=== PATIENT | female | born 1960 | race Caucasian/White ===

== ENCOUNTER 2016-08-27 17:08 | Inpatient (IN) ==
[2016-08-27] MEDS ORDERED: VANCOMYCIN 1 GM/NS 1 GM/250 ML IVPB IV SCH (18:00)
[2016-08-27] MEDS ORDERED: NS 1,000 ML IV ONE (18:32)
[2016-08-27 19:17] LABS: MANUAL DIFF NEEDED? NO
[2016-08-27 19:23] LABS: BASO% 0.3 % (0.0-0.8); EOS# 0.09 X1000 (0.0-0.7); EOS% 0.8 % (0.0-10.0); HEMATOCRIT 32.1 % (37.0-47.0); HEMOGLOBIN 10.9 g/dL (12.0-16.0); IMM GRAN# 0.02 X1000 (0.0-0.04); IMM GRAN% 0.2 % (0.0-0.5); LYMPH# 2.54 X1000 (1.2-3.4); LYMPH% 22.4 % (20.5-51.1); MCH 29.1 PG (27-31); MCV 85.6 FL (81-99); MONO# 1.11 X1000 (0.11-0.59); MONO% 9.8 % (1.7-9.3); MPV 9.7 FL (7.4-10.4); NEUT% 66.5 % (42.2-75.2); PLT 349 X1000 (130-400); RBC 3.75 XMIL (4.2-5.4)
[2016-08-27 19:34] LABS: HEMOGLOBIN A1C 9.6 % (4.8-6.0)
[2016-08-27 19:38] LABS: INR 0.94; PROTIME 9.8 Seconds (9.2-11.7)
[2016-08-27 19:46] LABS: CALCIUM 9.2 mg/dL (8.8-10.2); POTASSIUM 4.2 mmol/L (3.5-5.1)
[2016-08-27] MEDS: NS 1,000 ML IV SCH ×2 (20:05→23:56)
[2016-08-27] MEDS: MERREM 1 GM in NS 50 ML IV SCH (20:05)
[2016-08-27] MEDS: SODIUM CHLORIDE 0.9% INJ SCH (20:06)
[2016-08-27] MEDS: PROTONIX IV SCH (20:06)
[2016-08-27] MEDS: TYLENOL PO PRN (20:06)
--- NOTE | 2016-08-27 20:12 | CONSULTATION ---
DATE OF CONSULTATION: 08/27/2016 CONSULTING PHYSICIAN: Quoc Bravo MD CONSULTING REASON: Diabetic management. HISTORY OF PRESENT ILLNESS: Ms. Foley is a 56-year-old female with a history of hypertension, diabetes mellitus, multiple complications from diabetes, including previous toe amputations, right eye blindness, and diabetic neuropathy, who was [facility] here [facility] with a diabetic ulcer of her right 2nd toe. The symptoms began yesterday. She had some right toe pain and then that progressed to right foot swelling, chills, subjective fever and nausea. She came today to [facility] and Dr. Bravo sent her here for definitive evaluation and IV antibiotics. She has no chest pain. No shortness of breath. She denies any abdominal pain today. There is no vomiting today. She denies any dysuria, but she does report right lower extremity pain and swelling. We are currently awaiting multiple labs and diagnostics Initial vital signs show that she has a temperature of 100.6 degrees with a pulse rate of 118, giving her the diagnosis of sepsis. Blood cultures and lactic acid have been ordered, and we are going to initiate IV fluids per basic sepsis protocol. PAST MEDICAL HISTORY: 1. Diabetes mellitus. 2. Diabetic neuropathy. 3. Right eye blindness. 4. Hypertension. 5. Hyperlipidemia. 6. History of Robertson palsy. 7. GERD. PAST SURGICAL HISTORY: Partial hysterectomy, eye surgery, and toe amputations on the right. SOCIAL HISTORY: The patient denies tobacco, alcohol or drug use. She is single and has no children. She lives with her sister. ALLERGIES: To albuterol, penicillin, and Compazine. HOME MEDICATIONS: Currently being compiled. REVIEW OF SYSTEMS: A 14-point review of systems was obtained and found to be negative with the exception of the HPI. PHYSICAL EXAMINATION: Vital Signs: Blood pressure is 178/58, heart rate 118, inspiratory rate 20, and O2 saturation 96% on room air. Temperature is 100.6 degrees. General: This is a morbidly obese female, lying in hospital bed, and in no acute distress. Neurologic: The patient is awake, alert, oriented. She follows commands without focal deficits. HEENT and Neck: Head is atraumatic and normocephalic. Her left pupil is equal, round, reactive to light. Pupil on the right is fixed secondary to blindness. There is no JVD. Chest: Clear to auscultation bilaterally. Cardiovascular: Regular rate and rhythm. S1 and S2 are noted. No murmurs, gallops, clicks, rubs. Gastrointestinal: Soft, nondistended, nontender. Bowel sounds are positive. Extremities: Right lower extremity, on the right 2nd toe is an ulceration that is on the tip of her toe with ecchymosis and limited breakdown. No eschar tissue is noted. There is some serosanguineous drainage on the dressing. Right lower extremity shows 1+ edema, and pulses are palpable bilaterally. Left lower extremity is without edema, clubbing or cyanosis. DIAGNOSTIC DATA: Currently pending. ASSESSMENT AND PLAN: 1. Sepsis: The patient meets criteria with fever and tachycardia and source of foot ulcer. Blood cultures have been ordered. We are going to order fluids, check a full sets of labs including lactic acid and monitor closely. 2. Diabetic foot ulcer: As above, we will obtain cultures and start broad- spectrum antibiotics. 3. Diabetes mellitus: Check a hemoglobin A1c. Add pattern sugars and sliding scale insulin. Add any home insulin she takes as well. 4. Hypertension: Chronic and stable, continue her home medications. We are going to make sure and check renal function as well as she is on lisinopril and hydrochlorothiazide. 5. Hyperlipidemia: Chronic and stable, continue her home medications and check a lipid panel in the morning. 6. Gastroesophageal reflux disease: Chronic and stable. We will make sure she is on a proton pump inhibitor. 7. Diabetic neuropathy: Chronic and stable, continue her home medications. 8. Deep vein thrombosis prophylaxis. We will add Lovenox pending her renal function. We would like to thank you for this consultation. We will continue to follow along with you. Dictated by TAYLOR Mendoza for Dc Ortez MD cc: TAYLOR Mendoza MD Robert C. Walker, MD [facility]USManjula
[2016-08-27] MEDS: HUMALOG SUBQ SCH (20:23)
[2016-08-27] MEDS ORDERED: PATIENT'S OWN MED BOTH EYES SCH (21:00)
[2016-08-27] MEDS ORDERED: INSULIN PEN NEEDLES ONE (21:25)
[2016-08-27] MEDS: LEVEMIR SUBQ SCH (21:33)
[2016-08-27] MEDS: PRED FORTE 1% OPH SUSPENSION BOTH EYES SCH (21:34)
[2016-08-27] MEDS: OCUFLOX 0.3% OPH SOLUTION BOTH EYES SCH (21:34)
[2016-08-27] MEDS: DESYREL PO SCH (21:35)
[2016-08-27] MEDS: ZANAFLEX PO SCH (21:35)
[2016-08-27] MEDS: PRAVACHOL PO SCH (21:35)
[2016-08-28] MEDS: NS 1,000 ML IV SCH (02:01)
[2016-08-28 02:40] LABS: URINE CULTURE NEEDED? NO; URINE MICRO REVIEW NEEDED? NO; URINE SOURCE CLEAN CATCH
[2016-08-28 02:41] LABS: BILIRUBIN URINE NEGATIVE (NEGATIVE); BLOOD URINE MODERATE (NEGATIVE); COLOR YELLOW; GLUCOSE URINE NEGATIVE (NEGATIVE); LEUKOCYTES URINE NEGATIVE (NEGATIVE); NITRITE URINE NEGATIVE (NEGATIVE); PROTEIN URINE 200 mg/dL (NEGATIVE); SP GRAVITY URINE 1.012; TURBIDITY URINE CLEAR (CLEAR); UROBILINOGEN URINE NORMAL (NORMAL)
[2016-08-28 02:43] LABS: UR EPITHELIAL CELLS <10 /HPF (<10); URINE BACTERIA NEGATIVE /HPF; URINE RBC 20-40 /HPF (<10); URINE WBC <10 /HPF (<10)
[2016-08-28] MEDS: MERREM 1 GM in NS 50 ML IV SCH ×3 (05:48→22:18)
[2016-08-28] MEDS: SYNTHROID PO SCH (06:44)
[2016-08-28] MEDS: HUMALOG SUBQ SCH ×4 (06:44→20:47)
[2016-08-28 06:45] LABS: HEMATOCRIT 32.6 % (37.0-47.0); HEMOGLOBIN 10.8 g/dL (12.0-16.0); MCH 28.8 PG (27-31); MCHC 33.1 g/dL (33-37); MCV 86.9 FL (81-99); MPV 9.7 FL (7.4-10.4); RBC 3.75 XMIL (4.2-5.4)
[2016-08-28] MEDS ORDERED: VANCOMYCIN IV PER PHARMACY MISC SCH (07:00)
[2016-08-28 07:11] LABS: AGAP 13; BUN 23 mg/dL (8-22); CHLORIDE 101 mmol/L (98-107); COSMO 276; HDL 32 mg/dL (45-65); LDL 54 mg/dL; POTASSIUM 3.6 mmol/L (3.5-5.1); SODIUM 136 mmol/L (136-145); TCO2 22 mmol/L (25-35); TRIGLYCERIDES 214 mg/dL (35-135); VLDL 43 mg/dL
[2016-08-28] MEDS: TYLENOL PO PRN ×3 (07:30→21:30)
[2016-08-28] MEDS ORDERED: VANCOMYCIN 1 GM/NS 1 GM/250 ML IVPB IV SCH (09:00)
[2016-08-28] MEDS ORDERED: HYDROCHLOROTHIAZIDE PO SCH ×2 (09:00)
[2016-08-28] MEDS ORDERED: PRINIVIL PO SCH (09:00)
[2016-08-28] MEDS: PRED FORTE 1% OPH SUSPENSION BOTH EYES SCH ×4 (09:49→20:49)
[2016-08-28] MEDS: CYMBALTA PO SCH ×2 (09:49→20:47)
[2016-08-28] MEDS: OCUFLOX 0.3% OPH SOLUTION BOTH EYES SCH ×4 (09:49→20:49)
[2016-08-28] MEDS: LYRICA PO SCH ×3 (10:32→16:25)
--- NOTE | 2016-08-28 11:01 | PROGRESS NOTE ---
DATE: 08/28/2016 SUBJECTIVE: The patient still has some pain in her toe. Subjective fevers overnight. OBJECTIVE: Vital signs: T-max 100.6, 98.5 this morning, pulse 86, blood pressure 151/64, oxygen saturation 97% on room air. General: She is alert. Skin: Warm and dry. Extremities: Toe on her right foot is still swollen and erythematous with some erythema extending to the distal foot but nothing up the leg. Some slight edema in the foot. It is otherwise warm, well perfused. LABS: I reviewed her labs. White count has normalized at 7, this morning, hematocrit is 32, creatinine is 1.3, it was 1.4 yesterday, glucose 96. ASSESSMENT AND PLAN: This is a 56-year-old diabetic female admitted with a diabetic infected toe. She is on antibiotics. This may be gradually improving. Her white count is down at least. She does have some chronic renal insufficiency and I have put in a consult for Pharmacy to help dose her vancomycin appropriately. Otherwise, will continue IV antibiotics and monitor her wound. No plans for surgery at this point. cc: MD Quoc Canales MD
[2016-08-28] MEDS: VANCOMYCIN 1,500 MG in NS 250 ML IV SCH (11:48)
[2016-08-28] MEDS: NON-FORMULARY BULK MED BOTH EYES SCH ×2 (11:48→20:52)
--- NOTE | 2016-08-28 11:59 | Diag Imaging Result Document ---
PROCEDURE NAME: CHEST-PORTABLE - 08/27/2016 PORTABLE CHEST X-RAY: COMPARISON: 11/01/2014. FINDINGS: Lung volumes are critically low with some basilar crowding. Otherwise, no focal infiltrates. Heart size is grossly normal. IMPRESSION: Critically low lung volumes but, otherwise, no acute disease.
--- NOTE | 2016-08-28 15:04 | Diag Imaging Result Document ---
PROCEDURE NAME: FOOT COMPLETE RIGHT - 08/28/2016 X-RAY RIGHT FOOT, 3 VIEWS: COMPARISON: 10/06/2015. FINDINGS: There has been interval amputation of the 2nd toe entirely. Stable transmetatarsal amputation of the 1st toe. There is severe pedal edema. Severe degenerative changes of the midtarsal joints and degenerative heel spurs. There is fracture of the head of the 3rd metatarsal. No bony erosions. IMPRESSION: Fracture of the head of the 3rd metatarsal. Other significant chronic changes as described above.
[2016-08-28 15:09] LABS: PROTEIN CREAT RATIO 3.4; UR CREAT RANDOM 23.5 mg/dL (11-20); UR PROT RANDOM 78.8 mg/dL
[2016-08-28] MEDS: PRAVACHOL PO SCH (20:45)
[2016-08-28] MEDS: PROTONIX IV SCH (20:46)
[2016-08-28] MEDS: SODIUM CHLORIDE 0.9% INJ SCH (20:46)
[2016-08-28] MEDS: DESYREL PO SCH (20:46)
[2016-08-28] MEDS: ZANAFLEX PO SCH (20:46)
[2016-08-28] MEDS: LEVEMIR SUBQ SCH (20:47)
[2016-08-29] MEDS: MERREM 1 GM in NS 50 ML IV SCH (06:06)
[2016-08-29] MEDS: SYNTHROID PO SCH ×2 (06:06→06:58)
[2016-08-29] MEDS: HUMALOG SUBQ SCH ×4 (06:06→21:19)
[2016-08-29] MEDS: TYLENOL PO PRN ×3 (06:51→21:10)
[2016-08-29 07:54] LABS: HEMATOCRIT 29.5 % (37.0-47.0); HEMOGLOBIN 9.7 g/dL (12.0-16.0); MCH 29.2 PG (27-31); MCHC 32.9 g/dL (33-37); MCV 88.9 FL (81-99); MPV 9.7 FL (7.4-10.4); RBC 3.32 XMIL (4.2-5.4)
[2016-08-29 08:25] LABS: CALCIUM 7.9 mg/dL (8.8-10.2); POTASSIUM 4.2 mmol/L (3.5-5.1)
[2016-08-29] MEDS: CYMBALTA PO SCH (09:29)
[2016-08-29] MEDS: NON-FORMULARY BULK MED BOTH EYES SCH ×2 (09:30→21:13)
[2016-08-29] MEDS: LYRICA PO SCH ×3 (09:30→21:10)
[2016-08-29] MEDS: OCUFLOX 0.3% OPH SOLUTION BOTH EYES SCH ×3 (09:30→21:12)
[2016-08-29] MEDS: PRED FORTE 1% OPH SUSPENSION BOTH EYES SCH ×3 (09:35→21:09)
[2016-08-29] MEDS: HUMULIN R SUBQ SCH ×3 (09:48→16:23)
--- NOTE | 2016-08-29 16:05 | PROGRESS NOTE ---
DATE: 08/29/2016 SUBJECTIVE: Doing okay. Some pain in her toe. OBJECTIVE: Vital signs: No fevers. No tachycardia. Blood pressure 173/78. Extremities: Right foot exam shows a swollen toe. Some erythema locally at the toe but not extending up the foot. Some slight edema. LABS: White count is down to 6, hematocrit 39. Wound culture is showing gram-positive cocci. Creatinine is 1.3. Glucoses are elevated in the 200 to 300s. X-ray of the foot shows a fracture of the distal metatarsal of the third metatarsal in the foot. ASSESSMENT AND PLAN: This is a 56-year-old lady with an infected diabetic toe and also metatarsal head fracture. The toe is stable on antibiotics, not worsening. Her white count has improved. No fevers. Will continue with antibiotics and local wound care. I have added Betadine paint. Regarding the metatarsal fracture, will keep her nonweightbearing on that foot for now but given the acute infection, will treat with antibiotics. It is likely she will progress to need an amputation at some point, but not indicated at this time. Will continue to follow along. cc: MD Quoc Canales MD
[2016-08-29] MEDS: NS 1,000 ML IV SCH (16:25)
--- NOTE | 2016-08-29 16:38 | PROGRESS NOTE ---
DATE: 08/29/2016 SUBJECTIVE: Today Ms. Foley refers to be doing fine. She did not really have any complaints. OBJECTIVE: Vital signs: Blood pressure is 173/78, pulse of 91, respirations 16, temperature is 98.7 degrees. General: Ms. Foley is a 56-year-old female. She is in bed. Did not seem to be in distress. HEENT: Mucosa is pink and moist. Anicteric. Acyanotic. Neck: Supple. Chest: Good air entry bilaterally. No crepitations. No rhonchi. Cardiovascular: Regular rate and rhythm. Abdomen: Distended but nontender. Bowel sounds are present. Extremities: The right big toe and second toe are amputated. The third toe continues to have some ulceration and purulent material to the distal par of it. The entire distal of the right foot is warm and tender. DOUBLE ENDING MACHINE OPERATOR: The patient is alert and oriented x4. Distal pulses are present. Patient is legally blind in the right eye due to dense pains cataract. Left eye has a history of retinal detachment and poor diabetic retinopathy. LABORATORY DATA: WBC 6.42, hemoglobin is 9.7, platelet count is 329,000. Chemistry is reviewed. Creatinine is 1.3 which is the same as yesterday. Glucose is 241. Microbiology: The wound culture from the foot is growing MRSA. An x-ray of the foot yesterday shows a fracture of the head of the 3rd metatarsal. They did not see any bony erosions. ASSESSMENT: 1. Sepsis on presentation due to a diabetic foot. 2. Right diabetic foot with suspicion of osteomyelitis to the right 3rd toe. X-ray is not remarkable except for distal fracture. We will do a bone scan to see if it will scrap picker any infection. 3. Diabetes mellitus with presenting A1c of 9.6. We are going to add 3 times regular insulin to the current regimen. 4. Hypertension, uncontrolled. We are going to add amlodipine for better blood pressure control. 5. Severe diabetic neuropathy. Patient continues on gabapentin. 6. Acute on chronic kidney disease. This is stable. 7. Folate deficiency. We will continue with folate supplements. 8. Hypothyroidism with inadequate supplementation. Synthroid has been increased to 50 mcg daily. GENERAL PLAN: We will continue titrating the insulin for better glucose control. We will continue with the current vancomycin since we know the wound is growing MRSA. We would discontinue the meropenem. We are pending the bone scan to give us some answers. I think eventually patient will probably lose her 3rd toes to bone infection. During the course of next week we will involve the ID specialist once we know the bone scan results. cc: MD Quoc Díaz MD
[2016-08-29] MEDS: DESYREL PO SCH (21:09)
[2016-08-29] MEDS: PROTONIX IV SCH (21:09)
[2016-08-29] MEDS: PRAVACHOL PO SCH (21:09)
[2016-08-29] MEDS: ZANAFLEX PO SCH (21:10)
[2016-08-29] MEDS: NORVASC PO SCH (21:11)
[2016-08-29] MEDS: LEVEMIR SUBQ SCH (21:11)
[2016-08-29] MEDS: VANCOMYCIN 1,500 MG in NS 250 ML IV SCH (22:51)
[2016-08-30] MEDS: TYLENOL PO PRN ×2 (06:41→16:47)
[2016-08-30] MEDS: SYNTHROID PO SCH (06:41)
[2016-08-30] MEDS: HUMALOG SUBQ SCH ×4 (06:42→21:37)
[2016-08-30] MEDS: HUMULIN 70/30 SUBQ SCH (06:44)
[2016-08-30 06:58] LABS: HEMATOCRIT 30.1 % (37.0-47.0); HEMOGLOBIN 9.8 g/dL (12.0-16.0); MCH 28.8 PG (27-31); MCHC 32.6 g/dL (33-37); MCV 88.5 FL (81-99); MPV 9.3 FL (7.4-10.4); RBC 3.4 XMIL (4.2-5.4)
[2016-08-30 07:21] LABS: CALCIUM 8.7 mg/dL (8.8-10.2); POTASSIUM 4.7 mmol/L (3.5-5.1)
[2016-08-30] MEDS ORDERED: HUMULIN 70/30 SUBQ SCH ×3 (09:00→21:00)
[2016-08-30] MEDS: PRED FORTE 1% OPH SUSPENSION BOTH EYES SCH ×5 (09:45→22:09)
[2016-08-30] MEDS: NS 1,000 ML IV SCH ×2 (09:45→11:53)
[2016-08-30] MEDS: OCUFLOX 0.3% OPH SOLUTION BOTH EYES SCH ×5 (09:46→22:09)
[2016-08-30] MEDS: HUMULIN R SUBQ SCH ×3 (09:50→16:58)
[2016-08-30] MEDS: NON-FORMULARY BULK MED BOTH EYES SCH ×2 (09:50→21:38)
[2016-08-30] MEDS: CYMBALTA PO SCH (09:50)
[2016-08-30] MEDS: LYRICA PO SCH ×4 (09:50→21:36)
[2016-08-30] MEDS: NORVASC PO SCH ×2 (09:50→21:36)
--- NOTE | 2016-08-30 12:20 | Diag Imaging Result Document ---
PROCEDURE NAME: 3 PHASE BONE SCAN - 08/30/2016 3-PHASE BONE SCAN: The patient was injected with 29.1 mCi of technetium-99m MDP and there is increased flow and blood pool activity to the distal right foot. There is increased static bone activity in what appears to be the distal interphalangeal joint region of the 3rd toe. Compared to the recent radiographs of 08/28/2016, there is apparent erosion of the head of the 3rd metatarsal. There may also be erosion of the distal portion of the middle phalanx which is only visible on the lateral view. These findings were not present on the previous study of 10/06/2015. IMPRESSION: Possibility of osteomyelitis in the metatarsal or phalanges of the 3rd toe is suggested.
--- NOTE | 2016-08-30 16:05 | PROGRESS NOTE ---
DATE: 08/30/2016 SUBJECTIVE: Today Ms. Foley referred to be doing fine. She denies any shortness of breath or any chest pain. OBJECTIVE: Vital signs: Blood pressure is 159/73, pulse is 94, respirations 16, temperature 98.0 degrees. General: Ms. Foley is a 56-year-old female. She was in bed. She did not seem to be in any distress. HEENT: Mucosa is pink and moist. Anicteric. Acyanotic. Neck: Supple. Chest: Good air entry bilaterally. No crepitations. No rhonchi. Cardiovascular: Regular rate and rhythm. Abdomen: Soft, distended, nontender. Bowel sounds are present. Extremities: About 2+ pedal edema. The right big toe and 2nd toe are surgically amputated. The 3rd toe continues to have some ulceration and purulent discharge from the distal part of it. The entire distal foot is still minimally swollen and red. INTEGRATION MANAGER: The patient is alert and oriented. She is legally blind in the right eye due to dense cataract. The left eye has a history of retinal detachment and poor diabetic retinopathy. Of note, the lower extremity also has sensation impairment in a glove stocking pattern. DIAGNOSTIC STUDIES: A bone scan which was done this morning shows that there is an increased static bone activity of what appears to be the distal interphalangeal joint of the 3rd toe. There is erosion of the head of the 3rd metatarsal and there is a possibility of osteomyelitis in the metatarsal or phalanges of the 3rd toe. ASSESSMENT: 1. Sepsis on presentation due to diabetic foot. The patient is now clinically stable. 2. Right diabetic foot with osteomyelitis to the right 3rd toe. Nuclear scan of the toe is consistent with osteomyelitis and I think she will need amputation of the toe and also I would recommend that we involve ID since the patient will probably be needing antibiotics for some time with follow up. 3. Diabetes mellitus with presenting A1c of 9.6. We went up on the patient's insulin requirement. Put her back on her 70/30 with adjusted doses. Will follow up on her glucose and make pertinent adjustments. 4. Hypertension is better controlled today since we added the amlodipine. 5. Severe diabetic neuropathy. Patient continues on gabapentin. 6. Acute on chronic kidney disease. Creatinine continues to be stable. 7. Folate deficiency. We will continue with the folate supplements. 8. Hypothyroidism with inadequate thyroid supplementation. We have gone up on the patient's Synthroid to 50 mcg daily. She will need to repeat the thyroid function test in about 2 weeks. 9. Diabetic retinopathy with legal blindness in the right eye, noted. PLAN: So in general, Ms. Foley is a patient actually of Dr. Bravo that we have been consulted on. The workup has shown that she has osteomyelitis of the 3rd digit of the toe and recommendation will be to amputate. The culture from the wound has shown MRSA, so she will need to be on vancomycin and I have discontinued the other antibiotics. I would recommend ID to see the patient as well, especially for long-term follow up. I will be waiting surgery for their further recommendations. In terms of the diabetes, we have made some changes to her insulin needs and will follow up with her glucose checks. cc: MD Quoc Díaz MD
[2016-08-30] MEDS: SODIUM CHLORIDE 0.9% INJ SCH (21:35)
[2016-08-30] MEDS: PROTONIX IV SCH (21:35)
[2016-08-30] MEDS: PRAVACHOL PO SCH (21:35)
[2016-08-30] MEDS: DESYREL PO SCH (21:36)
[2016-08-30] MEDS: ZANAFLEX PO SCH (21:36)
[2016-08-31] MEDS: SYNTHROID PO SCH (07:21)
[2016-08-31] MEDS: HUMALOG SUBQ SCH ×4 (07:21→21:41)
[2016-08-31] MEDS: HUMULIN 70/30 SUBQ SCH (07:22)
[2016-08-31] MEDS: HUMULIN R SUBQ SCH ×3 (08:13→16:41)
[2016-08-31] MEDS: CYMBALTA PO SCH ×3 (08:13→12:01)
[2016-08-31] MEDS: LYRICA PO SCH ×3 (08:14→21:42)
[2016-08-31] MEDS ORDERED: NAROPIN 0.5% ONE (08:45)
[2016-08-31] MEDS ORDERED: DIPRIVAN 1% ONE (09:45)
[2016-08-31] MEDS ORDERED: FENTANYL ONE (09:45)
[2016-08-31] MEDS ORDERED: LANTUS SUBQ SCH (10:15)
--- NOTE | 2016-08-31 10:17 | OPERATIVE NOTE ---
PROCEDURE DATE: 08/31/2016 PROCEDURE PERFORMED: Amputation, right 3rd toe. SURGEON: Quoc Bravo MD TUMBLE TAILSTOCK TURRET LATHE OPERATOR: Matias Marshall RN PREOPERATIVE DIAGNOSES: 1. Right 3rd toe diabetic toe infection. 2. Osteomyelitis. POSTOPERATIVE DIAGNOSES: 1. Right 3rd toe diabetic toe infection. 2. Osteomyelitis. DESCRIPTION OF PROCEDURE: Satisfactory digital block was achieved, and satisfactory monitoring anesthesia care was established. IV sedation was accomplished. The right foot was prepped and draped in a sterile fashion. We made an incision around the base of the 3rd toe, extending the incision anteriorly proximally. We carried our incision down to the metatarsophalangeal joint and amputated the toe through that joint. We then used a rongeur to take off the distal metatarsal down the viable metatarsal shaft. We removed the surrounding tendinous tissue. We achieved satisfactory hemostasis with electrocautery. We irrigated out the wound copiously. We placed 3-0 Polysorb in the subcutaneous tissue, and then closed the skin with 3-0 nylon simple stitches. Xeroform, sterile 4 x 4's, and a Kerlix were applied. She tolerated it well. She was sent to the recovery room in satisfactory condition. cc: Quoc Bravo MD
[2016-08-31] MEDS ORDERED: NORCO-7.5 PO PRN (10:30)
[2016-08-31] MEDS: VANCOMYCIN 1,500 MG in NS 250 ML IV SCH (11:58)
[2016-08-31] MEDS: NON-FORMULARY BULK MED BOTH EYES SCH ×2 (11:59→21:47)
[2016-08-31] MEDS: OCUFLOX 0.3% OPH SOLUTION BOTH EYES SCH ×4 (11:59→16:44)
[2016-08-31] MEDS: PRED FORTE 1% OPH SUSPENSION BOTH EYES SCH ×4 (11:59→21:42)
[2016-08-31] MEDS: NORVASC PO SCH ×2 (12:01→21:42)
[2016-08-31] MEDS ORDERED: INSULIN PEN NEEDLES ONE (12:07)
[2016-08-31] MEDS: TYLENOL PO PRN ×2 (12:17→21:47)
[2016-08-31] MEDS ORDERED: NS 250 ML ONE (13:03)
[2016-08-31] MEDS ORDERED: ZOFRAN ONE (13:03)
[2016-08-31] MEDS ORDERED: EXTENSION SET 32 IN 4522 ONE (13:03)
[2016-08-31] MEDS ORDERED: XYLOCAINE-MPF 2% ONE (13:03)
[2016-08-31] MEDS ORDERED: ANESTHESIA PB SET 88 IN 5742 ONE (13:03)
--- NOTE | 2016-08-31 13:41 | PROGRESS NOTE ---
DATE: 08/31/2016 SUBJECTIVE: The patient is feeling fine. She denies any complaint today. OBJECTIVE: Vital Signs: Temperature 98.2 degrees, heart rate 91, respiratory rate 16, blood pressure 166/78. O2 saturation 94% on room air. General: This is a 56-year-old, female lying in bed in no acute distress. HEENT: Head is normocephalic and atraumatic. Anicteric sclerae and pale conjunctivae. Mucous membranes moist. Neck supple. No JVD noted. No carotid bruits. No lymphadenopathy. No thyromegaly. Cardiovascular: S1, S2 heard. No murmurs, gallops, or rubs. Regular rate and rhythm. Respiratory: Clear bilaterally to auscultation. No work of breathing or using accessory muscles. Abdomen is soft, nontender to palpation. Bowel sounds present. No organomegaly. Extremities 2+ pitting edema in both lower extremities with the right big toe and 2nd toe surgically amputated. There is some ulceration on the right 3rd toe with purulent discharge. Neurologic: Patient alert and oriented x3. Legally blind in the right eye. Move 4 extremities. LABORATORY DATA: White cell count 7.21, hemoglobin 9.8, hematocrit 30.1, platelets 369,000. No BMP today. ASSESSMENT AND PLAN: 1. Right diabetic foot with osteomyelitis to the right 3rd toe. The patient is going to have surgery today. Patient on IV antibiotics. We are going to consult Dr. Quezada from Infectious Disease to see for how long this patient will need antibiotics and for future followup. 2. Diabetes mellitus, type 2, uncontrolled, definitely with hemoglobin A1c of 9.6. With this 3 times per day insulin is kind of difficult to control it, so we have decided to change basal insulin to Lantus 35 units subcutaneous daily, and we will continue checking glucometers every 4 hours before meals and also at bedtime. 3. Hypertension. Blood pressure is under control. We have added amlodipine to her current treatment, and she is doing fine. 4. Severe diabetic neuropathy. We will continue with gabapentin. 5. Enwmf-fd-pcxmtat kidney disease. Creatinine around baseline and also stable. 6. Folate deficiency. We will continue with Kaplan supplement. 7. Hypothyroidism. Patient is on Synthroid 50 mcg daily. We need to check a TSH in a couple of weeks. 8. Diabetic retinopathy with legal blindness in the right eye, aware. cc: MD Quoc Clark MD
[2016-08-31] MEDS: LANTUS SUBQ SCH (13:45)
[2016-08-31] MEDS: PROTONIX IV SCH (21:41)
[2016-08-31] MEDS: SODIUM CHLORIDE 0.9% INJ SCH (21:41)
[2016-08-31] MEDS: DESYREL PO SCH (21:42)
[2016-08-31] MEDS: ZANAFLEX PO SCH (21:42)
[2016-08-31] MEDS: PRAVACHOL PO SCH (21:42)
[2016-09-01] MEDS: SYNTHROID PO SCH (06:30)
[2016-09-01] MEDS: HUMALOG SUBQ SCH ×4 (06:31→21:18)
[2016-09-01] MEDS: OCUFLOX 0.3% OPH SOLUTION BOTH EYES SCH ×3 (06:35→13:49)
[2016-09-01 06:59] LABS: CALCIUM 8.4 mg/dL (8.8-10.2); POTASSIUM 4.8 mmol/L (3.5-5.1)
[2016-09-01] MEDS: HUMULIN R SUBQ SCH ×2 (07:29→13:48)
--- NOTE | 2016-09-01 09:29 | CONSULTATION ---
DATE OF CONSULTATION: 09/01/2016 CONCLUSION: The patient is status post amputation of the right 3rd toe including partial amputation of the metatarsal. Methicillin-resistant Staph aureus has been isolated from the patient's wound. RECOMMENDATIONS: It appears that all of the infected bone has been resected. The patient's creatinine is 1.2 with a GFR of 47. I think it would be reasonable to continue antibiotics but because of the slight increase in creatinine and decrease in GFR , I have discontinued vancomycin and started the patient on p.o. doxycycline. DISCUSSION: The patient was admitted to the hospital with osteomyelitis of the 3rd toe. Dr. Bravo has amputated that toe and part of the metatarsal. He amputated down to what appeared to be healthy, non-infected bone. LABORATORY STUDIES: Show a CBC with a white count of 7,210, hemoglobin 9.8, and platelet count 369,000. Patient's creatinine is 1.2. The GFR is 47. Culture from the toe grew methicillin- resistant Staph aureus. PAST MEDICAL HISTORY/REVIEW OF SYSTEMS: Eyes and ears: The patient has decreased vision. Hearing is good. Neck: No stiffness. Respiratory: No cough or shortness of breath. Cardiovascular: No chest pain or palpitations. GI: No nausea, vomiting, or diarrhea. : No dysuria or flank pain. Endocrine: The patient has diabetes but not thyroid disease. Neurologic: The patient has decreased sensation in her legs. She is not having seizures. Skin: No rashes. The remainder of the patient's review of systems was completed and was negative. ORNAMENT STITCHER HISTORY: She has never been . She has had a hysterectomy. PREVIOUS HOSPITALIZATIONS AND OPERATIONS: She has had a hysterectomy. Other than that, she cannot think of any other time that she was in the hospital or had surgery. MEDICAL DISEASES: Positive for diabetes mellitus and hypertension. INFECTIOUS DISEASE HISTORY: Positive for UTI. FAMILY HISTORY: Positive for cancer, diabetes mellitus, hypertension, myocardial infarction, and stroke. SOCIAL HISTORY: [place] She is single. She lives with her sister. She is disabled. She has no pets at home. ALLERGIES: The patient has allergies to ProAir, penicillin, and Compazine. The allergy to penicillin is described as hives. HOME MEDICATIONS: Include the following. Farxiga, tolterodine tartrate, Zanaflex, sucralfate, glyburide, Prozac, Pravachol, Lyrica, insulin, Remeron, trazodone, and insulin. PHYSICAL EXAMINATION: Vital Signs: Temperature is 97.9 degrees, pulse 83, respirations 21, blood pressure is 157/72. General: This is a somewhat ill-appearing, middle-aged female who is overweight but other than that she is in no acute distress. Head, eyes, ears , nose, and throat: She can hear my spoken words. She has a decrease in her vision. Neck: No stiffness. Lungs: Clear to auscultation. Cardiovascular: Heart rate is regular. Peripheral pulses are palpable. Abdomen: Soft and nontender. Extremities: The right foot had a dressing around it. The dressing is intact. Neurologic: Patient is awake. She can move her extremities. There is no tremor. She has diminished sensation in her legs. Integument: No rash noted. Thank you for the consult. cc: MD Quoc Artis MD MTDManjula
[2016-09-01] MEDS: LYRICA PO SCH ×4 (09:38→21:19)
[2016-09-01] MEDS: NORVASC PO SCH ×2 (09:38→21:20)
[2016-09-01] MEDS: PRED FORTE 1% OPH SUSPENSION BOTH EYES SCH ×4 (09:39→21:21)
[2016-09-01] MEDS: NON-FORMULARY BULK MED BOTH EYES SCH ×2 (09:39→21:20)
[2016-09-01] MEDS: CYMBALTA PO SCH (09:41)
[2016-09-01] MEDS: TYLENOL PO PRN (09:46)
[2016-09-01] MEDS: DOXYCYCLINE PO SCH ×2 (09:46→21:20)
[2016-09-01] MEDS: LANTUS SUBQ SCH (10:38)
[2016-09-01] MEDS ORDERED: LANTUS SUBQ ONE (10:51)
--- NOTE | 2016-09-01 16:09 | PROGRESS NOTE ---
DATE: 09/01/2016 SUBJECTIVE: Patient is feeling fine. Denies any complaint today. OBJECTIVE: Vital Signs: Temperature 98.1 degrees, heart rate 82, respiratory rate 18, blood pressure 155/68, O2 saturation 98% on room air. General: This is a 56-year-old female lying in bed, in no acute distress. HEENT: Head is normocephalic, atraumatic. Neck: Supple. No JVD noted. Cardiovascular: S1, S2 heard. No murmurs, gallops, or rubs. Regular rate and rhythm. Respiratory: Clear bilaterally to auscultation. No work of breathing or using accessory muscles. Abdomen: Soft, nontender to palpation. Bowel sounds present. No organomegaly. Extremities: 2+ pitting edema in both lower extremities with right foot covered by dressing. Neurological: Patient alert, oriented x3. Legally blind in the right eye. Moves 4 extremities. LABORATORY DATA: The BMP shows a creatinine 1.2 and glucose 268. ASSESSMENT AND PLAN: 1. Right diabetic foot ulcer with osteomyelitis to the right 3rd toe. That toe was surgically removed yesterday by Dr. Bravo. The patient was on vancomycin and we have consulted Dr. Quezada from Infectious Disease. So, he has decided to change the vancomycin to doxycycline 100 p.o. b.i.d. We will continue with same management. 2. Diabetes mellitus type 2. We have mentioned that the hemoglobin A1c is 9.6, so it is uncontrolled diabetes mellitus. While we were giving her 70/30 insulin we are still not able to control the diabetes, so we have switched her to Lantus 35 units subcutaneous daily. We are going to continue checking Accu-Cheks before meals and also at bedtime. 3. Hypertension. Blood pressure is under control. We will continue with the same management. 4. Severe diabetic neuropathy. We will continue with gabapentin. 5. Acute on chronic kidney disease. Creatinine around baseline. We will continue with the same management. 6. Folate deficiency. We will continue with Kaplan supplementation. 7. Hypothyroidism. Stable. We will continue with Synthroid 50 mcg p.o. daily. 8. Diabetic retinopathy with blindness in right eye. Aware. cc: MD Quoc Clark MD
[2016-09-01] MEDS: NS 1,000 ML IV SCH (16:11)
[2016-09-01] MEDS ORDERED: CYMBALTA PO SCH (21:00)
[2016-09-01] MEDS: DESYREL PO SCH (21:19)
[2016-09-01] MEDS: ZANAFLEX PO SCH (21:19)
[2016-09-01] MEDS: PROTONIX IV SCH (21:20)
[2016-09-01] MEDS: PRAVACHOL PO SCH (21:20)
[2016-09-01] MEDS: SODIUM CHLORIDE 0.9% INJ SCH (21:20)
[2016-09-02 05:55] VITALS: BP 152/69
[2016-09-02] MEDS: SYNTHROID PO SCH (06:11)
[2016-09-02] MEDS: HUMALOG SUBQ SCH ×2 (06:13→12:11)
[2016-09-02 06:46] LABS: MANUAL DIFF NEEDED? NO
[2016-09-02 06:57] LABS: BASO% 0.4 % (0.0-0.8); EOS# 0.09 X1000 (0.0-0.7); EOS% 1.6 % (0.0-10.0); HEMATOCRIT 34.6 % (37.0-47.0); HEMOGLOBIN 11.4 g/dL (12.0-16.0); IMM GRAN# 0.03 X1000 (0.0-0.04); IMM GRAN% 0.5 % (0.0-0.5); LYMPH# 1.55 X1000 (1.2-3.4); LYMPH% 27.6 % (20.5-51.1); MCH 28.8 PG (27-31); MCHC 32.9 g/dL (33-37); MCV 87.4 FL (81-99); MONO# 0.55 X1000 (0.11-0.59); MONO% 9.8 % (1.7-9.3); NEUT% 60.1 % (42.2-75.2); PLT 453 X1000 (130-400); RBC 3.96 XMIL (4.2-5.4)
[2016-09-02 07:14] LABS: POTASSIUM 4.8 mmol/L (3.5-5.1)
[2016-09-02] MEDS ORDERED: LANTUS SUBQ SCH (09:00)
[2016-09-02] MEDS: NS 1,000 ML IV SCH (09:57)
[2016-09-02] MEDS: PRED FORTE 1% OPH SUSPENSION BOTH EYES SCH ×2 (09:57→14:11)
[2016-09-02] MEDS: NORVASC PO SCH (09:58)
[2016-09-02] MEDS: LYRICA PO SCH (09:58)
[2016-09-02] MEDS: NON-FORMULARY BULK MED BOTH EYES SCH (09:59)
[2016-09-02] MEDS: DOXYCYCLINE PO SCH (09:59)
--- NOTE | 2016-09-02 13:50 | PROGRESS NOTE ---
DATE: 09/02/2016 SUBJECTIVE: Patient reports feeling fine. Denies any fever, chills, nausea, vomiting. OBJECTIVE: Vital Signs: Temperature 97.7 degrees, heart rate 70, respiratory rate 18, blood pressure 152/69, O2 saturation 97% on room air. General Examination: This is a 56-year-old, female lying in bed, in no acute distress. HEENT: Head is normocephalic, atraumatic. Anicteric sclerae and pale conjunctivae. Mucous membranes moist. Neck: Supple. No JVD noted. No carotid bruits. No lymphadenopathy. No thyromegaly. Cardiovascular: S1, S2 heard. No murmurs, gallops, or rubs. Regular rate and rhythm. Respiratory: Clear bilaterally to auscultation. No work of breathing or using accessory muscles. Abdomen: Soft, nontender to palpation. Bowel sounds present. No organomegaly. Extremity: 2+ pitting edema in both lower extremities with right foot covered by dressing. Neurological: Patient is alert and oriented x3. Able to move 4 extremities. Legally blind in the right eye. LABORATORY DATA: Reviewed. ASSESSMENT AND PLAN: 1. Right diabetic foot ulcer with osteomyelitis of the right 3rd toe as per Dr. Bravo. They have removed that toe yesterday. They are planning to discharge him today. He was on doxycycline 100 mg p.o. b.i.d. We will continue with the same management. 2. Diabetes mellitus type 2. We know that this diabetes is not well controlled. Hemoglobin A1c actually was 9.6. So we are going to continue with Lantus. In this case, and she will need 50 units daily. I think the glucose is still high because of this infection and because of the stress of the surgery so we are going to continue upon discharge that dose of medication and recommended a followup with primary care physician. 3. Hypertension. Blood pressure is under control. We will continue with the same management. 4. Severe diabetic neuropathy. We will continue with gabapentin. 5. Acute on chronic kidney disease. Creatinine is around baseline. We will continue with the same management. 6. Folate deficiency. We will continue with folate supplementation. 7. Hypothyroidism stable. 8. Diabetic retinopathy with blindness in the right eye. Aware. The patient is doing fine so, she is going to be discharged by her primary doctor Dr. Bravo. Thanks for allowing us to participate in the care of this patient. cc: MD Quoc Clark MD
--- NOTE | 2016-09-11 15:41 | HISTORY AND PHYSICAL ---
CHIEF COMPLAINT: Infected right 3rd toe. HISTORY: This is a 56-year-old, diabetic female followed in the wound clinic who presented with infection, erythema of her right 3rd toe. She had already lost her 1st and 2nd toes on that foot. She is admitted for IV antibiotics in anticipation of probable amputation. PAST HISTORY: Pertinent for insulin-dependent diabetes, it is poorly controlled. She also has hypercholesterolemia. MEDICATIONS: At home include Farxiga 10 mg daily, sucralfate 1 g q.i.d., Humulin 70/30 insulin 100 units daily, hydrochlorothiazide 12.5 daily, fluoxetine 40 mg daily, trazodone 100 mg at bedtime, pravastatin 40 mg daily. ALLERGIES: Penicillin, albuterol, and Compazine. SOCIAL HISTORY: She drinks 1 beer a month. She is a former smoker but now does not smoke cigarettes. FAMILY HISTORY: Pertinent for heart disease, hypercholesterolemia, and diabetes. REVIEW OF SYSTEMS: Pertinent for decreased visual acuity. PHYSICAL EXAMINATION: VITAL SIGNS: Afebrile. Heart rate was 118, respiratory rate 20, blood pressure 170/58. Her temperature was 100.6 degrees. LUNGS: Clear. HEART: Regular rate and rhythm. ABDOMEN: Soft. Femoral pulses are present. No pedal pulses are present. She has an absent 1st and 2nd toe on the right foot and erythematous, swollen, draining at the right 3rd toe. No lesions are noted on the left. ASSESSMENT: Diabetic foot infection with infected right 3rd toe. PLAN: Admission and IV antibiotics. cc: Quoc Bravo MD
--- NOTE | 2016-09-11 16:20 | DISCHARGE SUMMARY ---
ADMISSION DATE: 08/27/2016 DISCHARGE DATE: 09/02/2016 PRIMARY DISCHARGE DIAGNOSIS: Diabetic right third toe infection. PRIMARY PROCEDURE: Amputation of the right third toe. HISTORY: This is a 56-year-old with poorly controlled diabetes who presented to the [facility] with a wound infection involving the right third toe. X-rays suggested osteomyelitis. She was maintained on IV antibiotic over the weekend, but by the , it was felt she would be best served with an amputation. She underwent on the . She was maintained on antibiotics in her postoperative course until by the , she was significantly improved and it was felt she could be discharged home on doxycycline. She is to resume her usual medicines at home and take doxycycline 100 mg twice a day. She will return to the [facility]ound Center in followup. cc: Quoc Bravo MD
== END 2016-09-02 14:49 | disposition home or self-care (01) ==
LOC: DIRADM 17:08 → 4N 17:23 → 3N 08-29 16:12
PROVIDERS: ADMIT Surgery; ATTEND Surgery

== ENCOUNTER 2018-07-04 22:41 | Inpatient (IN) ==
[2018-07-04] MEDS ORDERED: HUMULIN R SUBQ ONE (23:19)
[2018-07-04 23:34] LABS: BASO# 0.04 X1000 (0.0-0.2); BASO% 0.4 % (0.0-0.8); EOS# 0.11 X1000 (0.0-0.7); EOS% 1.2 % (0.0-10.0); HEMATOCRIT 30.3 % (37.0-47.0); HEMOGLOBIN 10.2 g/dL (12.0-16.0); IMM GRAN# 0.04 X1000 (0.0-0.04); IMM GRAN% 0.4 % (0.0-0.5); LYMPH# 1.46 X1000 (1.2-3.4); LYMPH% 15.4 % (20.5-51.1); MCH 28.5 PG (27-31); MCHC 33.7 g/dL (33-37); MCV 84.6 FL (81-99); MONO# 0.77 X1000 (0.11-0.59); MONO% 8.1 % (1.7-9.3); MPV 9.8 FL (7.4-10.4); NEUT# 7.04 X1000 (1.4-6.5); NEUT% 74.5 % (42.2-75.2); PLT 411 X1000 (130-400); RBC 3.58 XMIL (4.2-5.4); RDW 13.2 % (11.5-14.5); WBC 9.46 X1000 (4.8-10.8)
[2018-07-05 00:15] LABS: AGAP 13; ALB/GLOB RATIO 1.1; ALBUMIN 3.7 g/dL (3.5-5.0); ALKALINE PHOSPHATASE 125 U/L (32-104); BUN 71 mg/dL (8-22); CALCIUM 8.3 mg/dL (8.8-10.2); CHLORIDE 88 mmol/L (98-107); COSMO 293; CREATININE 3.5 mg/dL (0.5-0.9); ESTIMATED GFR 14; GOT 45 U/L (10-30); GPT 21 U/L (10-36); SODIUM 123 mmol/L (136-145); TCO2 22 mmol/L (25-35); TOTAL BILIRUBIN < 0.15 mg/dL (0.20-1.00)
[2018-07-05 00:16] LABS: GLUCOSE 541 mg/dL (70-104)
--- NOTE | 2018-07-05 01:01 | PROVIDER DOCUMENTATION ---
This chart was entered by Shanelle Boyd Scribe, acting as scribe for Quoc Bowles MD. HPI-Musculoskeletal Pain/Inj - GENERAL Chief Complaint: Fall Stated Complaint: fall Time Seen by Provider: 07/04/18 22:48 Source: patient - HX OF PRESENT ILLNESS-MUSKULOSKELTAL Nature of Presenting Problem: 58 yof presents to ED c/o of fall because became unsteady. Pt states hasn't checked blood sugar in 3 dyas and it was over 500 upon arrival at ED. Pt has hx of DM, Diabetes Retinopathy, HTN, Dementia. Review of Systems - Adult - REVIEW OF SYSTEMS - ADULT Constitutional: reports: no symptoms reported Eyes: reports: no symptoms reported Ears, Nose, Mouth & Throat: reports: no symptoms reported Cardiovascular: reports: no symptoms reported Respiratory: reports: no symptoms reported Gastrointestinal: reports: no symptoms reported Genitourinary: reports: no symptoms reported Musculoskeletal: reports: see HPI, other (right leg/ankle pain) Integumentary: reports: no symptoms reported Neurological: reports: dizziness/vertigo Psychiatric: reports: no symptoms reported Endocrine: reports: no symptoms reported Hematologic/Lymphatic: reports: no symptoms reported Allergic/Immunologic: reports: no symptoms reported All Other Systems: Reviewed and Negative Past History - Adult - PAST MEDICAL HISTORY-ADULT Review of Records: reports: Old Records Reviewed, Nursing Assessment Review, Medications Reviewed Major Childhood Illnesses: reports: denies history Cardiovascular: reports: HTN, hyperlipidemia Respiratory: reports: cancer (pre-cancerous cells) Gastrointestinal: reports: GERD Obstetrical/Gynecological: reports: denies history Genitourinary: reports: denies history Musculoskeletal: reports: denies history Neurological: reports: denies history Psychiatric: reports: depression Endocrine/Immune: reports: Diabetes Other Conditions: reports: denies history - PRIOR SURGERIES/PROCEDURES Surgical/Procedure History: reports: other (not contributory) - PRIOR HOSPITALIZATIONS Prior Hospitalizations: reports: for other non-related - IMMUNIZATION STATUS Childhood Immunizations: See Nurse Assessment Flu Vaccine: See Nurse Assessment - FAMILY HISTORY Family History: other (not contributory) Physical Exam-Injury Related - Physical Exam-Injury Related Initial Vital Signs Reviewed: Yes General Appearance: appears well, alert, no apparent distress Eyes: other (prosthetic right eye) Head, Ears, Nose, Mouth & Throat: normocephalic/atraumatic, other (poor dental hygeine) Neck: non-tender, full range of motion, supple. negative: Brudzinski's sign, carotid bruit Respiratory: chest non-tender, lungs clear, normal breath sounds. negative: crackles, rales, rhonchi Cardiovascular: normal peripheral pulses, regular rate, rhythm. negative: bradycardia, tachycardia Lymphatic: no adenopathy. negative: axilla node tender Back Exam: normal inspection, no CVA tenderness, no vertebral tenderness Extremity: abnormal NV exam, deformity (right big toe amputation), swelling, tenderness, other (fracture of the right distal tibia/fibia). 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 II-XII nml as tested, no motor/sensory deficits Psych/Mental Status: normal mood/affect, normal thought content Progress - PLAN OF CARE/RESULTS Progress/Plan/Lab Results: Vital Signs - 8 hr 07/04/18 23:01 07/04/18 23:02 07/04/18 23:06 Temperature 99.2 F Pulse Rate 74 74 74 Respiratory Rate 20 22 18 Blood Pressure 142/65 142/65 O2 Sat by Pulse Oximetry 97 97 98 07/04/18 23:10 07/04/18 23:20 07/04/18 23:30 Temperature Pulse Rate 72 70 70 Respiratory Rate 18 19 17 Blood Pressure O2 Sat by Pulse Oximetry 97 96 97 07/04/18 23:40 07/04/18 23:50 07/05/18 00:00 Temperature Pulse Rate 74 70 70 Respiratory Rate 12 23 16 Blood Pressure O2 Sat by Pulse Oximetry 98 97 97 07/05/18 00:10 07/05/18 00:20 07/05/18 00:30 Temperature Pulse Rate 70 70 71 Respiratory Rate 15 16 17 Blood Pressure O2 Sat by Pulse Oximetry 99 97 98 07/05/18 00:38 07/05/18 00:40 Temperature Pulse Rate 71 72 Respiratory Rate 16 18 Blood Pressure 142/65 O2 Sat by Pulse Oximetry 97 99 Laboratory Results - last 24 hr 07/04/18 07/04/18 07/04/18 23:05 23:22 23:22 WBC 9.46 RBC 3.58 L Hgb 10.2 L Hct 30.3 L MCV 84.6 MCH 28.5 MCHC 33.7 RDW Std Deviation 13.2 Plt Count 411 H MPV 9.8 Immature Gran % (Auto) 0.4 Neut % (Auto) 74.5 Lymph % (Auto) 15.4 L [place] % (Auto) 8.1 Eos % (Auto) 1.2 Baso % (Auto) 0.4 Immature Gran # (Auto) 0.04 Neut # (Auto) 7.04 H Lymph # (Auto) 1.46 [place] # (Auto) 0.77 H Eos # (Auto) 0.11 Baso # (Auto) 0.04 Sodium 123 L Potassium 6.0 H* Chloride 88 L Carbon Dioxide 22 L Anion Gap 13 BUN 71 H Creatinine 3.5 H Estimated GFR/1.73 m2 14 BUN/Creatinine Ratio 20 Glucose 541 H* POC Glucose 500 H D Calculated Osmolality 293 Calcium 8.3 L Total Bilirubin < 0.15 L AST 45 H ALT 21 Alkaline Phosphatase 125 H Total Protein 7.0 Albumin 3.7 Globulin 3.3 Albumin/Globulin Ratio 1.1 Orders Category Date Time Status Nursing- Obtain EKG once Care 07/04/18 23:26 Active OCL Splint DIRECTED Care 07/04/18 23:51 Active ANKLE 2 VIEWS RIGHT [RAD] Stat Exams 07/04/18 22:49 Taken CHEST-PORTABLE [RAD] Stat Exams 07/05/18 00:51 Ordered CBC WITH ELECTRONIC DIFF [HEME] Stat Lab 07/04/18 23:22 Completed COMPREHENSIVE METABOLIC PANEL [CHEM] Stat Lab 07/04/18 23:22 Completed UA NIMS W/REFLEX CULT [URINALYSIS] Stat Lab 07/04/18 23:17 Uncollected 0.9% Sodium Chloride Inj [Ns] 1,000 ml Med 07/05/18 01:00 Ordered IV 250 mls/hr Insulin Human Regular [Humulin R] Med 07/04/18 23:19 Discontinued 10 unit SUBQ NOW ONE Result Diagrams: 07/04/18 23:22 07/04/18 23:22 - REASSESSMENT Reassessment #1 Time Reassessed: 00:57 Status: unchanged (patient has ankle fx and very poorly controlled diabetes. Bun/creat elevated, K 6.0) - EKG 1 Time of EKG reading by physician:: 23:40 EKG Read and Signed by:: Quoc Bowles EKG Interpretation (*Must complete 3 of following elements*): Abnormal Rate: 70 Rhythm: sinus [place]: left ST Wave: non-specific ST changes - XRAY 1 XRAY Study: Ankle (right and left malleolar fx withminmal dislocation) - CONSULTS/PCP/HOSPITALIST Notification #1 *Consult/PCP/Hospitalist*: Dr Coronel Time Discussed: 00:57 Consult Disposition: Admit Departure - Departure Date of Disposition Decision: 07/05/18 Time of Disposition Decision: 00:59 DIAGNOSIS: Diabetes mellitus with hyperosmolarity, Renal failure (ARF), acute on chronic Ankle fracture, bimalleolar, closed Qualifiers: Encounter type: initial encounter Laterality: right Qualified Code(s): S82.841A - Displaced bimalleolar fracture of right lower leg, initial encounter for closed fracture Disposition: ADMITTED INPATIENT 09 Certified Medical Emergency: Emergent Condition: Stable - Critical Care Note This patient required my direct & personal management of CC.: No Attestation - Physician/ RICKY Attestation Patient care was provided by Advanced Practice Provider:: No The physician spent face to face time with patient:: Yes Advanced Practice Provider documentation review:: Supervising physician onsite and consulted in the evaluation and care of this patient. The physician did have a face to face encounter with the patient. This chart was documented by the indicated scribe, (Shanelle Boyd Scribe) and accurately reflects the services I performed and decisions made by me, Quoc Bowles MD, as attested by the provider's signature.
[2018-07-05] MEDS ORDERED: KAYEXALATE PO ONE (01:10)
[2018-07-05] MEDS ORDERED: CALCIUM GLUCONATE 1 GM in NS 50 ML IV ONE (01:10)
[2018-07-05 01:16] LABS: URINE SOURCE CATH
[2018-07-05] MEDS: NS 1,000 ML IV SCH ×2 (01:20→06:00)
[2018-07-05 01:21] LABS: BILIRUBIN URINE NEGATIVE (NEGATIVE); BLOOD URINE SMALL (NEGATIVE); COLOR YELLOW; GLUCOSE URINE >1000 mg/dL (NEGATIVE); KETONE URINE NEGATIVE (NEGATIVE); LEUKOCYTES URINE NEGATIVE (NEGATIVE); NITRITE URINE NEGATIVE (NEGATIVE); PROTEIN URINE 200 mg/dL (NEGATIVE); SP GRAVITY URINE 1.002; TURBIDITY URINE HAZY (CLEAR); UR EPITHELIAL CELLS <10 /HPF (<10); URINE BACTERIA NEGATIVE /HPF; URINE RBC <10 /HPF (<10); URINE WBC <10 /HPF (<10); UROBILINOGEN URINE NORMAL (NORMAL)
[2018-07-05 01:59] LABS: HEMOGLOBIN A1C 10.1 % (4.8-6.0)
[2018-07-05 02:02] LABS: INR 0.84; PROTIME 12.2 Seconds (11.0-16.0); PTT 30.9 Seconds (22.3-41.8)
[2018-07-05 02:10] LABS: MAGNESIUM 2.7 mg/dL (1.5-2.7)
[2018-07-05 02:23] LABS: CK INDEX 2.9 (0.0-2.5); CK-MB 5.33 ng/mL (0.0-5.0)
[2018-07-05] MEDS ORDERED: TYLENOL PO PRN (05:26)
[2018-07-05] MEDS ORDERED: NORCO-7.5 PO PRN (05:27)
[2018-07-05] MEDS: HUMULIN R SUBQ SCH ×3 (06:05→23:56)
[2018-07-05] MEDS ORDERED: NS 1,000 ML IV SCH (06:45)
[2018-07-05] MEDS ORDERED: HUMULIN R SUBQ SCH (07:00)
--- NOTE | 2018-07-05 07:06 | Diag Imaging Result Doc PS360 ---
EXAM: FOOT COMPLETE RIGHT 07/05/2018 HISTORY: Right foot wound, Hx of right foot osteomyelitis TECHNIQUE: Right foot three views COMMENT: There is a fracture of the distal fibula and the medial malleolus with dislocation of the ankle mortise on the medial side of the talar dome. Some bony detail is obscured by overlying splint. There is fine tarsus spurring of the calcaneus. There has been previous amputation of the distal half of the first metatarsal and of the second and third toes at the metatarsophalangeal joints. The appearance of the forefoot has not changed significantly since 04/27/2018. The fracture dislocation of the ankle was present on 07/04/2018 however the degree of dislocation is worse. IMPRESSION: Fracture and dislocation of the ankle. Electronically signed by Kevin Waldron 07/05/2018 7:03 AM
--- NOTE | 2018-07-05 07:08 | Diag Imaging Result Doc PS360 ---
EXAM: CHEST-PORTABLE 07/05/2018 HISTORY: diabetes, ankle fx, pre o TECHNIQUE: AP portable at 0114 COMMENT: The inspiration is suboptimal. There is some platelike opacity in the lingula suggesting atelectasis. This was not present on 04/27/2018. IMPRESSION: Lingular atelectasis. Poor inspiration. Electronically signed by Kevin Waldron 07/05/2018 7:06 AM
[2018-07-05 07:33] LABS: BASO# 0.02 X1000 (0.0-0.2); BASO% 0.2 % (0.0-0.8); EOS% 1.1 % (0.0-10.0); HEMATOCRIT 29.9 % (37.0-47.0); IMM GRAN# 0.03 X1000 (0.0-0.04); IMM GRAN% 0.3 % (0.0-0.5); LYMPH# 1.32 X1000 (1.2-3.4); LYMPH% 14.2 % (20.5-51.1); MCH 28.7 PG (27-31); MCHC 33.4 g/dL (33-37); MCV 85.9 FL (81-99); MONO# 1.03 X1000 (0.11-0.59); MONO% 11.1 % (1.7-9.3); MPV 9.6 FL (7.4-10.4); NEUT# 6.82 X1000 (1.4-6.5); NEUT% 73.1 % (42.2-75.2); PLT 380 X1000 (130-400); RBC 3.48 XMIL (4.2-5.4); RDW 13.2 % (11.5-14.5); WBC 9.32 X1000 (4.8-10.8)
[2018-07-05 07:38] LABS: ALBUMIN 3.5 g/dL (3.5-5.0); CALCIUM 8.9 mg/dL (8.8-10.2); CREATININE 3.3 mg/dL (0.5-0.9); PHOSPHORUS 5.5 mg/dL (2.7-4.5); POTASSIUM 4.6 mmol/L (3.5-5.1)
--- NOTE | 2018-07-05 07:44 | Diag Imaging Result Doc PS360 ---
ANKLE 2 VIEWS RIGHT - 07/04/2018 INDICATION: fracture TECHNIQUE: COMPARISON: 04/27/2018 FINDINGS: There is displaced fracture of the lateral and medial malleolus. There is moderate widening of the ankle mortise. There is subluxation of the talus laterally by about one third. IMPRESSION: Displaced bimalleolar ankle fracture. Electronically signed by Stephen Delgado 07/05/2018 7:42 AM
--- NOTE | 2018-07-05 07:58 | EKG Report ---
Test Performed on : 07/05/2018 07:48:30 AM Test Reason : Hyperkalemia,Elevated CK Blood Pressure : / mmHG Vent. Rate : 089 BPM Atrial Rate : 089 BPM P-R Int : 164 ms QRS Dur : 098 ms QT Int : 388 ms P-R-T Axes : 058 -10 041 degrees QTc Int : 472 ms Normal sinus rhythm. Normal ECG When compared with ECG of 04-JUL-2018 23:40, (Unconfirmed) No significant change was found Confirmed by Tano PONCE, Esa Pratt ([id number]) on 07/06/2018 7:09:10 AM
[2018-07-05 08:13] LABS: CK-MB 6.25 ng/mL (0.0-5.0)
--- NOTE | 2018-07-05 08:31 | HISTORY AND PHYSICAL ---
PRIMARY CARE PROVIDER: [*]in [place]. COAT EXAMINER: Dr. Eben Pena. CHIEF COMPLAINT: Fall from a standing position with right ankle pain. HISTORY OF PRESENT ILLNESS: Miss Foley is a 58-year-old female with a past medical history most notable for diabetes mellitus, diabetic neuropathy, retinopathy and nephropathy, chronic kidney disease. She was also recently admitted to our facility in April of 2018 for MRSA sepsis because of a right diabetic foot abscess. She also did have a right-sided foot abscess, cellulitis and osteomyelitis. She did receive an 8-week treatment course of daptomycin and has just recently finished this. Patient states that for quite a while now that she has been having twitching and shaking in her bilateral upper and lower extremities when she goes to ambulate. She states tonight that she had gotten up and was trying to reach up in a cabinet to get something and was having her reported twitching and shaking and did feel her knees buckle and give way under her. She also reports that she has had some increased weakness as well. She states that she does have dizziness but states this occurs when she goes from a sitting to a standing position and begins to walk. The patient states that she did fall. She reports that she did hit her head though denied any loss of consciousness. She is alert and oriented to person, place, time and situation. She is answers questions and following commands appropriately. There was no obvious trauma noted to her head or face. Though the patient did complain of right ankle pain and she did have swelling noted to this extremity according to ER notes upon arrival. Patient denied any headache, dizziness or near syncope at the time of her fall. She denies any chest pain, shortness of breath or cough. She denies any abdominal pain, nausea, vomiting or diarrhea. Patient states that she had a bowel movement [id number]. She did report that she occasionally has problems with constipation. She denies any hematochezia or melena. She denies any dysuria or urinary frequency. Patient did report that she has some decreased sensation in her bilateral lower extremities secondary to her neuropathy. She denies any increased swelling. The patient did have multiple sores noted on her left lower extremity of various stages of healing. There were some scabs noted to these as well. When the patient was questioned about this, she states that she does get nervous and has anxiety at times and does pick at her leg. She also does have a right foot plantar diabetic foot wound. She says this is the most recent one they have been treating and was almost closed up, though she reported that it had been recently draining. At this time, it does appear from what the patient describes that it has increased in size to approximately the size of a quarter. Patient denies any body fever, body aches or chills. She also denies any recent changes to her medications or any new medications. Upon evaluation in the ER, the patient was noted to have a bimalleolar fracture that have some slight dislocation noted. An OCL splint was placed in the ER. Though they did draw some labs which did reveal the patient does have an acute kidney injury with creatinine of 3.5, BUN 71 and GFR of 14. The patient does have chronic kidney disease, though it does appear that her baseline creatinine most recently has been 1.9 to 2.2. She did have hyperkalemia with a potassium of 6. She also has uncontrolled diabetes mellitus. Her glucose was 541 upon arrival. Hemoglobin was 10.1. She also has elevated CKs of 181, CK index of 2.9, and CK MB of 5.33. Though her troponin was negative. At this time, the patient will be admitted for further treatment and evaluation of her right ankle fracture, right diabetic foot wound, acute kidney injury and hyperkalemia. REVIEW OF SYSTEMS: A 14 point review of systems was conducted with the patient and all were negative except for the pertinent positives mention above in HPI. PAST MEDICAL HISTORY: 1. Diabetes mellitus type 2. 2. Diabetic neuropathy. 3. Diabetic retinopathy. 4. Diabetic nephropathy. 5. 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 6. Hypertension. 7. Hyperlipidemia. 8. History of Robertson's Palsy. 9. GERD. 10.History of benign bladder tumor. 11.Thyroid disease. 12.Anxiety. 13.Anemia of chronic inflammation. 14.Recent admission and treatment for MRSA and sepsis because of a right diabetic foot abscess, cellulitis and osteomyelitis. PAST SURGICAL HISTORY: 1. Removal of a benign bladder tumor. 2. Partial hysterectomy. 3. Right eye surgery. 4. Amputation of the first three toes secondary to diabetic foot wound and osteomyelitis. SOCIAL HISTORY: The patient is a former smoker. She did smoke intermittently for approximately 7 years and quit in her 20s. She has no known alcohol or illicit drug use. She is single. She has no children. She does live with her sister here in [place]. FAMILY HISTORY: Positive for her father having history of diabetes mellitus, though she does not know any of his other past medical history. Her mother had a history of diabetes mellitus, hypertension and heart disease. ALLERGIES: Penicillin, albuterol and Compazine. HOME MEDICATIONS: 1. Lipitor 40 mg p.o. daily. 2. Doxepin 10 mg p.o. at bedtime. 3. Cymbalta 90 mg p.o. daily. 4. Ferrous sulfate 325 mg p.o. b.i.d. 5. Folic acid 0.4 mg p.o. daily. 6. Gabapentin 300 mg p.o. b.i.d. 7. Humulin 70/30 60 units subcutaneous q a.m. 8. Humulin 70/30 20 units subcutaneous q p.m. 9. Labetalol 200 mg p.o. b.i.d. 10.Zantac 150 mg p.o. b.i.d. 11.Zanaflex 4 mg p.o. q.8 hours. 12.Oleptro extended release 100 mg p.o. at bedtime. DIAGNOSTIC STUDIES: White blood cell count 9460, hemoglobin 10.2, hematocrit 30.3, platelet count 411,000. PT 12.2, INR 0.84. Sodium 123, potassium 6, chloride 88, serum bicarb 22, BUN 71, creatinine 3.5, GFR 14, glucose 541. Hemoglobin A1c is 10.1. Calcium 8.3. Magnesium 2.7. Liver function tests are within normal limits except for AST, and alkaline phosphatase is slightly elevated. CK 181, CK index 2.9, CK MB 5.33. Troponin less than 0.01. Urinalysis was obtained and did show positive for protein, glucose and blood; though was negative for nitrites, leukocytes, white blood cells and bacteria. Serum acetone level was negative. IMAGIN. Chest x-ray showed lingular atelectasis and poor inspiration. This is per Radiology. 2. Ankle x-ray did show a bimalleolar ankle fracture with some dislocation as well. We are awaiting official radiologist's read. 3. We are awaiting a right foot x-ray as well. 4. EKG showed normal sinus rhythm at a rate of 70 with a QTc of 470. The patient's EKG did show some slight T waves as well. PHYSICAL EXAMINATION: VITAL SIGNS: Temperature 99.2 degrees Fahrenheit, heart rate 75, respirations 16, blood pressure 146/64. Oxygen saturation is 96% on room air. GENERAL: Miss Foley is a pleasant 58-year-old, female. She was resting on the ER stretcher. She was in no acute distress. She was awake, alert and oriented and able to answers questions appropriately. HEENT: Head is atraumatic, normocephalic. The pupil in the left eye is 3 mm, it is equal and round and reactive. The patient does have an artificial eye noted to the right. Oral mucosa is slightly dry. Oropharynx is clear. NECK: Supple. Trachea is midline. CARDIOVASCULAR: Normal S1, S2. No murmur, rub or gallop appreciated. Regular rate and rhythm. PULMONARY: The patient has symmetrical chest expansion bilaterally. Lungs are clear to auscultation in bilateral full chin. ABDOMEN: Soft, nontender. Does not appear to be distended, though the patient does have protuberant abdomen noted. Bowel sounds are present in all four quadrants were normoactive. EXTREMITIES: No cyanosis, clubbing or edema noted. The patient does have an OCL splint noted to her right lower extremity due to her ankle fracture. The patient does have some decreased sensation in bilateral lower extremities secondary to neuropathy, though she did have good capillary refill which is less than 3 distally to her OCL splint. All other extremities were within normal limits. Two-plus pulses in bilateral radial pulses as well as her left pedal pulse. INTEGUMENTARY: The patient's skin is pink, warm and dry. The patient does have multiple sores noted to her left lower extremity of various stages of healing. Some did have scabbing noted. The patient states that these occur due to her being nervous and anxious and picking at her leg. She also does have a quarter-size diabetic foot wound noted to the plantar surface of her right foot. This did have some purulent drainage noted. NEUROLOGIC: The patient is alert and oriented to person, place, time and situation. The patient does have some decreased sensation due to diabetic neuropathy, though admits there are no other focal neurological deficits noted. She does have some generalized weakness. The patient did have some slight asterixis upon examination of her bilateral hands. ASSESSMENT AND PLAN: 1. Right bimalleolar fracture and dislocation of the ankle. An OCL splint was placed by the ER physician in the ER. We have placed a consult with Dr. Evangelist Garcia with Orthopedic Surgery and we will let him evaluate the patient. We will await his evaluation and further recommendations for management. 2. Fall from a standing position. The patient states that she did not trip and fall. She felt as though her knees buckled which caused her to fall. The patient has been reporting some generalized weakness as well. She does take several medications that could effect this. She has also reported that she has been having twitching and shaking motions in her bilateral upper and lower extremities with ambulation. Secondary to this as well as her acute kidney injury, we will hold many of her medications and have reduced the doses of others. We will continue to follow this closely and see if her symptoms improve. 3. Acute on chronic kidney disease. The patient's baseline creatinine does appear to be 1.8-2.1, though at this time her creatinine is 3.5. She has a GFR of 14. This may be secondary to some volume depletion. The patient also did have hyperkalemia as well as with potassium of 6. This was treated with 10 units of insulin IV as well as calcium gluconate 1 gm, and we did give her 15 grams of Kayexalate. We will recheck renal profile later on this morning. The patient's EKG did have some slight peaked T waves but other than this there did not appear to be any other acute abnormalities. It was normal sinus rhythm with a rate of 70 with a QTc of 470. We will implement some IV fluid hydration. We will avoid nephrotoxic medications and renally dose medications as necessary. As previously mentioned, we have held or adjusted the doses of many of her medicines given this. We will continue to follow closely. 4. Uncontrolled diabetes mellitus. Patient's hemoglobin A1c was 10.1. We have placed her on sliding-scale Regular insulin per protocol. We will continue to follow her response to this and adjust if necessary. 5. Hypertension. We will continue her labetalol. 6. Deep venous thrombosis prophylaxis. At this time, she will be provided with SCD to the left lower extremity only given her fracture of her right ankle. We will hold anticoagulants at this time until she is evaluated by Orthopedic Surgery. 7. Right plantar diabetic foot wound. The patient does have a recent history of having MRSA sepsis because of a right diabetic foot abscess, cellulitis and osteomyelitis. She did just finish an 8-week treatment course of daptomycin. We have obtained a wound culture. We have ordered blood culture to be obtained. The patient does not have any leukocytosis noted at this time. She has not been reporting any fever, body aches or chills. She has been followed by Dr. Quezada for this. We have placed a consult with him and we will await his evaluation and further recommendations for management. We will continue to follow closely and await culture results. We have ordered also a right foot x-ray. The patient has been placed in [facility] with telemetry given her acute kidney injury with hyperkalemia. If this does improve, she may be able to be triaged down to the surgical floor. Vital signs q.4 hours. Strict intake and output. Finger-stick blood sugars a.c. and at bedtime. We will repeat an EKG in the morning as well as a CBC, renal profile, and a series of cardiac enzymes. Further orders and recommendations pending hospital course, diagnostic studies and physician evaluation. Dictated by TAYLOR Brown for Yuri Coronel MD cc: MD Eben Sorensen MD Richard S. Sharp, MD
[2018-07-05] MEDS: ZANTAC PO SCH (09:26)
[2018-07-05] MEDS: TRANDATE PO SCH ×2 (09:26→23:57)
--- NOTE | 2018-07-05 09:27 | EKG Report ---
Test Performed on : 07/04/2018 11:40:01 PM Test Reason : ED. NO EKG ORDER FOR MUSE Blood Pressure : / mmHG Vent. Rate : 070 BPM Atrial Rate : 070 BPM P-R Int : 140 ms QRS Dur : 088 ms QT Int : 436 ms P-R-T Axes : 045 -26 032 degrees QTc Int : 470 ms Normal sinus rhythm. Inferior infarct (cited on or before 12-AUG-2014) Possible Anterior infarct , age undetermined Abnormal ECG When compared with ECG of 12-AUG-2014 13:34, Borderline criteria for Anterior infarct are now present Unconfirmed Result
--- NOTE | 2018-07-05 10:39 | Diag Imaging Result Doc PS360 ---
EXAM: ANKLE COMPLETE RIGHT 07/05/2018 HISTORY: ankle dislocation TECHNIQUE: Right ankle three views COMMENT: There is still dislocation of the ankle mortise with the plafond lying almost totally medial of the talar dome. The distal tibia is also slightly displaced anteriorly with respect to the talus. IMPRESSION: Persistent dislocation. Electronically signed by Kevin Waldron 07/05/2018 10:37 AM
--- NOTE | 2018-07-05 11:47 | INFECTIOUS DISEASE PROGRESS NO ---
DATE: 07/05/2018 PRESENT ILLNESS: Ms. Foley has previously been treated by us for a methicillin-resistant Staphylococcus aureus cellulitis to her right foot with osteomyelitis as well as an associated bacteremia. She completed her treatment one week ago and comes in this time due to a fall at home with a right ankle dislocation. The patient also has an oral candidiasis which she has not been treating as ordered. MEDICATIONS: She has been receiving doxycycline 100 mg by mouth daily as a low- dose prophylaxis due to the presence of metal in her left arm. She was also ordered nystatin swish and swallow at home which she said she did not take regularly. PHYSICAL EXAMINATION: Vital Signs: Temperature is 99.3, pulse rate 88, respiratory rate 16, blood pressure 134/59, O2 saturation is 99% on room air. General: This is a chronically ill- appearing, middle-aged female. She is lying in the bed, currently in mild distress due to pain to her right lower extremity. HEENT: Atraumatic, normocephalic. Oral mucous membranes are pink and dry. She does have a white coating on her tongue. There is also a glass eye on the right. Conjunctivae are pink. Neck: Supple. Trachea is midline. Cardiovascular: Heart rate and rhythm are regular. Normal sinus rhythm on the monitor. Respiratory: Lung sounds are clear to auscultation bilaterally. Diminished in the bases. Abdomen: Soft, obese, and nontender. Bowel sounds are active. Extremities: There is an Tom wrap splint in place to her right lower extremity. Toes are visible and there are old amputations noted as well as the same wound which has a nickel-sized wound with a small amount of yellow drainage, but no erythema or edema. Neurologic: She is awake, alert, and oriented. Able to move her extremities in the bed but the right lower extremity has a lot of pain. No tremors noted. LABORATORY AND X-RAY: Today, her white count is 9.32, hemoglobin 10, platelet count 380,000. Creatinine is 3.3. GFR is 14. Creatine kinase is 305. Hepatic enzymes from yesterday showed a total bilirubin of less than 0.15, AST 45, ALT 21, and alkaline phosphatase 125. Blood cultures and a right foot culture are pending. Foot x-ray shows fracture and dislocation of the ankle. The chest x-ray showed some lingular atelectasis and poor inspiration. ASSESSMENT AND PLAN: Ms. Foley has just finished treatment for methicillin -resistant Staphylococcus aureus osteomyelitis and right foot cellulitis with an associated bacteremia, and is now admitted with a dislocated right ankle. She is NPO for the possibility of ankle reduction once the patient is seen by ortho. The open area to her foot has been cultured. At this point, there does not seem to be any infection to the right foot. Her white count is normal, but she does have a low-grade temperature. We will follow culture results, and start her back on her daily, low-dose prevention using doxycycline 100 mg by mouth daily. She does have an oral candidiasis, so I have ordered Mycelex Troches to be provided 5 times a day. These plans have been discussed with and recommended by Dr. Quezada. COMORBIDITIES: For Ms. Foley include diabetes mellitus with diabetic retinopathy, nephropathy, and neuropathy, gastroesophageal reflux disease, anemia of chronic disease, and acute kidney injury on chronic kidney disease. Dictated by TAYLOR Santiago for Taj Quezada MD This chart was documented by, TAYLOR Santiago and accurately reflects the services performed, treatment plan and medical decisions as attested by the providers signature Taj Quezada MD. cc: Taj Quezada MD [facility]
[2018-07-05] MEDS: DOXYCYCLINE PO SCH (13:20)
[2018-07-05] MEDS: MYCELEX TROCHE PO SCH ×2 (13:20→23:56)
--- NOTE | 2018-07-05 13:53 | Diag Imaging Result Doc PS360 ---
ANKLE COMPLETE RIGHT - 07/05/2018 1:29 PM INDICATION: post reduction films TECHNIQUE: Three views COMPARISON: 10:21 AM FINDINGS: There is persistent dislocation at the tibiotalar joint, with the talus posteriorly. IMPRESSION: Persistent dislocation of the tibiotalar joint. Electronically signed by Stephen Delgado 07/05/2018 1:50 PM
[2018-07-05] MEDS: NORCO-5 PO PRN (14:19)
--- NOTE | 2018-07-05 15:26 | CONSULTATION ---
DATE OF CONSULTATION: 07/05/2018 REASON FOR CONSULTATION: Right ankle pain after a fall. HISTORY OF PRESENT ILLNESS: Ms. Foley is a 58-year-old female with a past medical history of diabetes mellitus type 2, peripheral neuropathy, retinopathy, chronic kidney disease, plantar wound right foot, with recent MRSA and sepsis. That was in April 2018. She was diagnosed with osteomyelitis of the foot at that point. She had a great toe amputation. She has been on 8 weeks of IV daptomycin. She just finished that and is now on oral antibiotics. Apparently, sometime during the day yesterday she reached up to the cabinet and got a little shaky. Her leg gave way and she fell to the ground. Apparently, she did hit her head, but denies any dizziness, lightheadedness or loss of consciousness. She is appropriate. I do not see any trauma anywhere other than the ankle. When she came to the [facility] Emergency Room she was found to have a bimalleolar ankle fracture that was dislocated. They placed an OCL splint in the ER. Orthopedics has been consulted for management of the right ankle fracture. REVIEW OF SYSTEMS: A 10-point review of system was conducted and negative except for what was mentioned above in the HPI. PAST MEDICAL HISTORY: 1. Diabetes mellitus type 2. 2. Peripheral neuropathy. 3. Retinopathy. 4. Right eye blindness. 5. Primary essential hypertension. 6. Hyperlipidemia. 7. Osteomyelitis of the right foot. 8. Recent MRSA. 9. Gastroesophageal reflux disease. 10. Anxiety. PAST SURGICAL HISTORY: Amputation of the 1st, 2nd and 3rd toes related to diabetic foot wound, osteomyelitis. SOCIAL HISTORY: The patient is a former smoker. She denies alcohol or illicit drug use. She lives with her sister in [place]. FAMILY HISTORY: Noncontributory. ALLERGIES: Penicillin, albuterol and Compazine. HOME MEDICATIONS: 1. Lipitor 40 mg p.o. daily. 2. Doxepin 10 mg p.o. at bedtime. 3. Cymbalta 90 mg p.o. daily. 4. Ferrous sulfate 325 mg p.o. b.i.d. 5. Folic acid 0.4 mg p.o. daily. 6. Gabapentin 300 mg p.o. b.i.d. 7. Humulin 70/30 10 units subcutaneously q.a.m. 8. Humulin 70/30 20 units subcutaneously q.a.m. 9. Labetalol 200 mg p.o. b.i.d. 10. Zantac 150 mg p.o. b.i.d. 11. Zanaflex 4 mg p.o. q.8 hours. IMAGING: A right ankle film reviewed by Dr. Izaguirre does show a bimalleolar ankle fracture with lateral dislocation. PHYSICAL EXAMINATION: Vital Signs: Pulse 92, respirations 19, blood pressure 134/59. She is 96% on 2 L nasal cannula. Neurologic: She is alert and oriented x 3. No focal deficits. HEENT: Head is atraumatic, normocephalic. Pupils are equal, round, reactive to light. Cardiovascular: Regular rate and rhythm. Pulmonary: Breathing is even, unlabored. Abdomen: Appears nondistended. Extremities: She does have scattered wounds to the bilateral lower extremities. There is no erythema or drainage. She does have a plantar wound on the right foot. There is no erythema or drainage coming from that. She has also developed some skin breakdown on the medial side where that medial malleolus has been tenting against the skin. There is no surrounding erythema there. She does have greatly reduced sensation to the entire foot. ASSESSMENT AND PLAN: Right bimalleolar ankle fracture with dislocation. PLAN: I did try to reduce the ankle earlier today. The patient tolerated it well. I did feel like we got a good reduction. However, after placing the splint and repeating postreduction x- rays, the ankle has dislocated again. It is dislocated both laterally and posteriorly. We do feel that it would be best with this ankle being so unstable to get it fixed today. She has been n.p.o. She is not on any blood thinners. For her best chance of healing this and preventing any further wound breakdown, I do feel that it would be best to do an ORIF of the ankle and get it in a better position. I did talk to Infectious Disease who has been following her because of the osteomyelitis and right plantar wound. The Infectious Disease nurse practitioner did feel that would be okay to go and proceed with surgical fixation. They plan on her being on oral antibiotics long-term. We will go ahead and obtain consents and get her ready for surgery. Dictated by TAYLOR Christina for Quoc Izaguirre MD cc: TAYLOR Christina MD [facility]
[2018-07-05 15:37] LABS: CK INDEX 1.2 (0.0-2.5); CK-MB 4.92 ng/mL (0.0-5.0)
[2018-07-05] MEDS ORDERED: DIPRIVAN 1% ONE (16:46)
[2018-07-05] MEDS ORDERED: XYLOCAINE-MPF 2% ONE (16:47)
[2018-07-05] MEDS ORDERED: KEFZOL 2 GM/D5W 2 GM/50 ML IVPB ONE (17:17)
[2018-07-05] MEDS ORDERED: MARCAINE 0.5% PF ONE (17:35)
[2018-07-05] MEDS ORDERED: DILAUDID ONE (18:34)
[2018-07-05] MEDS ORDERED: OFIRMEV 1000 MG/ISOTONIC SOLN 1,000 MG/100 ML BOTTLE ONE (18:34)
[2018-07-05] MEDS ORDERED: ZOFRAN ONE (18:38)
[2018-07-05] MEDS ORDERED: HUMULIN R SUBQ ONE (19:45)
[2018-07-05] MEDS ORDERED: MORPHINE IV PRN (19:46)
[2018-07-05] MEDS ORDERED: HALDOL IV PRN (19:46)
[2018-07-05] MEDS ORDERED: OXY IR PO PRN (19:46)
[2018-07-05] MEDS ORDERED: ZOFRAN IV PRN (19:46)
[2018-07-05] MEDS ORDERED: NARCAN ONE (20:25)
[2018-07-05] MEDS: COLACE PO SCH (23:57)
--- NOTE | 2018-07-06 01:22 | OPERATIVE NOTE ---
PROCEDURE DATE: 07/05/2018 PREOPERATIVE DIAGNOSIS: Right displaced bimalleolar ankle fracture dislocation. POSTOPERATIVE DIAGNOSIS: Right displaced bimalleolar ankle fracture dislocation. PROCEDURE: Open reduction internal fixation right bimalleolar ankle fracture dislocation. SURGEON: Quoc Izaguirre MD. AUTOCLAVE OPERATOR: Иван Muñoz RN. ANESTHESIA: General. IV FLUIDS: Was from 400 mL lactated Ringer's. ESTIMATED BLOOD LOSS: 30 mL. TOURNIQUET TIME: Was 55 minutes at 300 mmHg. COMPLICATIONS: None. INDICATION: The patient is a pleasant 58-year-old female with multiple medical problems, including diabetes with previous toe amputations. She has had a chronic plantar wound on the distal forefoot. She is status post fall last evening sustaining a right ankle fracture dislocation. The patient underwent provisional reduction and recommendation then to proceed with open reduction, internal fixation was offered. Risks and benefits of surgery were explained, including the risks of anesthesia, , bleeding, infection, failure to relieve pain, postoperative stiffness, nerve injury, blood clots, and other imponderables. Given the patient's history with chronic osteo in her foot, she is certainly at increased risk for an open infection in lower leg. The patient and family were instructed about her increased risk. Given the patient's findings, recommendation to proceed with open reduction, internal fixation was offered. Risks and benefits of surgery were explained, including the risks of anesthesia, , bleeding, infection, failure to relieve pain, postoperative stiffness, nerve injury, blood clots, and other imponderables. All questions answered. The patient and family wished to proceed with surgery. DETAILS OF OPERATION: The patient taken to the operating room, placed supine on the operating table. Once adequate anesthesia was obtained, patient's right lower extremity was prepped and draped in sterile fashion. Esmarch was used to exsanguinate the right lower extremity. The tourniquet was inflated to 350 mmHg. The chronic plantar ulceration was isolated with an OpSite prior to Esmarch elevation of tourniquet. A lateral incision was made along the distal fibula. The incision was carried down through subcutaneous tissue. The elevation was then performed both proximally and distally at the fracture site. It was debrided. Provisional reduction was then obtained. A 7-hole, 1/3 tubular plate was then placed. It was first secured with a locking screw distally. A bicortical screw was then placed proximally, however, had very poor quality bone and inadequate purchase, therefore, superior to this locking screws were placed. Appeared to have good fixation. The bicortical screw was exchanged for a locking screw. A subsequent locking screw was placed distal to the fracture site as well. A total of 4 locking screws on proximal fracture site, and 2 locking screws on distal fracture site. Appeared to have good positioning. Attention turned to the medial malleolus. An anteromedial incision was made. The incision was carried through subcutaneous tissue. The fracture site was then identified. Patient did have elevation of the periosteum and a portion of the bone was displaced medially. The fracture site was copiously irrigated and debrided. Provisional reduction was then obtained. Two parallel K-wires were placed. They were exchanged for malleolar screws. After this was performed, the large periosteal flap posteromedially was reapproximated with an injection periosteum. After this had been performed, final C-arm visualization revealed good alignment of the fracture both AP, lateral, and oblique projections. There was no evidence of syndesmotic instability. Wounds were copiously irrigated. Vicryl 2-0 was then placed and used subcutaneous medially, followed by skin thom. Patient had very poor quality tissue laterally and was unable to perform a subcu suture and proceed with skin thom. Marcaine 0.25% without epinephrine was injected locally both medial and laterally. A Betadine-soaked Adaptic followed by 4x4s, Webril, and a posterior splint with a stirrup was applied to the right lower extremity. Patient tolerated the procedure well. There were no complications. Transferred to recovery room in stable condition. cc: Quoc Izaguirre MD
[2018-07-06] MEDS ORDERED: KEFZOL 2 GM/D5W 2 GM/50 ML IVPB IV SCH (02:00)
[2018-07-06] MEDS: TYLENOL PO SCH ×3 (03:12→17:33)
[2018-07-06] MEDS: HUMULIN R SUBQ SCH ×2 (06:35→07:30)
[2018-07-06] MEDS: XARELTO PO SCH (06:36)
--- NOTE | 2018-07-06 06:38 | PROGRESS NOTE ---
DATE: 07/06/2018 SUBJECTIVE: The patient is a pleasant 58-year-old female, who is one day status post ORIF for right ankle fracture-dislocation. She is currently resting comfortably. PHYSICAL EXAMINATION: Splint is intact. LABS: Pending. IMPRESSION: Postoperative day #1 status post ORIF right bimalleolar ankle fracture dislocation. PLAN: At this point, we will maintain the patient on nonweightbearing right lower extremity. Rotary Cutter Operator will be consulted to assist with discharge planning. cc: Quoc Izaguirre MD
[2018-07-06 06:44] LABS: HEMATOCRIT 27.9 % (37.0-47.0); HEMOGLOBIN 8.8 g/dL (12.0-16.0)
[2018-07-06 07:25] LABS: CALCIUM 8.3 mg/dL (8.8-10.2); CREATININE 3.1 mg/dL (0.5-0.9); POTASSIUM 5.4 mmol/L (3.5-5.1)
[2018-07-06] MEDS: MYCELEX TROCHE PO SCH ×5 (07:29→22:40)
[2018-07-06] MEDS: NS 1,000 ML IV SCH ×3 (09:13→22:46)
[2018-07-06] MEDS: PERIDEX MT SCH ×2 (09:13→22:44)
[2018-07-06] MEDS: DOXYCYCLINE PO SCH (09:14)
[2018-07-06] MEDS: TRANDATE PO SCH ×2 (09:14→22:39)
[2018-07-06] MEDS: FERROUS SULFATE PO SCH ×2 (09:14→22:42)
[2018-07-06] MEDS: ZANTAC PO SCH (09:14)
[2018-07-06] MEDS ORDERED: MAXIPIME 2 GM in NS 100 ML IV SCH (09:15)
[2018-07-06] MEDS ORDERED: MAXIPIME IV SCH (09:20)
[2018-07-06] MEDS ORDERED: NS IV SCH (09:20)
[2018-07-06] MEDS ORDERED: KAYEXALATE PO ONE (10:46)
[2018-07-06] MEDS: MAXIPIME 1 GM in NS 50 ML IV SCH ×2 (11:02→17:32)
[2018-07-06] MEDS: FOLIC ACID PO SCH (11:05)
--- NOTE | 2018-07-06 11:37 | INFECTIOUS DISEASE PROGRESS NO ---
DATE: 07/06/2018 PRESENT ILLNESS: The patient is status post open reduction and internal fixation of a right bimalleolar ankle fracture dislocation. The culture from the patient's right foot is growing gram- negative rods, and on Gram stain gram-positive cocci were seen. I called the microbiology laboratory today and they re-looked at the Gram stain slides, and the animal technician , Ms. rAgueta, says that she does not see any gram-positive cocci. 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 The patient also has oral candidiasis. MEDICATIONS: The patient is receiving Ancef as per protocol for surgery. Currently, the patient is on cefazolin. The patient also is taking mycelex troches. PHYSICAL EXAMINATION: Vital Signs: Temperature is 99.8 degrees, pulse 94, respirations 16, blood pressure 149/65. General: This is a lethargic middle-aged female. She is in no acute distress. Head/eyes/ears/nose/throat: She has white patches on her tongue. There is no drainage from the nose or ears. She can hear my spoken words. She can see near objects. Neck: No stiffness. Lungs: Clear to auscultation. Cardiovascular: Heart rate is regular. Abdomen : Soft and nontender. Neurologic: The patient is lethargic. There is no tremor. LABORATORY AND X-RAY: As mentioned above, the patient's culture from surgery is growing gram- negative rods. On Gram stain, gram-positive cocci were seen, but when I asked the animal technician today, Ms Argueta, to re-look at that slide, she said she does not see any gram- positive cocci. The patient's hemoglobin and hematocrit are 8.8 and 27.9 respectively, creatinine is 3.1, the patient's GFR is 16. ASSESSMENT AND PLAN: Patient is status post surgery on her ankle. The gram- negative rods are growing from the patient's foot. I read Dr. Izaguirre's operative report, and it does not sound like there was any infection in the operative area yesterday. For now, I am going to switch the patient from Ancef to cefepime in order to provide coverage for the gram- negative rods isolated from the patient's foot. The patient also will finish the postoperative antibiotic treatment with cefepime. The patient is taking mycelex troches for his oral candidiasis. COMORBIDITIES: The patient's comorbidities include diabetes mellitus, gastroesophageal reflux disease, anemia of chronic disease, and acute kidney injury superimposed on chronic kidney disease. cc: Taj Quezada MD MTDD
[2018-07-06] MEDS: HUMULIN 70/30 SUBQ SCH ×2 (11:50→23:05)
[2018-07-06] MEDS: HUMALOG SUBQ SCH ×3 (11:51→23:04)
--- NOTE | 2018-07-06 15:07 | PROGRESS NOTE ---
DATE: 07/06/2018 SUBJECTIVE: The patient reports feeling fine. The pain in the right ankle is definitely under control. OBJECTIVE: Vital Signs: Temperature 99.8 degrees, heart rate 94, respiratory rate 16, blood pressure 149/65, O2 saturation 99% 2 L nasal cannula. General Examination: This is a chronically ill-appearing 58-year-old female, lying in bed, in no acute distress. HEENT: Head is normocephalic, atraumatic. Neck: No JVD noted. No carotid bruits. No lymphadenopathy. No thyromegaly. Cardiovascular: S1, S2 heard. No murmurs, gallops, or rubs. Regular rate and rhythm. Respiratory: Clear bilaterally to auscultation. No work of breathing or using accessory muscles. Abdomen: Soft, nontender to palpation. Bowel sounds present. No organomegaly. Extremities: No clubbing, cyanosis, or edema. Right ankle covered by dressing, dry and clean. Neurological: Patient alert and oriented x3. Moves 4 extremities. LABORATORY DATA: Hemoglobin 8.8, hematocrit 27.9. ASSESSMENT AND PLAN: 1. Right bimalleolar fracture status post open reduction, internal fixation performed by Dr. Izaguirre. The patient reports feeling fine. Pain is under control. We will continue following recommendations from Orthopedics. At this point, patient is not weightbearing from that extremity. 2. Acute on chronic kidney disease. Creatinine is around his baseline. We will continue to monitor. 3. Hyperkalemia. we will provide 1 dose of Kayexalate today, and we will check BMP tomorrow. 4. Uncontrolled diabetes mellitus, type 2. We will restart home doses of insulin 70/30 and sliding scale insulin as well. 5. Hypertension. Labetalol has been continued. 6. Deep vein thrombosis prophylaxis. The patient is on Xarelto 10 mg p.o. daily. 7. Right plantar diabetic foot wound. The patient has been evaluated by ID, and they said at this point, she does not need to get any medication except doxycycline that she was getting for prevention of secondary infection. cc: Aldo Raymond MD
[2018-07-06] MEDS: COLACE PO SCH (22:39)
[2018-07-07] MEDS: MAXIPIME 1 GM in NS 50 ML IV SCH (02:59)
[2018-07-07] MEDS: TYLENOL PO SCH ×3 (02:59→18:41)
[2018-07-07] MEDS: HUMALOG SUBQ SCH ×4 (06:13→21:32)
[2018-07-07 06:32] LABS: BASO# 0.02 X1000 (0.0-0.2); BASO% 0.2 % (0.0-0.8); EOS# 0.06 X1000 (0.0-0.7); EOS% 0.7 % (0.0-10.0); HEMOGLOBIN 8.2 g/dL (12.0-16.0); IMM GRAN# 0.02 X1000 (0.0-0.04); IMM GRAN% 0.2 % (0.0-0.5); LYMPH# 1.38 X1000 (1.2-3.4); LYMPH% 15.5 % (20.5-51.1); MCH 27.9 PG (27-31); MCHC 31.5 g/dL (33-37); MCV 88.4 FL (81-99); MONO# 1.14 X1000 (0.11-0.59); MONO% 12.8 % (1.7-9.3); MPV 9.2 FL (7.4-10.4); NEUT# 6.26 X1000 (1.4-6.5); NEUT% 70.6 % (42.2-75.2); PLT 347 X1000 (130-400); RBC 2.94 XMIL (4.2-5.4); RDW 13.2 % (11.5-14.5); WBC 8.88 X1000 (4.8-10.8)
[2018-07-07 06:53] LABS: CALCIUM 8.6 mg/dL (8.8-10.2); CREATININE 2.5 mg/dL (0.5-0.9); POTASSIUM 4.4 mmol/L (3.5-5.1)
[2018-07-07] MEDS: CYMBALTA PO SCH (08:01)
[2018-07-07] MEDS: LIPITOR PO SCH (08:01)
[2018-07-07] MEDS: MYCELEX TROCHE PO SCH ×5 (08:01→21:31)
[2018-07-07] MEDS: FERROUS SULFATE PO SCH ×3 (08:01→21:32)
[2018-07-07] MEDS: ZANTAC PO SCH (08:01)
[2018-07-07] MEDS: PERIDEX MT SCH ×2 (08:02→21:32)
[2018-07-07] MEDS: DOXYCYCLINE PO SCH (08:02)
[2018-07-07] MEDS: FOLIC ACID PO SCH (08:02)
[2018-07-07] MEDS: TRANDATE PO SCH ×2 (08:02→21:31)
[2018-07-07] MEDS: HUMULIN 70/30 SUBQ SCH ×2 (08:03→21:33)
[2018-07-07] MEDS: XARELTO PO SCH (08:05)
[2018-07-07] MEDS ORDERED: LEVAQUIN PO SCH (09:15)
--- NOTE | 2018-07-07 10:25 | INFECTIOUS DISEASE PROGRESS NO ---
DATE: 07/07/2018 PRESENT ILLNESS: Ms. 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 At this point, her foot is growing a Klebsiella pneumoniae. She has most recently had a right ankle fracture with open reduction, internal fixation by Dr. Izaguirre. There is also an oral candidiasis. MEDICATIONS: She was started on cefepime for gram-negative coverage. We will change this today. She is taking doxycycline 100 mg p.o. daily as a prophylactic dose for her previous MRSA bacteremia. She has also been on Mycelex rakan for her oral candidiasis. PHYSICAL EXAMINATION: Vital Signs: Temperature is 98.9 degrees, pulse rate 92 , respiratory rate 18, blood pressure 156/55, O2 saturation 98% on room air. General: This is a chronically ill- appearing, middle-aged female. She is lying in bed, currently in no acute distress. HEENT: Atraumatic, normocephalic. Oral mucous membranes are pink and moist with some white patches noted to the tongue. Conjunctivae are pale. 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 Neck: Supple. Trachea is midline. Cardiovascular: Heart rate and rhythm are regular. Normal sinus rhythm on the monitor. Respiratory: Lung sounds are clear to auscultation, diminished in the bases. Abdomen: Soft, obese, and nontender. Bowel sounds are active. Extremities: There is an Tom wrap splint in place to her right lower extremity, which is clean, dry, and intact. Neurologic: She is mildly lethargic, but arousable and appropriate. Able to move all extremities in the bed with help of a trapeze bar. LABORATORY AND X-RAY: Today her white count is 8.88, hemoglobin 8.2, platelet count 347,000. Creatinine is 2.5, GFR is 20. Her right foot has grown a Klebsiella pneumoniae. Blood cultures have shown no growth for 48 hours. No imaging reports today. ASSESSMENT AND PLAN: Ms. Foley had an open reduction and internal fixation of her right ankle. The wound to her foot has grown a Klebsiella pneumoniae. This is the previous wound that she had with her osteomyelitis. We will discontinue Cefepime, and start her on Levaquin 250 mg by mouth daily due to acute kidney injury on chronic kidney disease. We will also continue her doxycycline for prophylaxis once daily due to the previous MRSA bacteremia with metal in her left forearm. We will also continue the Mycelex Troches for her oral candidiasis which is improving slightly. These plans have been discussed with and recommended by Dr. Quezada. COMORBIDITIES: Diabetes mellitus, gastroesophageal reflux disease, anemia of chronic disease, acute kidney injury on chronic kidney disease. Dictated by TAYLOR Santiago for Taj Quezada MD This chart was documented by, TAYLOR Santiago and accurately reflects the services performed, treatment plan and medical decisions as attested by the providers signature Taj Quezada MD. cc: Taj Quezada MD [facility]PITALManjula
[2018-07-07] MEDS: NS 1,000 ML IV SCH (11:32)
--- NOTE | 2018-07-07 14:05 | PROGRESS NOTE ---
DATE: 07/07/2018 SUBJECTIVE: The patient reports feeling fine. Pain in the right ankle is definitely under control. Denies any fever, denies any chills. OBJECTIVE: Vital Signs: Temperature 99.3 degrees, heart rate 94, respiratory rate 20, blood pressure 173/54, and O2 saturation 96% on room air. General: On examination, this is a chronically ill-appearing 58-year-old female lying in bed, in no acute distress. HEENT: Head is normocephalic, atraumatic. Mucous membranes dry. Neck: Supple. No JVD noted. No carotid bruits. No lymphadenopathy. No thyromegaly. Cardiovascular: S1 and S2 heard. No murmurs, gallops, or rubs. Regular rate and rhythm. Respiratory: Clear bilaterally to auscultation. No work of breathing, no using accessory muscles. Abdomen: Soft, nontender to palpation. Bowel sounds present. No organomegaly. Extremities: No clubbing, cyanosis, or edema. Right ankle covered by dressing, dry and clean. Neurological: Patient alert and oriented x3. Moves 4 extremities. LABORATORY DATA: White cell count 8.98, hemoglobin 8.2, hematocrit 26, platelets 347,000. BMP shows creatinine 2.5. ASSESSMENT AND PLAN: 1. Right bimalleolar fracture, status post open reduction internal fixation. That surgery was performed by Dr. Izaguirre whose help is appreciated. At this point, the patient is not weightbearing from that extremity. We will follow recommendations from him. Physical therapy is also working with this patient. 2. Acute on chronic kidney disease. Creatinine today is home 2.5, which is much better in comparing with 3.1 yesterday. We will continue to monitor basic metabolic panel daily. 3. Hyperkalemia, resolved. 4. Uncontrolled diabetes mellitus type 2. We will continue with insulin 70/30 and sliding scale insulin Humalog as well. 5. Hypertension. The patient is having some readings with blood pressure in the 160s and 170s. Antihypertensive medication, she is receiving labetalol twice daily 200 mg. I think at this point I will start amlodipine and see how this patient does. 6. Deep vein thrombosis prophylaxis. Patient is on Xarelto. 7. Right plantar diabetic foot wound. The patient has been evaluated by Infectious Disease, and they are continuing doxycycline, and they have added Levaquin 250 mg p.o. daily. 8. Disposition. We will monitor this patient over the weekend. We have talked with the patient about going to rehab. She agreed with the plan. We have consulted the child protective services social worker. Hopefully, next Tuesday, if okay with Orthopedics, we will be sending her to rehab facility. cc: Aldo Raymond MD
--- NOTE | 2018-07-07 14:59 | PROGRESS NOTE ---
DATE: 07/07/2018 SUBJECTIVE: The patient is a pleasant 58-year-old female who is 2 days status post ORIF of right bimalleolar ankle fracture dislocation. She is currently resting comfortably. OBJECTIVE: On physical exam, splint is intact. LABORATORY DATA: Hemoglobin and hematocrit are 8.2 and 26.0. IMPRESSION: Postoperative day #2 status post open reduction and internal fixation of right bimalleolar ankle fracture dislocation. PLAN: At this point, the patient be maintained nonweightbearing to the right lower extremity. She is stable from an orthopedic standpoint. I will have the patient follow up in the office in 2 weeks for staple removal. cc: Quoc Izaguirre MD
[2018-07-07] MEDS: COLACE PO SCH (21:31)
[2018-07-07] MEDS: NORVASC PO SCH (21:31)
[2018-07-08] MEDS: ZOFRAN IV PRN (01:44)
[2018-07-08] MEDS: TYLENOL PO SCH ×4 (01:44→18:24)
[2018-07-08] MEDS: XARELTO PO SCH (05:33)
[2018-07-08] MEDS: HUMALOG SUBQ SCH ×3 (06:14→17:05)
[2018-07-08 07:23] LABS: BASO# 0.03 X1000 (0.0-0.2); BASO% 0.4 % (0.0-0.8); EOS# 0.05 X1000 (0.0-0.7); EOS% 0.6 % (0.0-10.0); HEMOGLOBIN 8.6 g/dL (12.0-16.0); LYMPH# 1.05 X1000 (1.2-3.4); LYMPH% 12.6 % (20.5-51.1); MCH 28.1 PG (27-31); MCHC 31.9 g/dL (33-37); MCV 88.2 FL (81-99); MONO# 0.78 X1000 (0.11-0.59); MONO% 9.4 % (1.7-9.3); MPV 9.6 FL (7.4-10.4); NEUT# 6.41 X1000 (1.4-6.5); PLT 386 X1000 (130-400); RBC 3.06 XMIL (4.2-5.4); RDW 13.3 % (11.5-14.5); WBC 8.32 X1000 (4.8-10.8)
[2018-07-08 07:35] LABS: CALCIUM 8.7 mg/dL (8.8-10.2); CREATININE 1.9 mg/dL (0.5-0.9); POTASSIUM 4.1 mmol/L (3.5-5.1)
[2018-07-08] MEDS ORDERED: INSULIN PEN NEEDLES ONE (07:57)
[2018-07-08] MEDS: NS 1,000 ML IV SCH ×2 (09:11→09:16)
[2018-07-08] MEDS: CYMBALTA PO SCH (09:12)
[2018-07-08] MEDS: FOLIC ACID PO SCH (09:12)
[2018-07-08] MEDS: PERIDEX MT SCH ×2 (09:12→20:47)
[2018-07-08] MEDS: FERROUS SULFATE PO SCH ×2 (09:13→20:47)
[2018-07-08] MEDS: DOXYCYCLINE PO SCH (09:13)
[2018-07-08] MEDS: MYCELEX TROCHE PO SCH ×5 (09:13→20:47)
[2018-07-08] MEDS: TRANDATE PO SCH ×2 (09:14→20:46)
[2018-07-08] MEDS: ZANTAC PO SCH (09:14)
[2018-07-08] MEDS: NORVASC PO SCH ×2 (09:14→20:47)
[2018-07-08] MEDS: LIPITOR PO SCH (09:14)
[2018-07-08] MEDS: HUMULIN 70/30 SUBQ SCH ×2 (09:15→20:47)
[2018-07-08] MEDS: LEVAQUIN PO SCH (09:17)
--- NOTE | 2018-07-08 14:54 | PROGRESS NOTE ---
DATE: 07/08/2018 SUBJECTIVE: The patient reports feeling fine. Pain in the right ankle is under control. Denies any other complaints. OBJECTIVE: Vital Signs: Temperature 98.3, heart rate 80, respiratory rate 20, blood pressure 146/795, O2 saturation 100% on room air. Genera Examination: This is a chronically ill appearing, 58-year-old female, lying in bed in no acute distress. HEENT: Head is normocephalic, atraumatic. Neck: Supple. No JVD noted. No carotid bruits. No lymphadenopathy. No thyromegaly. Cardiovascular exam: S1, S2 heard. No murmurs, gallops, or rubs. Regular rate and rhythm. Respiratory exam: Clear bilaterally to auscultation. No work of breathing or using accessory muscles. Abdomen: Soft, nontender to palpation. Bowel sounds present. No organomegaly. Extremities: No clubbing, cyanosis, or edema. Peripheral pulses present in both legs. Right ankle covered by dressing, dry and clean. Neurological exam: Patient alert and oriented x3. Moves 4 extremities. LABORATORY DATA: White cell count 8.32, hemoglobin 8.6, hematocrit 27.0, platelets 386. BMP remarkable for creatinine 1.9, BUN 35, glucose 142. ASSESSMENT AND PLAN: 1. Right bimalleolar fracture status post open reduction and internal fixation. Orthopedics, Dr. Izaguirre with more help appreciated. From his standpoint, the patient is not weightbearing from that extremity, and she can be discharged from an orthopedic standpoint. Appreciated the help. 2. Acute on chronic kidney disease stage III. Creatinine continues to improve; yesterday was 2.5, today is 1.9. We will continue to monitor basic metabolic panel daily. 3. Uncontrolled diabetes mellitus type 2. After we have restarted insulin 70/30 on her and sliding scale insulin with Humalog, she is feeling much better. We will continue with the same management. 4. Hypertension. Blood pressure goes up and down between 140s and 170s. I think at this point we will continue with amlodipine, albuterol and think we will add hydralazine to his current treatment. In this case, it is going to be 25 mg oral every 8 hours. 5. Deep vein thrombosis prophylaxis. Patient on Xarelto. 6. Right plantar diabetic foot wound. At this point, Infectious Disease who has been following this patient decided to continue with doxycycline and add Levaquin 250 mg oral daily. We will continue following recommendations from them. cc: Aldo Raymond MD
[2018-07-08] MEDS: COLACE PO SCH (20:46)
[2018-07-08] MEDS: NORCO-5 PO PRN (20:47)
[2018-07-08] MEDS: APRESOLINE PO SCH (22:30)
[2018-07-09] MEDS: HUMALOG SUBQ SCH ×5 (00:59→22:26)
[2018-07-09] MEDS: TYLENOL PO SCH ×3 (02:33→18:48)
[2018-07-09] MEDS: NORCO-5 PO PRN ×2 (02:44→20:40)
[2018-07-09] MEDS: XARELTO PO SCH (05:44)
[2018-07-09] MEDS: APRESOLINE PO SCH ×3 (05:44→20:47)
[2018-07-09 06:51] LABS: BASO# 0.02 X1000 (0.0-0.2); BASO% 0.2 % (0.0-0.8); EOS# 0.11 X1000 (0.0-0.7); EOS% 1.1 % (0.0-10.0); HEMATOCRIT 26.9 % (37.0-47.0); HEMOGLOBIN 8.5 g/dL (12.0-16.0); IMM GRAN# 0.02 X1000 (0.0-0.04); IMM GRAN% 0.2 % (0.0-0.5); LYMPH# 1.67 X1000 (1.2-3.4); LYMPH% 17.1 % (20.5-51.1); MCH 27.7 PG (27-31); MCHC 31.6 g/dL (33-37); MCV 87.6 FL (81-99); MONO# 0.97 X1000 (0.11-0.59); MONO% 9.9 % (1.7-9.3); NEUT# 6.96 X1000 (1.4-6.5); NEUT% 71.5 % (42.2-75.2); PLT 461 X1000 (130-400); RBC 3.07 XMIL (4.2-5.4); RDW 13.1 % (11.5-14.5); WBC 9.75 X1000 (4.8-10.8)
[2018-07-09 07:12] LABS: CALCIUM 8.9 mg/dL (8.8-10.2); CREATININE 2.1 mg/dL (0.5-0.9); POTASSIUM 4.1 mmol/L (3.5-5.1)
[2018-07-09] MEDS: FOLIC ACID PO SCH (09:33)
[2018-07-09] MEDS: DOXYCYCLINE PO SCH (09:33)
[2018-07-09] MEDS: NORVASC PO SCH ×2 (09:33→20:42)
[2018-07-09] MEDS: MYCELEX TROCHE PO SCH ×5 (09:33→20:43)
[2018-07-09] MEDS: ZANTAC PO SCH (09:33)
[2018-07-09] MEDS: LIPITOR PO SCH (09:33)
[2018-07-09] MEDS: LEVAQUIN PO SCH (09:34)
[2018-07-09] MEDS: HUMULIN 70/30 SUBQ SCH ×3 (09:34→22:26)
[2018-07-09] MEDS: TRANDATE PO SCH ×2 (09:34→20:42)
[2018-07-09] MEDS: FERROUS SULFATE PO SCH ×2 (12:30→20:43)
[2018-07-09] MEDS: PERIDEX MT SCH ×2 (12:30→20:42)
--- NOTE | 2018-07-09 12:36 | PROGRESS NOTE ---
DATE: 07/09/2018 SUBJECTIVE: The patient reports feeling fine. Pain in the right ankle is under control. OBJECTIVE: Vital Signs: Temperature 98.3 degrees, heart rate 101, respiratory rate 20, blood pressure 152/80, O2 saturation 94% on room air. General Examination: This is a 58-year-old female lying in bed, in no acute distress. HEENT: Head is normocephalic, atraumatic. Neck: No JVD noted. No carotid bruit. Cardiovascular: S1, S2 heard. No murmurs, gallops, or rubs. Regular rate and rhythm. Respiratory: Clear bilaterally to auscultation. No work of breathing or using accessory muscles. Abdomen: Soft. Nontender to palpation. Bowel sounds present. No organomegaly. Extremities: No clubbing, cyanosis, or edema. Peripheral pulses present in both legs. Right ankle covered by dressing, dry and clean. Neurological: Patient alert and oriented x3. Moves 4 extremities. LABORATORY DATA: White cell count 9.75, hemoglobin 8.5, hematocrit 26.9, platelets 461,000 with creatinine 2.1, sodium 133. ASSESSMENT/PLAN: 1. Right bimalleolar fracture, status post open reduction and internal fixation. Dr. Izaguirre from Orthopedics is following this patient. They have cleared this patient and she needs to be seen in the office in 2 weeks from the time of discharge. 2. Acute on chronic kidney disease stage 2. Creatinine is 2.1, which is basically the same in comparing with yesterday. We will continue to monitor creatinine daily. 3. Uncontrolled diabetes mellitus type 2. Patient is on home medications, plus sliding scale insulin, and I think blood sugars are under control. 4. Hypertension. Blood pressure has been really up and down in the range of 180s, 170s and minimal of 150s. I think besides labetalol and amlodipine, I will decrease the dose of hydralazine to 50 mg q.8 hours instead of 25 and we will go from there. 5. Deep vein thrombosis prophylaxis. Patient is on Xarelto. 6. Right plantar diabetic foot wound. The patient is on doxycycline and Levaquin as per Infectious Disease, Dr. Quezada. We will continue following recommendations from him. DISPOSITION: I think at this point, patient is agreeable to go to rehab. We have consulted the social media project manager. We will start looking for beds tomorrow and will go from there. cc: Aldo Raymond MD
--- NOTE | 2018-07-09 14:06 | Diag Imaging Result Doc PS360 ---
EXAM: CHEST-PORTABLE - 07/09/2018 HISTORY: sob TECHNIQUE: Portable chest COMPARISON: 07/05/2018 FINDINGS: Inspiration is deeper compared to prior. There is generalized mild prominence of interstitial markings. There is a questionable small nodular opacity at the right upper lobe. There is no dense consolidation, substantial pleural effusion, or pneumothorax identified. Heart size appears borderline enlarged. IMPRESSION: Borderline cardiomegaly. Mild prominence of interstitial markings. Possible small nodular density at right upper lobe. Electronically signed by Kaushik Briones 07/09/2018 2:03 PM
[2018-07-09] MEDS: NS 1,000 ML IV SCH ×2 (18:43→20:43)
[2018-07-09] MEDS: CYMBALTA PO SCH (18:43)
[2018-07-09] MEDS: COLACE PO SCH (20:42)
[2018-07-09] MEDS: MILK OF MAGNESIA PO PRN (20:47)
[2018-07-10] MEDS: NORCO-5 PO PRN (01:55)
[2018-07-10] MEDS: TYLENOL PO SCH ×4 (03:00→18:33)
[2018-07-10] MEDS: XARELTO PO SCH (05:03)
[2018-07-10] MEDS: APRESOLINE PO SCH ×3 (05:03→22:32)
[2018-07-10] MEDS: MILK OF MAGNESIA PO PRN (05:33)
[2018-07-10] MEDS: HUMALOG SUBQ SCH ×4 (06:20→22:35)
[2018-07-10 07:37] LABS: BASO# 0.02 X1000 (0.0-0.2); BASO% 0.2 % (0.0-0.8); EOS# 0.07 X1000 (0.0-0.7); EOS% 0.8 % (0.0-10.0); HEMATOCRIT 23.7 % (37.0-47.0); HEMOGLOBIN 7.5 g/dL (12.0-16.0); IMM GRAN# 0.03 X1000 (0.0-0.04); IMM GRAN% 0.3 % (0.0-0.5); LYMPH# 1.48 X1000 (1.2-3.4); LYMPH% 16.8 % (20.5-51.1); MCH 27.8 PG (27-31); MCHC 31.6 g/dL (33-37); MCV 87.8 FL (81-99); MONO# 1.03 X1000 (0.11-0.59); MONO% 11.7 % (1.7-9.3); MPV 9.2 FL (7.4-10.4); NEUT# 6.16 X1000 (1.4-6.5); NEUT% 70.2 % (42.2-75.2); PLT 494 X1000 (130-400); RDW 12.9 % (11.5-14.5); WBC 8.79 X1000 (4.8-10.8)
[2018-07-10 07:45] LABS: CREATININE 2.3 mg/dL (0.5-0.9); POTASSIUM 3.9 mmol/L (3.5-5.1)
[2018-07-10] MEDS: FERROUS SULFATE PO SCH ×2 (08:40→22:32)
[2018-07-10] MEDS: NS 1,000 ML IV SCH (08:40)
[2018-07-10] MEDS: LEVAQUIN PO SCH (08:40)
[2018-07-10] MEDS: DOXYCYCLINE PO SCH (08:40)
[2018-07-10] MEDS: CYMBALTA PO SCH (08:40)
[2018-07-10] MEDS: ZANTAC PO SCH (08:40)
[2018-07-10] MEDS: PERIDEX MT SCH ×2 (08:40→22:32)
[2018-07-10] MEDS: HUMULIN 70/30 SUBQ SCH (08:41)
[2018-07-10] MEDS: LIPITOR PO SCH (08:41)
[2018-07-10] MEDS: FOLIC ACID PO SCH (08:41)
[2018-07-10] MEDS: TRANDATE PO SCH ×2 (08:41→22:32)
[2018-07-10] MEDS: NORVASC PO SCH ×2 (08:41→22:32)
[2018-07-10] MEDS: MYCELEX TROCHE PO SCH ×5 (08:42→22:32)
--- NOTE | 2018-07-10 10:49 | INFECTIOUS DISEASE PROGRESS NO ---
DATE: 07/10/2018 PRESENT ILLNESS: The patient is receiving Levaquin for a Klebsiella infection of her right foot. The patient recently had surgery on her right ankle. Before that, the patient had a methicillin- resistant Staph aureus osteomyelitis of the right foot with an associated bacteremia. The patient also has oral candidiasis. 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 The patient also is receiving Levaquin for the Klebsiella infection of the foot. PHYSICAL EXAMINATION: Vital Signs: Temperature is 99.3 degrees, pulse 96, respirations 20, blood pressure 171/67. General: The patient looks chronically ill. She is a middle-aged female. She is sitting up in a chair. Head, eyes, ears, nose, throat: She can hear my spoken words and see near objects. She does not have any white patches on her tongue. Neck: No meningismus. Lungs: Clear to auscultation. Cardiovascular: Heart rate is regular. Abdomen: Soft and nontender. Extremities: Patient has a large dressing and splint around the right foot, ankle, and lower part of the leg. Neurologic: Patient is awake. She can move her extremities. There is no tremor. LAB AND X-RAY: Today the patient's CBC shows a white count of 8,790, hemoglobin 7.5, and platelet count 494,000. Creatinine is 2.3. GFR is 22. Chest x-ray shows cardiomegaly and generalized interstitial markings and possible right upper lobe nodule. ASSESSMENT AND PLAN: The patient now is receiving active treatment for the Klebsiella infection of the foot. I plan to continue the Levaquin. Also the doxycycline is being given for prophylaxis of the prior methicillin-resistant Staph aureus infection of the foot with an associated bacteremia. Finally, I plan to continue also the patient's Mycelex troches for her oral candidiasis. COMORBIDITIES: Diabetes mellitus, gastroesophageal reflux disease, anemia of chronic disease, acute kidney injury superimposed on chronic kidney disease. cc: Taj Quezada MD
--- NOTE | 2018-07-10 12:12 | PROGRESS NOTE ---
DATE: 07/10/2018 SUBJECTIVE: The patient reports feeling fine. She reported yesterday feeling mildly short of breath, but now she is feeling okay, and pain in the right ankle is under control. OBJECTIVE: Vital Signs: Temperature 99.3 degrees, heart rate 93, respiratory rate 20, blood pressure 171/67, O2 saturation 97% on room air. General Examination: This is a 58-year-old female, lying in bed, in no acute distress. HEENT: Head is normocephalic, atraumatic. Neck: No JVD noted. No carotid bruits. No lymphadenopathy. No thyromegaly. Cardiovascular: S1, S2 heard. No murmurs, gallops, or rubs. Regular rate and rhythm. Respiratory: Clear bilaterally to auscultation. No work of breathing or using accessory muscles. Abdomen: Soft, nontender to palpation. Bowel sounds present. No organomegaly. Extremities: No clubbing, cyanosis, or edema. Peripheral pulses present in both legs. Neurological: The patient is alert and oriented x3. Moves 4 extremities. Skin: Right ankle covered by dressing, dry and clean. LABORATORY DATA: White cell count is 8.79, hemoglobin 7.5, hematocrit 23.7, platelets 494,000. Sodium 131, creatinine 2.3. ASSESSMENT AND PLAN: 1. Right bimalleolar fracture status post open reduction and internal fixation. Dr. Izaguirre from Orthopedics is following this patient, and actually, he has cleared this patient. He needs to be seen by him in a couple weeks in the office. 2. Acute on chronic kidney disease stage 2. Creatinine is 2.1, is basically at her baseline. We will continue to monitor. 3. Uncontrolled diabetes mellitus, type 2. We will continue with sliding scale insulin and Accu- Chek before meals and also at bedtime. 4. Hypertension. Patient's blood pressure continues to be high. We have added hydralazine 50 mg 1 tablet p.o. 3 times per day. Actually, she is already on amlodipine 5 mg p.o. b.i.d. and also labetalol 200 mg p.o. twice daily. I think at this point we may need to watch her 1 more day, and if the patient's blood pressure continues to get higher, then we will readjust the doses of medications. 5. Possible small pulmonary nodule in the right upper lobe. The patient was complaining of mild shortness of breath. I examined this patient yesterday, but I did not hear anything abnormal so we decided to do an x-ray with the results as above. At this time, I am planning to do next a CT scan of the chest to rule out any malignant pulmonary nodule, and we will go from there. 6. Right plantar diabetic foot wound. Wound culture returned positive for Klebsiella. The patient is on doxycycline and Levaquin as per Infectious Disease. Dr. Quezada will follow recommendations. DISPOSITION: At this point, patient is medically ready to go to rehabilitation facility. We are going to wait for results of the CT of the chest to see that everything is okay. We will continue to monitor this patient. cc: Aldo Raymond MD
--- NOTE | 2018-07-10 12:30 | Diag Imaging Result Doc PS360 ---
CT THORAX W/O CONTRAST - 07/10/2018 INDICATION: lung nodule COMPARISON: Chest x-ray 07/09/2018 FINDINGS: There is cardiomegaly. There is a trace pericardial effusion. There is a small right and trace left pleural effusion. There is some interstitial pulmonary edema with groundglass interstitial opacity and thickened intralobular pulmonary septae. There is a benign granuloma in the right upper lobe which was visible on the portable chest x-ray. In addition, in the right lower lobe there is a nodular infiltrate that should be followed up. This is probably infectious or edema. There is a tiny left benign adrenal adenoma stable from 12/20/2013. Mild degenerative changes of the spine. No acute bony lesions. IMPRESSION: 1. Small right upper lobe benign granuloma. Irregular nodular infiltrate in the right lower lobe that should be followed up. 2. Cardiomegaly, pulmonary edema, small pleural effusions. This exam was performed using automated exposure control, adjustment of mA or kV according to patient size, and/or use of iterative reconstruction technique Electronically signed by Stephen Delgado 07/10/2018 12:28 PM
[2018-07-10] MEDS: COLACE PO SCH (22:31)
[2018-07-10] MEDS: ZOFRAN IV PRN (22:41)
[2018-07-11] MEDS: TYLENOL PO SCH ×3 (03:14→19:49)
[2018-07-11] MEDS: XARELTO PO SCH (05:15)
[2018-07-11] MEDS: APRESOLINE PO SCH ×3 (05:15→21:44)
[2018-07-11] MEDS: HUMALOG SUBQ SCH ×4 (06:25→21:46)
[2018-07-11 07:26] LABS: HEMOGLOBIN 7.6 g/dL (12.0-16.0); RBC 2.76 XMIL (4.2-5.4); WBC 9.41 X1000 (4.8-10.8)
[2018-07-11 07:27] LABS: BASO# 0.02 X1000 (0.0-0.2); BASO% 0.2 % (0.0-0.8); EOS# 0.03 X1000 (0.0-0.7); EOS% 0.3 % (0.0-10.0); IMM GRAN# 0.02 X1000 (0.0-0.04); IMM GRAN% 0.2 % (0.0-0.5); LYMPH# 1.33 X1000 (1.2-3.4); LYMPH% 14.1 % (20.5-51.1); MCH 27.5 PG (27-31); MCHC 31.7 g/dL (33-37); MONO# 1.12 X1000 (0.11-0.59); MONO% 11.9 % (1.7-9.3); MPV 8.9 FL (7.4-10.4); NEUT# 6.89 X1000 (1.4-6.5); NEUT% 73.3 % (42.2-75.2); PLT 503 X1000 (130-400)
[2018-07-11 07:35] LABS: CALCIUM 9.1 mg/dL (8.8-10.2); CREATININE 2.2 mg/dL (0.5-0.9); POTASSIUM 4.4 mmol/L (3.5-5.1)
[2018-07-11] MEDS: HUMULIN 70/30 SUBQ SCH ×2 (09:46→21:44)
[2018-07-11] MEDS: PERIDEX MT SCH ×2 (09:48→21:44)
[2018-07-11] MEDS: FERROUS SULFATE PO SCH ×2 (09:48→21:44)
[2018-07-11] MEDS: MYCELEX TROCHE PO SCH ×5 (09:49→21:44)
[2018-07-11] MEDS: TRANDATE PO SCH ×2 (09:49→21:44)
[2018-07-11] MEDS: LIPITOR PO SCH (09:49)
[2018-07-11] MEDS: ZANTAC PO SCH ×2 (09:50→23:25)
[2018-07-11] MEDS: NORVASC PO SCH ×2 (09:50→21:44)
[2018-07-11] MEDS: DOXYCYCLINE PO SCH (09:50)
[2018-07-11] MEDS: FOLIC ACID PO SCH (09:50)
[2018-07-11] MEDS: LEVAQUIN PO SCH (09:50)
[2018-07-11] MEDS: CYMBALTA PO SCH ×2 (09:52→19:49)
--- NOTE | 2018-07-11 10:12 | PROGRESS NOTE ---
DATE: 07/11/2018 SUBJECTIVE: The patient is resting comfortably in bed. No acute events noted overnight. She has no complaints at this time. OBJECTIVE: Vital Signs: Temperature 98.6 degrees, blood pressure 176/68, heart rate 88, respirations 18, O2 saturation 96% on room air. Urine output 2.4 L. General: This is a chronically ill-appearing, elderly female, lying in bed in no acute distress. Heart: S1, S2 normal. Regular rate and rhythm. Lungs: Clear to auscultation bilaterally. No wheezing. No rales. No rhonchi. Abdomen: Positive bowel sounds. Soft, nontender, nondistended. Extremities: The right foot is wrapped in a clean dry dressing. Neurologic: The patient is alert and oriented x4. No focal neurologic deficits noted. LABS: White blood cell count 9.4, hemoglobin 7.6, hematocrit 24, platelets 503. Sodium 127, potassium 4.4, chloride 94, CO2 19, BUN 43, creatinine 2.2, glucose 190. ASSESSMENT AND PLAN: 1. Right foot infection secondary to Klebsiella. Continue with antibiotic therapy as directed by Dr. Quezada. 2. 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 Continue on doxycycline. 3. Right lower lobe nodular infiltrate. We will consult with the chemical blender for further recommendations. 4. Pulmonary edema, stable. The patient is not requiring supplemental oxygen at this time. 5. Chronic kidney disease stage IV. Stable. 6. Hyponatremia. The patient was on normal saline. We will discontinue this and monitor the sodium level closely. 7. Diabetes mellitus type 2. Continue Humulin 70/30 plus sliding scale insulin. 8. Status post open reduction internal fixation of right bimalleolar ankle fracture dislocation. Management as per the orthopedic surgeon. The patient will be going to rehabilitation once medically stable. 9. Anemia. We will check iron studies. 10. Uncontrolled hypertension. Will adjust the patient's antihypertensive regimen. 11. Deep vein thrombosis prophylaxis. The patient is on Xarelto. cc: Maegan Veliz MD [facility]
[2018-07-11] MEDS: COLACE PO SCH ×2 (13:02→21:44)
[2018-07-11] MEDS ORDERED: ZOSYN 2.25 GM in NS 50 ML IV SCH (14:45)
--- NOTE | 2018-07-11 15:25 | INFECTIOUS DISEASE PROGRESS NO ---
DATE: 07/11/2018 PRESENT ILLNESS: Ms. Foley has a Klebsiella infection to her right foot and is status post ORIF of a fractured right ankle on this admission. She has a history of recent treatment for osteomyelitis of the right foot with an associated methicillin-resistant Staph aureus bacteremia. There is also an oral candidiasis. Yesterday she had a CT of the chest which showed a right lower lobe nodular infiltrate that could be infectious. MEDICATIONS: She has been receiving Levaquin 250 mg by mouth daily as a renally modified dose and doxycycline 100 mg p.o. daily. She is also receiving Mycelex troches 5 times a day. PHYSICAL EXAMINATION: Vital Signs: Temperature is 98.3 degrees, pulse rate 73 , respiratory rate 18, blood pressure 143/64, O2 saturation 100% on room air. General: This is a chronically ill- appearing, middle-aged female. She is sitting up in a chair currently, in no acute distress. HEENT: Atraumatic, normocephalic. Oral mucous membranes are pink and moist. The white coating on her tongue is almost gone. 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 Conjunctivae are pale. Neck: Supple. Trachea is midline. Respiratory: Lung sounds are clear in the upper lobes. Diminished in the bases. Cardiovascular: Heart rate and rhythm are regular. Normal sinus rhythm on the monitor. Abdomen: Soft, obese, and nontender. Bowel sounds are active. Extremities: There is an Tom wrap splint in place to her right lower extremity. Neurologic: She is awake, alert, and oriented, and able to move around with assistance to prevent weightbearing to the right lower extremity. LABORATORY AND X-RAY: Today her white count is 9.41, hemoglobin 7.6, platelet count 503,000. Creatinine is 2.2. GFR 23. CT of her chest done yesterday shows a small right upper lobe benign granuloma and irregular nodular infiltrate in the right lower lobe that should be followed up. ASSESSMENT AND PLAN: Ms. Foley is being treated for a Klebsiella foot infection and for prophylaxis of previous methicillin-resistant Staphylococcus aureus infection of the right foot with an associated bacteremia. At this point, we will discontinue her Levaquin and doxycycline because there is suspected pneumonia as seen on the CT. We will go ahead and start ceftaroline 400 mg IV twice a day as a renally modified dose. I have talked to her about why she had shortness of breath yesterday and she thinks it is because she gets what she says "strangled on her food all the time." This happened yesterday with a frequent cough and there is a possible aspiration pneumonia. We will also for now continue her Mycelex troches for the oral candidiasis which is improving. These plans have been discussed with and recommended by Dr. Quezada. COMORBIDITIES: Include diabetes mellitus, anemia of chronic disease, gastroesophageal reflux disease, and acute injury on chronic kidney disease. ADDENDUM: Discussed with Dr. Reid. Will treat the klebsiella infection for 6 weeks because it is near the heel infection. Eventually will restart doxycycline and Levaquin after ceftaroline is stopped. Dictated by TAYLOR Santiago for Taj Quezada MD This chart was documented by, TAYLOR Santiago and accurately reflects the services performed, treatment plan and medical decisions as attested by the providers signature Taj Quezada MD. cc: MD ALLAN Artis
[2018-07-11] MEDS: TEFLARO 400 MG in NS 250 ML IV SCH (16:21)
[2018-07-11] MEDS ORDERED: INSULIN PEN NEEDLES ONE (16:34)
[2018-07-11] MEDS: NORCO-5 PO PRN (21:49)
[2018-07-12] MEDS: TYLENOL PO SCH ×2 (02:46→09:16)
[2018-07-12] MEDS: TEFLARO 400 MG in NS 250 ML IV SCH ×3 (02:47→16:46)
--- NOTE | 2018-07-12 03:34 | CONSULTATION ---
DATE OF CONSULTATION: 07/11/2018 REQUESTING PROVIDER: Maegan Veliz MD REASON FOR CONSULTATION: Lung nodule. HISTORY OF PRESENT ILLNESS: This is a 58-year-old female with a medical history of diabetes mellitus type 2, hypertension, hyperlipidemia, gastroesophageal reflux disease, chronic kidney disease, anemia, chronic pain, prior Robertson's palsy, major depression, and anxiety. She has been admitted to the medical floor since 07/05/2018 with a right bimalleolar ankle fracture with dislocation. Chest CT without contrast on 07/10/2018 revealed an irregular nodule infiltrate in the right lower lobe. We are consulted for further evaluation and management of this nodule. The patient currently has no respiratory complaint. She has no cough, wheezing, shortness of breath, intentional weight change, chest pain, or palpitation. She has a very light remote smoking history, but quit at her 20s. She does have a secondhand smoking exposure as her elder sister who she lives with is an active smoker. This sister is not at the bedside. She reports she has a significant family history of lung cancer. She has no history of asbestos or TB exposure. PAST MEDICAL HISTORY: 1. Diabetes mellitus type 2, insulin dependent, uncontrolled, complicated with diabetic neuropathy, retinopathy, and nephropathy. 2. Hypertension. 3. Hyperlipidemia. 4. Gastroesophageal reflux disease. 5. Chronic kidney disease, stage 4. 6. Anemia of chronic disease. 7. Chronic pain. 8. Prior Robertson's palsy. 9. Major depression and anxiety. PAST SURGICAL HISTORY: 1. Removal of a benign bladder tumor. 2. Partial hysterectomy. 3. An artificial eye placement in right eye. 4. Amputation of the first 3 toes secondary to diabetic foot wound and osteomyelitis. 5. Incision, drainage, and debridement of right diabetic foot infection on 05/01. 6. ORIF for right displaced bimalleolar ankle fracture with dislocation on 07/05. SOCIAL HISTORY: The patient lives with one of her elder sisters who smokes daily. The patient herself has a very light remote smoking history and quit in her 20s. She has no history of alcohol or illicit drug use. FAMILY HISTORY: Significant for lung cancer and diabetes. ALLERGIES: Penicillins, albuterol, prochlorperazine. PHYSICAL EXAMINATION: Vital Signs: Temperature 98.6, blood pressure 176/68, pulse 88, respiratory rate 18, oxygen saturation 96% on room air. General: Chronically ill-appearing obese, lying in bed comfortably, with no acute distress noted. One of patient' s elder sisters is at the bedside. HEENT: Atraumatic. Trachea midline. Mucosa pink and slightly dry. Right eye artificial. Respiratory: Lung expansion equal bilaterally. Diminished breathing sounds bibasilarly. Otherwise, clear to auscultation. Cardiovascular: Regular rate and rhythm without murmur. Gastrointestinal: Bowel sounds normoactive in all 4 quadrants. Soft , nontender, obese. Extremities: Right lower extremity scar with an Tom wrapped splint. Left lower extremity has no pedal edema. Neurologic: Alert and oriented x3. Speech fluent. Follow commands. IMAGING DATA: CT thorax without contrast on 07/10/2018 revealed small right upper lobe benign granuloma, irregular nodular infiltrate in the right lower lobe that should be followed up, cardiomegaly, pulmonary edema, and small pleural effusions. LABORATORY DATA: White blood cell 9.41, hemoglobin 7.6, hematocrit 24.0, platelets 503,000. Sodium 127, potassium 4.4, chloride 94, carbon dioxide 19, BUN 43, creatinine 2.2, and glucose 190. ASSESSMENT: This is a 58-year-old female with a medical history of uncontrolled insulin- dependent diabetes mellitus, hypertension, hyperlipidemia, gastroesophageal reflux disease, stage 4 chronic kidney disease, anemia of chronic disease, chronic pain, prior Robertson's palsy, major depression and anxiety. She has been admitted to the medical floor since 2018 with a right bimalleolar ankle fracture with distal location. Chest CT without contrast on 07/10/2018 revealed an irregular nodule infiltrate in the right lower lobe. The patient is 58 years old. She has a very light remote smoking history and ongoing secondhand smoking exposure. She has a significant family history of lung cancer. PLAN: The patient needs outpatient PET scan. This nodule is likely an infection, and she is on antibiotics, but to be cautious, she needs a PET scan and follow-up imaging. Dr. Quezada discussed our plans with the patient and Dr. Veliz. Thank you for the courtesy of this consult. Dictated by TAYLOR Husain for Peter Quezada MD cc: TYALOR Husain MD [facility]
[2018-07-12] MEDS: XARELTO PO SCH ×2 (04:22→05:04)
[2018-07-12] MEDS: APRESOLINE PO SCH ×3 (04:22→22:37)
[2018-07-12] MEDS: HUMALOG SUBQ SCH ×4 (06:38→22:39)
[2018-07-12 06:42] LABS: BASO# 0.01 X1000 (0.0-0.2); BASO% 0.1 % (0.0-0.8); EOS# 0.04 X1000 (0.0-0.7); EOS% 0.4 % (0.0-10.0); HEMATOCRIT 23.2 % (37.0-47.0); HEMOGLOBIN 7.4 g/dL (12.0-16.0); IMM GRAN# 0.02 X1000 (0.0-0.04); IMM GRAN% 0.2 % (0.0-0.5); LYMPH# 1.09 X1000 (1.2-3.4); LYMPH% 11.4 % (20.5-51.1); MCH 27.5 PG (27-31); MCHC 31.9 g/dL (33-37); MCV 86.2 FL (81-99); MONO# 0.87 X1000 (0.11-0.59); MONO% 9.1 % (1.7-9.3); MPV 8.9 FL (7.4-10.4); NEUT# 7.49 X1000 (1.4-6.5); NEUT% 78.8 % (42.2-75.2); PLT 551 X1000 (130-400); RBC 2.69 XMIL (4.2-5.4); RDW 13.1 % (11.5-14.5); RETIC% 2.42 % (0.8-2.1); RETIC-HE 30.9 PG (28.2-36.6); WBC 9.52 X1000 (4.8-10.8)
[2018-07-12 07:00] LABS: CALCIUM 8.7 mg/dL (8.8-10.2); CREATININE 2.2 mg/dL (0.5-0.9); POTASSIUM 4.7 mmol/L (3.5-5.1)
[2018-07-12 07:15] LABS: FERRITIN 337 ng/mL (13-150)
[2018-07-12 07:27] LABS: IRON SATURATION 13 %; TIBC 215 ug/dL; TOTAL IRON 29 ug/dL (49-151); UNBOUND IRON 186 ug/dL (112-346)
[2018-07-12] MEDS ORDERED: SAMSCA PO ONE ×2 (08:00→16:30)
[2018-07-12] MEDS: ZANTAC PO SCH (09:16)
[2018-07-12] MEDS: FERROUS SULFATE PO SCH ×2 (09:16→22:37)
[2018-07-12] MEDS: TRANDATE PO SCH ×2 (09:16→22:37)
[2018-07-12] MEDS: HUMULIN 70/30 SUBQ SCH ×2 (09:16→22:38)
[2018-07-12] MEDS: NORVASC PO SCH ×2 (09:16→22:37)
[2018-07-12] MEDS: COLACE PO SCH ×2 (09:16→22:38)
[2018-07-12] MEDS: LIPITOR PO SCH (09:16)
[2018-07-12] MEDS: FOLIC ACID PO SCH (09:16)
[2018-07-12] MEDS: PERIDEX MT SCH (09:17)
[2018-07-12] MEDS: MYCELEX TROCHE PO SCH ×4 (09:17→22:37)
[2018-07-12] MEDS: LACTULOSE PO SCH (09:17)
[2018-07-12] MEDS: CYMBALTA PO SCH ×2 (09:20→22:38)
--- NOTE | 2018-07-12 10:50 | Diag Imaging Result Doc PS360 ---
EXAM: FLAT/UPRIGHT ABD/1 VIEW CHEST - 07/12/2018 HISTORY: constipation/pneumonia TECHNIQUE: Supine and upright abdomen and one view chest COMPARISON: 07/09/2018 portable chest FINDINGS: There is a moderate amount retained fecal debris in colon suggesting constipation. The bowel gas pattern otherwise appears nonspecific and nonobstructive. There is some small bowel gas visible but there is no substantial gaseous small bowel distention identified. There is no free air identified. Upright chest shows stable borderline cardiomegaly. There is mild interstitial marking prominence similar to prior. There is no dense consolidation, substantial pleural effusion, or pneumothorax identified. IMPRESSION: Evidence of constipation. Nonspecific bowel gas pattern otherwise. Stable borderline cardiomegaly and mild interstitial marking prominence. Electronically signed by Kaushik Briones 07/12/2018 10:48 AM
--- NOTE | 2018-07-12 15:22 | INFECTIOUS DISEASE PROGRESS NO ---
DATE: 07/12/2018 PRESENT ILLNESS: The patient had a methicillin-resistant Staph aureus bacteremia which originated from osteomyelitis of the right foot. She had removal of all the hardware of the foot. The patient also has a Klebsiella infection of the distal part of the right foot. In addition to those 2 things, the patient on CT scan had a right lower lobe infiltrate that could be due to pneumonia. The patient also has oral candidiasis. MEDICATIONS: The patient currently now is on ceftaroline, the dose of which is modified because of the patient's renal insufficiency, and she is also on Mycelex troches for oral candidiasis. PHYSICAL EXAMINATION: Vital Signs: Temperature is 99.4 degrees, pulse 73, respirations 16, blood pressure 122/53. General: This is an ill-appearing middle-aged female. She is in no acute distress. Head/eyes/ears/nose/throat: She can hear my spoken words and see near objects. She does not have any white patches on her tongue. Neck: No meningismus. Lungs : Clear to auscultation. Cardiovascular: Heart rate is regular. Abdomen: Soft and nontender. Extremities: There is a large splint with an Tom wrap around it for her right lower extremity. The dressing is intact. Neurologic: The patient is alert. She can move her extremities. There is no tremor. LAB AND X-RAY: X-ray of the abdomen showed findings consistent with constipation. The patient's CBC shows a white count of 9520, hemoglobin 7.4, and platelet count 551,000. Creatinine is 2.2. GFR is 23. Culture from the distal part of the right foot grew Klebsiella. ASSESSMENT AND PLAN: The patient is being treated for a Klebsiella foot infection and prophylaxis for previous methicillin-resistant Staph aureus infection of the right foot with an associated bacteremia. Also, the patient has suspected possible pneumonia on CT scan. For now, the patient will stay on ceftaroline 400 mg intravenous every 12 hours. Hopefully in a day or so, the patient can be transferred back to her oral regimen of antibiotics consisting of Levaquin for the patient's distal foot infection and doxycycline prophylaxis for the methicillin- resistant Staph aureus infection of the ankle. The patient also will be treated for oral candidiasis with Mycelex. COMORBIDITIES: Comorbidities include diabetes mellitus, anemia of chronic disease, gastroesophageal reflux disease, acute and chronic kidney illness. cc: Taj Quezada MD [facility]
[2018-07-12] MEDS ORDERED: FLEET MINERAL OIL ENEMA PR ONE (16:22)
[2018-07-12] MEDS ORDERED: NS 1,000 ML IV SCH (16:30)
--- NOTE | 2018-07-12 18:19 | PROGRESS NOTE ---
DATE: 07/12/2018 SUBJECTIVE: The patient is sitting up at the edge of the bed. She has no complaints. She does state that she has not had a bowel movement since admission. OBJECTIVE: Vital Signs: Temperature 98.3, blood pressure 145/69, heart rate 79 , respirations 14. O2 sats 96% on room air. General: This is a morbidly obese female sitting at the edge of the bed in no acute distress. Heart: S1, S2. Normal. Lungs: Equal air entry bilaterally. No crackles. No rales. Abdomen: Positive bowel sounds. Soft, obese, nontender, nondistended. Extremities: No edema, no cyanosis. The right leg is wrapped in a clean dry dressing. Neurologic: The patient is alert and oriented x 4. No focal neurologic deficits noted. LABS: White blood cell count 9.5, hemoglobin 7.4, hematocrit 23, platelets 551, 000. Sodium 124, potassium 4.7, chloride 91, CO2 18, BUN 49, creatinine 2.2, glucose 310. Chest x-ray shows cardiomegaly. Abdominal x-ray shows constipation. ASSESSMENT AND PLAN: 1. Right foot infection secondary to Klebsiella. Continue with antibiotic therapy as directed by Dr. Quezada. 2. Osteomyelitis of the right foot status post hardware removal. Continue on the current antibiotic regimen. 3. Right lower lobe infiltrate. The patient is on antibiotic therapy. The patient will also follow up for repeat CT as outpatient with . 4. Chronic kidney disease stage 4. Stable. 5. Hyponatremia. Will give the patient a dose of Samsca. 6. Diabetes mellitus type 2. Continue on Humulin 70/30. 7. Iron deficiency anemia. We will start the patient on iron supplementation. The patient will need to follow up with Dr. Mendoza upon discharge from the hospital. 8. Hypertension. Continue on the current antihypertensive regimen. 9. Status post ORIF of a right bimalleolar ankle fracture. Management as per the orthopedic surgeon. The patient will be going to rehab once approved by her insurance. 10. DVT prophylaxis. Continue on Xarelto. 11. Disposition. The patient will be discharged to inpatient rehab once medically stable. cc: MD ALLAN Bianchi
[2018-07-12] MEDS: NORCO-5 PO PRN (22:39)
[2018-07-12] MEDS ORDERED: TYLENOL PO ONE (22:46)
[2018-07-13] MEDS: LACTULOSE PO SCH ×2 (02:00→09:01)
[2018-07-13] MEDS: DULCOLAX PR SCH (02:00)
[2018-07-13] MEDS: PERIDEX MT SCH ×3 (02:01→22:27)
[2018-07-13] MEDS: TEFLARO 400 MG in NS 250 ML IV SCH ×2 (04:04→17:08)
[2018-07-13] MEDS: APRESOLINE PO SCH ×3 (04:04→22:27)
[2018-07-13] MEDS: XARELTO PO SCH ×2 (04:04→06:15)
[2018-07-13] MEDS: HUMALOG SUBQ SCH ×4 (06:16→22:28)
[2018-07-13 07:30] LABS: BASO# 0.02 X1000 (0.0-0.2); BASO% 0.2 % (0.0-0.8); EOS# 0.07 X1000 (0.0-0.7); EOS% 0.7 % (0.0-10.0); HEMATOCRIT 23.8 % (37.0-47.0); HEMOGLOBIN 7.6 g/dL (12.0-16.0); IMM GRAN# 0.02 X1000 (0.0-0.04); IMM GRAN% 0.2 % (0.0-0.5); LYMPH# 1.03 X1000 (1.2-3.4); LYMPH% 10.8 % (20.5-51.1); MCH 27.5 PG (27-31); MCHC 31.9 g/dL (33-37); MCV 86.2 FL (81-99); MONO# 0.84 X1000 (0.11-0.59); MONO% 8.8 % (1.7-9.3); MPV 8.8 FL (7.4-10.4); NEUT# 7.55 X1000 (1.4-6.5); NEUT% 79.3 % (42.2-75.2); PLT 622 X1000 (130-400); RBC 2.76 XMIL (4.2-5.4); RDW 13.4 % (11.5-14.5); WBC 9.53 X1000 (4.8-10.8)
[2018-07-13 07:50] LABS: CALCIUM 9.5 mg/dL (8.8-10.2); CREATININE 2.7 mg/dL (0.5-0.9); POTASSIUM 4.8 mmol/L (3.5-5.1)
[2018-07-13] MEDS: HUMULIN 70/30 SUBQ SCH ×2 (09:00→22:29)
[2018-07-13] MEDS: COLACE PO SCH ×2 (09:01→22:27)
[2018-07-13] MEDS: FOLIC ACID PO SCH (09:01)
[2018-07-13] MEDS: MYCELEX TROCHE PO SCH ×5 (09:01→22:27)
[2018-07-13] MEDS: TRANDATE PO SCH ×2 (09:01→22:27)
[2018-07-13] MEDS: FERROUS SULFATE PO SCH ×2 (09:01→22:27)
[2018-07-13] MEDS: NORVASC PO SCH (09:01)
[2018-07-13] MEDS: ZANTAC PO SCH (09:01)
[2018-07-13] MEDS: LIPITOR PO SCH (09:01)
--- NOTE | 2018-07-13 13:33 | PROGRESS NOTE ---
DATE: 07/13/2018 SUBJECTIVE: The patient is resting comfortably in bed. She states that she had a bowel movement last night after receiving an enema. OBJECTIVE: Vital Signs: Temperature 98 degrees, blood pressure 136/64, heart rate 76, respirations 16, O2 saturation 97% on room air. General: This is an overweight female, sitting in bed, in no acute distress. Heart: S1, S2 normal. Regular rate and rhythm. Lungs: Equal air entry bilaterally. No crackles. No rales. Abdomen: Positive bowel sounds. Soft, nontender, nondistended. Extremities: No edema. No cyanosis. Neurologic: The patient is alert and oriented x4. LABORATORY DATA: White blood cell count 9.5, hemoglobin 7.6, hematocrit 23, platelets 622,000. Sodium 131, potassium 4.8, chloride 99, CO2 21, BUN 58, creatinine 2.7, glucose 245, cortisol 23. ASSESSMENT AND PLAN: 1. Right foot infection secondary to Klebsiella. Continue with antibiotic therapy. 2. Right lower lobe infiltrate/nodule. Continue with antibiotic therapy. The patient will follow up for a CT of the thorax as an outpatient. 3. Acute kidney injury on chronic kidney disease. The patient's BUN and creatinine are a little higher today. We will consult Nephrology. Urine studies are pending. 4. Constipation. Improved. Continue with scheduled laxative therapy. 5. Hyponatremia. Improved. Continue to monitor for improvement. 6. Iron deficiency anemia. We will check stool for occult blood. Continue on iron supplementation. 7. Status post open reduction and internal fixation of the right bimalleolar ankle fracture. Continue with the current management as per the orthopedic surgeon. The patient will be going to inpatient rehab. 8. Deep vein thrombosis prophylaxis. Continue on Xarelto. 9. Disposition. The patient will be discharged to inpatient rehab once her insurance approves the transfer. cc: Maegan Veliz MD [facility]
[2018-07-13 13:59] LABS: URINE SOURCE CATH
[2018-07-13 14:05] LABS: BILIRUBIN URINE NEGATIVE (NEGATIVE); BLOOD URINE TRACE (NEGATIVE); COLOR YELLOW; GLUCOSE URINE 500 mg/dL (NEGATIVE); KETONE URINE NEGATIVE (NEGATIVE); LEUKOCYTES URINE NEGATIVE (NEGATIVE); NITRITE URINE NEGATIVE (NEGATIVE); PROTEIN URINE 300 mg/dL (NEGATIVE); SP GRAVITY URINE 1.001; TURBIDITY URINE HAZY (CLEAR); UR EPITHELIAL CELLS >10 /HPF (<10); URINE BACTERIA NEGATIVE /HPF; URINE WBC <10 /HPF (<10); UROBILINOGEN URINE NORMAL (NORMAL)
[2018-07-13 14:54] LABS: UR CREAT RANDOM 29.6 mg/dL (11-20)
[2018-07-13] MEDS ORDERED: INSULIN PEN NEEDLES ONE (15:20)
--- NOTE | 2018-07-13 17:42 | INFECTIOUS DISEASE PROGRESS NO ---
DATE: 07/13/2018 PRESENT ILLNESS: Ms. Foley is status post open reduction, internal fixation of her right ankle on this admission, after a recent injury. She has recently completed treatment for methicillin-resistant Staph aureus bacteremia which originated from the osteomyelitis of her distal right foot. That area is currently growing a Klebsiella infection. Additionally, there is a right lower lobe infiltrate that could be pneumonia, and oral candidiasis. MEDICATIONS: Today is day 2 of ceftaroline 400 mg IV every 12 hours as a renally modified dose, and day 8 of Mycelex troches 5 times a day. PHYSICAL EXAMINATION: Vital Signs: Temperature is 98, pulse rate 76, respiratory rate 16, blood pressure 136/64, O2 sats 97% on room air. General: This is a chronically ill- appearing, middle- aged female. She is lying in bed, currently in no acute distress. HEENT: Atraumatic, normocephalic. Oral mucous membranes are pink and moist. She does have some white patches to her tongue which are improving somewhat. Conjunctivae are pale. Neck: Supple. Trachea midline. Abdomen: Soft, obese and nontender. Cardiovascular: Heart rate and rhythm are regular. Normal sinus rhythm on the monitor. Radial pulses are palpable bilaterally. Respiratory: Lung sounds are clear to auscultation in the upper lobes and diminished in the bases. Extremities: There is an Tom wrap splint in place to her right lower extremity, which is dry and intact. Neurologic: She is awake, alert, oriented, and able to move around with assistance and non- weight bearing. LABORATORY AND X-RAY: Today her white count is 9.53, hemoglobin 7.6, platelet count 622,000. Creatinine 2.7. GFR 18. Today urinalysis showed no bacteria and less than 10 WBCs. The right foot culture has grown a Klebsiella pneumoniae. Blood cultures have been negative since admission. No imaging reports today. ASSESSMENT AND PLAN: Ms. Foley is being treated for a right foot infection that has grown a Klebsiella, as well as a possible pneumonia as seen on CT scan. She also has an oral candidiasis. At this time, we will continue the ceftaroline and Mycelex troches as ordered. We are awaiting the possibility of transfer to a rehab facility. At this point, there is a chest x-ray ordered for tomorrow morning to re-evaluate her possible pneumonia. These plans have been discussed with and recommended by Dr. Quezada. COMORBIDITIES: For Ms. Foley include diabetes mellitus, anemia of chronic disease, gastroesophageal reflux disease and acute on chronic kidney disease. Dictated by TAYLOR Santiago for Taj Quezada MD This chart was documented by, TAYLOR Santiago and accurately reflects the services performed, treatment plan and medical decisions as attested by the providers signature Taj Quezada MD. cc: Taj Quezada MD [facility]
--- NOTE | 2018-07-13 18:13 | NEPHROLOGY CONSULTATION ---
DATE: 07/13/2018 REASON FOR ADMISSION: Recent fall with pain to right ankle. REASON FOR CONSULT: Acute kidney injury on CKD stage 3B. PHYSICIAN REQUESTING CONSULT: Maegan Veliz MD. HISTORY OF PRESENT ILLNESS: Ms. Foley is a 58-year-old, white female, who had been seen by our practice in the past and was recently referred back to our office in April 2018. At that time, her creatinine was 2.64 with an estimated GFR of 20%. The patient has known diabetes mellitus type 2 with diabetic neuropathy, nephropathy and retinopathy. The patient was recently hospitalized and seen in the hospital in 2017 for MRSA sepsis with a right diabetic foot abscess. She was subsequently sent home on daptomycin on an 8 week treatment, and felt like this had improved. She had been following up with Dr. Taj Quezada during this period of time. She then presented to the hospital again on the with complaints of difficulty standing and recent fall, pain to her left ankle. Unable to ambulate. She states that she had gotten dizzy going from a sitting to a standing position and had fallen. She states that she had not hit her head during that period of time, or lost consciousness. The patient has had during her hospital stay a workup per Dr. Bravo with surgery debridement. Her wound was found to have Klebsiella in it. She has been followed by Dr. Taj Quezada. She is currently on Teflaro. She remains on isolation secondary to history of MRSA in the past. She denies chest pain. No increased work of breathing. No recent nausea, vomiting or diarrhea. She does not complain of any recent cough or exposure to anyone that has been ill. History of constipation. She denies any hematochezia, hemoptysis or melena. No hematuria. Decreased sensation to bilateral lower extremities. In the emergency room, it was found that her GFR was 14% with a creatinine of 3.5. This had improved during her hospitalization with antibiotics and IV fluids. In the last several days, it is noted that her creatinine has trended back up. Today's labs indicate a creatinine of 2.7 with a BUN of 58. The patient has not had any urine output documented for the last 3 days, though she states that she is urinating in the bedside commode. PAST MEDICAL HISTORY: Chronic kidney disease stage 3B. Last creatinine in our office of 2.64. 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 States that cleared with antibiotics, GERD, history of benign bladder tumor, thyroid disease, anxiety, anemia of chronic disease, history of MRSA to right ankle wound. Sepsis, right diabetic foot abscess, now cellulitis and osteomyelitis to her left ankle. PAST SURGICAL HISTORY: Removal of benign bladder tumor, partial hysterectomy, right eye surgery, amputation of first 3 toes secondary to diabetic foot wound on the left. Recent debridement to her left foot, now in an Tom wrap. SOCIAL HISTORY: Former smoker. Patient has lived alone, recently moved in with her sister. No children. Family who are attentive to her care. History of smoking former. No illicit drug use or alcohol use. FAMILY HISTORY: Father has a history of diabetes. Mother had a history of diabetes, hypertension and heart disease. CURRENT ALLERGIES: Listed as penicillin, albuterol, and Compazine. HOME MEDICATIONS: Have been reconciled with Lipitor, doxepin, Cymbalta, ferrous sulfate, folic acid, gabapentin, Humulin 70/30, labetalol, Zantac, Zanaflex, Oleptro. REVIEW OF SYSTEMS: Times 10 with pertinent positives listed above in the HPI. VITAL SIGNS: Her temperature 98.1, blood pressure 147/68, heart rate 88, respirations 18. She is on room air. Last recorded saturation is 99%. She has documented 1225 in per IV fluid. She has not had any urine output documented in the last 72 hours though she states that she is voiding. She does state that she had a BM yesterday. LABS: The patient's most recent labs: Sodium of 131, potassium 4.8, chloride 99, CO2 of 21, BUN 58, creatinine 2.7, glucose 245. She has an anion gap of 11. Her calcium is 9.5. White count 9.53, hemoglobin 7.6, hematocrit 23.8 with a platelet count of 622. Urine electrolytes have been completed indicating a FENa score of 1.49%. Urinalysis this a.m. shows hazy color, positive for proteinuria, glucose, hematuria, negative for urine eosinophils, negative for leukocytes. PHYSICAL EXAMINATION: General: This is a 58-year-old, white female, resting quietly in bed. She appears chronically ill, no acute distress. Skin: Warm and dry. HEENT: Normocephalic, atraumatic. Conjunctiva is pale pink. She has a false eye to the right. Her pupil to the left is reactive. Neck: Supple. Trachea midline. No JVD. Cardiovascular: Regular rate and rhythm. No murmur or gallop appreciated in the upright position. Lungs: Clear to auscultation anteriorly. Equal excursion on room air. Abdomen: Large, round, soft, nontender. Positive bowel sounds. Genitourinary: Not inspected. Patient has been voiding. Extremities: Have no edema to the right. Her left remains in an Tom wrap. No edema above the knee. Neurological: She is alert and oriented x3. ASSESSMENT AND PLAN: 1. Acute kidney injury on chronic kidney disease stage 3B. Patient is currently receiving IV fluids. She has renal dosed antibiotics. Urine electrolytes indicate that she is possibly maybe/slightly volume depleted versus intrarenal, secondary to infected foot. We will continue to observe her electrolytes. We will request that they keep a strict intake and output. Monitor on a daily basis. 2. Electrolytes and acid-base balance. These are acceptable. 3. Anemia. This is low, but stable. No indications for transfusion. 4. Diabetic nonhealing wound ulcer to the left foot, currently followed by Dr. Taj Quezada and Dr. Izaguirre. I would like to thank you for allowing us to follow with this patient. Dictated by TAYLOR Muñiz for Eben Pena MD cc: TAYLOR Muñiz MD
[2018-07-13] MEDS: NORCO-5 PO PRN (22:27)
[2018-07-13] MEDS: TYLENOL PO PRN (22:27)
[2018-07-14] MEDS: LACTULOSE PO SCH ×2 (04:07→08:31)
[2018-07-14] MEDS: DULCOLAX PR SCH (04:07)
[2018-07-14] MEDS: TEFLARO 400 MG in NS 250 ML IV SCH (04:12)
[2018-07-14] MEDS: APRESOLINE PO SCH (05:24)
[2018-07-14] MEDS: TYLENOL PO PRN (05:24)
[2018-07-14] MEDS: XARELTO PO SCH (05:24)
[2018-07-14 06:45] LABS: HEMATOCRIT 22.9 % (37.0-47.0); HEMOGLOBIN 7.3 g/dL (12.0-16.0); MCH 28.1 PG (27-31); MCHC 31.9 g/dL (33-37); MCV 88.1 FL (81-99); MPV 8.6 FL (7.4-10.4); RBC 2.6 XMIL (4.2-5.4); RDW 13.6 % (11.5-14.5); WBC 9.44 X1000 (4.8-10.8)
[2018-07-14] MEDS: HUMALOG SUBQ SCH ×2 (06:48→11:04)
[2018-07-14 07:03] LABS: CALCIUM 8.7 mg/dL (8.8-10.2); CREATININE 2.5 mg/dL (0.5-0.9); POTASSIUM 4.8 mmol/L (3.5-5.1)
--- NOTE | 2018-07-14 07:21 | Diag Imaging Result Doc PS360 ---
EXAM: CHEST-1 VIEW 07/14/2018 HISTORY: SOB TECHNIQUE: AP portable at 0618 COMMENT: There is worsened pulmonary edema compared to 07/12/2018. IMPRESSION: Worsening pulmonary edema. Electronically signed by Kevin Waldron 07/14/2018 7:18 AM
[2018-07-14] MEDS: NORVASC PO SCH ×2 (08:31→12:05)
[2018-07-14] MEDS: TRANDATE PO SCH (08:31)
[2018-07-14] MEDS: MYCELEX TROCHE PO SCH ×2 (08:31→11:04)
[2018-07-14] MEDS: LIPITOR PO SCH (08:31)
[2018-07-14] MEDS: PERIDEX MT SCH (08:31)
[2018-07-14] MEDS: FOLIC ACID PO SCH (08:31)
[2018-07-14] MEDS: ZANTAC PO SCH (08:31)
[2018-07-14] MEDS: HUMULIN 70/30 SUBQ SCH (08:32)
[2018-07-14] MEDS: FERROUS SULFATE PO SCH (08:32)
[2018-07-14] MEDS: COLACE PO SCH (08:32)
[2018-07-14] MEDS ORDERED: LEVAQUIN PO SCH (10:00)
[2018-07-14] MEDS ORDERED: NS 500 ML ONE (10:21)
[2018-07-14 11:33] VITALS: BP 128/53
[2018-07-14] MEDS ORDERED: LASIX IV SCH (12:00)
--- NOTE | 2018-07-14 12:16 | DISCHARGE SUMMARY ---
ADMISSION DATE: 07/05/2018 DISCHARGE DATE: FINAL DISCHARGE DIAGNOSES: 1. Right foot infection secondary to Klebsiella. 2. Right lower lobe nodule versus infiltrate. 3. Acute kidney injury on chronic kidney disease. 4. Status post open reduction and internal fixation of a right bimalleolar ankle fracture. 5. Hyponatremia. 6. Constipation. 7. Obesity. 8. Poorly controlled insulin-dependent diabetes mellitus. 9. Pulmonary edema. 10. History of methicillin-resistant Staphylococcus aureus osteomyelitis of the right foot. CONSULTATIONS REQUESTED DURING THIS HOSPITAL STAY: 1. Orthopedic consultation with Dr. Izaguirre. 2. Infectious Disease consultation with Dr. Quezada. 3. Nephrology consultation with Dr. Pena. IMAGIN. Two-view x-ray of the right ankle revealed a displaced bimalleolar ankle fracture. 2. Portable chest x-ray performed on 07/05/2018 revealed lingular atelectasis. 3. CT of the chest performed on 07/10/2018 revealed a small right upper lobe granuloma. Irregular nodular infiltrate in the right lower lobe. Cardiomegaly with pulmonary edema. PROCEDURES: Open reduction, internal fixation of a right bimalleolar ankle fracture dislocation performed on 07/05/2018. HOSPITAL COURSE: Ms. Foley is a 58-year-old female with a history of multiple medical problems including chronic kidney disease, poorly-controlled diabetes mellitus, obesity, iron deficiency anemia, and reflux who presented to the ER after suffering a fall. The patient noticed immediate pain in her right ankle and was brought to the ER. In the ER, an x-ray of the ankle was performed which revealed a displaced bimalleolar ankle fracture. The patient was then admitted to the hospitalist service. The patient was taken to the OR on 07/05/2018 and underwent open reduction and internal fixation of the ankle fracture. Following the surgery, the patient was noted to have some drainage from the wound. This fluid was cultured and Infectious Disease was consulted. Ultimately, the fluid grew out Klebsiella pneumoniae. The patient's antibiotics were adjusted according to these culture results. Over the course of the hospitalization, the patient was noted to have acute kidney injury on chronic kidney disease so Nephrology was consulted. The patient's renal function slowly improved over the course of the hospitalization. The patient's blood sugars were noted to be quite high, so adjustments were made to the patient's insulin regimen. The patient has a diagnosis of iron deficiency anemia so her iron supplementation was continued during the hospitalization. Her hemoglobin and hematocrit did drift downward and so the patient received 1 unit of packed red blood cells and was advised to continue her iron supplementation. Stool for occult blood was also tested, which came back negative. The patient's ankle infection improved with IV antibiotic therapy and so the patient was transitioned to Levaquin by Dr. Quezada for another 2 weeks. It was recommended by the orthopedic surgeon that the patient be sent to inpatient rehabilitation. The patient will be discharged to [facility] for further strengthening. DISCHARGE MEDICATIONS: 1. Norvasc 5 mg oral twice a day. 2. Colace 100 mg p.o. twice a day. 3. Apresoline 50 mg p.o. every 8 hours. 4. Icar C 1 tablet oral twice a day. 5. Lactulose 30 mL oral twice a day. 6. Xarelto 10 mg p.o. daily x21 days. 7. Levaquin 250 mg p.o. daily x2 weeks. 8. [place] 5/325 one tablet oral every 6 hours p.r.n. for pain. 9. Cymbalta 90 mg p.o. daily. 10. Doxepin 10 mg p.o. at bedtime. 11. Lipitor 40 mg p.o. daily. 12. Folic acid 0.4 mg p.o. daily. 13. Labetalol 200 mg p.o. twice a day. 14. Ranitidine 150 mg p.o. twice a day. 15. Gabapentin 300 mg p.o. twice a day. 16. Humulin 70/30, 60 units subcutaneous every morning. 17. Humulin 70/30, 20 units subcutaneous every evening. DISCHARGE DIET: 1800 ADA diet, low-sodium diet. ACTIVITY: As tolerated. FOLLOW UP INSTRUCTIONS: 1. The patient will need to follow up with Dr. Izaguirre in 10 to 14 days. 2. The patient will need to follow up with Dr. Quezada in 3 weeks. cc: Maegan Veliz MD
--- NOTE | 2018-07-14 12:22 | INFECTIOUS DISEASE PROGRESS NO ---
DATE: 07/14/2018 PRESENT ILLNESS: The patient has been treated in the past for methicillin-resistant Staph aureus osteomyelitis of the right foot. During this admission, Klebsiella was isolated from the distal part of the foot, but not where the surgery took place. The patient also had been initially thought to have pneumonia but now it looks, based on the chest x-ray, that it is all pulmonary edema and not pneumonia, and finally the patient did have oral candidiasis but that has cleared up with the administration of Mycelex troches. MEDICATIONS: This patient currently is on ceftaroline, this is day 3 of treatment with it. PHYSICAL EXAMINATION: Vital Signs: Temperature is 98.1 degrees, pulse 83, respirations 18, blood pressure is 155/66. General: This is a chronically ill-appearing middle-aged female, she is in no acute distress. Head, eyes, ears, nose, and throat: She can hear my spoken words and see near objects. She does not have any white patches on her tongue. Neck: No meningismus. Lungs: Clear to auscultation. Cardiovascular: Heart rate is regular. Abdomen: Soft and nontender. Extremities: The patient has the right foot in a splint with a large dressing around it. The dressing is intact. Neurologic: Patient is alert. She can move her extremities. There is no tremor. LAB AND X-RAY: Chest x-ray shows pulmonary edema. The CBC for today shows a white count of 9440, hemoglobin 7.3, and platelet count 612,000. Creatinine is 2.5. GFR is 20. ASSESSMENT AND PLAN: Patient has had surgery on her foot with removal of the metal. The previous infection with methicillin-resistant Staph aureus has cleared. There is Klebsiella infection of the distal foot which I plan to treat with Levaquin for 2 more weeks and discontinue ceftaroline. The patient's pneumonia actually appears to be pulmonary edema rather than pneumonia, and the patient's oral candidiasis has cleared with Mycelex troches. I am going to be writing note for the Levaquin to be given in a dose of 250 mg daily for 2 weeks. The dose has been modified because of the patient's end-stage renal disease. The patient will have a followup with Dr. Reid. I am able to see the patient on a p.r.n. basis. COMORBIDITIES: Include diabetes mellitus, gastroesophageal reflux disease, end-stage renal disease, and anemia of chronic disease. cc: Taj Quezada MD
--- NOTE | 2018-07-14 13:36 | NEPHROLOGY PROGRESS NOTE ---
DATE: 07/14/2018 SUBJECTIVE: She is awaiting rehab placement. No new complaints. No shortness of breath, nausea, vomiting, etc. OBJECTIVE: Vital Signs: Blood pressure 110/48, heart rate 71, respiration 18, afebrile. General: No acute distress. Skin: Warm and dry. Neck: Neck veins are not distended. Heart: Regular. No gallops. Lungs: Equal. No crackles or wheezes. Abdomen: Soft, nontender. Bowel sounds present. Extremities: No edema, clubbing or cyanosis. IMPRESSION: Chronic kidney disease. Baseline creatinine is approximately 2. Labs are improving progressively over time. From my perspective, okay for her to be discharged and follow up with us in the office. cc: Eben Pena MD
== END 2018-07-14 15:47 | DRG 492 ==
LOC: ED 22:41 → EDIPHOLD 07-05 05:23 → SUATTDRO 07-05 05:23 → 4N 07-05 11:06
PROVIDERS: ATTEND Internal Medicine
CPT/HCPCS: 36430; 51702; 71010; 71045; 71250; 73600; 73610; 73630; 74022; 76000; 80048; 80053; 80069; 81001; 82009; 82272; 82533; 82550; 82553; 82570; 82607; 82728; 82746; 82948; 83036; 83540; 83550; 83735; 83935; 84156; 84295; 84300; 84443; 84484; 85014; 85018; 85025; 85027; 85045; 85610; 85730; 86850; 86900; 86901; 86920; 87040; 87070; 87077; 87186; 87205; 93005; 93010; 94760; 94761; 94762; 94799; 96361; 96374; 97110; 97116; 97162; 97530; 99285; A9270; C1713; J0131; J0610; J0690; J0692; J0712; J1170; J1815; J2310; J2405; J7030; J7040; J7050; P9016; S0020; XXXXX

== ENCOUNTER 2018-07-26 20:04 | Inpatient (IN) ==
[2018-07-26 21:15] LABS: BASO# 0.01 X1000 (0.0-0.2); BASO% 0.1 % (0.0-0.8); EOS# 0.01 X1000 (0.0-0.7); EOS% 0.1 % (0.0-10.0); HEMATOCRIT 25.4 % (37.0-47.0); HEMOGLOBIN 8.3 g/dL (12.0-16.0); IMM GRAN# 0.03 X1000 (0.0-0.04); IMM GRAN% 0.4 % (0.0-0.5); LYMPH# 0.71 X1000 (1.2-3.4); LYMPH% 9.8 % (20.5-51.1); MCHC 32.7 g/dL (33-37); MCV 82.7 FL (81-99); MONO# 0.61 X1000 (0.11-0.59); MONO% 8.4 % (1.7-9.3); MPV 9.1 FL (7.4-10.4); NEUT# 5.86 X1000 (1.4-6.5); NEUT% 81.2 % (42.2-75.2); PLT 455 X1000 (130-400); RBC 3.07 XMIL (4.2-5.4); RDW 13.5 % (11.5-14.5); WBC 7.23 X1000 (4.8-10.8)
--- NOTE | 2018-07-26 21:20 | Diag Imaging Result Doc PS360 ---
EXAM: CHEST-1 VIEW HISTORY: dyspnea TECHNIQUE: Chest single view COMPARISON: 07/14/2018 FINDINGS: Poor inspiratory effort. Heart is mildly prominent. There is pulmonary edema. This is less pronounced than on the prior study. No pleural effusions identified. IMPRESSION: Mild improvement in the pulmonary edema. Electronically signed by Kana Sanchez 07/26/2018 9:18 PM
[2018-07-26 21:51] LABS: CALCIUM 8.3 mg/dL (8.8-10.2); CREATININE 2.5 mg/dL (0.5-0.9); POTASSIUM 4.6 mmol/L (3.5-5.1)
[2018-07-26] MEDS ORDERED: NS 500 ML IV ONE (22:21)
[2018-07-26] MEDS ORDERED: LASIX IV ONE ×2 (22:21→22:51)
[2018-07-26] MEDS ORDERED: TYLENOL PO ONE (22:32)
[2018-07-26] MEDS ORDERED: NORCO-10 PO ONE (22:34)
--- NOTE | 2018-07-26 23:28 | PROVIDER DOCUMENTATION ---
This chart was entered by Katelynn Mensah Scribe, acting as scribe for Katie Wallace MD. HPI-General Adult - General Chief Complaint: Abnormal Lab[s] Stated Complaint: abd labs Time Seen by Provider: 07/26/18 20:29 Source: patient Allergies/Adverse Reactions: Patient Allergies Allergy/AdvReac Type Severity Reaction Status Date / Time albuterol sulfate * Allergy Intermediate RASH ON Verified 07/26/18 20:25 [From ProAir HFA] CHEST Penicillins Allergy Intermediate HIVES Verified 07/26/18 20:25 prochlorperazine edisylate * Allergy Intermediate HIVES Verified 07/26/18 20:25 [From Compazine] prochlorperazine maleate * Allergy Intermediate HIVES Verified 07/26/18 20:25 [From Compazine] Home Medications: Home Medication List Medication Instructions Recorded Confirmed Last Taken Type ATORVAstatin [Lipitor] 40 mg PO DAILY 02/24/18 07/05/18 07/04/18 History Doxepin [Sinequan] 10 mg PO HS 02/24/18 07/26/18 07/25/18 21:00 History Duloxetine [Cymbalta] 90 mg PO DAILY 02/24/18 07/26/18 07/26/18 09:00 History Folic Acid 0.4 mg PO DAILY #30 tab 02/26/18 07/26/18 07/26/18 Rx Gabapentin 300 mg PO BID #0 02/26/18 07/26/18 07/26/18 Rx Labetalol [Trandate] 200 mg PO BID #60 tab 02/26/18 07/26/18 07/26/18 09:00 Rx Ranitidine [Zantac] 150 mg PO BID tablet 02/26/18 07/26/18 07/26/18 Rx Insulin Humulin 70/30 [Humulin 20 unit SUBQ QPM 05/08/18 07/26/18 07/25/18 21: 00 History 70/30] Insulin Humulin 70/30 [Humulin 60 unit SUBQ QAM 05/08/18 07/26/18 07/26/18 08: 00 History 70/30] Amlodipine [Norvasc] 5 mg PO BID tablet 07/14/18 07/26/18 07/26/18 09:00 Rx Docusate Sodium [Colace] 100 mg PO BID capsule 07/14/18 07/26/18 07/26/18 09: 00 Rx Hydralazine [Apresoline] 50 mg PO Q8H tablet 07/14/18 07/26/18 07/26/18 14:00 Rx Hydrocodone/APAP 5 mg/325 mg 1 each PO Q6H PRN PRN tablet 07/14/18 07/26/1811/08 04:00 Rx [Webster-5] Iron Carbonyl/Ascorbic Acid 1 each PO BID #60 tablet 07/14/18 07/26/18 07/26/18 09:00 Rx [Icar-C] Lactulose 30 ml PO BID udc 07/14/18 07/26/18 07/26/18 10:00 Rx Levofloxacin [Levaquin] 250 mg PO DAILY #14 tablet 07/14/18 07/26/18 07/26/18 Rx Rivaroxaban [Xarelto] 10 mg PO DAILY@0600 #21 tablet 07/14/18 07/26/18 07/26/18 Rx Fluticasone 50 Mcg Nasal Scheller 1 inh ZANE QAM 07/26/18 07/26/18 07/26/18 09:00 History [Flonase] Insulin Lispro [Humalog] 1 unit SQ DIRECTED 07/26/18 07/26/18 07/26/18 History Ondansetron HCl 1 tab PO DAILY 07/26/18 07/26/18 07/26/18 14:20 History Pseudoephedrine HCl [Sudafed] 2 tab PO DAILY 07/26/18 07/26/18 07/26/18 History Sodium Chloride [Saline Nasal 1 spr ZANE QHS 07/26/18 07/26/18 07/25/18 History Scheller] - History of Present Illness -Gen Adult Nature of Presenting Problems: Pt is 58/F presenting to ED from [facility] she is here because she has had some abnormal labs. Pro BNP or 203, elevated glucose level and elevated renal levels. Pt sts that she has not been feeling to well and that she has had a headache and been SOB for 1 week. No cough no chest pain, no nausea or vomiting. no fever. Not worst headache of life Location of Pain/Injury: reports: head (headache) Pain Radiation: reports: no radiation Quality of Pain: reports: aching Severity: reports: mild Onset/Duration: reports: just prior to arrival Timing: reports: still present Context/Activities at Onset: reports: none Modifying Factors: improves with: nothing Associated Symptoms: reports: headaches, shortness of breath. denies: fever/ chills, vomiting Similar Symptoms Previously?: No Recently seen or treated by another doctor?: No Review of Systems - Adult - REVIEW OF SYSTEMS - ADULT Constitutional: reports: no symptoms reported. denies: chills, fever Eyes: reports: no symptoms reported Ears, Nose, Mouth & Throat: reports: no symptoms reported. denies: ear pain, sinus problem, nose pain, throat pain Cardiovascular: reports: no symptoms reported. denies: chest pain Respiratory: reports: shortness of breath. denies: cough, wheezing Gastrointestinal: reports: no symptoms reported. denies: abdominal pain, diarrhea, nausea, vomiting Genitourinary: reports: no symptoms reported Musculoskeletal: reports: no symptoms reported Integumentary: reports: no symptoms reported Neurological: reports: headache/migraines. denies: dizziness/vertigo Psychiatric: reports: no symptoms reported Endocrine: reports: no symptoms reported Hematologic/Lymphatic: reports: no symptoms reported Allergic/Immunologic: reports: no symptoms reported All Other Systems: Reviewed and Negative Past History - Adult - PAST MEDICAL HISTORY-ADULT Review of Records: reports: Old Records Reviewed, Nursing Assessment Review, Medications Reviewed, Social history reviewed & non-contributory. Major Childhood Illnesses: reports: denies history Cardiovascular: reports: HTN, hyperlipidemia Respiratory: reports: cancer (pre-cancerous cells) Gastrointestinal: reports: GERD Obstetrical/Gynecological: reports: denies history Genitourinary: reports: denies history Musculoskeletal: reports: denies history Neurological: reports: denies history Psychiatric: reports: anxiety, depression Endocrine/Immune: reports: Diabetes Other Conditions: reports: denies history - PRIOR SURGERIES/PROCEDURES Surgical/Procedure History: reports: other (not contributory) - PRIOR HOSPITALIZATIONS Prior Hospitalizations: reports: for other non-related - IMMUNIZATION STATUS Childhood Immunizations: See Nurse Assessment Flu Vaccine: See Nurse Assessment - FAMILY HISTORY Family History: other (not contributory) - SOCIAL HISTORY Smoking: quit greater than 1 year Substance Use: none/never Alcohol Use Frequency: never Living Situation: family Physical Exam-General - PHYSICAL EXAM-ADULT Initial Vital Signs Reviewed: Yes - CONSTITUTIONAL General Appearance: appears well, alert, no apparent distress - EYES Eyes: PERRL/EOMI, pink conjunctivae - HEAD, EARS, NOSE, MOUTH & THROAT HENMT: normocephalic/atraumatic, moist mucous membranes, normal ENT inspection, TMs normal, pharynx normal - NECK Neck: non-tender, full range of motion, supple, normal inspection - RESPIRATORY Respiratory: lungs clear - CARDIOVASCULAR Cardiovascular: regular rate, rhythm - GASTROINTESTINAL (ABDOMEN) Abdominal Exam: normal bowel sounds - LYMPHATIC Lymphatic: no adenopathy - MUSCULOSKELETAL Back Exam: normal inspection Extremity: normal range of motion, non-tender, normal gait, normal inspection - SKIN Integumentary: normal color, warm/dry - NEUROLOGIC Neurologic: grossly normal, no motor/sensory deficits - PSYCHIATRIC Psych/Mental Status: normal mood/affect, normal thought content, normal thought process, oriented x 3 Progress - PLAN OF CARE/RESULTS Progress/Plan/Lab Results: Vital Signs - 8 hr 07/26/18 20:19 Temperature 97.8 F Pulse Rate 80 Respiratory Rate 19 Blood Pressure 157/75 O2 Sat by Pulse Oximetry 96 Orders Category Date Time Status IV Insertion ORDERED Care 07/26/18 20:32 Active CHEST-1 VIEW [RAD] Stat Exams 07/26/18 20:32 Ordered BASIC METABOLIC PANEL [CHEM] Stat Lab 07/26/18 20:32 Uncollected CBC WITH DIFF [HEME] Stat Lab 07/26/18 20:32 Uncollected INFLUENZA SCREEN A/B Stat Lab 07/26/18 20:32 Uncollected PRO B-NATRIURETIC PEPTIDE Stat Lab 07/26/18 20:32 Uncollected TROPONIN T Stat Lab 07/26/18 20:32 Uncollected Result Diagrams: 07/26/18 20:37 07/26/18 20:37 - REASSESSMENT Reassessment #1 Status: improving (feeling well, marked hyponatremia with some pulmonary edema. Treated with ns and lasix and will admit. Will admit for further evaluation and treatment. Discussed case with Dr. Howe, Hospitalist, who will see and admit pt.) - XRAY 1 XRAY: Bilateral XRAY Study: Chest Impression: Abnormal ( FINDINGS: Poor inspiratory effort. Heart is mildly prominent. There is pulmonary edema. This is less pronounced than on the prior study. No pleural effusions identified. IMPRESSION: Mild improvement in the pulmonary edema. Electronically signed by Kana Sanchez 07/26/2018 9:18 PM 07/26/181) - CONSULTS/PCP/HOSPITALIST Notification #1 *Consult/PCP/Hospitalist*: [place] Time Discussed: 22:28 Reason/Comments: Juan M agrees to admit pt Consult Disposition: Admit Departure - Departure Date of Disposition Decision: 07/26/18 Time of Disposition Decision: 23:27 DIAGNOSIS: Hyponatremia CHF exacerbation Qualifiers: Heart failure type: unspecified Qualified Code(s): I50.9 - Heart failure, unspecified Disposition: ADMITTED INPATIENT 09 Certified Medical Emergency: Emergent Condition: Good Referrals and Follow-Ups: Art Cueto MD [Primary Care Provider] - - Critical Care Note This patient required my direct & personal management of CC.: No Attestation - Physician/ RICKY Attestation Patient care was provided by Advanced Practice Provider:: No The physician spent face to face time with patient:: Yes Advanced Practice Provider documentation review:: Supervising physician onsite and consulted in the evaluation and care of this patient. The physician did have a face to face encounter with the patient. This chart was documented by the indicated scribe, (Katelynn Mensah, Scribe) and accurately reflects the services I performed and decisions made by me, Katie Wallace MD, as attested by the provider's signature.
[2018-07-26] MEDS ORDERED: TYLENOL PO PRN (23:29)
[2018-07-26] MEDS ORDERED: ZOFRAN IV PRN (23:29)
[2018-07-27] MEDS ORDERED: LASIX IV SCH (02:14)
[2018-07-27] MEDS ORDERED: BASAGLAR SUBQ ONE (02:14)
[2018-07-27 02:23] LABS: RETIC% 2.73 % (0.8-2.1); RETIC-HE 30.2 PG (28.2-36.6)
[2018-07-27] MEDS: APRESOLINE PO SCH ×3 (02:31→17:44)
[2018-07-27] MEDS ORDERED: TYLENOL PO PRN (02:45)
[2018-07-27] MEDS ORDERED: TYLENOL ONE (02:57)
[2018-07-27] MEDS: ATROVENT NEB INH SCH ×4 (03:10→22:55)
--- NOTE | 2018-07-27 05:43 | HISTORY AND PHYSICAL ---
PCP: Art Cueto M.D., in [place], [place] HISTORY OF PRESENT ILLNESS: Ms. Diana Foley is a 58-year-old woman with a past medical history of type 2 diabetes, diabetic neuropathy, retinopathy, nephropathy, chronic kidney disease, hypertension and osteomyelitis currently undergoing chronic antibiotic treatment. She was brought in today from a facility with complaints of feeling short of breath for the last 1 week without any cough or chest pain. She said over the last couple of days she has had orthopnea and PND. She also admits to having some slight leg swelling in her left leg. She denies any GI or complaints. REVIEW OF SYSTEMS: Negative for any fever or chills. She has chronic right lower extremity pain which has been worrying her since she 3 weeks ago sustained a fracture to her right ankle. No polyuria or polydipsia. No focal neurological complaints. No headache or visual complaints. ALLERGY: To penicillins, Compazine, albuterol. HOME MEDICATION LIST: Atorvastatin 40 mg daily, doxepin 10 mg at bedtime, Cymbalta 90 mg daily, Flonase 1 puff daily, Humulin 70/30 20 units in the evening and 6 units in the a.m., Humalog sliding scale, Zofran 4 mg daily, Sudafed 60 mg daily, Norvasc 5 mg b.i.d., Colace 100 mg b.i.d., folic acid 1 tablet daily, gabapentin 200 mg b.i.d., hydralazine 50 mg q.8, hydrocodone 1 q.6, Icar-C 1 b.i.d., labetalol 20 mg daily, lactulose 30 mg b.i.d., levofloxacin 250 mg daily, Zantac 150 mg b.i.d., Xarelto 10 mg daily. 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 PAST MEDICAL HISTORY: See above. Right eye blindness, history of Robertson's palsy, thyroid disease, anemia of chronic inflammation, recent history for MRSA and sepsis of the right foot. FAMILY HISTORY: Notable for diabetes and heart disease in first-degree relatives. SOCIAL HISTORY: Does not smoke, drink or use illicit drugs. Currently in a halfway facility. LAB WORK: White count 7000, hemoglobin 8, hematocrit 24, platelets 445,000, 81% neutrophils. Sodium is 116, down from a sodium of 126. BUN is 60, creatinine 2.5, bicarbonate 14, glucose 263. Troponin is negative. ProBNP 3000, up from 2000. Flu screen was negative. Chest film: Mild improvement in pulmonary edema. EKG at this point in time is yet to be done. PHYSICAL EXAMINATION: VITAL SIGNS: Blood pressure 157/75, heart rate 80, respirations 19, temperature 97.8, 96% on 2 L. GENERAL: She is an obese, middle-aged woman who is in mild respiratory distress. She is A and O x3 with normal mood and affect. HEENT: Head is normocephalic, atraumatic. Eyes: Left pupil is reactive to light. Right pupil is an artificial eye. She is mildly pale. ENT and oropharynx exams show significant oropharyngeal crowding, cannot see the posterior pharyngeal wall. No central cyanosis. . NECK: Short and thick with positive hepatojugular reflux. No JVD or thyromegaly. CHEST: Bibasilar crepitations are heard. CARDIOVASCULAR: First and second heart sounds heard and a third gallop heard. No murmurs or rubs. Rhythm is regular. ABDOMEN: Protuberant, soft with right upper quadrant tenderness with no peritoneal signs. Bowel sounds are hypoactive. RECTAL: Exam deferred at this time. EXTREMITIES: There is a cast on the right leg extending to the distal 2/3 of her right foot which shows a chronic healing ulcer on the plantar surface where the stump of her amputated hallux was. The distal part shows a high degree of xerosis. On the left foot there is 2+ pitting edema with xerosis of the plantar and dorsal surfaces of the left foot. Pulses distally in the left foot are diminished and in the upper extremities too. No clubbing or peripheral cyanosis. NEUROLOGICAL: No gross focal deficits. SKIN: See above, grossly unremarkable. MUSCULAR: Grossly normal. ASSESSMENT: 1. Congestive heart failure, probable diastolic heart failure. 2. Hypertensive heart disease and kidney disease. 3. Acute on chronic kidney failure. 4. Type 2 diabetes, uncontrolled with nephropathy and neuropathy. 5. Hypernatremia, probably hypovolemic, hypertonic hypernatremia secondary to congestive heart failure and cannot rule out the effects of NSSI drug like Cymbalta. 6. Anemia of chronic inflammation. PLAN: Patient will be admitted for aggressive diuresis with close monitoring of electrolytes, especially sodium to avoid over-correction. Will also monitor renal function. Will consult Cardiology and Nephrology to see the patient. Echocardiogram has been ordered. Serial cardiac enzymes will also be ordered. My only concern is that this patient may end up having a cardiorenal syndrome in which case close monitoring of her indices will need to be followed. Patient's blood sugars will be managed using sliding scale and Lantus. Continue with Levaquin for management of chronic osteomyelitis. Blood pressure medications, preferably non-nephrotoxic medications will be advised. However, this will depend on the patient's ejection fraction. Workup for hypernatremia will including TSH, urine osmolality and uric acid to assess the patient's water status intravascularly. DVT prophylaxis will be achieved by using Xarelto which was the patient's home medication at discharge. Nebulized treatments using ipratropium and/or Xopenex will be recommended. Anemia workup has been ordered and needs to be followed. If the patient does have evidence of iron deficiency, would prefer IV Venofer as this patient may have poor absorption of iron. cc: MD Art Villatoro M.D. MD Eben Bruce MD
[2018-07-27] MEDS ORDERED: XARELTO PO SCH (06:00)
[2018-07-27] MEDS: HUMALOG SUBQ SCH ×4 (06:25→21:03)
[2018-07-27 06:28] LABS: BASO# 0.02 X1000 (0.0-0.2); BASO% 0.3 % (0.0-0.8); EOS% 1.3 % (0.0-10.0); HEMATOCRIT 24.5 % (37.0-47.0); HEMOGLOBIN 7.9 g/dL (12.0-16.0); IMM GRAN# 0.02 X1000 (0.0-0.04); IMM GRAN% 0.3 % (0.0-0.5); LYMPH# 1.18 X1000 (1.2-3.4); LYMPH% 14.9 % (20.5-51.1); MCH 26.8 PG (27-31); MCHC 32.2 g/dL (33-37); MCV 83.1 FL (81-99); MONO# 1.36 X1000 (0.11-0.59); MONO% 17.1 % (1.7-9.3); MPV 8.7 FL (7.4-10.4); NEUT# 5.26 X1000 (1.4-6.5); NEUT% 66.1 % (42.2-75.2); PLT 455 X1000 (130-400); RBC 2.95 XMIL (4.2-5.4); RDW 13.8 % (11.5-14.5); WBC 7.94 X1000 (4.8-10.8)
[2018-07-27] MEDS: LASIX IV SCH ×2 (06:33→13:44)
[2018-07-27 06:38] LABS: HEMOGLOBIN A1C 8.7 % (4.8-6.0)
[2018-07-27 07:12] LABS: CALCIUM 7.4 mg/dL (8.8-10.2); CREATININE 2.3 mg/dL (0.5-0.9); POTASSIUM 4.2 mmol/L (3.5-5.1)
[2018-07-27 07:55] LABS: ALLEN TEST YES; BE -7.8 mmoll (-3.0-3.0); BLOOD TYPE ARTERIAL; HCO3-(ACT) 18.9 mmoll (20.0-26.0); METHB 0.1 % (0.0-1.5); O2(CT) 11.6 mL/dL (15.0-23.0); O2HB 96.8 % (95.0-99.0); PCO2(98.6) 34 mmHg (35-45); PO2(98.6) 87 mmHg (60-100); SAMPLE BLOOD; THB 8.4 g/dL (11.5-17.4); pH(98.6) 7.32 (7.35-7.45)
[2018-07-27 07:58] LABS: MODALITY CANNULA
[2018-07-27 07:59] LABS: URINE SOURCE CLEAN CATCH
[2018-07-27 08:01] LABS: BILIRUBIN URINE NEGATIVE (NEGATIVE); BLOOD URINE TRACE (NEGATIVE); COLOR STRAW; GLUCOSE URINE NEGATIVE (NEGATIVE); KETONE URINE NEGATIVE (NEGATIVE); LEUKOCYTES URINE NEGATIVE (NEGATIVE); NITRITE URINE NEGATIVE (NEGATIVE); PROTEIN URINE 100 mg/dL (NEGATIVE); TURBIDITY URINE HAZY (CLEAR); UROBILINOGEN URINE NORMAL (NORMAL)
[2018-07-27 08:04] LABS: UR EPITHELIAL CELLS <10 /HPF (<10); URINE BACTERIA NEGATIVE /HPF; URINE RBC <10 /HPF (<10); URINE WBC <10 /HPF (<10)
--- NOTE | 2018-07-27 08:06 | Diag Imaging Result Doc PS360 ---
EXAM: CHEST-PORTABLE HISTORY: sob TECHNIQUE: Portable chest single view COMPARISON: 07/26/2018 FINDINGS: Poor inspiratory effort. Pulmonary edema remains although it is slightly less pronounced area no pleural effusions identified. There are infiltrates in the left lung base. IMPRESSION: Mild interval improvement. Electronically signed by Kana Sanchez 07/27/2018 8:04 AM
[2018-07-27 08:17] LABS: URINE CASTS GRANULAR PRESENT; URINE YEAST NONE SEEN
[2018-07-27 08:18] LABS: URINE CRYSTALS NONE SEEN; URINE SMALL ROUND CELLS NONE SEEN
[2018-07-27] MEDS ORDERED: NARCAN IV ONE (08:20)
[2018-07-27] MEDS ORDERED: NARCAN ONE (08:33)
[2018-07-27] MEDS: BASAGLAR SUBQ SCH (08:59)
[2018-07-27] MEDS ORDERED: NEURONTIN PO SCH (09:00)
[2018-07-27] MEDS: COLACE PO SCH ×3 (09:26→21:02)
[2018-07-27] MEDS: FOLIC ACID PO SCH (09:26)
[2018-07-27] MEDS: LACTULOSE PO SCH ×3 (09:27→21:02)
[2018-07-27] MEDS: FLONASE NAS SCH (09:27)
[2018-07-27] MEDS: TRANDATE PO SCH ×3 (09:28→21:02)
[2018-07-27] MEDS: LEVAQUIN PO SCH (09:28)
[2018-07-27] MEDS: NORVASC PO SCH ×3 (09:28→21:02)
[2018-07-27] MEDS: ZANTAC PO SCH ×3 (09:28→21:03)
[2018-07-27 10:11] LABS: CALCIUM 7.7 mg/dL (8.8-10.2); CREATININE 2.4 mg/dL (0.5-0.9); POTASSIUM 4.1 mmol/L (3.5-5.1)
--- NOTE | 2018-07-27 11:25 | Diag Imaging Result Doc PS360 ---
EXAM: CT HEAD W/O CONTRAST HISTORY: ENCEPHALOPATHY TECHNIQUE: CT head without contrast COMPARISON: 02/23/2018 FINDINGS: No parenchymal hemorrhage. No epidural or subdural hematoma. No subarachnoid hemorrhage. No mass identified on this noncontrasted exam. No hydrocephalus. No sinus opacification. False right eye. IMPRESSION: No hemorrhage. Negative brain CT without contrast. This exam was performed using automated exposure control, adjustment of mA or kV according to patient size, and/or use of iterative reconstruction technique. Electronically signed by Kana Sanchez 07/27/2018 11:22 AM
--- NOTE | 2018-07-27 13:28 | CONSULTATION ---
DATE OF CONSULTATION: 07/27/2018 HISTORY: Ms. Foley is 58 years old, and she presented overnight with chief complaint of shortness of breath. There has been reported to be some altered mental status. Ms. Foley told me that she has been aware that it has been difficult for her to think clearly in recent days. She cannot be more precise. There have not been periods of altered awareness, unconsciousness, or collapse. She has not had devyn seizure. She has not had much headache. She reports no history of stroke. There is a reported history of Robertson's palsy in the remote past. She had her right eye replaced with prosthesis a few years ago. She has long- standing diabetes mellitus with complications including retinopathy, nephropathy, and neuropathy. There is hypertension. She has osteomyelitis currently treated with antibiotics. Lab work this admission showed sodium 120, BUN in the 60s. She has been afebrile. Systolic blood pressures have ranged 110s to 160s. Noncontrast CT of the head was unremarkable. The home medication list as recorded includes 21 items on my count. [employer] active drugs include hydrocodone, doxepin, gabapentin, duloxetine, and pseudoephedrine. We do not have urine drug screen this admission. PHYSICAL EXAMINATION: On exam now, Ms. Foley is awake, alert, and attentive. She appears ill, but answers questions appropriately. Speech is not dysarthric. Language function is intact. Recent and remote memory are good. She was able to discuss recent news with some accurate details. She did not know the day of the week, but knew the month, year and location. Head and neck are unremarkable. Left eye shows full visual chin on confrontational finger counting. She has good left extraocular movement. Facial motility is good bilaterally now. Forehead wrinkling is equal on the left and right. Tongue is midline. Shoulder shrug is equal. Strength is normal in the arms. She did well on [id number] testing bilaterally. She reports good sensation over the hands. She has good power distally in the left leg. Right lower leg is casted, and I did not test power there. Proprioception is poor at the left great toe MTP joint. She has stocking pattern of sensory loss. Left ankle reflex is absent. I did not test her gait. IMPRESSION: Recent reported altered mental state. At this point, I do not have any significant neurologic findings. She may have had a transient encephalopathy associated with metabolic derangements, particularly hyponatremia. There could be toxic effect with her several [employer] active medications on board. She told me she supervises her medicines herself. I do not see evidence of recent neurologic event. I do not have any specific suggestion for management from a neurologic standpoint. If she has fluctuating level of consciousness or altered awareness, we might consider EEG. If she has focal neurologic problems, we might consider brain MRI. Thanks for asking Neurology to see Ms. Foley. cc: MD ALLAN Mccann III
[2018-07-27 14:53] LABS: CALCIUM 7.5 mg/dL (8.8-10.2); CREATININE 2.3 mg/dL (0.5-0.9); POTASSIUM 4.1 mmol/L (3.5-5.1)
[2018-07-27 15:41] LABS: UR AMPHETAMINES QUAL NONE DETECTED (NONE DETECT); UR BARBITUATES QUAL NONE DETECTED (NONE DETECT); UR BENZODIAZEPIN QUAL NONE DETECTED (NONE DETECT); UR CANNABINOIDS QUAL NONE DETECTED (NONE DETECT); UR COCAINE QUAL NONE DETECTED (NONE DETECT); UR METHADONE QUAL NONE DETECTED (NONE DETECT); UR OPIATES QUAL NONE DETECTED (NONE DETECT); UR OXYCODONE QUAL NONE DETECTED (NONE DETECT); UR PCP QUAL NONE DETECTED (NONE DETECT)
--- NOTE | 2018-07-27 15:43 | EKG Report ---
Test Performed on : 07/27/2018 3:37:44 PM Test Reason : dyspnea Blood Pressure : / mmHG Vent. Rate : 084 BPM Atrial Rate : 084 BPM P-R Int : 174 ms QRS Dur : 102 ms QT Int : 376 ms P-R-T Axes : 054 001 033 degrees QTc Int : 444 ms Normal sinus rhythm. Normal ECG When compared with ECG of 05-JUL-2018 07:48, No significant change was found Unconfirmed Result
--- NOTE | 2018-07-27 15:45 | PROGRESS NOTE ---
DATE: 07/27/2018 SUBJECTIVE: The patient is lethargic and will barely wake up. However, her vitals are stable. OBJECTIVE: Vital Signs: Temperature 97.8, blood pressure 154/70, heart rate 81, respirations 14. O2 sats 100% on 3 L nasal cannula. Urine output 2.7 L. General: This is a morbidly obese female lying in bed in no acute distress. HEENT: Head normocephalic, atraumatic. Heart: S1, S2 normal. Regular rate and rhythm. Lungs: Equal air entry bilaterally. No wheezing. No rales. Abdomen: Positive bowel sounds. Soft, obese, nontender, nondistended. Extremities: 2+ edema. Neurologic: The patient is lethargic. LABS: White blood cell count 7.9, hemoglobin 7.9, hematocrit 24, platelets 455,000. Sodium 125, potassium 4.1, chloride 92, CO2 18, BUN 63, creatinine 2.3, glucose 123, calcium 7.5. Head CT shows no acute pathology. Chest x-ray shows pulmonary edema. ASSESSMENT AND PLAN: 1. Volume overload with pulmonary edema. Continue with diuretic therapy. An echocardiogram is currently pending. 2. Hyponatremia. Slowly improving. Nephrology is following. 3. Chronic kidney disease stage 4. Stable. We will continue to monitor the patient's urine output closely and avoid nephrotoxic agents. Nephrology is following. 4. Morbid obesity. Aware. 5. Recent open reduction and internal fixation of a right bimalleolar ankle fracture. Stable. 6. Anemia. We will monitor the hemoglobin and hematocrit closely. 7. Metabolic acidosis. Slightly improved. Will continue to monitor for improvement. 8. Diabetes mellitus type 2. We will start the patient on sliding scale insulin. We will hold off on the long-acting insulin since the patient is n.p.o. 9. Encephalopathy. The etiology is unknown. The head CT was unremarkable. 10. GI prophylaxis. Will start the patient on Protonix. 11. DVT prophylaxis. Will start the patient on Lovenox. cc: Maegan Veliz MD MTDD
--- NOTE | 2018-07-27 19:10 | NEPHROLOGY CONSULTATION ---
DATE: 07/27/2018 REASON FOR ADMISSION: Altered mental status and complaints of increased work of breathing. DATE OF CONSULT: 07/27/2018. REASON FOR CONSULT: Hyponatremia with CKD stage IIIB. CONSULTING PHYSICIAN: Dr. Maegan Veliz. TIME SEEN: 714. HISTORY OF PRESENT ILLNESS: Ms. Foley is a 58-year-old white female who we have seen in the past in our office for chronic kidney disease stage IIIB. Her baseline creatinine is noted at 2.6 to 3 in the last 6 to 9 months. The patient was last seen in our office in April, had missed an appointment in June secondary to her hospitalization with another appointment in our office next week. She was brought to [facility] with complaints of feeling short of breath x 1 week without cough or chest pain, slight altered mental status, increased lower extremity swelling. She was found to have a sodium level on admission of 116. She was started on normal saline. Her Cymbalta was held. This was repeated at 6 a.m. It was up to 120 when patient was seen with further labs ordered approximately every 4 to 6 hours. Upon evaluation, the patient's is at her bedside. She is currently denying any chest pain or increased work of breathing. She is very lethargic. She does drift off back to sleep during her interview. She has denied any nausea, vomiting or any diarrhea. She is currently taking gabapentin 300 mg b.i.d. She is on Cymbalta. Her creatinine remains at her historical baseline of 2.3. BUN is just slightly elevated at 63. She denies any hematochezia, hemoptysis or melena. No recent nausea, vomiting, diarrhea. She denies chest pain at this time. No increased lower extremity swelling. PAST MEDICAL HISTORY: Positive for chronic kidney disease stage IIIB with a baseline creatinine of 2.6 to 3. Last creatinine in our office was 2.64. She has diabetes mellitus type 2, this is associated with diabetic neuropathy, retinopathy and nephropathy. 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 Hypertension, hyperlipidemia, she has GERD, benign bladder tumor, thyroid disease, anxiety, anemia of chronic disease, history of MRSA to her right ankle wound. She has sepsis to a right diabetic foot. She is currently receiving Levaquin per Dr. Quezada for chronic osteomyelitis. PAST SURGICAL HISTORY: Removal of benign bladder tumor, partial hysterectomy, right eye surgery, amputation of first 3 toe secondary to diabetic foot wound on the left, recent debridement to her left foot, now continues on oral antibiotics for her osteomyelitis. SOCIAL HISTORY: She is a former smoker. She lives with her sister. No children. Family is attentive to her care. No illicit drug use or alcohol use. Former smoker, as mentioned. FAMILY HISTORY: Father had history of diabetes. Mother had history of diabetes, hypertension and heart disease. CURRENT ALLERGIES: Listed as penicillin, albuterol and Compazine. HOME MEDICATIONS: She is on Cymbalta, Lipitor, folic acid, Trandate, Zantac, gabapentin, Humulin 70/30 a.m. and p.m., Norvasc Colace, Apresoline, Icar C, lactulose, Xarelto, Levaquin, hydrocodone, lispro, Zofran, sodium chloride nasal spray, Flonase and Sudafed. REVIEW OF SYSTEMS: Review of systems x 10, best is attempted per patient as she drifts off during her review of systems with pertinent positives listed above in the HPI. VITAL SIGNS: Temperature is 98.1 when seen this a.m., blood pressure 112/43, heart rate 89, respirations 16. She is 3.5 L. Last recorded saturation 98%. She has had 0 recorded in; she has had 2300 out. LABORATORY DATA: Sodium 120, potassium 4.2, chloride 90, CO2 16, BUN 63, creatinine 2.3. Her glucose is 131. Her anion gap is 14, calcium 7.4. White count 7.94, hemoglobin 7.9, hematocrit 24.5, with a platelet count of 455,000. TSH is 6.64. PHYSICAL EXAMINATION: General: This is a 58-year-old white female resting quietly in bed. She is lethargic, in no acute distress. Skin: Warm and dry. She appears chronically ill. HEENT: Normocephalic, atraumatic. Conjunctiva is pale. Her left pupil is reactive to light, false eye to the right. Neck: Supple. Trachea midline. No evidence of JVD. Cardiovascular: She is regular rate and rhythm. No appreciable murmur or gallop. Lungs: Clear to auscultation anteriorly. Equal excursion on O2. Abdomen: Large, round, soft, nontender. Positive bowel sounds. Genitourinary: Not inspected. Patient has adequate urine out documented. Extremities: Edema on the right, 2+; one on the left is 1+. She remains on Levaquin renally. Neurologic: As mentioned above, lethargic. Adequate historian to current, but not to most recent events. ASSESSMENT AND PLAN: 1. Chronic kidney disease stage IIIB. Patient remains at historical baseline. Creatinine is at 2.3. She has adequate urine out. We will continue to monitor and observe labs. 2. Electrolytes. Patient has hyponatremia. She came in with a sodium of 116. Her Cymbalta has been held. She has been given normal saline. Her sodium is up to 120. We will check it again at noon and possibly again every 4 hours until this evening, with labs in the morning. 3. Acidosis. This remains acceptable. 4. Anemia. This is low, but stable. 5. Hypothyroidism. Patient's TSH is 6.64. We will defer to the primary care team. 6. Recent open reduction and internal fixation of a right bimalleolar ankle fracture. This is stable. Remains on antibiotics. I would like to thank you for allowing us to follow with this patient. Dictated by TAYLOR Muñiz for Eben Pena MD Face to face encounter, data reviewed, discussed with Cheryl Spear on 07/27/18. I agree with the above assessment and plan of care. cc: TAYLOR Muñiz MD [facility]
--- NOTE | 2018-07-27 19:20 | CARDIOLOGY CONSULTATION ---
DATE: 07/27/2018 CONSULTATION REQUESTED BY: Hospitalist Service. REASON FOR CONSULTATION: Possible heart failure, patient with mental status changes. HISTORY: Mrs. Foley comes in from the [facility] where she has been staying after her recent discharge from this hospital on July 14. The patient apparently reported increasing dyspnea for a few days, orthopnea and then lethargy and confusion. Upon arrival to the hospital here, they checked electrolytes, and her sodium was 116 mEq/L with a BUN of 60 and creatinine 2.5. They have given her IV fluids. Her proBNP was slightly elevated at 3089. The chest x-ray done in the ER at 8:30 p.m. showed improvement in pulmonary edema when compared to the one from July 14. Subsequent x-ray done today shows mild interval improvement. A CT of the head shows no hemorrhage, no lesions. The patient at this time is just lethargic. She is not having any pain anywhere. Sister is sitting next to her. PAST HISTORY: Positive for diabetes mellitus type 2, diabetic neuropathy, osteomyelitis with MRSA, chronic kidney disease, hypertension, hypothyroidism. SURGICAL HISTORY: She had bladder surgery, hysterectomy, right eye surgery, amputation of toes. SOCIAL HISTORY: She lives with her sister. Currently she is staying at a custodial because of need for wound care. Not a smoker or a drinker. She has no children, never been . FAMILY HISTORY: Noncontributory. ALLERGIES: Per chart indicate that she is allergic to albuterol, penicillin, Compazine. HOME MEDICATIONS: At the time of admission included amlodipine 5 twice a day, Lipitor 40 daily, doxepin 10 mg at bedtime, Cymbalta 90 mg daily, gabapentin 300 twice a day, hydralazine 50 every 8 hours, hydrocodone APAP every 6 hours, insulin 70/30, 20 units in the evening and 60 units in the morning, insulin lispro as directed, labetalol 200 twice a day, lactulose 30 mg twice a day, Levaquin 250 daily, pseudoephedrine 2 tablets daily, ranitidine 150 twice a day, Xarelto 10 mg daily, sodium chloride. REVIEW OF SYSTEMS: Really difficult to obtain because she is lethargic; however, she is significantly limited to perform physical activity because of the active wound condition that she has in the right foot. She is at the custodial where they are doing some rehab for her. PHYSICAL EXAMINATION: Vital signs: Blood pressure 154/70, pulse 81, temperature 97.8 degrees, respirations 18. General: She is lethargic and slow to answer. HEENT: Unremarkable. Chest: Diminished breath sounds bilaterally. No rales. Heart: Sounds are regular in rhythm. I do not hear a gallop or murmur. Abdomen: Obese, nontender. Extremities: Showed good pulses in the left foot. Right foot is covered with a dressing. Neurological: Sluggish. She moves 4 extremities. She has no focal deficit. LABORATORY DATA: Hemoglobin is 7.9, hematocrit 24.5, white cell count 7940, sodium 125, potassium 4.1, BUN 63, creatinine 2.3. Troponins have been checked, and all of them negative. Of note, her 12 lead electrocardiogram is normal. Echocardiogram was done this morning. I looked at it, and the preliminary impression is that her heart function is normal. IMPRESSION: 1. Patient with lethargy, hyponatremia, renal dysfunction acute on chronic. 2. Hypertension. 3. Diabetes mellitus type 2. 4. Question of pulmonary congestion, fluid overload. 5. History of methicillin-resistant Staphylococcus aureus infection of right foot. 6. Dyspnea is probably secondary to fluid overload from many factors; however, heart disease does not seem to be one of them. RECOMMENDATIONS: At this point in time, I would suggest to continue treatment as you are doing and to let the jewel stripper handle the management of hypertension and the management of kidney dysfunction and fluid overload. Cardiac-fraga I have nothing else to recommend. We are signing off and call us if there is any specific cardiac issue that arises. cc: Bernard Wheeler MD [facility]
[2018-07-27] MEDS: AYR NASAL SPRAY NAS SCH ×2 (19:35→21:02)
[2018-07-27] MEDS: SINEQUAN PO SCH ×2 (19:35→21:02)
[2018-07-27] MEDS: TYLENOL PO PRN (19:35)
[2018-07-27 20:05] LABS: CALCIUM 7.7 mg/dL (8.8-10.2); CREATININE 2.3 mg/dL (0.5-0.9); POTASSIUM 3.7 mmol/L (3.5-5.1)
[2018-07-28] MEDS: APRESOLINE PO SCH ×3 (03:14→17:32)
[2018-07-28] MEDS: ATROVENT NEB INH SCH ×4 (03:45→21:53)
[2018-07-28 05:26] LABS: HEMATOCRIT 24.3 % (37.0-47.0); HEMOGLOBIN 7.9 g/dL (12.0-16.0); MCH 27.6 PG (27-31); MCHC 32.5 g/dL (33-37); MPV 8.1 FL (7.4-10.4); RBC 2.86 XMIL (4.2-5.4); WBC 5.95 X1000 (4.8-10.8)
[2018-07-28 05:50] LABS: ALBUMIN 3.1 g/dL (3.5-5.0); CALCIUM 8.4 mg/dL (8.8-10.2); CREATININE 2.1 mg/dL (0.5-0.9); POTASSIUM 3.7 mmol/L (3.5-5.1)
[2018-07-28] MEDS ORDERED: BLISTEX MEDICATED BERRY LIP BALM TOP PRN (05:50)
[2018-07-28] MEDS: HUMALOG SUBQ SCH ×4 (06:20→20:41)
[2018-07-28] MEDS ORDERED: LASIX IV SCH (07:00)
--- NOTE | 2018-07-28 08:12 | ECHO REPORT ---
ORDER DATE: 07/26/2018 SUMMARY: 1. Technically difficult study due to limited acoustic window quality. Intravenous echo contrast agent utilized to enhance endocardial definition. 2. Aortic valve is without evidence of structural abnormality. Peak gradient across aortic valve is 12 mmHg. Mild mitral annular calcification is demonstrated. There is trace mitral regurgitation. Tricuspid valve is without evidence of structural abnormality while pulmonic valves all demonstrated. There is mild tricuspid regurgitation. Estimated systolic PA pressure by Doppler is 30 to 35 mmHg. Aortic root is normal in size. 3. Normal left ventricular chamber size with mild concentric left hypertrophy is suggested. Estimated left ejection fraction appears to be at least 55%. No regional wall motion is evident. Left atrium is borderline enlarged. Right atrium, right ventricle are normal in size. 4. No pericardial effusion. 5. Appearance of inferior cava suggests normal central venous pressure. cc: MD Andry Bruce MD
[2018-07-28] MEDS: FOLIC ACID PO SCH (08:19)
[2018-07-28] MEDS: TRANDATE PO SCH ×2 (08:19→20:26)
[2018-07-28] MEDS: BASAGLAR SUBQ SCH (08:19)
[2018-07-28] MEDS: LACTULOSE PO SCH ×2 (08:19→20:25)
[2018-07-28] MEDS: FLONASE NAS SCH (08:20)
[2018-07-28] MEDS: ZANTAC PO SCH ×2 (08:20→20:26)
[2018-07-28] MEDS: COLACE PO SCH ×2 (08:20→20:25)
[2018-07-28] MEDS: NORVASC PO SCH ×2 (08:20→20:26)
[2018-07-28] MEDS: LEVAQUIN PO SCH (08:20)
--- NOTE | 2018-07-28 08:52 | Diag Imaging Result Doc PS360 ---
EXAM: CHEST-2 VIEWS HISTORY: chf TECHNIQUE: Chest two views COMPARISON: 07/27/2018 FINDINGS: Poor inspiratory effort. There are small pleural effusions. The heart is borderline mildly prominent. Pulmonary edema is less pronounced. No consolidation. IMPRESSION: Mild interval improvement. Electronically signed by Kana Sanchez 07/28/2018 8:49 AM
[2018-07-28] MEDS ORDERED: LOVENOX SUBQ SCH (09:00)
--- NOTE | 2018-07-28 10:17 | PROGRESS NOTE ---
DATE: 07/28/2018 Ms. Foley is awake, alert, attentive and appropriate now. She had very appropriate conversation with me this morning. Speech is not dysarthric. Language function is intact on usual bedside testing. Remote memory is good. She is completely oriented to all parameters, and answered all of these questions briskly and with confidence. Family at the bedside reports she seems completely back to baseline mentally. I do not have anything to add from Neurology standpoint. I will sign off, and be glad to see Ms. Foley again if needed. Thanks for asking us to see her. cc: Alona Woods III, MD MTDD
[2018-07-28] MEDS: SSD CREAM TOP SCH (14:06)
--- NOTE | 2018-07-28 15:04 | NEPHROLOGY PROGRESS NOTE ---
DATE: 07/28/2018 TIME SEEN: 0740 hours. SUBJECTIVE: Ms. Foley is sitting up in bed. She is talking with her friend at her bedside. She is in no acute distress. She denies any chest pain or increased work of breathing. OBJECTIVE: Her most recent vital signs: Temperature is 98 degrees, blood pressure 138/62, heart rate 76, respirations 16. She is on 2 L nasal cannula. Last recorded saturation 100%. She has had zero on board. She has had 6775 out to Kaplan catheter. LABORATORY DATA: Sodium 134, potassium 3.7, chloride 99, CO2 20. BUN 62, creatinine 2.1, glucose 143. Her anion gap is 15, calcium 8.4, phosphorus 6, albumin 3.1. White count 5.95, hemoglobin 7.9, hematocrit 24.3, with a platelet count of 414. PHYSICAL EXAMINATION: General: This is a 58-year-old white female. She is currently resting quietly today. She is in no acute distress. Skin: Warm and dry. HEENT: Normocephalic, atraumatic. Conjunctiva is pale. She has CATHY. Mucous membranes are dry. Neck: Supple. Trachea midline. She has no evidence of JVD. Cardiovascular: She is regular rate and rhythm. No appreciable murmur or gallop. Lungs: Clear to auscultation anteriorly, equal excursion on O2. Abdomen: Soft, round, large, nontender. Positive bowel sounds. Genitourinary: Not inspected. She has adequate urine out that has been documented. Extremities: Has 1+ lower extremity edema, right greater than left. Neurological: She is alert and oriented to person, to place. She is forgetful to most recent events, but can remember a week ago. ASSESSMENT AND PLAN: 1. Chronic kidney disease stage IIIB/stage IV. The patient remains at her historical baseline with a creatinine of 2.1. She has adequate urine output. No indications for intervention. 2. Electrolytes. Patient's hyponatremia has corrected nicely in the last 48 hours. Sodium is at 134. She remains on Lasix 40 mg every 12 hours. We will change this to 40 mg daily. We will start her on clear liquids, and we will restrict her free water at 1.5 liters at this time. 3. Acid-base balance. This is acceptable. 4. Anemia. This is low, but stable. 5. Recent reduction and internal fixation of her right ankle fracture. She remains on renal- dosed antibiotics. This is followed by the primary care. Plan: Patients sodium has returned to baseline. Remains off cymbalta. Now on fluid restriction with single dose lasix. We will sign off at this time and remain available if needed. I would like to thank you for allowing us to follow with this patient. Dictated by TAYLOR Muñiz for Eben Pena MD cc: TAYLOR Muñiz MD [facility]
[2018-07-28] MEDS: VENOFER 200 MG in NS 150 ML IV SCH (17:32)
--- NOTE | 2018-07-28 18:09 | PROGRESS NOTE ---
DATE: 07/28/2018 SUBJECTIVE: The patient is awake and alert today. She is sitting up eating. She states that she feels a lot better today. Her sister is present at the bedside. No acute events noted overnight. OBJECTIVE: Vital signs: Temperature 98.7 degrees, blood pressure 135/57, heart rate 83, respirations 16, O2 saturation 99% on 2 L nasal cannula. Intake 1.4 L, output 3 L. General: This is an overweight female lying in bed in no acute distress. Head normocephalic, atraumatic. Heart: S1, S2 normal. Regular rate and rhythm. Lungs: Equal air entry bilaterally. No wheezing, no rales, no rhonchi. Abdomen: Positive bowel sounds. Soft, nontender, nondistended. Extremities: Trace pedal edema. No cyanosis. No calf tenderness. Neurologic: The patient is alert and oriented x4. LABORATORY DATA: White blood cell count 5.9, hemoglobin 7.9, hematocrit 24, platelets 414,000. Sodium 134, potassium 3.7, chloride 99, CO2 is 20, BUN 62, creatinine 2.1, glucose 143, phosphorus 6, calcium 8.4, albumin 3.1. DIAGNOSTIC DATA: Chest x-ray shows improvement in the pulmonary edema. ASSESSMENT AND PLAN: 1. Volume overload with pulmonary edema. Improved. We will continue with diuretic therapy. 2. Hyponatremia. This is likely secondary to the patient's usage of Cymbalta. This medication has been discontinued. The patient's sodium is almost normal male. 3. Chronic kidney disease stage 4. Stable. 4. Morbid obesity. Aware. 5. Recent open reduction and internal fixation of a right bimalleolar ankle fracture. Stable. The extremity is in a cast. 6. Diabetes mellitus type 2. Continue with sliding scale insulin. 7. Encephalopathy. Resolved. 8. Iron-deficiency anemia. We will start the patient on intravenous iron. 9. Constipation. We will start the patient on scheduled laxative therapy. 10. Deep vein thrombosis prophylaxis. Continue on Lovenox. 11. Disposition. The patient is stable for transfer to the medical floor. We will also consult Physical Therapy. cc: Maegan Veliz MD
[2018-07-28] MEDS: AYR NASAL SPRAY NAS SCH (20:24)
[2018-07-28] MEDS: DULCOLAX PR SCH (20:25)
[2018-07-28] MEDS: MIRALAX PO SCH (20:26)
[2018-07-29] MEDS: APRESOLINE PO SCH ×3 (01:59→17:52)
[2018-07-29] MEDS: ATROVENT NEB INH SCH ×4 (03:05→21:10)
[2018-07-29] MEDS: HUMALOG SUBQ SCH ×4 (06:04→21:48)
[2018-07-29 06:48] LABS: BASO# 0.01 X1000 (0.0-0.2); BASO% 0.2 % (0.0-0.8); EOS# 0.03 X1000 (0.0-0.7); EOS% 0.5 % (0.0-10.0); HEMATOCRIT 27.8 % (37.0-47.0); HEMOGLOBIN 8.8 g/dL (12.0-16.0); LYMPH# 0.57 X1000 (1.2-3.4); LYMPH% 10.3 % (20.5-51.1); MCHC 31.7 g/dL (33-37); MCV 85.3 FL (81-99); MONO# 0.83 X1000 (0.11-0.59); MPV 8.8 FL (7.4-10.4); PLT 397 X1000 (130-400); RBC 3.26 XMIL (4.2-5.4); RDW 14.6 % (11.5-14.5); WBC 5.54 X1000 (4.8-10.8)
[2018-07-29 07:08] LABS: ALBUMIN 3.2 g/dL (3.5-5.0); CALCIUM 8.7 mg/dL (8.8-10.2); CREATININE 2.2 mg/dL (0.5-0.9); PHOSPHORUS 4.5 mg/dL (2.7-4.5); POTASSIUM 3.7 mmol/L (3.5-5.1)
[2018-07-29] MEDS: MIRALAX PO SCH ×2 (09:24→21:43)
[2018-07-29] MEDS: NORVASC PO SCH ×2 (09:29→21:44)
[2018-07-29] MEDS: FOLIC ACID PO SCH (09:29)
[2018-07-29] MEDS: COLACE PO SCH ×2 (09:29→21:44)
[2018-07-29] MEDS: LOVENOX SUBQ SCH (09:29)
[2018-07-29] MEDS: TRANDATE PO SCH ×2 (09:29→21:44)
[2018-07-29] MEDS: BASAGLAR SUBQ SCH (09:30)
[2018-07-29] MEDS: LASIX IV SCH (09:30)
[2018-07-29] MEDS: LACTULOSE PO SCH ×2 (09:30→21:43)
[2018-07-29] MEDS: FLONASE NAS SCH (09:30)
[2018-07-29] MEDS: SSD CREAM TOP SCH (09:31)
[2018-07-29] MEDS: ZANTAC PO SCH ×2 (09:32→21:44)
[2018-07-29] MEDS: VENOFER 200 MG in NS 150 ML IV SCH (09:42)
--- NOTE | 2018-07-29 09:59 | Diag Imaging Result Doc PS360 ---
EXAM: CHEST-PORTABLE 07/29/2018 HISTORY: pulmonary edema TECHNIQUE: AP portable upright at 0905 COMMENT: There is atelectatic appearing opacity in the mid left lung field which was also present on 07/28/2018. There is somewhat worsened opacity in the retrocardiac area. The right lung is essentially clear and stable. IMPRESSION: Atelectasis versus pneumonia on the left. Electronically signed by Kevin Waldron 07/29/2018 9:57 AM
--- NOTE | 2018-07-29 17:59 | Diag Imaging Result Doc PS360 ---
EXAM: CT THORAX W/O CONTRAST 07/29/2018 HISTORY: right lower lobe nodular infiltrate TECHNIQUE: This exam was performed using automated exposure control, adjustment of mA or kV according to patient size, and/or use of iterative reconstruction technique. COMMENT: There are bilateral pleural effusions. These were present at the time the previous study but are slightly larger. There has been no appreciable change in the nodule in the right lower lobe demonstrated on the previous study of 07/10/2018 there is some additional alveolar opacification and atelectasis in the medial costophrenic sulcus of the right lower lobe which partially obscures it. There is platelike atelectasis in the left lower lobe and lingula as well as the middle lobe. There is denser consolidation posteriorly in the left upper lobe which was not present at the time the previous examination. There is groundglass opacity in both lower lobes which may be indicative of pulmonary edema. There is less prominence of the interstitial markings however in both lung bases compared to the previous examination. The appearance of the mediastinum has not changed significantly. The appearance of the adrenal glands has not changed significantly. The regional skeleton is stable in appearance. There is a faintly visible lucent lesion in the posterior right hepatic lobe seen best on image 88 which measures up to 2 cm in diameter. This is not clearly visible on the previous examination. Neither study was performed with contrast. IMPRESSION: Worsened pleural effusions. Worsened pulmonary opacities most likely representing pneumonia plus minus pulmonary edema and atelectasis. Low-density lesion in the posterior right hepatic lobe of uncertain significance. Electronically signed by Kevin Waldron 07/29/2018 5:56 PM
--- NOTE | 2018-07-29 20:03 | PROGRESS NOTE ---
DATE: 07/29/2018 SUBJECTIVE: The patient is sitting up resting. She has no complaints at this time. No acute events noted overnight. OBJECTIVE: Vital Signs: Temperature 98.6, blood pressure 180/63, heart rate 90, respirations 18, O2 saturation 98% on 3 L nasal cannula. General: This is an overweight female sitting in bed in no acute distress. Heart: S1, S2 normal. Regular rate and rhythm. Lungs: Clear to auscultation bilaterally. No wheezing. No rales. No rhonchi. Abdomen: Positive bowel sounds. Soft, nontender, nondistended. Extremities: No edema, no cyanosis, no calf tenderness. Neurologic: The patient is alert and oriented x3. LABS: White blood cell count 5.5, hemoglobin 8.8, hematocrit 27, platelets 397. Sodium 141, potassium 3.7, chloride 105. CO2 is 24, BUN 48, creatinine 2.2, glucose 170. Chest x-ray shows atelectasis versus pneumonia on the left. ASSESSMENT AND PLAN: 1. Volume overload. Resolved. 2. Possible pneumonia. Will check a procalcitonin level. We will also check blood cultures. Will start the patient on empiric antibiotic therapy in the meantime. 3. Chronic kidney disease stage 4. Stable. 4. Hyponatremia. Resolved. 5. Morbid obesity. Aware. 6. Right lower lobe nodular infiltrates. Will order a CT to further assess this. 7. Bilateral pleural effusions. Aware. The patient is on diuretic therapy. 8. Diabetes mellitus type 2. Continue with sliding scale insulin. 9. Recent open reduction and internal fixation of a right bimalleolar ankle fracture. Stable. 10. Constipation. Continue with laxative therapy. 11. Iron deficiency anemia. The patient is receiving IV iron infusions. 12. Deep vein thrombosis prophylaxis. Continue on Lovenox. 13. Disposition. Will consult Supplier Engineer for inpatient rehab placement. Continue with physical therapy. cc: Maegan Veliz MD MTDD
[2018-07-29] MEDS: DULCOLAX PR SCH (21:43)
[2018-07-29] MEDS: TYLENOL PO PRN (21:44)
[2018-07-29] MEDS: AYR NASAL SPRAY NAS SCH (21:46)
[2018-07-29] MEDS ORDERED: MAXIPIME 1 GM in NS 50 ML IV SCH (23:30)
[2018-07-30] MEDS: AZACTAM 0.5 GM in NS 50 ML IV SCH ×3 (00:22→16:55)
[2018-07-30] MEDS: ZYVOX 600 MG/D5W 600 MG/300 ML IVPB IV SCH ×2 (00:29→13:31)
[2018-07-30] MEDS: APRESOLINE PO SCH ×3 (04:11→17:58)
[2018-07-30] MEDS: ATROVENT NEB INH SCH ×4 (05:44→21:20)
[2018-07-30] MEDS: HUMALOG SUBQ SCH ×4 (06:09→22:00)
[2018-07-30 07:58] LABS: BASO# 0.01 X1000 (0.0-0.2); BASO% 0.1 % (0.0-0.8); EOS# 0.02 X1000 (0.0-0.7); EOS% 0.3 % (0.0-10.0); HEMATOCRIT 31.2 % (37.0-47.0); HEMOGLOBIN 9.8 g/dL (12.0-16.0); LYMPH# 0.44 X1000 (1.2-3.4); LYMPH% 6.3 % (20.5-51.1); MCH 26.9 PG (27-31); MCHC 31.4 g/dL (33-37); MCV 85.7 FL (81-99); MONO# 0.97 X1000 (0.11-0.59); MONO% 13.8 % (1.7-9.3); MPV 8.8 FL (7.4-10.4); NEUT% 79.5 % (42.2-75.2); PLT 401 X1000 (130-400); RBC 3.64 XMIL (4.2-5.4); RDW 14.9 % (11.5-14.5); WBC 7.04 X1000 (4.8-10.8)
[2018-07-30 08:25] LABS: ALBUMIN 3.5 g/dL (3.5-5.0); CALCIUM 8.6 mg/dL (8.8-10.2); CREATININE 2.2 mg/dL (0.5-0.9); PHOSPHORUS 3.7 mg/dL (2.7-4.5); POTASSIUM 3.3 mmol/L (3.5-5.1)
[2018-07-30] MEDS: BASAGLAR SUBQ SCH (08:50)
[2018-07-30] MEDS: COLACE PO SCH ×2 (08:51→21:43)
[2018-07-30] MEDS: LASIX IV SCH (08:51)
[2018-07-30] MEDS: NORVASC PO SCH ×2 (08:51→21:43)
[2018-07-30] MEDS: TYLENOL PO PRN ×2 (08:51→21:48)
[2018-07-30] MEDS: ZANTAC PO SCH ×2 (08:51→21:43)
[2018-07-30] MEDS: LACTULOSE PO SCH ×2 (08:52→21:43)
[2018-07-30] MEDS: LOVENOX SUBQ SCH (08:52)
[2018-07-30] MEDS: FOLIC ACID PO SCH (08:52)
[2018-07-30] MEDS: MIRALAX PO SCH ×2 (08:52→21:44)
[2018-07-30] MEDS: FLONASE NAS SCH (08:52)
[2018-07-30] MEDS: TRANDATE PO SCH ×2 (08:56→21:43)
[2018-07-30] MEDS: VENOFER 200 MG in NS 150 ML IV SCH (09:02)
[2018-07-30] MEDS: OFIRMEV 1000 MG/ISOTONIC SOLN 1,000 MG/100 ML BOTTLE IV PRN (10:39)
[2018-07-30] MEDS: SSD CREAM TOP SCH (10:43)
--- NOTE | 2018-07-30 14:19 | INFECTIOUS DISEASE PROGRESS NO ---
DATE: 07/30/2018 PRESENT ILLNESS: The patient was readmitted to the hospital because of dyspnea. On CT scan of the thorax there are worsening pulmonary opacities which could be due to pneumonia and/or pulmonary edema. I think the patient could have an immunoglobulin deficiency in view of her history of recurrent infections. MEDICATIONS: The patient currently is on a combination of aztreonam and Zyvox with which I agree. PHYSICAL EXAMINATION: Vital Signs: Temperature is 101.5 degrees, pulse 88, respirations 20, blood pressure 153/56. General: This is an ill-appearing, middle-aged female. She is lethargic today. Head, Eyes, Ears, Nose, and Throat: She can hear my spoken words. I did not formally test her vision. The patient does not have any white patches on her tongue. Neck: No meningismus. Lungs: Clear to auscultation. Cardiovascular: Regular heart rate. Abdomen: Soft and nontender. Extremities: Patient has a cast on the right foot and ankle extending up to below the knee. Neurologic: As mentioned above, patient is lethargic. She can move her extremities. There is no tremor. LAB AND X-RAY: CBC today shows a white count of 7,400, hemoglobin is 9.8, and platelet count is 401,000. Procalcitonin from 2 days ago is 0.23 which translates in to be unlikely for pneumonia. Creatinine is 2.2. GFR is 23. Urinalysis is negative for bacteria and white cells. Drug screen is negative. Swab for influenza is negative. CT scan of the thorax shows worsening pulmonary opacities which could be due to pneumonia and/or pulmonary edema. ASSESSMENT AND PLAN: I think it is possible the patient could have pneumonia as well as pulmonary edema. Because of her drug allergy, I agree with using Aztreonam and also combining that with Zyvox. Another procalcitonin is pending. I have ordered immunoglobulin levels to see if the patient has an immunoglobulin deficiency which could explain that she is getting recurrent infections. I hope that the patient's right foot is no longer infected. She has received a long course of antibiotics for a foot infection. COMORBIDITIES: The patient is a diabetic. She has gastroesophageal reflux disease, end-stage renal disease, and chronic anemia. cc: Taj Quezada MD
[2018-07-30] MEDS: ULTRAM PO PRN ×2 (15:25→21:48)
[2018-07-30] MEDS ORDERED: KLOR-CON PO ONE (17:22)
[2018-07-30] MEDS: AYR NASAL SPRAY NAS SCH (21:43)
[2018-07-30] MEDS: DULCOLAX PR SCH (21:44)
[2018-07-31] MEDS: ZYVOX 600 MG/D5W 600 MG/300 ML IVPB IV SCH ×2 (01:13→14:14)
[2018-07-31] MEDS: AZACTAM 0.5 GM in NS 50 ML IV SCH ×3 (01:13→19:00)
[2018-07-31] MEDS: APRESOLINE PO SCH ×3 (02:42→19:07)
[2018-07-31] MEDS: ATROVENT NEB INH SCH (03:05)
--- NOTE | 2018-07-31 04:56 | PROGRESS NOTE ---
DATE: 07/30/2018 SUBJECTIVE: The patient is resting comfortably in bed. She just finished working with Physical Therapy. She has no complaints. OBJECTIVE: Vital Signs: Temperature 98.3 degrees, blood pressure 157/53, heart rate 89, respirations 20, O2 saturation 99% on 2 L nasal cannula. Intake and output: Intake 2.9 L. Output 4.6 L. General: This is a chronically ill-appearing elderly female, lying in bed, in no acute distress. Heart: S1, S2 normal. Regular rate and rhythm. Lungs: Diminished breath sounds at the bases. Coarse breath sounds bilaterally. Abdomen: Positive bowel sounds. Soft, nontender, nondistended. Extremities: The right leg is in a cast. No edema noted in the left leg. Neurologic: The patient is alert and oriented x3. LABORATORY DATA: White blood cell count 7, hemoglobin 9.8, hematocrit 31, platelets 401,000. Sodium 136, potassium 3.3, chloride 96, CO2 of 26, BUN 39, creatinine 2.2, glucose 220. ASSESSMENT AND PLAN: 1. Pneumonia. Continue with IV antibiotic therapy. Dr. Quezada is following. 2. Pulmonary edema. Continue with diuretic therapy. 3. Chronic kidney disease, stage 4. Stable. 4. Bilateral pleural effusions. Aware. The patient is on diuretic therapy. 5. Uncontrolled insulin-dependent diabetes mellitus. We will increase the glargine to 35 units every morning. 6. Recent open reduction, internal fixation of right bimalleolar ankle fracture. Stable. 7. Iron deficiency anemia. Improved. The patient is receiving iron infusions. 8. Deep vein thrombosis (DVT) prophylaxis. Continue on Lovenox. 9. Continue with physical therapy. cc: Maegan Veliz MD [facility]
[2018-07-31] MEDS: TYLENOL PO PRN ×2 (05:53→12:05)
[2018-07-31] MEDS: HUMALOG SUBQ SCH ×4 (06:19→21:30)
[2018-07-31] MEDS: XOPENEX NEB INH SCH ×5 (07:52→22:30)
[2018-07-31 08:13] LABS: ALLEN TEST YES; BE 3.3 mmoll (-3.0-3.0); BLOOD TYPE ARTERIAL; HCO3-(ACT) 27.5 mmoll (20.0-26.0); METHB 0.9 % (0.0-1.5); O2(CT) 12.5 mL/dL (15.0-23.0); O2HB 96.4 % (95.0-99.0); PCO2(98.6) 32 mmHg (35-45); PO2(98.6) 87 mmHg (60-100); SAMPLE BLOOD; SAO2 98.8 % (95.0-100.0); THB 9.1 g/dL (11.5-17.4); pH(98.6) 7.52 (7.35-7.45)
[2018-07-31 08:14] LABS: MODALITY CANNULA
[2018-07-31 08:17] LABS: HEMATOCRIT 27.3 % (37.0-47.0); HEMOGLOBIN 8.5 g/dL (12.0-16.0); MCH 26.8 PG (27-31); MCHC 31.1 g/dL (33-37); MCV 86.1 FL (81-99); MPV 8.7 FL (7.4-10.4); RBC 3.17 XMIL (4.2-5.4); RDW 14.8 % (11.5-14.5); WBC 5.3 X1000 (4.8-10.8)
[2018-07-31 08:22] LABS: ALBUMIN 2.9 g/dL (3.5-5.0); CREATININE 2.4 mg/dL (0.5-0.9); PHOSPHORUS 3.4 mg/dL (2.7-4.5); POTASSIUM 3.4 mmol/L (3.5-5.1)
[2018-07-31] MEDS: LASIX IV SCH (08:50)
[2018-07-31] MEDS: ZANTAC PO SCH ×2 (08:53→21:26)
[2018-07-31] MEDS: LACTULOSE PO SCH ×2 (08:53→21:26)
[2018-07-31] MEDS: LOVENOX SUBQ SCH (08:53)
[2018-07-31] MEDS: TRANDATE PO SCH ×2 (08:54→21:31)
[2018-07-31] MEDS: FOLIC ACID PO SCH (08:54)
[2018-07-31] MEDS: NORVASC PO SCH ×2 (08:54→21:26)
[2018-07-31] MEDS: COLACE PO SCH ×2 (08:54→21:26)
[2018-07-31] MEDS: FLONASE NAS SCH (08:55)
--- NOTE | 2018-07-31 09:03 | Diag Imaging Result Doc PS360 ---
EXAM: CHEST-PORTABLE - 07/31/2018 HISTORY: pneumonia TECHNIQUE: Portable chest COMPARISON: 07/29/2018 FINDINGS: There has been some increase in infiltrate on the left, most conspicuously at the midline, compared to prior. The right lung appears stable in mostly clear. There is a possible small left pleural effusion. There is no pneumothorax identified. Heart size is stable. IMPRESSION: Some increase in infiltrate on the left compared to prior. Pneumonia cannot be excluded. Electronically signed by Kaushik Briones 07/31/2018 9:00 AM
[2018-07-31] MEDS: BASAGLAR SUBQ SCH (09:07)
[2018-07-31] MEDS: MIRALAX PO SCH ×2 (09:11→21:23)
[2018-07-31] MEDS: VENOFER 200 MG in NS 150 ML IV SCH (09:58)
[2018-07-31] MEDS ORDERED: KLOR-CON PO ONE (11:16)
[2018-07-31] MEDS: SSD CREAM TOP SCH (11:50)
[2018-07-31] MEDS ORDERED: INSULIN PEN NEEDLES ONE (12:02)
--- NOTE | 2018-07-31 17:18 | PROGRESS NOTE ---
DATE: 07/31/2018 SUBJECTIVE: The patient is resting comfortably. She had about 4 cups of water sitting on her bedside table. She has been febrile overnight. OBJECTIVE: Vital signs: T-max 101 degrees, blood pressure 138/58, heart rate 85, respirations 20, O2 saturation is 97% on 3 L nasal cannula. Intake 2.1 L. Output 3 L. General: This is a chronically ill-appearing, elderly female lying in bed, in no acute distress. Heart: S1, S2 normal. Regular rate and rhythm. Lungs: Equal air entry bilaterally. No crackles. No rales. Abdomen: Positive bowel sounds. Soft, nontender, nondistended. Extremities: No edema. No cyanosis. The right foot is enclosed in a cast. Neurologic: The patient is alert and oriented x4. LABS: White blood cell count 5.3, hemoglobin 8.5, hematocrit 27, platelets 296,000. ABG, pH of 7.5, pCO2 32, PO2 87, bicarb 27. Sodium 130, potassium 3.4, chloride 92, CO2 24, BUN 37, creatinine 2.4, glucose 259, albumin 2.9. ASSESSMENT AND PLAN: 1. Recurrent fever. Will order blood cultures x2. The patient is already on antibiotic therapy. 2. Pneumonia. Continue with IV antibiotic therapy as directed by Dr. Quezada. 3. Pulmonary edema. Continue with diuretic therapy. 4. Insulin-dependent diabetes mellitus. Continue on glargine. 5. Bilateral pleural effusions. Stable. The patient is currently on diuretic therapy. 6. Chronic kidney disease stage 4. Stable. 7. Recent open reduction and internal fixation of a right bimalleolar ankle fracture. Stable. 8. Iron deficiency anemia. The patient received iron infusions. Hemoglobin and hematocrit are stable. 9. Deep vein thrombosis prophylaxis. Continue on Lovenox. 10. Disposition. Once the patient is medically stable she will be discharged to an inpatient rehabilitation center. Healthcare Prof is working on placement. cc: Maegan Veliz MD
[2018-07-31] MEDS ORDERED: NS 1,000 ML ONE (19:25)
--- NOTE | 2018-07-31 21:03 | INFECTIOUS DISEASE PROGRESS NO ---
DATE: 07/31/2018 PRESENT ILLNESS: The patient has bilateral pulmonary infiltrates. I think it could be due to pneumonia and/or pulmonary venous congestion. The patient may have an immunoglobulin deficiency in view of her history of recurrent infections. MEDICATIONS: The patient continues on aztreonam and Zyvox. PHYSICAL EXAMINATION: Vital Signs: Temperature earlier was 101, now it is 99.5, pulse 101, respirations 20, blood pressure 167/58. General: This is an ill appearing middle-aged female. She is lethargic. Head/eyes/ears/nose/throat: She can hear my spoken words and see near objects. She does not have any white coating on her tongue. Neck: No stiffness. Lungs: Clear to auscultation. Cardiovascular: Heart rate is regular. Abdomen: Soft and nontender. Extremities: Patient has a cast on her right leg. Neurologic: The patient is alert. She can move her extremities. There is no tremor. LAB AND X-RAY: Chest x-ray shows increase in the left-sided infiltrate. Procalcitonin is 0.23, which means that it is unlikely the patient has pneumonia. CBC shows a white count of 5300, hemoglobin 8.5, and platelet count 296,000. Arterial blood gases show a pH of 7.52, a PO2 of 87, pCO2 of 32. Creatinine is 2.4. GFR is 21. ASSESSMENT AND PLAN: The patient may have pneumonia and/or pulmonary venous congestion. For now, I am going to continue with the patient's antibiotics. Also, I am waiting for the result of the immunoglobulin levels to see if the patient has an immunoglobulin deficiency. The patient's right foot she has had extensive treatment with antibiotics and surgery and I doubt that the patient's foot is infected. COMORBIDITIES: The patient is a diabetic. She has gastroesophageal reflux disease, end-stage renal disease and chronic anemia. cc: Taj Quezada MD
[2018-07-31] MEDS: DULCOLAX PR SCH (21:27)
[2018-07-31] MEDS: ULTRAM PO PRN (21:36)
[2018-08-01] MEDS: TYLENOL PO PRN ×2 (00:02→15:25)
[2018-08-01] MEDS: AYR NASAL SPRAY NAS SCH ×2 (00:03→20:13)
[2018-08-01] MEDS: XOPENEX NEB INH SCH ×6 (02:54→22:30)
[2018-08-01] MEDS: AZACTAM 0.5 GM in NS 50 ML IV SCH ×2 (05:25→15:25)
[2018-08-01] MEDS: APRESOLINE PO SCH ×3 (05:25→18:39)
[2018-08-01 07:28] LABS: HEMATOCRIT 27.5 % (37.0-47.0); HEMOGLOBIN 8.6 g/dL (12.0-16.0); MCH 27.4 PG (27-31); MCHC 31.3 g/dL (33-37); MCV 87.6 FL (81-99); MPV 8.4 FL (7.4-10.4); RBC 3.14 XMIL (4.2-5.4); RDW 14.7 % (11.5-14.5); WBC 5.04 X1000 (4.8-10.8)
[2018-08-01] MEDS: ZYVOX 600 MG/D5W 600 MG/300 ML IVPB IV SCH ×2 (07:29→18:41)
[2018-08-01] MEDS: HUMALOG SUBQ SCH ×4 (07:30→20:13)
[2018-08-01] MEDS: NS NEB INH SCH ×3 (07:40→15:34)
[2018-08-01 07:52] LABS: ALBUMIN 2.9 g/dL (3.5-5.0); CREATININE 2.2 mg/dL (0.5-0.9); PHOSPHORUS 4.1 mg/dL (2.7-4.5); POTASSIUM 3.5 mmol/L (3.5-5.1)
[2018-08-01] MEDS: NORVASC PO SCH ×2 (10:29→20:13)
[2018-08-01] MEDS: COLACE PO SCH ×2 (10:29→20:13)
[2018-08-01] MEDS: FOLIC ACID PO SCH (10:29)
[2018-08-01] MEDS: ZANTAC PO SCH ×2 (10:30→20:13)
[2018-08-01] MEDS: LACTULOSE PO SCH ×2 (10:30→20:12)
[2018-08-01] MEDS: TRANDATE PO SCH (10:30)
[2018-08-01] MEDS: LASIX IV SCH (10:30)
[2018-08-01] MEDS: LOVENOX SUBQ SCH (10:30)
[2018-08-01] MEDS: BASAGLAR SUBQ SCH (10:33)
[2018-08-01] MEDS: FLONASE NAS SCH (10:34)
[2018-08-01] MEDS: MIRALAX PO SCH (10:34)
[2018-08-01] MEDS: SSD CREAM TOP SCH (10:39)
[2018-08-01] MEDS: OFIRMEV 1000 MG/ISOTONIC SOLN 1,000 MG/100 ML BOTTLE IV PRN (15:25)
--- NOTE | 2018-08-01 17:26 | PROGRESS NOTE ---
DATE: 08/01/2018 SUBJECTIVE: She is awake. OBJECTIVE: Vital Signs: As follows: pulse 67, respirations 19, blood pressure is 138/55, oxygen is 97%. HEENT: Head is atraumatic, normocephalic. Cardiovascular: S1, S2. Respiratory: Has evidence of good air entry bilaterally. Abdomen: Soft, nontender. No masses felt. Extremities: Has a cast in the right lower extremity. LAB DATA: WBC is 5.05, hematocrit is 27.5, with a platelet count of 242,000. Sodium is 132 potassium 3.5, chloride is 93, bicarb 24, BUN is 26, creatinine 2.2. ASSESSMENT AND PLAN: 1. Probable sepsis likely due to pneumonia. Continue antibiotics as recommended by ID. 2. Pulmonary edema. Continue on diuretic treatment. 3. Diabetes mellitus. Continue blood sugar monitoring as well as sliding scale insulin. 4. Chronic kidney disease. Stable. 5. Recent open reduction with internal fixation of right bimalleolar fracture. Orthopedic team following. 6. Iron deficiency anemia. Follow up on hemoglobin, hematocrit. Maintain patient on iron supplementation. 7. DVT prophylaxis. Lovenox. 8. Disposition. The patient can be discharged to rehab facility once a bed is available. cc: Gilberto Haskins MD [facility]
[2018-08-01] MEDS: ULTRAM PO PRN (22:18)
[2018-08-02] MEDS: MIRALAX PO SCH ×3 (01:53→21:33)
[2018-08-02] MEDS: DULCOLAX PR SCH ×2 (01:54→21:33)
[2018-08-02] MEDS: TRANDATE PO SCH ×3 (02:27→21:34)
[2018-08-02] MEDS: AZACTAM 0.5 GM in NS 50 ML IV SCH ×3 (02:29→21:32)
[2018-08-02] MEDS: XOPENEX NEB INH SCH ×3 (02:50→23:41)
[2018-08-02] MEDS ORDERED: LASIX IV ONE ×2 (04:35→11:01)
[2018-08-02] MEDS: APRESOLINE PO SCH ×3 (04:55→21:33)
[2018-08-02 05:53] LABS: URINE SOURCE CATH
[2018-08-02 05:56] LABS: BILIRUBIN URINE NEGATIVE (NEGATIVE); BLOOD URINE LARGE (NEGATIVE); COLOR STRAW; GLUCOSE URINE TRACE mg/dL (NEGATIVE); KETONE URINE NEGATIVE (NEGATIVE); LEUKOCYTES URINE NEGATIVE (NEGATIVE); NITRITE URINE NEGATIVE (NEGATIVE); PH URINE 6.5; PROTEIN URINE 300 mg/dL (NEGATIVE); SP GRAVITY URINE < 1.001; TURBIDITY URINE CLEAR (CLEAR); UROBILINOGEN URINE NORMAL (NORMAL)
[2018-08-02 05:58] LABS: UR EPITHELIAL CELLS <10 /HPF (<10); URINE BACTERIA NEGATIVE /HPF; URINE RBC TNTC /HPF (<10); URINE WBC <10 /HPF (<10)
[2018-08-02] MEDS: HUMALOG SUBQ SCH ×4 (06:52→22:25)
--- NOTE | 2018-08-02 07:23 | Diag Imaging Result Doc PS360 ---
EXAM: CHEST-PORTABLE INDICATION: dyspnea,crackles TECHNIQUE: One view COMPARISON: 07/31/2018 FINDINGS: Infiltrate on the left is approximately stable given differences in inspiration. There is increase in central vasculature and interstitial markings in the right perihilar region and right lung base suggesting pulmonary venous congestion and mild edema. Cardiac silhouette is stable. IMPRESSION: Increase in interstitial markings and perihilar vasculature on the right. Stable left infiltrate. Electronically signed by Edmond Barrera 08/02/2018 7:21 AM
[2018-08-02] MEDS: ZYVOX 600 MG/D5W 600 MG/300 ML IVPB IV SCH ×2 (08:54→21:34)
[2018-08-02] MEDS: LASIX IV SCH (08:55)
[2018-08-02] MEDS: OFIRMEV 1000 MG/ISOTONIC SOLN 1,000 MG/100 ML BOTTLE IV PRN (08:55)
[2018-08-02] MEDS: BASAGLAR SUBQ SCH (09:04)
[2018-08-02] MEDS: LACTULOSE PO SCH ×2 (09:05→21:32)
[2018-08-02] MEDS: FOLIC ACID PO SCH (09:05)
[2018-08-02] MEDS: NORVASC PO SCH ×2 (09:05→21:33)
[2018-08-02] MEDS: ICAR-C PO SCH (09:05)
[2018-08-02] MEDS: FLONASE NAS SCH (09:05)
[2018-08-02] MEDS: COLACE PO SCH ×2 (09:05→21:34)
[2018-08-02] MEDS: ZANTAC PO SCH ×2 (09:06→21:34)
[2018-08-02] MEDS ORDERED: LABETALOL IV PRN (09:18)
[2018-08-02 10:08] LABS: BASO# 0.01 X1000 (0.0-0.2); BASO% 0.2 % (0.0-0.8); HEMATOCRIT 27.2 % (37.0-47.0); HEMOGLOBIN 8.5 g/dL (12.0-16.0); LYMPH# 0.36 X1000 (1.2-3.4); LYMPH% 6.3 % (20.5-51.1); MCH 26.7 PG (27-31); MCHC 31.3 g/dL (33-37); MCV 85.5 FL (81-99); MONO# 0.56 X1000 (0.11-0.59); MONO% 9.7 % (1.7-9.3); NEUT# 4.82 X1000 (1.4-6.5); NEUT% 83.8 % (42.2-75.2); PLT 269 X1000 (130-400); RBC 3.18 XMIL (4.2-5.4); RDW 14.3 % (11.5-14.5); WBC 5.75 X1000 (4.8-10.8)
[2018-08-02 10:14] LABS: INR 0.98; PROTIME 13.8 Seconds (11.0-16.0)
[2018-08-02 10:15] LABS: PTT 40.9 Seconds (22.3-41.8)
[2018-08-02] MEDS ORDERED: SOLU-MEDROL IV SCH (10:45)
[2018-08-02] MEDS ORDERED: DUONEB (A & A) INH PRN (10:46)
[2018-08-02 10:57] LABS: ALB/GLOB RATIO 0.9; ALBUMIN 2.9 g/dL (3.5-5.0); CALCIUM 8.1 mg/dL (8.8-10.2); CREATININE 2.3 mg/dL (0.5-0.9); POTASSIUM 3.7 mmol/L (3.5-5.1); TOTAL BILIRUBIN 0.27 mg/dL (0.20-1.00); TOTAL PROTEIN 6.1 g/dL (6.3-8.3)
[2018-08-02 11:12] LABS: CK INDEX 1.1 (0.0-2.5); CK-MB 3.68 ng/mL (0.0-5.0)
--- NOTE | 2018-08-02 11:24 | EKG Report ---
Test Performed on : 08/02/2018 11:03:31 AM Test Reason : shortness of breath Blood Pressure : / mmHG Vent. Rate : 083 BPM Atrial Rate : 083 BPM P-R Int : 140 ms QRS Dur : 086 ms QT Int : 388 ms P-R-T Axes : 039 -05 025 degrees QTc Int : 455 ms Normal sinus rhythm. Normal ECG When compared with ECG of 27-JUL-2018 15:37, No significant change was found Unconfirmed Result
[2018-08-02 11:27] LABS: ALLEN TEST NO; BE 3.1 mmoll (-3.0-3.0); BLOOD TYPE ARTERIAL; HCO3-(ACT) 27.3 mmoll (20.0-26.0); METHB 0.4 % (0.0-1.5); O2(CT) 10.1 mL/dL (15.0-23.0); PCO2(98.6) 37 mmHg (35-45); PO2(98.6) 50 mmHg (60-100); SAMPLE BLOOD; SAO2 91.9 % (95.0-100.0); pH(98.6) 7.47 (7.35-7.45)
[2018-08-02] MEDS ORDERED: DUONEB (A & A) INH SCH (11:30)
--- NOTE | 2018-08-02 11:31 | PROGRESS NOTE ---
DATE: 08/02/2018 SUBJECTIVE: The patient complains of being short of breath. OBJECTIVE: Vital Signs: Temperature 102.4 degrees, pulse 113, respiratory 30, blood pressure 189/64, and oxygen saturation is 93%. She is on Ventimask. HEENT: She is atraumatic, normocephalic. Cardiovascular: S1, S2. Respiratory: She does have occasional rhonchi noted in the lung chin. Abdomen: Full. Nontender. No masses felt. Extremities: She does have a cast on her right lower extremity. Central nervous system: The patient is awake and alert with no focal deficits noted. LABORATORY DATA: WBC is 5.75, hematocrit 27.2 with a platelet count of 269,000. BMP, chest x- ray, ABG, EKG, cardiac enzymes, and D-dimer levels are all pending. ASSESSMENT AND PLAN: 1. Acute dyspnea. Differential diagnosis includes obstructive airway disease, pulmonary edema, and worsening pneumonia. We also requested serial troponin's to rule out any acute cardiac event, and also a D-dimer level to rule out any evidence of possible thrombotic pathology. In the meanwhile, the patient will be transferred to the intensive care unit. We will place on nebulized bronchodilators in light of rhonchi noted on physical exam. We will await chest x- ray as well as ABG findings. Place on oxygen supplementation. 2. Hypertension. Optimize blood pressure control. Blood pressure markedly elevated. We will use parenteral as well as oral agents. 3. Probable sepsis. Obtain blood cultures. Antibiotic management by Infectious Disease. With regards to intravenous fluids, we will need to be cautious in light of history of pulmonary edema. 4. Chronic kidney disease. Follow up on renal function. Avoid nephrotoxic agents. Consult with Nephrology who is actually on board at this time. 5. Recent open reduction with internal fixation on the right bimalleolar fracture. Orthopedic team following. 6. Iron deficiency anemia. Continue iron supplementation. Follow up on hemoglobin and hematocrit. Transfuse PRBC's as needed. 7. Deep vein thrombosis prophylaxis. SCD's. 8. Gastrointestinal prophylaxis. The patient is on ranitidine. 9. Hematuria. Lovenox has been discontinued. Repeat UA. cc: Gilberto Haskins MD
[2018-08-02 11:32] LABS: MODALITY VENTIMASK
[2018-08-02 11:34] LABS: O2HB 89.6 % (95.0-99.0)
--- NOTE | 2018-08-02 11:45 | Diag Imaging Result Doc PS360 ---
EXAM: CHEST-1 VIEW 08/02/2018 HISTORY: shortness of breath TECHNIQUE: AP portable at 1055 COMMENT: There is alveolar opacity bilaterally particularly in the lingula and left lower lobe. This is worse than on the previous study of 08/02/2018. IMPRESSION: Worsened pulmonary edema and/or pneumonia. Electronically signed by Kevin Waldron 08/02/2018 11:43 AM
[2018-08-02] MEDS: SSD CREAM TOP SCH (14:05)
--- NOTE | 2018-08-02 19:27 | INFECTIOUS DISEASE PROGRESS NO ---
DATE: 08/02/2018 PRESENT ILLNESS: The patient has pneumonia and/or pulmonary venous congestion. The patient's immunoglobulin levels are back. The patient only has a minor decrease in the IgG of 666. I do not think this is clinically significant, and it does not require that the patient receive IVIG. MEDICATIONS: The patient is on her 4th day of treatment with Zyvox and aztreonam. PHYSICAL EXAMINATION: Vital Signs: Temperature is 99 degrees, pulse 83, respirations 15, blood pressure 138/54. General: This is an ill-appearing, middle-aged female. She is very lethargic. Head/eyes/ears/nose/throat: No drainage is noted from the nose or the ears. I could not look into her mouth. Neck: No stiffness. Lungs: There were bibasilar rales. Cardiovascular: Heart rate is regular. Abdomen: Soft and nontender. Extremities: The patient has a cast on her right leg. Neurologic: Today, the patient is lethargic. She did not move her extremities to request. She did not have a tremor. LABORATORY AND X-RAY: Chest x-ray shows worsening pulmonary edema and/or pneumonia. A procalcitonin level is 0.2. The IgG level is 666. The CBC shows a white count of 5750, hemoglobin 8.5, and platelet count 269,000. CK is 345. Blood gases show a pH of 7.47, a PO2 of 50, and a pCO2 of 37. Creatinine is 2.3. GFR is 22. ASSESSMENT AND PLAN: The patient has, I think, predominantly pulmonary venous congestion. There may be an element of pneumonia. For now, I am going to continue the patient's antibiotics. As regarding the patient's immunoglobulin level, as mentioned above I do not think it is low enough that it deserves IVIG infusions. COMORBIDITIES: The patient is a diabetic. She has gastroesophageal reflux disease, end-stage renal disease, and chronic anemia. cc: Taj Quezada MD
[2018-08-02] MEDS: AYR NASAL SPRAY NAS SCH (22:48)
[2018-08-02] MEDS ORDERED: NS NEB INH SCH (23:00)
[2018-08-02] MEDS: ATROVENT NEB INH SCH (23:41)
[2018-08-03] MEDS: SOLU-MEDROL IV SCH ×3 (03:19→18:44)
[2018-08-03] MEDS: ATROVENT NEB INH SCH ×6 (03:34→23:20)
[2018-08-03] MEDS: XOPENEX NEB INH SCH ×6 (03:34→23:20)
[2018-08-03] MEDS: TYLENOL PO PRN ×2 (03:54→09:47)
[2018-08-03 04:42] LABS: ALLEN TEST YES; BE 2.3 mmoll (-3.0-3.0); BLOOD TYPE ARTERIAL; HCO3-(ACT) 26.7 mmoll (20.0-26.0); METHB 0.9 % (0.0-1.5); O2(CT) 13.6 mL/dL (15.0-23.0); O2HB 97.4 % (95.0-99.0); PCO2(98.6) 38 mmHg (35-45); PO2(98.6) 158 mmHg (60-100); SAMPLE BLOOD; THB 9.7 g/dL (11.5-17.4); pH(98.6) 7.45 (7.35-7.45)
[2018-08-03 05:22] LABS: MODALITY NRB
[2018-08-03 05:41] LABS: BASO# 0.01 X1000 (0.0-0.2); BASO% 0.3 % (0.0-0.8); HEMATOCRIT 26.9 % (37.0-47.0); HEMOGLOBIN 8.5 g/dL (12.0-16.0); LYMPH# 0.49 X1000 (1.2-3.4); LYMPH% 12.8 % (20.5-51.1); MCH 26.8 PG (27-31); MCHC 31.6 g/dL (33-37); MCV 84.9 FL (81-99); MONO# 0.56 X1000 (0.11-0.59); MONO% 14.6 % (1.7-9.3); MPV 9.2 FL (7.4-10.4); NEUT# 2.78 X1000 (1.4-6.5); NEUT% 72.3 % (42.2-75.2); PLT 254 X1000 (130-400); RBC 3.17 XMIL (4.2-5.4); RDW 13.9 % (11.5-14.5); WBC 3.84 X1000 (4.8-10.8)
[2018-08-03 06:14] LABS: CALCIUM 8.2 mg/dL (8.8-10.2); CREATININE 2.4 mg/dL (0.5-0.9); MAGNESIUM 1.9 mg/dL (1.5-2.7); POTASSIUM 3.8 mmol/L (3.5-5.1)
[2018-08-03] MEDS: AZACTAM 0.5 GM in NS 50 ML IV SCH ×3 (06:21→20:18)
[2018-08-03] MEDS: APRESOLINE PO SCH ×3 (06:21→20:18)
[2018-08-03] MEDS: HUMALOG SUBQ SCH ×5 (06:42→20:19)
--- NOTE | 2018-08-03 06:48 | INFECTIOUS DISEASE PROGRESS NO ---
DATE: 08/03/2018 PRESENT ILLNESS: The patient has pneumonia and/or pulmonary venous congestion. MEDICATION: This is the 5th day of treatment with a combination of Zyvox and aztreonam. PHYSICAL EXAMINATION: Vital Signs: Temperature is 98.3 degrees, pulse 71, respirations 22, blood pressure 142/61. General: This is an ill-appearing, middle-aged female. She is very lethargic. Head/eyes/ears/nose/throat: No drainage noted from the nose or ears. I did not see any white patches on her tongue. Neck: No stiffness. Lungs: The patient has bibasilar rales. Cardiovascular: Heart rate is regular. Abdomen: Soft and nontender. Extremities: The patient has a cast on her right leg. The left leg is edematous but not erythematous. Neurologic: Patient is lethargic. LAB AND X-RAY: There is no new radiographic study. CBC shows a white count of 3840, hemoglobin 8.5, and platelet count 254,000. Blood gases show a pH of 7.45, a pO2 of 158, and a pCO2 of 38. The creatinine is 2.4. GFR is 21. Blood cultures are pending. Serum IgG is 666. I think this is only marginally low and is not clinically significant. ASSESSMENT AND PLAN: I think the family profoundly has pulmonary venous congestion, although she could have pneumonia also. I am going to continue antibiotics, and I have also ordered a procalcitonin level which might be able to show if the patient does have a pneumonia or not. As mentioned earlier the patient's immunoglobulin level is only minimally decreased and does not deserve to have IVIG given. COMORBIDITIES: Diabetes mellitus, gastroesophageal reflux disease, end-stage renal disease, and chronic anemia. cc: Taj Quezada MD
[2018-08-03] MEDS ORDERED: LASIX IV ONE (09:12)
[2018-08-03] MEDS: LACTULOSE PO SCH ×2 (09:29→20:17)
[2018-08-03] MEDS: NORVASC PO SCH ×2 (09:30→20:18)
[2018-08-03] MEDS: LASIX IV SCH (09:30)
[2018-08-03] MEDS: ZANTAC PO SCH ×2 (09:30→20:18)
[2018-08-03] MEDS: ZYVOX 600 MG/D5W 600 MG/300 ML IVPB IV SCH ×2 (09:30→22:01)
[2018-08-03] MEDS: FOLIC ACID PO SCH (09:30)
[2018-08-03] MEDS: TRANDATE PO SCH ×2 (09:30→20:20)
[2018-08-03] MEDS: ICAR-C PO SCH (09:30)
[2018-08-03] MEDS: MIRALAX PO SCH ×2 (09:30→20:19)
[2018-08-03] MEDS: COLACE PO SCH ×2 (09:30→20:18)
[2018-08-03] MEDS: BASAGLAR SUBQ SCH (09:31)
[2018-08-03] MEDS: SSD CREAM TOP SCH (09:32)
[2018-08-03] MEDS: FLONASE NAS SCH (09:33)
--- NOTE | 2018-08-03 13:32 | Diag Imaging Result Doc PS360 ---
EXAM: CHEST-1 VIEW INDICATION: pulmonary edema TECHNIQUE: One view COMPARISON: 08/02/2018 FINDINGS: The bilateral consolidations have improved slightly during the interval indicating improving pulmonary edema +/- pneumonia. The central vasculature also appears to be slightly less prominent. No new consolidation is identified. Cardiac silhouette is stable. IMPRESSION: Interval modest improvement. Electronically signed by Edmond Barrera 08/03/2018 1:30 PM
[2018-08-03 14:51] LABS: CREATININE 2.5 mg/dL (0.5-0.9); POTASSIUM 4.1 mmol/L (3.5-5.1)
--- NOTE | 2018-08-03 16:37 | PROGRESS NOTE ---
DATE: 08/03/2018 SUBJECTIVE: The patient is resting in bed. She seem more comfortable today. OBJECTIVE: Vital Signs: Vital signs are as follows: Temperature 97.4 degrees, pulse 73, respirations 12, blood pressure 136/56, oxygen saturation is 98%. HEENT: Atraumatic, normocephalic. Cardiovascular system: S1, S2. Respiratory system: Good air entry bilaterally. Abdomen: Soft, nontender. No masses felt. Extremities: Has a cast in the right lower extremity and 1+ edema in the left lower extremity. Central nervous system: The patient is awake, alert, well oriented. No obvious focal deficits noted. LABS: WBC is 3.84 hematocrit is 26.9 with a platelet count of 254. ABG 7.45/88/158/9%. Sodium is 124, potassium is 4.1, chloride is 85, bicarbonate is 23. BUN is 53, creatinine 2.5. X-RAYS: X-ray of the chest shows interval modest improvement. ASSESSMENT AND PLAN: 1. Acute respiratory failure secondary to pulmonary edema/pneumonia. Continue oxygen supplementation. 2. Pneumonia. Continue antibiotics as recommended by Infectious Disease. 3. Acute pulmonary edema. Maintain patient on diuretics. Will need to be cautious as the patient's renal function is likely to worsen while on diuretics. We are going to monitor patient's intake and output, as well as daily weights. 4. Hypertension. Optimize blood pressure control. 5. Sepsis. Follow up on blood cultures. Antibiotics per recommendation of Infectious Disease. Judicious use of intravenous fluids in light of worsening renal function. 6. Acute kidney injury superimposed on chronic kidney disease. Nephrology following. 7. Recent open reduction with internal fixation of the bimalleolar fracture. Orthopedics following. 8. Iron deficiency anemia. Follow up on hemoglobin, hematocrit. Transfuse packed red blood cells as needed. 9. Hematuria. Lovenox discontinued. We will continue to follow up on repeat urinalysis. 10. Deep vein thrombosis prophylaxis. Sequential compression devices. 11. Gastrointestinal prophylaxis. Patient is on ranitidine. cc: Gilberto Haskins MD
[2018-08-03 18:55] LABS: URINE SOURCE CATH
[2018-08-03 18:57] LABS: BILIRUBIN URINE NEGATIVE (NEGATIVE); BLOOD URINE MODERATE (NEGATIVE); COLOR YELLOW; GLUCOSE URINE 200 mg/dL (NEGATIVE); KETONE URINE NEGATIVE (NEGATIVE); LEUKOCYTES URINE MODERATE (NEGATIVE); NITRITE URINE NEGATIVE (NEGATIVE); PROTEIN URINE 200 mg/dL (NEGATIVE); SP GRAVITY URINE < 1.001; TURBIDITY URINE HAZY (CLEAR); UROBILINOGEN URINE NORMAL (NORMAL)
[2018-08-03 18:58] LABS: UR EPITHELIAL CELLS <10 /HPF (<10); URINE BACTERIA NEGATIVE /HPF; URINE RBC 20-40 /HPF (<10); URINE WBC 20-40 /HPF (<10)
[2018-08-03 19:02] LABS: URINE YEAST PRESENT
--- NOTE | 2018-08-03 19:36 | CONSULTATION ---
DATE OF CONSULTATION: 08/03/2018 REQUESTING PROVIDER: Dr. Gilberto Haskins. REASON FOR CONSULTATION: Acute respiratory failure. HISTORY OF PRESENT ILLNESS: This is a 58-year-old female with medical history of diabetes mellitus type 2, osteomyelitis, chronic kidney disease, hypertension, hyperlipidemia, hypothyroidism, Robertson palsy, gastroesophageal reflux disease, benign bladder tumor, anxiety, right eye blindness, and anemia of chronic inflammation. She presented to the ER from [facility] on 07/26/2018 with abnormal labs, including elevated proBNP, glucose, and renal labs. Initial workup in the ER revealed possible diastolic heart failure, acute on chronic kidney disease, uncontrolled type 2 diabetes, hyponatremia, and iron deficiency anemia. She has been admitted to the [facility] for further evaluation and management. 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 Her oxygen requirement increased from nasal cannula at 3 L to Ventimask with FiO2 50%, and eventually non-rebreather with FiO2 100%. Chest x-ray yesterday late morning revealed worsening pulmonary edema minus or plus pneumonia. She is going to be transferred to the ICU. At the time of my examination, patient is lethargic. She did open her eyes upon verbal stimuli, but she is not answering questions. The patient's sister is at the bedside, but she does not know much about patient's situation. Nurse on the shift reports she had a panic attack last night. All other information is obtained from the [facility]. PAST MEDICAL AND SURGICAL HISTORY: 1. Diabetes mellitus type 2 with diabetic neuropathy, retinopathy, and nephropathy. 2. Osteomyelitis with Methicillin resistant Staphylococcus aureus. 3. Chronic kidney disease. 4. Hypertension. 5. Hyperlipidemia. 6. Hypothyroidism. 7. History of Robertson palsy. 8. Gastroesophageal reflux disease. 9. History of benign bladder tumor, status post tumor removal. 10. Anxiety. 11. Right eye blindness, status post placement of an artificial eye. 12. Anemia of chronic inflammation. 13. Partial hysterectomy. 14. 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 SOCIAL HISTORY: The patient has no history of alcohol, tobacco, or illicit drug use. She is currently in a [facility] facility. FAMILY HISTORY: Positive for diabetes and heart disease. ALLERGIES: Albuterol, penicillin, Compazine. REVIEW OF SYSTEMS: Unable to be obtained. PHYSICAL EXAMINATION: Vital Signs: Temperature 97.4 degrees, blood pressure 136/56, pulse 73, respiratory rate 12, oxygen saturation 98% on a Ventimask with FiO2 40%. General: Morbidly obese. No acute respiratory distress noted. Is lethargic. He is not answering questions. HEENT: Atraumatic. Trachea midline. Mucosa pink and slightly dry. Respiratory: Lung expansion equal bilaterally. Auscultation revealed diminished breathing sounds bilaterally, otherwise clear. Cardiovascular: Regular rate and rhythm. Gastrointestinal: Normoactive bowel sounds in all 4 quadrants. Soft, nontender, distended, obese. Extremities: Pedal edema 1+ bilaterally. No clubbing, no cyanosis. Dorsalis pedis pulse 1+ bilaterally. Neurologic: Lethargic. Responsive to verbal stimuli. IMAGING DATA: Chest x-ray reveals interval modest improvement. LAB DATA: White blood cells 7.84, hemoglobin 8.5, hematocrit 26.9, platelets 254,000. Sodium 124, potassium 4.1, chloride 85, carbon dioxide 23, BUN 53, creatinine 2.5, and glucose 463. ProBNP 1487. ABG: PH 7.45, pCO2 38, pO2 158, HC03 26.7, base excess 2.3, and oxyhemoglobin 97.4 on nonrebreather with FiO2 100%. ASSESSMENT: This is a 58-year-old female with medical history of diabetes mellitus type 2, osteomyelitis, chronic kidney disease, hypertension, hyperlipidemia, hypothyroidism, Robertson palsy, gastroesophageal reflux disease, benign bladder tumor, anxiety, right eye blindness, and anemia. She has been admitted since 07/26/2018 with possible diastolic heart failure, acute on chronic kidney disease, uncontrolled type 2 diabetes, hyponatremia, iron deficiency anemia. 1. Acute respiratory failure secondary to pulmonary edema and pneumonia. 2. Pneumonia. 3. Acute pulmonary edema. 4. Questionable Sepsis. 5. Acute kidney injury on chronic kidney disease. PLAN: 1. Continue supplemental oxygen. 2. Start BiPAP at bedtime and as needed. 3. Continue antibiotics per Dr. Quezada and continue diuretic therapy. 4. Follow up with chest x-ray, ABGs, CBC and BMP; follow up with blood culture. 5. Patient is transferring to ICU for closer monitoring. 6. Continue gastrointestinal and deep venous thrombosis prophylaxis. 7. Further recommendation pending hospital course. Thank you for the courtesy of this consult. Dictated by TAYLOR Husain for Peter Quezada MD cc: TAYLOR Husain MD [facility]
[2018-08-03] MEDS: DULCOLAX PR SCH (20:19)
[2018-08-03] MEDS: AYR NASAL SPRAY NAS SCH (20:19)
[2018-08-04] MEDS: TYLENOL PO PRN ×3 (00:36→21:43)
[2018-08-04] MEDS: XOPENEX NEB INH SCH ×6 (02:57→23:05)
[2018-08-04] MEDS: ATROVENT NEB INH SCH ×6 (02:57→23:04)
[2018-08-04] MEDS: APRESOLINE PO SCH ×3 (04:15→21:43)
[2018-08-04] MEDS: AZACTAM 0.5 GM in NS 50 ML IV SCH ×3 (04:15→19:41)
[2018-08-04] MEDS: SOLU-MEDROL IV SCH ×3 (04:15→18:24)
[2018-08-04 04:30] LABS: ALLEN TEST YES; BLOOD TYPE ARTERIAL; HCO3-(ACT) 25.7 mmoll (20.0-26.0); METHB 0.7 % (0.0-1.5); O2(CT) 12.9 mL/dL (15.0-23.0); O2HB 97.2 % (95.0-99.0); PCO2(98.6) 37 mmHg (35-45); PO2(98.6) 144 mmHg (60-100); SAMPLE BLOOD; SAO2 98.8 % (95.0-100.0); THB 9.2 g/dL (11.5-17.4); pH(98.6) 7.44 (7.35-7.45)
[2018-08-04 04:31] LABS: MODALITY BI PAP
[2018-08-04] MEDS: HUMALOG SUBQ SCH ×4 (06:22→21:23)
[2018-08-04] MEDS: FLONASE NAS SCH (08:57)
[2018-08-04] MEDS: LACTULOSE PO SCH ×2 (08:57→21:23)
[2018-08-04] MEDS: ZANTAC PO SCH ×2 (08:57→21:21)
[2018-08-04] MEDS: FOLIC ACID PO SCH (08:57)
[2018-08-04] MEDS: ZYVOX 600 MG/D5W 600 MG/300 ML IVPB IV SCH ×2 (08:57→21:20)
[2018-08-04] MEDS: ICAR-C PO SCH (08:58)
[2018-08-04] MEDS: COLACE PO SCH ×2 (08:58→21:20)
[2018-08-04] MEDS: LASIX IV SCH (08:58)
[2018-08-04] MEDS: NORVASC PO SCH ×2 (08:58→21:21)
[2018-08-04] MEDS: BASAGLAR SUBQ SCH ×2 (09:02→21:22)
[2018-08-04] MEDS: MIRALAX PO SCH ×2 (09:03→21:20)
[2018-08-04] MEDS: TRANDATE PO SCH ×2 (09:09→21:21)
--- NOTE | 2018-08-04 09:22 | NEPHROLOGY PROGRESS NOTE ---
DATE: 08/04/2018 SUBJECTIVE: The patient is sitting up in bed. She has been able to eat breakfast without difficulty. OBJECTIVE: Vital Signs: Temperature 98 degrees, pulse 78, respiratory rate 18, blood pressure 130/67. Intake 1.3 L, output 1.2 L. PHYSICAL EXAMINATION: General: This is a middle-aged female, sitting up in bed. Awake and alert. No acute distress. HEENT: Normocephalic, atraumatic. Her left eye is reactive. Right eye does not move nor react. Oral mucosa dry. Neck: Supple. No JVD. Cardiovascular: Regular rate and rhythm. Pulmonary: She has some decreased breath sounds but no rhonchi. She has occasional wheeze. Abdomen: Soft, positive bowel sounds. : Not inspected. Extremities: Trace to 1+ edema. Integumentary: Skin is warm and dry. LAB DATA: Her last labs were drawn on the 08/03/2018. WBC of 3.8, hemoglobin 8.5. Sodium 124 potassium 4.1, CO2 23, BUN 53, creatinine 2.5. Her BUN has ranged from 37 to 47 over the last previous 4 days. Her creatinine has ranged from 2.1 to 2.5 throughout the entire hospitalization. Sodium is 124. She had some issue early on with hyponatremia down to 116. She got as high as 141. She has trended down slowly and at 124 currently. ASSESSMENT AND PLAN: 1. Acute on chronic kidney disease. Renal functions appear fairly stable. I do not have labs this morning to verify if she had a major change. 2. Hyponatremia. She is still on Lasix 40 mg daily. It is noted she remains on steroids. She remains on a 1.2 L fluid restriction. Again, we will check labs this morning before making any medical changes. Otherwise once the patient is cleared for discharge, she will need to follow with us in the office in 2 weeks. We will continue to follow along while she is in the hospital. Dictated by TAYLOR Harris for Eben Pena MD cc: Eben Pena MD [facility]
[2018-08-04 10:07] LABS: HEMATOCRIT 27.6 % (37.0-47.0); HEMOGLOBIN 8.8 g/dL (12.0-16.0); MCH 27.1 PG (27-31); MCHC 31.9 g/dL (33-37); MCV 84.9 FL (81-99); RBC 3.25 XMIL (4.2-5.4); RDW 13.7 % (11.5-14.5); WBC 7.72 X1000 (4.8-10.8)
[2018-08-04 10:36] LABS: ALBUMIN 2.8 g/dL (3.5-5.0); CALCIUM 7.3 mg/dL (8.8-10.2); CREATININE 2.8 mg/dL (0.5-0.9); PHOSPHORUS 5.3 mg/dL (2.7-4.5); POTASSIUM 4.1 mmol/L (3.5-5.1)
[2018-08-04] MEDS: SSD CREAM TOP SCH (11:12)
[2018-08-04] MEDS ORDERED: HUMALOG SUBQ ONE (12:46)
--- NOTE | 2018-08-04 13:00 | PROGRESS NOTE ---
DATE: 08/04/2018 SUBJECTIVE: The patient is resting comfortably in bed. She seems to be doing better today. OBJECTIVE: Vital signs: Temperature 98, pulse 80, respirations 20, blood pressure 152/73, and oxygen saturation is 100%. HEENT: She is atraumatic, normocephalic. Cardiovascular: S1, S2. Respiratory: Occasional rhonchi noted in the lung chin. Abdomen: Soft, nontender. No masses felt. Extremities: She has a cast on the right lower extremity, and also on the left lower extremity she has about 1 to 2+ edema. Central nervous system: No obvious focal deficit noted. LABORATORY: WBCs 7.72, hematocrit 27.6 with a platelet count of 307,000. ABG 7.44/37/144/98.8. Sodium is 124, potassium 4.1, chloride is 86, bicarb 25, BUN 6, and creatinine 2.8. ASSESSMENT AND PLAN: 1. Acute respiratory failure secondary to pulmonary edema as well as pneumonia. Continue oxygen supplementation. 2. Pneumonia. Continue antibiotics as recommended by Infectious Disease team. 3. Acute pulmonary edema. Maintain patient on diuretics. Monitor intakes and outputs, as well as daily weights. 4. Hypertension. Optimize blood pressure control. 5. Sepsis. Follow up on blood cultures. Continue antibiotics as recommended by Infectious Disease. 6. Acute kidney injury superimposed on chronic kidney disease. Nephrology following. 7. Hyponatremia. Suspect related to volume overload. Hence, hypoosmolar hyponatremia. We will check urine electrolytes. Defer management to the Nephrology team. 8. Recent open reduction with internal fixation of bimalleolar fracture. Orthopedics following. 9. Iron deficiency anemia. Follow up on hemoglobin and hematocrit. Transfuse PRBC's as needed. 10. Hematuria. Repeat UA. She has persistent hematuria though improved, and there is also evidence of white cells in the urine. We will obtain urine culture. 11. Deep vein thrombosis prophylaxis. Sequential compression devices. 12. Gastrointestinal prophylaxis. Patient is on ranitidine. cc: Gilberto Haskins MD
--- NOTE | 2018-08-04 13:44 | INFECTIOUS DISEASE PROGRESS NO ---
DATE: 08/04/2018 PRESENT ILLNESS: The patient has pneumonia and/or pulmonary venous congestion. MEDICATIONS: The patient has been receiving Zyvox and aztreonam now for 6 days. PHYSICAL EXAMINATION: Vital Signs: Temperature is 98.6 degrees, pulse 77, respirations 14, blood pressure 120/55. General: This is an ill-appearing, middle-aged female. Today, she seems to be breathing much easier than she did yesterday, and she is more awake. Head/eyes/ears/nose/throat: She can hear my spoken words and see near objects. She does not have any white patches on her tongue. Neck: No stiffness. Lungs: Bilateral expiratory wheezes. Cardiovascular: Heart rate is regular. Abdomen: Soft and nontender. Extremities: The patient has a cast on the right leg. Neurologic: The patient is awake today. She is talking. LABS AND X-RAY: Chest x-ray shows improvement in the patient's infiltrates. CBC shows a white blood cell count of 7720, hemoglobin 8.8, and platelet count 287,000. Blood gases show a pH of 7.44, pO2 of 144, and a pCO2 of 37. Creatinine is 2.8. GFR is 17. The patient also is receiving steroids intravenously. ASSESSMENT AND PLAN: The patient has pneumonia and/or pulmonary venous congestion. I am going to continue the antibiotics. A procalcitonin level is pending. COMORBIDITIES: 1. Diabetes mellitus. 2. Gastroesophageal reflux disease. 3. End-stage renal disease. 4. Chronic anemia. cc: Taj Quezada MD
--- NOTE | 2018-08-04 14:17 | Diag Imaging Result Doc PS360 ---
EXAM: CHEST-1 VIEW 08/04/2018 HISTORY: pneumonia and pulmonary edema TECHNIQUE: AP portable upright at 1356 COMMENT: The opacities in the left lower lobe and lingula which were present on 08/03/2018 have improved. IMPRESSION: Improved bronchopneumonia. Electronically signed by Kevin Waldron 08/04/2018 2:15 PM
[2018-08-04] MEDS: DULCOLAX PR SCH (21:30)
[2018-08-04] MEDS: AYR NASAL SPRAY NAS SCH ×2 (21:44→22:12)
[2018-08-05 01:09] LABS: UR CREAT RANDOM 33.4 mg/dL (11-20)
[2018-08-05] MEDS: ATROVENT NEB INH SCH ×6 (02:55→23:18)
[2018-08-05] MEDS: XOPENEX NEB INH SCH ×5 (02:55→19:14)
[2018-08-05] MEDS: SOLU-MEDROL IV SCH ×2 (04:20→16:52)
[2018-08-05] MEDS: AZACTAM 0.5 GM in NS 50 ML IV SCH ×3 (04:20→21:09)
[2018-08-05 05:07] LABS: ALLEN TEST YES; BLOOD TYPE ARTERIAL; HCO3-(ACT) 26.5 mmoll (20.0-26.0); METHB 0.7 % (0.0-1.5); O2(CT) 11.4 mL/dL (15.0-23.0); PCO2(98.6) 40 mmHg (35-45); PO2(98.6) 113 mmHg (60-100); SAMPLE BLOOD; SAO2 99.3 % (95.0-100.0); THB 8.2 g/dL (11.5-17.4); pH(98.6) 7.43 (7.35-7.45)
[2018-08-05 05:08] LABS: MODALITY CANNULA
[2018-08-05] MEDS ORDERED: DUONEB (A & A) INH PRN (05:33)
[2018-08-05] MEDS: HUMALOG SUBQ SCH ×4 (06:01→21:27)
[2018-08-05 06:21] LABS: HEMATOCRIT 27.2 % (37.0-47.0); HEMOGLOBIN 8.7 g/dL (12.0-16.0); MCH 27.3 PG (27-31); MCV 85.3 FL (81-99); MPV 9.5 FL (7.4-10.4); RBC 3.19 XMIL (4.2-5.4); RDW 13.8 % (11.5-14.5); WBC 8.85 X1000 (4.8-10.8)
[2018-08-05 07:07] LABS: ALBUMIN 2.8 g/dL (3.5-5.0); CALCIUM 8.3 mg/dL (8.8-10.2); CREATININE 2.7 mg/dL (0.5-0.9); PHOSPHORUS 4.9 mg/dL (2.7-4.5)
[2018-08-05] MEDS: APRESOLINE PO SCH ×4 (07:16→21:13)
[2018-08-05] MEDS: LACTULOSE PO SCH ×2 (09:24→21:13)
[2018-08-05] MEDS: ZANTAC PO SCH ×2 (09:24→21:11)
[2018-08-05] MEDS: TRANDATE PO SCH ×2 (09:24→21:11)
[2018-08-05] MEDS: LASIX IV SCH (09:24)
[2018-08-05] MEDS: FOLIC ACID PO SCH (09:24)
[2018-08-05] MEDS: NORVASC PO SCH ×2 (09:25→21:13)
[2018-08-05] MEDS: COLACE PO SCH ×2 (09:25→21:12)
[2018-08-05] MEDS: ICAR-C PO SCH (09:25)
[2018-08-05] MEDS: ZYVOX 600 MG/D5W 600 MG/300 ML IVPB IV SCH ×2 (09:25→21:12)
[2018-08-05] MEDS: BASAGLAR SUBQ SCH ×2 (09:26→21:10)
[2018-08-05] MEDS: MIRALAX PO SCH ×2 (09:26→21:10)
[2018-08-05] MEDS: SSD CREAM TOP SCH (09:26)
[2018-08-05] MEDS: FLONASE NAS SCH (09:27)
[2018-08-05] MEDS ORDERED: INSULIN PEN NEEDLES ONE (09:35)
--- NOTE | 2018-08-05 12:53 | NEPHROLOGY PROGRESS NOTE ---
DATE: 08/05/2018 SUBJECTIVE: Patient is sitting up in bed. She has been able to eat breakfast. She states that she thinks she is breathing better. OBJECTIVE: Vital Signs: Temperature 97.1 degrees, pulse 85, respiratory rate 21, blood pressure 156/65. Intake 2.3 L; output 2.6 L. General: Middle-aged female resting in bed. No acute distress. HEENT: Normocephalic, atraumatic. Oral mucosa moist. Neck: Supple without JVD. Cardiovascular: Regular rate and rhythm. Pulmonary: She has got rhonchi and occasional wheeze bilaterally. No increased work of breathing; is on O2 supplementation via nasal cannula. Abdomen: Soft, with positive bowel sounds. : Not inspected. Extremities: 1+ to 2+ edema. Integumentary: Skin is warm and dry otherwise. LAB DATA: WBC of 8.8, hemoglobin 8.7. Sodium 129 (124), potassium 4.0, CO2 25, creatinine 2.7 (2.8). ASSESSMENT AND PLAN: 1. Acute on chronic kidney disease. Her creatinine has ranged from 2.1 up to 2.5 for the most part during the hospitalization. She bumped up to 2.8 yesterday, but is coming back down today. Make no changes to her current regimen. 2. Hyponatremia is improving. She has had some hyponatremia throughout the entire duration of her hospital stay. She needs to remain on free water restriction. Her Lasix has been decreased. Dictated by TAYLOR Harris for Eben Pena MD cc: Eben Pena MD
--- NOTE | 2018-08-05 13:30 | PULMONOLOGY PROGRESS NOTE ---
DATE: 08/05/2018 SUBJECTIVE: The patient is awake and alert. She is without specific complaints. She is having periodic coughing without sputum production. OBJECTIVE: Vital Signs: The patient has been afebrile for the last 24 hours. Blood pressure 139/55, heart rate 86, respiratory rate 22, oxygen saturation 98% on 3 L per nasal cannula. Intake 2330, output 2600 HEENT: Pupils are equal and reactive. Oropharynx appears clear. Neck: Supple Chest: Reveals diffuse bilateral wheezing without increased accessory muscle use. Cardiac: Exam S1-S2. Abdomen: Soft and obese. Extremities: Reveal a cast on the right foot. LABORATORIES: No chest x-ray today. White blood count 8.85, hemoglobin 8.7, platelet count 317,000 arterial blood gas pH 7.43, pCO2 of 40, PO2 of 113 on nasal cannula. Sodium 129, potassium 4.0, chloride 89, bicarbonate 25, BUN 17, creatinine 2.7. Immunoglobulin levels are slightly reduced at 666 mg/dL. IMPRESSION: A 58-year-old with: 1. Pneumonia. 2. Pulmonary edema. 3. Acute on chronic kidney disease. 4. Acute hypoxemic respiratory failure. 5. Active wheezing on exam. 6. Diabetes mellitus with poor glycemic control. RECOMMENDATIONS: 1. We will initiate long-acting beta-agonist and an inhaled corticosteroid for active wheezing. We will attempt to avoid IV steroids given poorly controlled sugars. 2. Discontinue daily arterial blood gases. Patient is now on nasal cannula with no evidence of increased work of breathing. 3. Continue antibiotics per Infectious Disease. 4. Continue fluid management per the Nephrology Service. 5. Continue BiPAP at bedtime and p.r.n. 6. Continue physical therapy. cc: Homer Gonzalez MD
[2018-08-05] MEDS: SYMBICORT 160/4.5 MICROGM INHALER INH SCH ×2 (15:43→19:14)
[2018-08-05] MEDS ORDERED: FLEET ENEMA PR PRN (20:37)
[2018-08-05] MEDS: DULCOLAX PR SCH (21:11)
[2018-08-05] MEDS: AYR NASAL SPRAY NAS SCH (21:15)
--- NOTE | 2018-08-05 22:04 | PROGRESS NOTE ---
DATE: 08/05/2018 SUBJECTIVE: The patient notes overall her breathing is better. She states she is feeling a lot better, but she is still having some constipation issues. She has been taking MiraLAX and lactulose, but has only had very small bowel movements. OBJECTIVE: She is afebrile. Vital signs reviewed and stable. She is awake, alert. She is pleasant to talk with. She appears in no respiratory distress currently. HEENT: Normocephalic. Neck supple. Cardiovascular: Regular rate. Chest clear. Abdomen soft. Extremities: Moves all extremities. Neurologic: No focal changes. ASSESSMENT: 1. Constipation. We will add a Fleet enema to see if this will help, with her current regimen. 2. Pneumonia. 3. Acute pulmonary edema. 4. Acute kidney injury. 5. Hyponatremia. PLAN: We will continue antibiotics per ID. Pulmonology has adjusted medications. We will add a Fleet enema for constipation and follow. cc: Seamus Almaraz MD
[2018-08-06] MEDS: ATROVENT NEB INH SCH ×6 (03:18→23:40)
[2018-08-06] MEDS: XOPENEX NEB INH SCH ×7 (03:18→23:40)
[2018-08-06] MEDS: SOLU-MEDROL IV SCH ×2 (04:00→16:37)
[2018-08-06] MEDS: AZACTAM 0.5 GM in NS 50 ML IV SCH ×3 (04:00→20:46)
[2018-08-06 05:27] LABS: BLOOD TYPE ARTERIAL; SAMPLE BLOOD
[2018-08-06 05:28] LABS: HCO3-(ACT) 29.8 mmoll (20.0-26.0); MODALITY CANNULA; PCO2(98.6) 35 mmHg (35-45); PO2(98.6) 115 mmHg (60-100); pH(98.6) 7.54 (7.35-7.45)
[2018-08-06 05:29] LABS: ALLEN TEST YES
[2018-08-06] MEDS: APRESOLINE PO SCH ×3 (05:52→20:59)
[2018-08-06] MEDS: HUMALOG SUBQ SCH ×4 (06:18→20:54)
[2018-08-06 06:32] LABS: HEMATOCRIT 28.2 % (37.0-47.0); MCH 27.4 PG (27-31); MCHC 31.9 g/dL (33-37); MPV 10.1 FL (7.4-10.4); RBC 3.28 XMIL (4.2-5.4); RDW 14.1 % (11.5-14.5); WBC 10.92 X1000 (4.8-10.8)
[2018-08-06 06:54] LABS: ALBUMIN 3.2 g/dL (3.5-5.0); CALCIUM 8.6 mg/dL (8.8-10.2); CREATININE 2.2 mg/dL (0.5-0.9); PHOSPHORUS 4.4 mg/dL (2.7-4.5); POTASSIUM 4.3 mmol/L (3.5-5.1)
--- NOTE | 2018-08-06 07:34 | Diag Imaging Result Doc PS360 ---
CHEST-PORTABLE - 08/06/2018 INDICATION: abnormal exam COMPARISON: 08/04/2018 FINDINGS: Stable cardiomegaly. There is worsening ill-defined interstitial infiltrate diffusely and bilaterally. No pneumothorax or large pleural effusion. IMPRESSION: Bilateral interstitial infiltrates compatible with pulmonary edema. Cardiomegaly. Electronically signed by Stephen Delgado 08/06/2018 7:31 AM
[2018-08-06] MEDS: ZYVOX 600 MG/D5W 600 MG/300 ML IVPB IV SCH ×2 (08:16→20:55)
[2018-08-06] MEDS: NORVASC PO SCH ×2 (08:17→20:45)
[2018-08-06] MEDS: ZANTAC PO SCH ×2 (08:17→20:45)
[2018-08-06] MEDS: FOLIC ACID PO SCH (08:17)
[2018-08-06] MEDS: ICAR-C PO SCH (08:17)
[2018-08-06] MEDS: TRANDATE PO SCH ×2 (08:17→20:47)
[2018-08-06] MEDS: LASIX IV SCH (08:17)
[2018-08-06] MEDS: FLONASE NAS SCH (08:17)
[2018-08-06] MEDS: BASAGLAR SUBQ SCH ×2 (08:18→20:45)
[2018-08-06] MEDS: COLACE PO SCH ×2 (08:18→20:45)
[2018-08-06] MEDS: MIRALAX PO SCH ×2 (08:19→20:44)
[2018-08-06] MEDS: LACTULOSE PO SCH ×2 (08:19→20:46)
[2018-08-06] MEDS: SSD CREAM TOP SCH (08:20)
[2018-08-06] MEDS: SYMBICORT 160/4.5 MICROGM INHALER INH SCH ×2 (11:58→20:00)
--- NOTE | 2018-08-06 14:55 | PROGRESS NOTE ---
DATE: 08/06/2018 SUBJECTIVE: The patient is resting comfortably in bed. She is doing much better today. OBJECTIVE: Vital signs: Temperature is 98 degrees, pulse 78, respirations 20, blood pressure 142/67, oxygen saturation is 99%. HEENT: Atraumatic, normocephalic. Cardiovascular: S1, S2. Respiratory: Has evidence of good air entry bilaterally. Abdomen: Soft, nontender. No masses felt. Extremities: The patient does have a cast today on the right lower extremity. Central nervous system: No obvious focal deficits noted. LABS: WBC 10.92, hematocrit is 28.2, with a platelet count of 438,000. ABG 7.54/35/115/99%. , potassium 4.3, chloride is 93, bicarb is 26, BUN is 67, creatinine is 2.2. X- ray of the chest shows bilateral interstitial infiltrates compatible with pulmonary edema as well as cardiomegaly. ASSESSMENT AND PLAN: 1. Acute respiratory failure secondary to pulmonary edema as well as pneumonia. Improving. Continue oxygen supplementation. 2. Pneumonia. Continue antibiotics as recommended by ID. 3. Acute pulmonary edema. Maintain patient on diuretics. Monitor I's and O's, as well as daily weights. 4. Hypertension. Continue current antihypertensive regimen. 5. Acute kidney injury superimposed on chronic kidney disease. Nephrology following. 6. Hyponatremia. Sodium level improving. 7. Recent open reduction with internal fixation of bimalleolar fracture. Orthopedics following. 8. Iron deficiency anemia. Follow up on hemoglobin, hematocrit. Transfuse PRBCs as needed. 9. Hematuria. Repeat UA. 10. Deep vein thrombosis prophylaxis. SCDs. 11. Gastrointestinal prophylaxis. Ranitidine. cc: Gilberto Haskins MD [facility]
[2018-08-06 16:33] LABS: URINE SOURCE CATH
[2018-08-06 16:42] LABS: BILIRUBIN URINE NEGATIVE (NEGATIVE); BLOOD URINE LARGE (NEGATIVE); COLOR ORANGE; GLUCOSE URINE 300 mg/dL (NEGATIVE); KETONE URINE NEGATIVE (NEGATIVE); LEUKOCYTES URINE MODERATE (NEGATIVE); NITRITE URINE NEGATIVE (NEGATIVE); PH URINE 6.5; PROTEIN URINE 300 mg/dL (NEGATIVE); SP GRAVITY URINE 1.003; TURBIDITY URINE HAZY (CLEAR); UROBILINOGEN URINE NORMAL (NORMAL)
[2018-08-06 16:45] LABS: UR EPITHELIAL CELLS >10 /HPF (<10); URINE BACTERIA NEGATIVE /HPF; URINE RBC TNTC /HPF (<10); URINE WBC TNTC /HPF (<10)
[2018-08-06 16:59] LABS: URINE CASTS GRANULAR PRESENT; URINE CRYSTALS NONE SEEN; URINE SMALL ROUND CELLS NONE SEEN; URINE YEAST PRESENT
--- NOTE | 2018-08-06 20:20 | PULMONOLOGY PROGRESS NOTE ---
DATE: 08/06/2018 SUBJECTIVE: The patient is awake, alert and conversant. She reports her dyspnea has diminished. OBJECTIVE: Vital Signs: The patient has been afebrile for the last 24 hours. Blood pressure 138/48, heart rate 83, respiratory rate 20, oxygen saturation 98%. HEENT: Pupils are equal and reactive. Oropharynx appears clear. Neck: Supple. Chest: Reveals prolonged expiratory phase. Wheezing is less prominent today. Cardiac: S1, S2. Abdomen: Soft and without hepatosplenomegaly. Extremities: Extremities reveal a cast on the right foot. LABORATORIES: No new microbiology data. White blood count 10.92, hemoglobin 9.0, platelet count 438,000. Arterial blood gas on nasal cannula: pH 7.54, pCO2 of 35, PO2 of 115. Sodium 133, potassium 4.3, chloride 93, bicarbonate 26, BUN 67, creatinine 2.2. Chest x-ray reveals slight increase of interstitial infiltrates. IMPRESSION: 1. A 58-year-old with pneumonia. 2. Pulmonary edema. 3. Acute on chronic kidney disease. 4. Acute hypoxemic respiratory failure. 5. Wheezing. 6. Diabetes mellitus with elevated blood sugars. DISCUSSION: Clinically patient appears to be improving. She does have some radiographic worsening, but her exam has improved and her dyspnea has diminished. She might benefit from a small Lasix trial today. RECOMMENDATIONS: 1. Continue Symbicort. 2. Discontinue blood gases unless she has evidence of clinical decline. 3. Continue current antibiotic regimen. 4. Continue diuresis as tolerated. cc: Homer Gonzalez MD
[2018-08-06] MEDS: DULCOLAX PR SCH (20:45)
[2018-08-06] MEDS: AYR NASAL SPRAY NAS SCH (21:20)
[2018-08-07] MEDS: XOPENEX NEB INH SCH ×5 (03:35→20:20)
[2018-08-07] MEDS: ATROVENT NEB INH SCH ×5 (03:35→20:20)
[2018-08-07] MEDS: AZACTAM 0.5 GM in NS 50 ML IV SCH ×3 (04:20→22:48)
[2018-08-07] MEDS: SOLU-MEDROL IV SCH ×2 (04:20→17:05)
[2018-08-07] MEDS: APRESOLINE PO SCH ×3 (06:05→22:47)
[2018-08-07] MEDS: HUMALOG SUBQ SCH ×4 (06:19→22:53)
[2018-08-07 06:56] LABS: HEMOGLOBIN 9.3 g/dL (12.0-16.0); MCH 27.5 PG (27-31); MCHC 32.1 g/dL (33-37); MCV 85.8 FL (81-99); MPV 8.9 FL (7.4-10.4); RBC 3.38 XMIL (4.2-5.4); RDW 13.9 % (11.5-14.5); WBC 6.98 X1000 (4.8-10.8)
[2018-08-07 07:17] LABS: ALBUMIN 3.2 g/dL (3.5-5.0); CALCIUM 8.6 mg/dL (8.8-10.2); PHOSPHORUS 3.7 mg/dL (2.7-4.5)
[2018-08-07] MEDS: ZANTAC PO SCH ×2 (08:02→22:48)
[2018-08-07] MEDS: TRANDATE PO SCH ×2 (08:02→22:47)
[2018-08-07] MEDS: LASIX IV SCH (08:02)
[2018-08-07] MEDS: LACTULOSE PO SCH ×2 (08:02→22:47)
[2018-08-07] MEDS: FOLIC ACID PO SCH (08:02)
[2018-08-07] MEDS: ICAR-C PO SCH (08:02)
[2018-08-07] MEDS: NORVASC PO SCH ×2 (08:02→22:48)
[2018-08-07] MEDS: BASAGLAR SUBQ SCH ×2 (08:03→22:49)
[2018-08-07] MEDS: COLACE PO SCH ×2 (08:03→22:47)
[2018-08-07] MEDS: MIRALAX PO SCH ×2 (08:04→22:48)
[2018-08-07] MEDS: FLONASE NAS SCH ×2 (08:04→08:10)
[2018-08-07] MEDS: SSD CREAM TOP SCH (08:05)
[2018-08-07] MEDS: ZYVOX 600 MG/D5W 600 MG/300 ML IVPB IV SCH (08:09)
--- NOTE | 2018-08-07 11:43 | NEPHROLOGY PROGRESS NOTE ---
DATE: 08/07/2018 SUBJECTIVE: Ms. Foley is resting quietly in bed. She has no complaints. VITAL SIGNS: Her most recent vital signs were last temperature 98.5 degrees, blood pressure 156/66, heart rate 88, respirations are 20. She remains on 3 L nasal cannula. Last recorded saturation is 100%. She has 750 mL in, 3400 out per Kaplan catheter. LABORATORY DATA: Her sodium is 136, potassium 4, chloride 95, CO2 27, BUN 64, creatinine 2, glucose 95. Her anion gap is 14, calcium is 8.6, phosphorus 3.7, albumin is 3.2. White count 6.98, hemoglobin 9.3, hematocrit 29, platelet count 467,000. PHYSICAL EXAMINATION: General: This is a 58-year-old white female resting quietly in bed. She appears chronically ill in no acute distress. Skin: Warm and dry. HEENT: Normocephalic, atraumatic. Conjunctiva is pink. She has CATHY. Mucous membranes are moist. Neck: Supple. Trachea midline. She is without JVD. Cardiovascular: Regular rate and rhythm. S4 is present with a soft systolic murmur. Lungs: Clear to auscultation bilaterally. Equal excursion on room air. Abdomen: Soft, nontender. Positive bowel sounds. Genitourinary: Not inspected. The patient has Kaplan catheter with adequate urine out. Extremities: Have no edema. No clubbing or cyanosis. Neurological: She is alert to person and to place. ASSESSMENT AND PLAN: 1. Acute on chronic kidney disease. Her baseline creatinine is 1.5 to 1.9. She is close to her creatinine of 2.2. BUN has been slowly improving. Adequate urine out. We will continue to monitor. 2. Hyponatremia. This is improving. Her sodium is at 133. The patient remains on free water restriction. Her Lasix has been decreased yesterday. I would to thank you for allowing us to follow with this patient. Dictated by TAYLOR Muñiz for Eben Pena MD Face to face encounter, data reviewed, discussed with Cheryl Spear on 08/07/18. I agree with the above assessment and plan of care. cc: TAYLOR Muñiz MD [facility]
--- NOTE | 2018-08-07 12:47 | PROGRESS NOTE ---
DATE: 08/07/2018 SUBJECTIVE: The patient is awake and seated on the chair. Feeling much better this morning. No new complaints. OBJECTIVE: Vital signs: Temperature 98.7 degrees, pulse 72, respiratory 16, blood pressure 147/59, oxygen saturation is 100%. HEENT: Atraumatic, normocephalic. Cardiovascular: S1, S2. Respiratory system: Has evidence of good air entry bilaterally. Abdomen: Soft, nontender. No masses felt. Extremities: Has a cast on the right lower extremity. Central nervous system: No obvious focal deficit noted. LABORATORY DATA: WBC is 6.98, hematocrit is 29.0 with a platelet count of 497,000. Sodium is 136, potassium 4.0, chloride is 95, bicarb 27, BUN is 64, creatinine is 2.0. UA shows large amount of blood with numerous moderate amount of leukocytes and numerous WBCs. ASSESSMENT AND PLAN: 1. Acute respiratory failure secondary to pulmonary edema as well as pneumonia. Continue to treat primary lung conditions and also maintain the patient on oxygen supplementation. 2. Pneumonia. Continue antibiotics as recommended by Infectious Disease. 3. Pulmonary edema. Continue diuretics. Monitor intakes and outputs, as well as daily weights. 4. Hypertension. Continue current antihypertensive regimen. 5. Acute kidney injury superimposed on chronic kidney disease. Nephrology following. 6. Hypernatremia, that has already resolved. 7. Recent open reduction with internal fixation of bimalleolar fracture. Orthopedics following. 8. Iron deficiency anemia. Follow up on hemoglobin, hematocrit. Transfuse packed red blood cells as needed. 9. Hematuria/pyuria. Urine culture requested. 10. Deep vein thrombosis prophylaxis. Sequential compression devices. 11. Gastrointestinal prophylaxis, ranitidine. cc: Gilberto Haskins MD
[2018-08-07] MEDS: SYMBICORT 160/4.5 MICROGM INHALER INH SCH ×2 (15:13→20:20)
--- NOTE | 2018-08-07 17:51 | INFECTIOUS DISEASE PROGRESS NO ---
DATE: 08/07/2018 PRESENT ILLNESS: Ms. Foley is being treated for pneumonia. Her procalcitonin level is 0.56, making it very likely that there is a respiratory tract infection. MEDICATIONS: She is on day 8 of aztreonam 500 mg IV every 8 hours as a renally modified dose, and day 9 of Zyvox 600 mg IV every 12 hours. PHYSICAL EXAMINATION: Vital Signs: Temperature is 98.7 degrees, pulse rate 83, respiratory rate 18, blood pressure 147/59. O2 saturation 100% on 2 L nasal cannula. General: This is a chronically ill-appearing middle-aged female. She is lying in bed, currently in no acute distress. HEENT: She has a right eye prosthesis. Conjunctiva are pale. Oral mucous membranes are pink and moist. Respiratory: Lung sounds are clear in the upper lobes, diminished in the bases. Cardiovascular: Heart rate and rhythm are regular. Normal sinus rhythm on the monitor. Extremities: There is a cast in place to her right lower extremity with a dressing over top of the end of her distal foot. Abdomen: Soft, obese, and mildly tender on palpation. Bowel sounds are active. Neurologic: She is awake, alert, and oriented, but somewhat forgetful. Able to move all extremities in the bed with some weakness noted. LABORATORY AND X-RAY: Today, her white count is 6.98, hemoglobin 9.3, platelet count 467,000. Creatinine is 2, GFR 26. There is a urine culture which is pending. No imaging reports today. However, yesterday her chest x-ray showed bilateral interstitial infiltrates compatible with pulmonary edema. ASSESSMENT AND PLAN: Ms. Foley is being treated for bilateral pneumonia and has an elevated procalcitonin of 0.56, which makes it very likely that pneumonia is present. On chest x-ray, it shows pulmonary edema. She is receiving aztreonam and Zyvox, which we will continue at this time. These plans have been discussed with and recommended by Dr. Quezada. COMORBIDITIES: For Ms. Foley include that she has diabetes mellitus, gastroesophageal reflux disease, chronic kidney disease, and anemia of chronic disease. Dictated by TAYLOR Santiago for Taj Quezada MD This chart was documented by, TAYLOR Santiago and accurately reflects the services performed, treatment plan and medical decisions as attested by the providers signature Taj Quezada MD. cc: Taj Quezada MD [facility]
[2018-08-07] MEDS: DULCOLAX PR SCH (22:47)
[2018-08-07] MEDS: AYR NASAL SPRAY NAS SCH (22:50)
[2018-08-08] MEDS: ATROVENT NEB INH SCH ×6 (00:05→20:06)
[2018-08-08] MEDS: XOPENEX NEB INH SCH ×6 (00:06→20:06)
--- NOTE | 2018-08-08 00:58 | PULMONOLOGY PROGRESS NOTE ---
DATE: 08/07/2018 SUBJECTIVE: The patient is awake, alert, and conversant. She is currently sitting in the bedside chair. She reports her dyspnea has diminished. OBJECTIVE: Vital Signs: The patient has been afebrile for the last 24 hours. BP 145/59, heart rate 82, respiratory rate 17, oxygen saturation 98% on 2 L per nasal cannula, which is down from 3 L per nasal cannula yesterday. HEENT: Pupils are equal and reactive. Oropharynx is clear. Neck: Is supple. Chest: Reveals good air entry bilaterally with bilateral crackles. Cardiac exam: S1, S2. Abdomen: Obese and soft. Extremities: Reveal a cast on the right foot. LABORATORIES: White blood count 6.98, hemoglobin 9.3, platelet count 467,000. Sodium 136, potassium 4.2, chloride 95, bicarbonate 27, BUN 64, creatinine 2.0. IMPRESSION: Full 58-year-old with 1. Pneumonia. 2. Pulmonary edema. 3. Acute on chronic kidney disease. 4. Acute hypoxemic respiratory failure. 5. Wheezing which has improved with bronchodilators. 6. Diabetes mellitus. DISCUSSION: The patient continues to improve clinically. Will follow up chest x-ray tomorrow morning. RECOMMENDATIONS: 1. Continue gentle diuresis as tolerated. 2. Continue current antibiotic regimen. 3. Followup chest x-ray tomorrow morning. 4. Continue Symbicort. cc: Homer Gonzalez MD
[2018-08-08] MEDS: ZYVOX 600 MG/D5W 600 MG/300 ML IVPB IV SCH ×3 (03:00→16:41)
[2018-08-08] MEDS: AZACTAM 0.5 GM in NS 50 ML IV SCH ×3 (05:02→21:29)
[2018-08-08] MEDS: SOLU-MEDROL IV SCH ×2 (05:02→16:49)
[2018-08-08 06:45] LABS: HEMATOCRIT 27.8 % (37.0-47.0); HEMOGLOBIN 8.9 g/dL (12.0-16.0); MCH 27.6 PG (27-31); MCV 86.3 FL (81-99); MPV 8.6 FL (7.4-10.4); RBC 3.22 XMIL (4.2-5.4); RDW 13.9 % (11.5-14.5); WBC 7.95 X1000 (4.8-10.8)
[2018-08-08] MEDS: APRESOLINE PO SCH ×3 (06:51→21:30)
[2018-08-08] MEDS: HUMALOG SUBQ SCH ×4 (06:53→21:32)
[2018-08-08 06:59] LABS: CALCIUM 8.2 mg/dL (8.8-10.2)
[2018-08-08 07:46] LABS: ALBUMIN 3.1 g/dL (3.5-5.0); CREATININE 2.2 mg/dL (0.5-0.9); POTASSIUM 4.3 mmol/L (3.5-5.1)
--- NOTE | 2018-08-08 07:47 | Diag Imaging Result Doc PS360 ---
EXAM: CHEST-2 VIEWS INDICATION: abnormal exam TECHNIQUE: 3 views COMPARISON: 08/06/2018 FINDINGS: There has been interval significant improvement of pulmonary venous congestion and interstitial edema to near resolution. There is no discrete pleural fluid collection or pneumothorax. The cardiomediastinal silhouette and central vasculature are grossly unremarkable. IMPRESSION: Interval improvement as described. Electronically signed by Edmond Barrera 08/08/2018 7:45 AM
[2018-08-08] MEDS: ICAR-C PO SCH (08:41)
[2018-08-08] MEDS: COLACE PO SCH ×2 (08:41→21:30)
[2018-08-08] MEDS: ZANTAC PO SCH ×2 (08:42→21:30)
[2018-08-08] MEDS: LACTULOSE PO SCH ×2 (08:42→21:29)
[2018-08-08] MEDS: NORVASC PO SCH ×2 (08:42→21:30)
[2018-08-08] MEDS: MIRALAX PO SCH ×2 (08:42→21:30)
[2018-08-08] MEDS: FOLIC ACID PO SCH (08:42)
[2018-08-08] MEDS: TRANDATE PO SCH ×2 (08:42→21:30)
[2018-08-08] MEDS: LASIX IV SCH (08:42)
[2018-08-08] MEDS: FLONASE NAS SCH (08:52)
--- NOTE | 2018-08-08 09:10 | NEPHROLOGY PROGRESS NOTE ---
DATE: 08/08/2018 TIME SEEN: 0630. SUBJECTIVE: Ms. Foley is lying in bed. Her friend is at the bedside. She has no complaints today except she is just fatigued. OBJECTIVE: Vital Signs: Temperature 98 degrees, blood pressure 142/52, heart rate 83, respirations 18. She is on 2 L nasal cannula. Last recorded saturation 100%. She has had 1050 in. She has had 2300 out to Kaplan catheter. Laboratory Data: Sodium is 135, potassium 4.3, chloride is 95, CO2 27, BUN 60, creatinine 2.2, glucose 177, her anion gap is 13. Her phosphorus is 4. Her albumin is 3.1. Her calcium is 8.2. Previous hemoglobin of 8.9 with a hematocrit of 27.8, white count 7.95, with a platelet count of 504,000. Physical Examination: General: This is a 58-year-old, white female resting quietly in bed. She appears chronically ill. No acute distress. Skin is warm and dry. HEENT: Normocephalic, atraumatic. Conjunctivae are pale. She has CATHY. Mucous membranes are dry. Neck: Supple. Trachea midline. No JVD. Cardiovascular: She is regular rate and rhythm. She has a systolic murmur and an S4. Lungs: Clear to auscultation anteriorly. Equal excursion, on room air at this time. Abdomen: Large, round, soft, nontender. Positive bowel sounds. Genitourinary: Not inspected. Adequate urine out to Kaplan catheter. Extremities: She has a cast on her right. She has no edema on the left. She does have different stages of ecchymoses and healing to her upper and lower extremities. Neurological: She is alert and oriented x3. ASSESSMENT AND PLAN: 1. Acute kidney injury on chronic kidney disease. Patient's baseline creatinine is 1.5 to 1.9. It appears that she has possibly reset her baseline at 2.1. The patient has been very stable over the last several days. 2. Electrolytes. The patient's sodium has corrected. It is now 135, remaining on 1 L fluid restriction. 3. Acid-base balance and anemia. These are all acceptable. PLAN: From our perspective, the patient's creatinine has resettled at a new baseline of approximately 2 to 2.2. She is making an adequate amount of urine. She is doing well with a 1 L fluid restriction on her sodium which has improved to 135. At this time, we will sign off and remain available if indicated during her remaining stay. I would like to thank you for allowing us to follow with this patient. Dictated by TAYLOR Muñiz for Ebne Pena MD Face to face encounter, data reviewed, discussed with Cheryl Spear on 08/08/18. I agree with the above assessment and plan of care. cc: TAYLOR Muñiz MD [facility]
[2018-08-08] MEDS: BASAGLAR SUBQ SCH ×2 (09:58→21:30)
[2018-08-08] MEDS: SYMBICORT 160/4.5 MICROGM INHALER INH SCH ×2 (11:27→20:07)
--- NOTE | 2018-08-08 13:27 | PROGRESS NOTE ---
DATE: 08/08/2018 SUBJECTIVE: The patient resting in bed. She is feeling much better today. She is asking to be discharged. She understands that she would be going to a detention facility. OBJECTIVE: Vital signs: Vital signs are as follows: Temperature 97.7 degrees, pulse of 89, respiratory rate 20, blood pressure is 116/70, oxygen saturation is 100%. HEENT: Atraumatic, normocephalic. Cardiovascular system: S1, S2. Respiratory system: Has evidence of good air entry bilaterally. Abdomen: Soft, nontender. No masses felt. Extremities: Has a cast present in the right lower extremity. No significant edema in the left lower extremity. Central nervous system: No obvious focal deficits noted. LABORATORY DATA: WBC 7 7.95, hematocrit is 37.8 with a platelet count of 504. Sodium is 135 potassium 4.3, chloride is 95, bicarbonate is 27. BUN is 60, creatinine 2.2. Urine culture positive for yeast. ASSESSMENT AND PLAN: 1. Acute respiratory failure secondary to pulmonary edema, as well as pneumonia. Today's chest x- ray shows interval significant improvement in pulmonary vascular congestion, as well as in edema somewhat to near resolution. Continue current treatment and Pulmonary team is following. 2. Pneumonia. Continue antibiotics as recommended by ID 3. Acute pulmonary edema. Continue diuretics. Monitor intakes and outputs, as well as daily weights. 4. Hypertension. Continue current antihypertensive regimen. 5. Acute kidney injury superimposed on chronic kidney disease. Nephrology following. 6. Hyponatremia. Improved. 7. Recent open reduction with internal fixation of bimalleolar fracture. Orthopedics following. 8. Iron deficiency anemia. Follow up on hemoglobin, hematocrit. Transfuse packed red blood cells as needed. 9. Funguria. Defer antifungals and treatment to Infectious Disease team. 10. Deep vein thrombosis prophylaxis. Sequential compression devices. 11. Gastrointestinal prophylaxis. Ranitidine. DISPOSITION: The patient is going to detention facility when bed is available. cc: Gilberto Haskins MD MTDD
[2018-08-08] MEDS ORDERED: INSULIN PEN NEEDLES ONE (13:45)
[2018-08-08] MEDS: SSD CREAM TOP SCH (16:41)
[2018-08-08] MEDS: DULCOLAX PR SCH (21:30)
[2018-08-08] MEDS: AYR NASAL SPRAY NAS SCH (21:31)
--- NOTE | 2018-08-08 21:48 | PULMONOLOGY PROGRESS NOTE ---
DATE: 08/08/2018 SUBJECTIVE: The patient reports she feels better. She denies shortness of breath. She denies cough or sputum production. OBJECTIVE: Vital Signs: The patient has been afebrile for the last 24 hours. Oxygen saturation 100% on 2 L by nasal cannula. HEENT: Pupils are equal and reactive. Oropharynx is clear. Neck: Supple. Chest: Reveals good air entry bilaterally without wheezing or rhonchi. Cardiac exam: S1, S2. Abdomen: Soft. Extremities: Reveal trace edema. She continues to have a cast on the right foot. LABORATORIES: Sodium 135, potassium 4.3, chloride 95, bicarbonate 27, BUN 60, creatinine 2.2, glucose 177. White blood count 7.95, hemoglobin 8.9, platelet count 504,000. IMAGING: Chest x-ray reveals marked improvement with near complete clearing of infiltrates and edema. IMPRESSION: A 58-year-old with: 1. Pneumonia. 2. Pulmonary edema. 3. Acute hypoxemic respiratory failure. 4. Acute on chronic kidney failure. 5. Wheezing, which has resolved. 6. Diabetes mellitus. RECOMMENDATIONS: 1. Wean and discontinue oxygen as tolerated. 2. The patient has completed 10 days of antibiotics. I believe antibiotics can be discontinued given clearing of x-ray. 3. Continue Symbicort at discharge. 4. The patient can be discharged from a pulmonary standpoint. cc: Homer Gonzalez MD
[2018-08-09] MEDS: XOPENEX NEB INH SCH ×7 (00:16→23:31)
[2018-08-09] MEDS: ATROVENT NEB INH SCH ×7 (00:16→23:30)
[2018-08-09] MEDS: ZYVOX 600 MG/D5W 600 MG/300 ML IVPB IV SCH ×2 (02:01→16:51)
[2018-08-09] MEDS: SOLU-MEDROL IV SCH (03:51)
[2018-08-09] MEDS: AZACTAM 0.5 GM in NS 50 ML IV SCH ×3 (03:51→20:26)
[2018-08-09] MEDS: APRESOLINE PO SCH ×3 (06:08→21:17)
[2018-08-09] MEDS: HUMALOG SUBQ SCH ×4 (06:09→20:27)
[2018-08-09 07:38] LABS: HEMATOCRIT 29.8 % (37.0-47.0); HEMOGLOBIN 9.5 g/dL (12.0-16.0); MCH 27.4 PG (27-31); MCHC 31.9 g/dL (33-37); MCV 85.9 FL (81-99); MPV 8.6 FL (7.4-10.4); RBC 3.47 XMIL (4.2-5.4); RDW 13.6 % (11.5-14.5); WBC 9.01 X1000 (4.8-10.8)
[2018-08-09] MEDS: SYMBICORT 160/4.5 MICROGM INHALER INH SCH ×2 (07:39→19:14)
[2018-08-09 08:04] LABS: CALCIUM 8.5 mg/dL (8.8-10.2); CREATININE 2.1 mg/dL (0.5-0.9); PHOSPHORUS 4.2 mg/dL (2.7-4.5)
[2018-08-09] MEDS: MIRALAX PO SCH ×2 (09:58→20:24)
[2018-08-09] MEDS: ZANTAC PO SCH ×2 (09:58→20:26)
[2018-08-09] MEDS: TRANDATE PO SCH ×2 (09:58→20:27)
[2018-08-09] MEDS: ICAR-C PO SCH (09:58)
[2018-08-09] MEDS: LASIX IV SCH (09:58)
[2018-08-09] MEDS: COLACE PO SCH ×2 (09:58→20:26)
[2018-08-09] MEDS: NORVASC PO SCH ×2 (09:58→20:26)
[2018-08-09] MEDS: FOLIC ACID PO SCH (09:58)
[2018-08-09] MEDS: BASAGLAR SUBQ SCH ×2 (09:59→20:26)
[2018-08-09] MEDS: FLONASE NAS SCH (09:59)
[2018-08-09] MEDS: LACTULOSE PO SCH ×2 (10:05→20:24)
--- NOTE | 2018-08-09 15:35 | PROGRESS NOTE ---
DATE: 08/09/2018 INTERVAL HISTORY: No acute events. Her vitals were unremarkable. SUBJECTIVE: The patient's sister is at bedside. The patient wants to be discharge from this hospital. I discussed about waiting for [facility] evaluation. Currently, the patient denies chest pain, shortness of breath, nausea, vomiting, abdominal pain. VITAL SIGNS: Temperature 98.5 degrees, pulse 92, blood pressure 157/63, saturating 98% on room air. PHYSICAL EXAMINATION: General: Does not appear in any acute distress. Appears morbidly obese. She does have blindness. Left pupil is reacting to light. Oral cavity is moist. Lungs: Air entry bilaterally equal. No wheeze, rhonchi, crackles. Cardiovascular: S1, S2 normal. No murmur, rub, or gallop. Abdomen: Obese, distended with gas, soft, nontender. No significant edema of bilateral lower extremities. The right lower extremity has a cast. Input and output suggest she is -1.3 L today. LABS: Suggestive of normocytic anemia, thrombocytosis, hyponatremia, hypochloremia, elevated BUN and creatinine when she is in chronic kidney disease stage 4 range, hyperglycemia with blood sugars in the 140 to 250 range. Phosphorus has been 4.2. MICROBIOLOGY: No data. ASSESSMENT AND PLAN: 1. Acute hypoxic respiratory failure in the setting of bilateral pulmonary edema and bilateral pneumonia, healthcare-associated. Continue intravenous Zyvox and intravenous aztreonam as per infectious disease. I would appreciate recommendation about changing it to oral. Change Lasix from intravenous to by mouth. Continue oxygenation to maintain saturation more than 94%. 2. Essential hypertension, currently in acceptable range. Continue patient on hydralazine, amlodipine, labetalol, and adjust dose according to her response. 3. History of insulin-dependent diabetes mellitus with poor control. Continue current dose of glargine and sliding scale insulin. I will increase the dose today as she has been hyperglycemic. 4. Acute kidney injury on chronic kidney disease stage 4. Currently appears to be at her baseline of chronic kidney disease stage 4. Change intravenous Lasix to oral. 5. Recent history of a bimalleolar fracture with open reduction and internal fixation of right lower tibia-fibula, currently stable. She was on Xarelto. Appears to be for deep venous thrombosis prophylaxis which I would resume as appropriate. 6. History of iron deficiency anemia, currently stable. Continue iron ascorbic acid. 7. Constipation, now resolved. Continue patient on bisacodyl suppository, docusate sodium, lactulose, Fleet enema, with MiraLAX. 8. Disposition. [facility] is evaluating the patient. She would eventually need to go to rehab. Plan is discussed with the patient and her sister at bedside. All of their questions have been answered. cc: Ferny Desouza MD MTDD
[2018-08-09] MEDS: SSD CREAM TOP SCH (17:37)
--- NOTE | 2018-08-09 19:03 | Diag Imaging Result Doc PS360 ---
CT THORAX W/O CONTRAST - 08/09/2018 INDICATION: pneumonia COMPARISON: 07/29/2018 FINDINGS: There is a stable irregular spiculated mass in the posterior right lower lobe. This measures about 2.4 cm. There is hazy interstitial groundglass opacity bilaterally compatible with pulmonary edema. There are trace bilateral pleural effusions. There is a small pericardial effusion. There is mild cardiomegaly. There is a granuloma in the right upper lobe. Since the prior exam, the pleural effusions are smaller. IMPRESSION: Small pleural effusions. Stable pulmonary edema. Stable suspicious mass in the right lower lobe. This exam was performed using automated exposure control, adjustment of mA or kV according to patient size, and/or use of iterative reconstruction technique Electronically signed by Stephen Delgado 08/09/2018 7:01 PM
--- NOTE | 2018-08-09 19:27 | INFECTIOUS DISEASE PROGRESS NO ---
DATE: 08/09/2018 PRESENT ILLNESS: The patient appears to have a pneumonia and also pulmonary venous congestion. Her last x-ray showed almost complete clearing of the chest. The patient does have yeast in her urine. I think this is asymptomatic and does not require treatment. MEDICATIONS: This is the 10th day of treatment with aztreonam and the 11th day of treatment with Zyvox. OBJECTIVE: Vital signs: Temperature is 98.6 degrees, pulse 80, respirations 22, blood pressure 158/64. Generally, this is a somewhat ill-appearing middle-aged female. She is lying in bed. She actually looks better today, more alert and in no acute distress. Head, eyes, ears, nose and throat: She can hear my spoken words and see near objects. 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 Lungs are clear to auscultation. Cardiovascular: Heart rate is regular. Abdomen is soft and nontender. Neurologic: The patient is awake. She can move her extremities. There is no tremor. DIAGNOSTIC DATA: Chest x-ray shows marked improvement in the pulmonary venous congestion. LABORATORY DATA: Her urine is growing yeast. Creatinine is 2.1. GFR is 24. CBC shows a white count of 9010, hemoglobin 9.5 and platelet count 536,000. The patient's urine grew yeast, but as mentioned above I think this is asymptomatic and does not require treatment. ASSESSMENT AND PLAN: 1. I am going to continue her antibiotics overnight, and I have ordered a noncontrast CT scan of the thorax. If the lungs look clear of pneumonia, then I am going to stop the antibiotics and the patient hopefully tomorrow will be going to a rehab facility. 2. As mentioned above, there is yeast in the urine but this is asymptomatic and does not require treatment. 3. Comorbidities in Ms. Foley include diabetes mellitus, gastroesophageal reflux disease, chronic kidney disease, and anemia of chronic disease. cc: Taj Quezada MD
[2018-08-09] MEDS: AYR NASAL SPRAY NAS SCH (20:25)
[2018-08-09] MEDS: DULCOLAX PR SCH (20:27)
--- NOTE | 2018-08-09 22:09 | PULMONOLOGY PROGRESS NOTE ---
DATE: 08/09/2018 SUBJECTIVE: The patient is awake, alert and conversant. She denies shortness of breath. She denies sputum production. OBJECTIVE: The patient has been afebrile for the last 24 hours. Blood pressure 154/64, heart rate 88, respiratory rate 20, oxygen saturation 95% on room air. HEENT: Pupils are equal and reactive. Oropharynx is clear. Neck is supple. Chest reveals good air entry bilaterally with faint crackles in the bases. Cardiac exam: S1, S2. Abdomen is soft and without hepatosplenomegaly. Extremities reveal trace edema. DIAGNOSTIC DATA: Mild ground-glass changes remain in pulmonary parenchyma. Previous areas of consolidation have essentially resolved. The patient has small bilateral effusions. These have also decreased when compared to 07/29/2018. The patient does have a well-defined 2.4 cm spiculated mass in the right lower lobe which is easily seen, with resolution of pneumonia. Her previous CT scan on a prior admission dated 07/10/2018 also revealed this irregular infiltrate. On further review, she had a 1 cm nodule in this area on a CT scan of the abdomen and pelvis on 12/20/2017. IMPRESSION: 1. A 58-year-old with treatment for pneumonia. I believe her pneumonia has resolved. 2. Mild residual pulmonary edema. 3. Pleural effusions which have decreased and are now minimal. 4. Resolution of hypoxemic respiratory failure. 5. Solitary pulmonary nodule, which has increased from 1 cm in 11/2013 to 2.4 cm on current scan. A slightly more than doubling over almost 5 years does not suggest malignant growth, but does represent a change. A low-grade malignancy could not be ruled out at this juncture. RECOMMENDATIONS: 1. Agree with discontinuation of antibiotics if approved by Dr. Taj Quezada. 2. Continue to balance intake and output. 3. Continue Symbicort at discharge. 4. Recommend CT-guided biopsy of this increasing solitary pulmonary nodule prior to discharge, so that she does not get lost to followup, given the worrisome nature for malignancy. cc: Homer Gonzalez MD
[2018-08-10] MEDS: ZYVOX 600 MG/D5W 600 MG/300 ML IVPB IV SCH ×2 (03:28→15:37)
[2018-08-10] MEDS: AZACTAM 0.5 GM in NS 50 ML IV SCH ×3 (03:30→20:57)
[2018-08-10] MEDS: ATROVENT NEB INH SCH ×5 (03:41→19:22)
[2018-08-10] MEDS: XOPENEX NEB INH SCH ×5 (03:41→19:22)
[2018-08-10] MEDS ORDERED: INSULIN PEN NEEDLES ONE (05:51)
[2018-08-10] MEDS: HUMALOG SUBQ SCH ×4 (06:08→20:59)
[2018-08-10] MEDS: APRESOLINE PO SCH ×3 (06:08→21:01)
[2018-08-10] MEDS: SYMBICORT 160/4.5 MICROGM INHALER INH SCH (07:53)
--- NOTE | 2018-08-10 10:59 | Diag Imaging Result Doc PS360 ---
EXAM: CHEST-2 VIEWS 08/10/2018 HISTORY: POST LUNG BIOPSY INS/EXP TECHNIQUE: Inspiratory expiratory chest COMMENT: There is no evidence of pneumothorax or pleural fluid collection. Otherwise, the appearance the chest has not changed appreciably since the previous study of 08/08/2018. IMPRESSION: No evidence of pneumothorax. The patient is to have a follow-up series at 1400. Electronically signed by Kevin Waldron 08/10/2018 10:57 AM
[2018-08-10] MEDS: BASAGLAR SUBQ SCH ×2 (11:14→21:01)
[2018-08-10] MEDS: FOLIC ACID PO SCH (11:16)
[2018-08-10] MEDS: LASIX PO SCH (11:16)
[2018-08-10] MEDS: TRANDATE PO SCH ×2 (11:16→20:57)
[2018-08-10] MEDS: COLACE PO SCH ×2 (11:16→20:57)
[2018-08-10] MEDS: MIRALAX PO SCH ×2 (11:16→21:02)
[2018-08-10] MEDS: ZANTAC PO SCH ×2 (11:16→20:56)
[2018-08-10] MEDS: ICAR-C PO SCH (11:16)
--- NOTE | 2018-08-10 11:16 | Diag Imaging Result Doc PS360 ---
EXAM: CT GUIDED BIOPSY LUNG 08/10/2018 HISTORY: Doubling of nodule size since 12/20/2013 TECHNIQUE: Percutaneous CT-guided biopsy of the right lower lobe. COMMENT: The risks and benefits of the procedure including the possibility of bleeding, infection, reaction to lidocaine, and pneumothorax was discussed with the patient and she agreed to the procedure. Following sterile preparation of the skin posteriorly and administration of 1% lidocaine to the skin and deeper soft tissues, a 20-gauge coaxial Temno core biopsy needle was employed to obtain one core of the lesion. Subsequently the patient experienced some hemoptysis and was unable to remain motionless due to coughing and the procedure was terminated. No evidence of postprocedural pneumothorax is present. IMPRESSION: Successful (if with limited biopsy material) CT-guided biopsy of right lower lobe nodule. Electronically signed by Kevin Waldron 08/10/2018 11:14 AM
[2018-08-10] MEDS: NORVASC PO SCH ×2 (11:17→20:57)
[2018-08-10] MEDS: LACTULOSE PO SCH ×2 (11:17→20:58)
[2018-08-10] MEDS: SSD CREAM TOP SCH (12:35)
[2018-08-10] MEDS: FLONASE NAS SCH (12:35)
--- NOTE | 2018-08-10 17:16 | Diag Imaging Result Doc PS360 ---
EXAM: CHEST-2 VIEWS 08/10/2018 HISTORY: post-op film TECHNIQUE: Inspiratory expiratory chest COMMENT: There is no evidence of pneumothorax or pleural fluid collection. There has been no significant change in the appearance the chest compared to the original post procedural series at 1050. IMPRESSION: No evidence of pneumothorax. Electronically signed by Kevin Waldron 08/10/2018 5:14 PM
--- NOTE | 2018-08-10 17:42 | PROGRESS NOTE ---
DATE: 08/10/2018 OVERNIGHT EVENTS: CAT scan of the chest had detected resolution of pneumonia with residual pulmonary edema, but there was a lung nodule which was detectable. She had a lung nodule in 2013, which was 1 cm in size. It had increased to 0.4 cm and she underwent CT-guided biopsy, which she tolerated well. SUBJECTIVE: Patient is feeling fine. Denies any chest pain, shortness of breath. She does have some soreness at the site of biopsy. She is eating her meal. Not in any acute distress. OBJECTIVE: Vital signs: Temperature of 98.5 degrees, pulse 87, respiratory rate 15, blood pressure 118/47, saturating 97% on room air. General: Does not appear in any acute distress. She does have legal blindness. HEENT: Left pupil is reacting to light. Oral cavity is moist. Lungs: Air entry bilaterally equal. No wheeze, rhonchi. She does have mild bilateral basilar crackles. Cardiovascular: S1, S2 normal. No murmur, rub, or gallop. Abdomen: Obese, nontender. Extremities: No significant edema of bilateral lower extremities. Right lower extremity has a cast. Input and output yesterday, over last 24 hours suggests -1.3 L. LABS: No CBC or BMP today. She does have chronic kidney disease stage 4. ASSESSMENT AND PLAN: 1. Acute hypoxic respiratory failure in the setting of bilateral pulmonary edema and bilateral pneumonia acquired through healthcare institutions. Continue Zyvox and intravenous aztreonam. I will appreciate ID recommendation about stopping the antibiotics today. Continue p.o. Lasix. She is not requiring any oxygen anymore. 2. Essential hypertension. Continue the patient's hydralazine, amlodipine, labetalol, and adjusted dose according to her response. 3. History of insulin-dependent diabetes mellitus with hyperglycemia and uncontrolled diabetes. Continue current dose of glargine and sliding scale. Her blood sugars are in slightly high range and I will adjust the dose today. 4. Recent history of bimalleolar fracture with open reduction internal fixation of right lower tibia and fibula. Currently stable. The patient is ambulatory. According to previous discharge summary dictated on July 14, 2018, she was only supposed to be taking Xarelto for 21 days and it looks like she has completed her course, so she may not need it anymore. 5. History of iron deficiency anemia. Continue iron, ascorbic acid. Continue bisacodyl suppository, docusate, lactulose, Fleet enema, and MiraLAX for constipation. 6. Disposition. The patient remains inside the hospital. I will give her lidocaine patch for the pain at the biopsy site. The patient has been accepted at [facility] in [place] and plan is to discharge her to rehab tomorrow. Plan of care was discussed with the patient and her sister at bedside. All of their questions have been answered. cc: Ferny Desouza MD
[2018-08-10] MEDS: TYLENOL PO PRN (19:50)
--- NOTE | 2018-08-10 20:03 | PULMONOLOGY PROGRESS NOTE ---
DATE: 08/10/2018 SUBJECTIVE: The patient is awake and alert. She is without shortness of breath. She underwent a CT-guided biopsy earlier today. There was 1 core lesion obtained and patient developed some hemoptysis and then was unable to remain still for additional biopsies. Postprocedure chest x- rays revealed no pneumothoraces. OBJECTIVE: Vital Signs: Blood pressure 118/47, heart rate 87, respiratory rate 17, oxygen saturation 95% on room air. HEENT: Pupils are equal and reactive. Oropharynx is clear. Neck: Supple. Chest: Chest reveals good air entry bilaterally without wheezing or rhonchi. Cardiac: S1, S2. Abdomen: Abdomen is soft. Extremities: Without edema. LABORATORIES: Chest x-ray reveals no active infiltrates. IMPRESSION: A 58-year-old with: 1. Solitary pulmonary nodule. 2. Small effusions with minimal edema. 3. Status post treatment for pneumonia. 4. Hypoxemic respiratory failure, which has resolved. RECOMMENDATIONS: 1. Agree with plans to discontinue antibiotics as outlined by Dr. Quezada. 2. Continue Symbicort at discharge. 3. Await CT-guided biopsy report. cc: Homer Gonzalez MD
[2018-08-10] MEDS: DULCOLAX PR SCH (20:57)
[2018-08-10] MEDS: AYR NASAL SPRAY NAS SCH (20:58)
[2018-08-10] MEDS: LIDODERM TOP SCH (21:02)
[2018-08-11] MEDS: ATROVENT NEB INH SCH ×4 (00:05→11:28)
[2018-08-11] MEDS: XOPENEX NEB INH SCH ×4 (00:05→11:28)
[2018-08-11] MEDS: ZYVOX 600 MG/D5W 600 MG/300 ML IVPB IV SCH (03:46)
[2018-08-11] MEDS: APRESOLINE PO SCH (05:28)
[2018-08-11] MEDS: AZACTAM 0.5 GM in NS 50 ML IV SCH (05:28)
[2018-08-11] MEDS: HUMALOG SUBQ SCH ×2 (06:07→10:47)
[2018-08-11] MEDS: TYLENOL PO PRN (06:42)
[2018-08-11] MEDS: SYMBICORT 160/4.5 MICROGM INHALER INH SCH (07:48)
[2018-08-11] MEDS: COLACE PO SCH (10:45)
[2018-08-11] MEDS: LASIX PO SCH (10:45)
[2018-08-11] MEDS: ICAR-C PO SCH (10:45)
[2018-08-11] MEDS: ZANTAC PO SCH (10:45)
[2018-08-11] MEDS: FOLIC ACID PO SCH (10:45)
[2018-08-11] MEDS: BASAGLAR SUBQ SCH (10:46)
[2018-08-11] MEDS: NORVASC PO SCH (10:46)
[2018-08-11] MEDS: FLONASE NAS SCH (10:46)
[2018-08-11] MEDS: TRANDATE PO SCH (10:46)
[2018-08-11] MEDS: LACTULOSE PO SCH (10:47)
[2018-08-11] MEDS: LIDODERM TOP SCH (10:47)
[2018-08-11] MEDS: SSD CREAM TOP SCH (10:47)
[2018-08-11] MEDS: MIRALAX PO SCH (10:48)
[2018-08-11 11:24] VITALS: BP 148/56
--- NOTE | 2018-08-11 13:34 | DISCHARGE SUMMARY ---
ADMISSION DATE: 07/27/2018 DISCHARGE DATE: 08/11/2018 DISCHARGE DIAGNOSES: 1. Acute hypoxic respiratory failure. 2. Bilateral pulmonary edema. 3. Bilateral pneumonia due to healthcare-associated pneumonia. 4. Uncontrolled insulin-dependent diabetes mellitus with hyperglycemia. 5. Essential hypertension. 6. Chronic constipation. 7. Right lower extremity bimalleolar tibia-fibula fracture with open reduction internal fixation in June 2018. 8. Iron deficiency anemia. 9. Acute diastolic heart failure exacerbation. 10. Acute kidney injury on chronic kidney disease. 11. Anemia of chronic inflammation. 12. Solitary lung nodule OTHER DIAGNOSES: 1. Past history of insulin-dependent diabetes mellitus with diabetic neuropathy, retinopathy, and nephropathy. 2. Chronic kidney disease, stage 4. 3. Essential hypertension. 4. History of osteomyelitis. 5. History of chronic constipation. 6. History of chronic obstructive pulmonary disease. 7. Solitary right lung nodule status post biopsy on 08/10/2018, pending biopsy results. 8. Gastroesophageal reflux disease. Procedure: CT guided lung biopsy on August 10. CONSULTATION DURING HOSPITAL ADMISSION: 1. Pulmonology, Homer Gonzalez MD. 2. Infectious Disease, Taj Quezada MD. 3. Cardiology, Bernard Wheeler MD. 4. Neurology, Alona Woods III, MD. DISCHARGE DISPOSITION: [facility] facility. DISCHARGE DIET: Mechanical soft. ACTIVITY LEVEL: Nonweightbearing on right lower extremity because of presence of cast for right lower extremity tibia-fibula fracture status post open reduction, internal for screw fixation. DISCHARGE INSTRUCTIONS: 1. The patient was advised to adjust her blood pressure, blood sugar medications according to her response. 2. She was advised to continue stool softeners and adjust dose according to have 1 to 2 soft bowel movements a day. 3. She was also advised to get follow up CBC and BMP and adjust Lasix dose accordingly. DISCHARGE PHYSICAL EXAMINATION: Vital Signs: At the time of discharge, temperature 98.7 degrees, pulse 98, respiratory rate 15, blood pressure 137/43, saturating 95% on room air. General: The patient has legal blindness and does not appear in any acute distress. HEENT: Pupils appears bilaterally equal. Reaction could not be checked as she is not able to tolerate bright light. Oral cavity is moist. Lungs: Air entry bilaterally equal. No wheeze or rhonchi. Mild inspiratory crackles bilateral bases. Abdomen: Soft, nontender. Lower extremities: Right lower extremity has a cast. She is able to wiggle her toes. No significant edema of the left lower extremity. SIGNIFICANT LABORATORY STUDIES AT THE TIME OF DISCHARGE: WBC of 9000, hemoglobin of 9.5, platelet of 536,000. Sodium of 135, potassium of 5, chloride of 96, BUN of 66, creatinine of 2.1, blood sugar of 135. SIGNIFICANT MICROBIOLOGICAL DATA DURING HOSPITAL ADMISSION: Urine culture was only growing yeast. Blood culture did not show any growth. Influenza screen was negative. SIGNIFICANT IMAGING DURING HOSPITAL ADMISSION: Chest x-ray on admission had suggested bilateral pulmonary edema. Head CT on 07/27/2018 had suggested no hemorrhage, no epidural, subdural hematoma, no subarachnoid hemorrhage without any mass effect. Chest CT on 07/29/2018 had suggested worsening bilateral pleural effusion, worse pulmonary opacities representing pneumonia and pulmonary edema and low-density lesion in the posterior right hepatic lobe. Chest CT on 08/09/2018 had suggested small pleural effusion, stable pulmonary edema and stable suspicious mass in the right lower lobe. She underwent successful lung biopsy of her right lower lobe. DISCHARGE MEDICATIONS: Sodium chloride nasal spray 1 spray at nighttime, fluticasone 50 mcg nasal spray 1 nasal spray in the morning, atorvastatin 40 mg daily, bisacodyl 10 mg at nighttime suppository, docusate sodium 100 mg b.i.d., lactulose 30 mL b.i.d., Fleet enema 133 mL p.r. per rectum at nighttime as needed. Please continue stool softeners to have 1 to 2 soft bowel movements a day. Hydralazine 50 mg every 8 hours, insulin glargine 25 units subcutaneous b.i.d., NovoLog 4 units subcutaneous with meals, albuterol ipratropium nebulization 3 mL inhaled q.4 h. p.r.n. for shortness of breath or wheeze, folic acid 0.44 mg daily, gabapentin 300 mg b.i.d., folic acid 0.4 mg daily, iron carbonyl ascorbic acid 1 tablet b.i.d., furosemide 40 mg daily, lidocaine 5% patch topical daily, amlodipine 5 mg b.i.d., Symbicort 160, 4.5 mcg inhaler 2 puffs inhaled b.i.d., labetalol 200 mg b.i.d., acetaminophen 650 mg p.o. q.6 h. p.r.n. for pain, ranitidine 150 mg b.i.d. HOSPITAL COURSE SUMMARY: Ms. Foley is 58-year-old lady with bilateral diabetic retinopathy and legal blindness, who was brought in from a facility with complaints of shortness of breath for about 1 week's duration without any cough or chest pain. She had also started developing orthopnea and paroxysmal nocturnal dyspnea with bilateral leg swelling, especially on the left side. On arrival, chest x-ray had suggested she had bilateral pulmonary edema. She was started on intravenous Lasix. Echocardiogram had suggested ejection fraction of 55% without any regional wall motion abnormalities. Chest CT had also suggested pneumonia and she was started on intravenous antibiotics. During hospital course, her respiratory status improved with frequent nebulization, Lasix, and antibiotics. At the time of discharge, she was breathing well on room air and she was discharged on p.o. Lasix. She was also found to have right lower lobe pulmonary nodule of about 2 cm in size for which she underwent biopsy on 08/10/2018 which she tolerated well without any postprocedure complications. For insulin-dependent diabetes mellitus uncontrolled with hyperglycemia, her insulin glargine doses were adjusted and she was discharged on glargine with mealtime insulin. For her recent history of bimalleolar fracture with open reduction internal fixation on right tibia and fibula, it was stable. She has completed 3 weeks of anticoagulation in the past. She was nonweightbearing. She was continued on hydralazine, amlodipine, labetalol for essential hypertension, and she was also continued on iron and ascorbic acid for history of iron deficiency anemia which did not require any transfusion. DISPOSITION: Patient will be discharged to rehab. TIME SPENT: More than 30 minutes of our time was spent in taking care of this patient. Plan of care discussed with the patient and her sister at bedside. All of their questions have been answered. DISCHARGE PLAN: 1. Follow up CBC, BMP in 3 days. Adjust Lasix, insulin, antihypertensive medication regimen as tolerated. 2. Continue bowel regimen to have 1 to 2 soft formed bowel movement today and make adjustment according to her response. 3. Follow up with traffic investigator, Dr. Gonzalez, in about 10 days' time to follow-up lung biopsy results. ADDENDUM: THE LUNG BIOPSY PRELIM RESULTS SUGGEST SUSPICION OF ADENOCARCINOMA. PLEASE FOLLOW UP WITH DR. GONZALEZ/CLEM AND TALK ABOUT GETTING STAGING OF LUNG CANCER. cc: Ferny Desouza MD [facility]PITALManjula
--- NOTE | 2018-08-11 18:42 | PULMONOLOGY PROGRESS NOTE ---
DATE: 08/11/2018 SUBJECTIVE: The patient is awake, alert, and conversant. She has had no overnight complications from the CT-guided biopsy. The patient is anxious to be discharged to the rehab facility. OBJECTIVE: Vital Signs: Blood pressure 148/56, heart rate 91, respiratory rate 14, oxygen saturation 94% on room air. HEENT: Pupils are equal and reactive. Oropharynx is clear. Neck: Supple. Chest: Reveals faint crackles in the lung bases. Cardiac: Regular rate. Normal S1, normal S2. Abdomen: Soft. Extremities: Are without edema. She has a cast on the right foot. LABORATORIES: Preliminary CT-guided biopsy from the right lower lobe reviewed with Dr. Keys is consistent with an adenocarcinoma. IMPRESSION: A 58-year-old with diabetes mellitus, status post treatment for pneumonia, fluid overload, with a solitary pulmonary nodule in the right lower lung base which doubled in size over approximately 5 years. Despite the slowed doubling rate, CT-guided biopsy is consistent with an adenocarcinoma. She has no evidence of metastatic disease and this likely represents a lung primary. The patient is severely debilitated and it is recommended that pulmonary function studies be delayed until she gains strength. She will also need additional evaluation such as a PET scan. This was discussed with the patient along with her sister, who was in the room. The patient will need to go to rehabilitation to gain some strength before her additional evaluation. Because this tumor appears to be slow-growing, it would seem reasonable to allow her to go through a rehab process prior to a more aggressive evaluation. She currently is not a surgical candidate due to her generalized debilitated status. She might benefit from a radiation approach as opposed to a surgical approach, but this can be determined at a later date. RECOMMENDATION: 1. Proceed with rehabilitation stay with discharge to the rehab facility today. 2. Anticipate PET scan and PFTs after completion of the rehabilitation stay. 3. The patient was being seen for Dr. Quezada during the last several days. The patient can follow up with Dr. Quezada after rehab. If for some reason Dr. Quezada cannot see the patient, then I will see her in follow-up. cc: MD Art Walters M.D. Mamoun I. Najjar, MD
== END 2018-08-11 14:59 | DRG 291 ==
LOC: SUPCPDRO → ED 20:04 → SUATTDRO 07-27 01:03 → 3S 07-27 01:03 → 3N 07-28 20:56 → 3S 08-02 13:53 → ICU 08-03 16:59 → 3N 08-06 09:14
PROVIDERS: ATTEND Internal Medicine
CPT/HCPCS: 32405; 51702; 70450; 71010; 71020; 71045; 71046; 71250; 77012; 80048; 80053; 80069; 80101; 80301; 80307; 80324; 80345; 80346; 80353; 80358; 80361; 80365; 81001; 82009; 82550; 82553; 82570; 82728; 82746; 82784; 82805; 82948; 83036; 83540; 83605; 83735; 83880; 83935; 83992; 84145; 84295; 84300; 84439; 84443; 84484; 85025; 85027; 85045; 85379; 85610; 85730; 87040; 87088; 87275; 87276; 87804; 88305; 93005; 93010; 93306; 94640; 94660; 94761; 94762; 94799; 96361; 96374; 96376; 97110; 97116; 97162; 97166; 97530; 97535; 99285; A9270; C8929; G0431; G0434; G0479; G0480; J0131; J1650; J1756; J1815; J1940; J2020; J2310; J2920; J2930; J7030; J7040; Q9957; S0073; XXXXX

== ENCOUNTER 2018-08-12 22:00 | Inpatient (IN) ==
[2018-08-12] MEDS ORDERED: LR 1,000 ML IV ONE ×2 (22:33)
[2018-08-12] MEDS ORDERED: LR 500 ML IV ONE (22:35)
[2018-08-12 22:54] LABS: BASO# 0.01 X1000 (0.0-0.2); BASO% 0.1 % (0.0-0.8); EOS# 0.08 X1000 (0.0-0.7); EOS% 0.5 % (0.0-10.0); HEMATOCRIT 26.5 % (37.0-47.0); HEMOGLOBIN 8.4 g/dL (12.0-16.0); IMM GRAN# 0.09 X1000 (0.0-0.04); IMM GRAN% 0.5 % (0.0-0.5); LYMPH# 1.15 X1000 (1.2-3.4); MCH 27.1 PG (27-31); MCHC 31.7 g/dL (33-37); MCV 85.5 FL (81-99); MONO# 2.26 X1000 (0.11-0.59); MONO% 13.8 % (1.7-9.3); NEUT# 12.84 X1000 (1.4-6.5); NEUT% 78.1 % (42.2-75.2); PLT 517 X1000 (130-400); RDW 14.3 % (11.5-14.5); WBC 16.43 X1000 (4.8-10.8)
[2018-08-12 22:56] LABS: INR 1.01; PROTIME 14.1 Seconds (11.0-16.0)
[2018-08-12 22:57] LABS: PTT 37.5 Seconds (22.3-41.8)
[2018-08-12 23:04] LABS: ALB/GLOB RATIO 1.2; ALBUMIN 2.8 g/dL (3.5-5.0); CREATININE 3.2 mg/dL (0.5-0.9); POTASSIUM 4.2 mmol/L (3.5-5.1); TOTAL BILIRUBIN 0.19 mg/dL (0.20-1.00); TOTAL PROTEIN 5.2 g/dL (6.3-8.3)
[2018-08-12] MEDS ORDERED: LEVAQUIN 500 MG/D5W 500 MG/100 ML IVPB IV ONE (23:18)
[2018-08-12 23:19] LABS: CK INDEX 0.6 (0.0-2.5); CK-MB 3.3 ng/mL (0.0-5.0)
[2018-08-13] MEDS ORDERED: TYLENOL ONE (00:14)
[2018-08-13 00:18] LABS: BILIRUBIN URINE NEGATIVE (NEGATIVE); BLOOD URINE LARGE (NEGATIVE); COLOR YELLOW; GLUCOSE URINE 300 mg/dL (NEGATIVE); KETONE URINE NEGATIVE (NEGATIVE); LEUKOCYTES URINE NEGATIVE (NEGATIVE); NITRITE URINE NEGATIVE (NEGATIVE); PROTEIN URINE 600 mg/dL (NEGATIVE); SP GRAVITY URINE 1.014; TURBIDITY URINE HAZY (CLEAR); URINE SOURCE CATH; UROBILINOGEN URINE NORMAL (NORMAL)
[2018-08-13 00:19] LABS: UR EPITHELIAL CELLS >10 /HPF (<10); URINE BACTERIA NEGATIVE /HPF; URINE RBC TNTC /HPF (<10); URINE WBC 20-40 /HPF (<10)
[2018-08-13 00:22] LABS: URINE CASTS NONE SEEN; URINE CRYSTALS NONE SEEN; URINE SMALL ROUND CELLS NONE SEEN; URINE YEAST PRESENT
[2018-08-13] MEDS ORDERED: TYLENOL PO ONE (00:23)
[2018-08-13] MEDS ORDERED: LASIX IV ONE (01:36)
[2018-08-13] MEDS ORDERED: AZACTAM 1 GM in NS 50 ML IV ONE (01:36)
[2018-08-13] MEDS ORDERED: ZYVOX 600 MG/D5W 600 MG/300 ML IVPB IV ONE (01:37)
[2018-08-13] MEDS ORDERED: NS NEB INH SCH (03:00)
[2018-08-13] MEDS ORDERED: ZOFRAN IV PRN (03:03)
[2018-08-13] MEDS ORDERED: XOPENEX NEB INH SCH (03:30)
[2018-08-13] MEDS ORDERED: ATROVENT NEB INH SCH (03:30)
[2018-08-13] MEDS: ATROVENT NEB INH SCH ×6 (04:04→22:00)
[2018-08-13] MEDS: XOPENEX NEB INH SCH ×6 (04:05→22:00)
[2018-08-13 04:36] LABS: ALLEN TEST YES; BE -1.6 mmoll (-3.0-3.0); BLOOD TYPE ARTERIAL; HCO3-(ACT) 23.7 mmoll (20.0-26.0); METHB 1.2 % (0.0-1.5); O2(CT) 11.2 mL/dL (15.0-23.0); O2HB 95.4 % (95.0-99.0); PCO2(98.6) 36 mmHg (35-45); PO2(98.6) 91 mmHg (60-100); SAMPLE BLOOD; THB 8.2 g/dL (11.5-17.4); pH(98.6) 7.41 (7.35-7.45)
[2018-08-13 04:37] LABS: MODALITY CANNULA
[2018-08-13 06:06] LABS: BASO# 0.01 X1000 (0.0-0.2); BASO% 0.1 % (0.0-0.8); EOS# 0.05 X1000 (0.0-0.7); EOS% 0.3 % (0.0-10.0); HEMATOCRIT 24.4 % (37.0-47.0); HEMOGLOBIN 7.6 g/dL (12.0-16.0); IMM GRAN# 0.07 X1000 (0.0-0.04); IMM GRAN% 0.4 % (0.0-0.5); LYMPH# 1.66 X1000 (1.2-3.4); LYMPH% 9.1 % (20.5-51.1); MCH 27.1 PG (27-31); MCHC 31.1 g/dL (33-37); MCV 87.1 FL (81-99); MONO# 2.79 X1000 (0.11-0.59); MONO% 15.2 % (1.7-9.3); MPV 8.9 FL (7.4-10.4); NEUT# 13.75 X1000 (1.4-6.5); NEUT% 74.9 % (42.2-75.2); PLT 441 X1000 (130-400); RDW 14.6 % (11.5-14.5); WBC 18.33 X1000 (4.8-10.8)
[2018-08-13 06:28] LABS: ALBUMIN 2.6 g/dL (3.5-5.0); CALCIUM 7.9 mg/dL (8.8-10.2); MAGNESIUM 1.8 mg/dL (1.5-2.7); PHOSPHORUS 5.9 mg/dL (2.7-4.5)
[2018-08-13] MEDS ORDERED: HUMALOG SUBQ SCH (07:00)
[2018-08-13 07:03] LABS: CK INDEX 0.6 (0.0-2.5); CK-MB 2.12 ng/mL (0.0-5.0)
--- NOTE | 2018-08-13 07:24 | HISTORY AND PHYSICAL ---
PRIMARY CARE PROVIDER: Previously was Dr. Art Cueto, though, at this time, she is currently receiving rehab at [facility] under the care of Dr. Sp Pabon. DATE AND TIME: 08/13/2018 at 0100. CHIEF COMPLAINT: Shortness of breath. HISTORY OF PRESENT ILLNESS: Ms. Foley is a 58-year-old, female with a past medical history most notable for diabetes mellitus, chronic kidney disease, diastolic heart failure, COPD, and hypertension. She was recently admitted to our facility and discharged on 08/11/2018. During this admission, she was treated for bilateral pneumonia as well as some pulmonary edema with hypoxic respiratory failure. She does have a history of having a recent right lower extremity bimalleolar tibia-fibular fracture with open reduction and internal fixation in June of 2018. She also has a history of having MRSA, cellulitis, and osteomyelitis secondary to a right diabetic foot abscess in April of 2018. During her most recent admission, just prior to discharge, they did have findings of a right lung nodule. She did have a biopsy performed of this on the 10 of August. Biopsy results are still pending at this time. The patient states that earlier today, while at rehab, she did begin to have a fever, body aches, and chills, as well as worsening shortness of breath. The patient states that she is having orthopnea and she is unable to lay flat. She is short of breath at rest at this time. The patient does have dyspnea and tachypnea noted upon examination. She denies any increased swelling in her abdomen or extremities at this time. She did report that she has noticed a decrease in her urine output. She denied any headache, dizziness, or lightheadedness. She denies any chest pain. She has reported shortness of breath as previously mentioned. She denies any abdominal pain, nausea, vomiting, or diarrhea. She denied any dysuria. The patient does have a cast noted to her right lower extremity, though she does have good capillary refill distal to this cast. The patient does have decreased sensation as she does have a history of diabetic neuropathy and states this is not a new onset. Upon arrival to the ER, the patient did have initial vital signs of temperature 103.3 degrees, heart rate 106, respirations 26, blood pressure is 101/93, oxygen saturation was 94% on nasal cannula at 3 L. The patient is alert and oriented to person, place, and time. She was noted to have leukocytosis with a white blood cell count of 16,430. She also does appear to have acute on chronic kidney injury as well. Her proBNP was elevated at 3309. A urinalysis did show a large amount of blood. That was negative for leukocytes. She did have 20 to 40 white blood cells, though it did have greater than 10 epithelial cells. She also did have yeast present as well but the patient is asymptomatic. She denies any urinary symptoms at this time other than a decrease in her urine output. Chest x-ray did show what looks like a left lower lobe infiltrate, though does appear to have some pulmonary vascular congestion possibly as well. She did have crackles noted in bilateral lung bases, though she does sound somewhat diminished throughout all lung chin. Blood cultures have been obtained. Sputum culture has been ordered. We did do an influenza screen which was negative. Given the patient's recent admission, we have gone ahead and placed her on antibiotic coverage for healthcare-associated pneumonia, with antibiotics of Azactam and Zyvox. We will go ahead and give her a dose of IV Lasix as well and monitor her response to this. She will be placed on CIC for close monitoring. REVIEW OF SYSTEMS: A 14 point review of systems was conducted with the patient. All were negative except for pertinent positives mentioned above in the HPI. PAST MEDICAL HISTORY: 1. Insulin-dependent diabetes mellitus with associated complications of diabetic neuropathy, retinopathy, and nephropathy. 2. 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 3. Hypertension. 4. Hyperlipidemia. 5. History of Robertson's palsy. 6. Gastroesophageal reflux disease. 7. History of benign bladder tumor. 8. Thyroid disease. 9. Anxiety. 10. Anemia. 11. History of diastolic heart failure. 12. Chronic constipation. 13. History of MRSA and osteomyelitis secondary to a right foot abscess in April of 2018. 14. Recent right lower extremity bimalleolar tibia-fibula fracture with open reduction and internal fixation in June of 2018. 15. Recent findings of a right lung nodule which is status post biopsy, though we are awaiting biopsy results. This was performed on 08/10/2018. 16. Chronic kidney disease. PAST SURGICAL HISTORY: 1. Removal of benign bladder tumor. 2. Partial hysterectomy. 3. Right eye surgery. 4. Amputation of the first 3 toes secondary to diabetic foot wound and osteomyelitis. 5. Recent open reduction and internal fixation in June of 2018 for repair of a right lower extremity bimalleolar tibia-fibular fracture. 6. Recent right lung nodule biopsy on 08/10/2018. SOCIAL HISTORY: The patient is a former smoker. She did smoke intermittently for approximately 7 years, though quit in her 20s. She has no known alcohol or illicit drug use. She is single. She does not have children. She does live with her sister here in [place] but is currently receiving rehab at [facility] in [place]. FAMILY HISTORY: Positive for her father having a history of diabetes mellitus. Her mother had a history of diabetes mellitus, hypertension, and heart disease. ALLERGIES: The patient has allergies to penicillin, albuterol, and Compazine. HOME MEDICATIONS: 1. Norvasc 5 mg p.o. b.i.d. 2. Lipitor 40 mg p.o. daily. 3. Dulcolax 10 mg per rectum at bedtime. 4. Symbicort 160/4.5 mcg inhaler 2 puffs inhaled b.i.d. 5. Colace 100 mg p.o. b.i.d. 6. Flonase 1 spray in bilateral nares once daily. 7. Folic acid 0.4 mg p.o. daily. 8. Lasix 40 mg p.o. daily. 9. Gabapentin 300 mg p.o. b.i.d. 10. Hydralazine 50 mg p.o. q.8 hours. 11. Basaglar 25 units subcutaneously b.i.d. 12. Icar-C 1 tablet p.o. b.i.d. 13. Labetalol 200 mg p.o. b.i.d. 14. Lactulose 30 mL p.o. b.i.d. 15. Lidoderm patch 1 each topically daily. 16. Fleet enema 133 mL per rectum at bedtime p.r.n. for constipation. 17. Zantac 100 mg p.o. b.i.d. 18. Saline nasal spray 1 spray nasally at bedtime. DIAGNOSTIC DATA: Laboratory Results: White blood cell count is 16,430, hemoglobin 8.4, hematocrit 26.5, platelet count is 517,000. PTT 14.1, INR 1.01, PTT is 37.5. Sodium 129, potassium 4.2, chloride 92, serum bicarb is 23, BUN 60, creatinine is 2.2, GFR is 15, glucose is 377, calcium 8, magnesium 1.8. Total bilirubin is 0.19, AST 43, ALT 17, alkaline phosphatase is 92. CK 540, CK index is 0.6, CK-MB is 3.3, troponin is 0.053. ProBNP is 3309. Plasma lactate was 1.5 with a repeat of 1.1. Arterial blood gases were obtained on FiO2 of 32%, pH 7.41, pCO2 36, PO2 91, HCO3 was 23.7, with a base excess of -1.6 and an O2 saturation of 98. Urinalysis was obtained via catheter, positive for protein, glucose, large blood, 20 to 40 white blood cells, too numerous to count RBCs, and greater than 10 epithelial cells as well as yeast, though was negative for ketones, nitrites, leukocytes, or bacteria. EKG showed sinus tachycardia at a rate of 105 with a QTc of 428. Chest x-ray shows possible left lower lobe infiltrate with possible pulmonary vascular congestion as well. We are awaiting official radiology over-read. Her influenza screen was negative. PHYSICAL EXAMINATION: VITAL SIGNS: Temperature 99.7 degrees, heart rate 100, respirations 22, blood pressure is 128/64. Oxygen saturation is 98% on nasal cannula at 3 L. GENERAL: Mr. Foley is a 58-year-old, female. She was sitting on the ER stretcher. She was slightly dyspneic and tachypneic upon examination, though did not appear to be any acute distress. She was able to answer questions appropriately and follow commands. She was alert and oriented to person, place, and time. HEENT: Head is atraumatic and normocephalic. Pupil in the left eye was 3 mm. It was round and reactive to light. It was brisk. The patient does have a right artificial eye noted. Oral mucosa is moist. Oropharynx is clear. NECK: Supple. Trachea midline. There was not any overt JVD noted, though this was slightly difficult to examine due to body habitus. CARDIOVASCULAR: Patient has S1 and S2 present. There were no murmurs, gallops, or rubs appreciated. There was a slightly tachycardic rate that was regular. PULMONARY: Patient has symmetrical chest expansion bilaterally, though she does have diminished lung sounds throughout bilateral full lung chin. She does have crackles noted in bilateral bases. ABDOMEN: Soft, nontender. It does appear to be slightly distended, though the patient does have a protuberant abdomen noted. Bowel sounds were present in all 4 quadrants and were normoactive. EXTREMITIES: No cyanosis or edema noted. The patient is able to move all extremities. Radial pulses and pedal pulses are 2+. The patient does have a cast noted to right lower extremity, though she does have good capillary refill noted in her foot distal to this cast. INTEGUMENTARY: The patient's skin is pink, warm, and dry, though she does have a diabetic ulcer noted to the plantar surface of her right great toe. This does appear to be in the healing process. It does not appear to be open at this time. There was no erythema, warmth, or drainage noted. NEUROLOGICAL: The patient is alert and oriented to person, place, and time. She does have some decreased sensation in her extremities secondary to diabetic neuropathy, though this is not a new onset. She reports it has not worsened. She is able to move all extremities. Other than this, she does not appear to have any focal neurological deficits noted. ASSESSMENT AND PLAN: 1. Pneumonia. The patient does have a possible left lower lobe infiltrate. She also has reported symptoms of fever, body aches, and chills, as well as shortness of breath. She has recently been admitted to the hospital and was treated for pneumonia. We will go ahead and place her on antibiotic coverage for healthcare-associated pneumonia with Azactam and Zyvox. Blood cultures and sputum culture have been ordered. We will continue with aggressive pulmonary toilet with frequent alternative deep breathing as well as incentive spirometry. We will continue to follow. 2. History of congestive heart failure. The patient may be slightly volume overloaded at this time. She is reporting orthopnea and paroxysmal nocturnal dyspnea, and decreased urine output. She does have fine crackles noted in bilateral lung chin and an elevated proBNP. She does not have any overt jugular venous distention or peripheral edema noted at this time. Her chest x-ray did have possible pulmonary vascular congestion. Given this, we will give her a dose of 40 mg of intravenous Lasix and monitor her response to this. Her last echocardiogram she had performed on 07/26/2018 did show an ejection fraction of 55%. We will continue to follow. 3. Acute on chronic kidney disease. The patient does appear to have an increase in her creatinine from her baseline. It is 3.2 at this time. Her glomerular filtration rate is 15. We will do strict intake and output. We will avoid nephrotoxic medications and renally dose medications as necessary. 4. Insulin-dependent diabetes mellitus. The patient has been started on Basaglar at 25 units subcutaneously twice a day at [facility]. We will continue this. We also will cover her with a sliding scale insulin as well. We will do pattern fingerstick blood sugars. 5. Hypertension. The patient's blood pressure was slightly elevated upon initial arrival, though since that time, it has improved with the last reading of 128/64. We will continue her regularly prescribed antihypertensive medications. 6. Chronic obstructive pulmonary disease. We will continue her Symbicort. We have placed orders for DuoNeb treatments. We will continue with supplemental oxygenation per nasal cannula. 7. Chronic constipation. We will continue her regularly prescribed bowel regimen of Colace, lactulose, and Dulcolax. The patient has been placed on CIC with telemetry. We will do vital signs every 4 hours, strict intake and output. She will be on a diabetic, mechanical soft diet. We will repeat a CBC, renal profile, and magnesium in the morning. We also will perform a series of cardiac enzymes. The patient's troponin was slightly elevated, probably related to her worsening renal function. She is denying any chest pain at this time and does not have any acute electrocardiogram changes. Further orders and recommendations pending hospital course, diagnostic studies, and physician evaluation. Dictated by TAYLOR Brown for Yuri Coronel MD cc: Yuri Coronel MD MTDManjula
--- NOTE | 2018-08-13 07:46 | Diag Imaging Result Doc PS360 ---
EXAM: CHEST-1 VIEW INDICATION: SOB TECHNIQUE: One view COMPARISON: 08/10/2018 FINDINGS: The lung volumes are low. There is increased opacity at the left lower lung zone that is mainly due to superimposed soft tissue attenuation and poor inspiration. A component of a developing mild infiltrate is possible. No other new consolidations are identified. Cardiac silhouette is essentially stable. IMPRESSION: Lower lung volumes and increased opacity at the left lung base. Please see above discussion. Electronically signed by Edmond Barrera 08/13/2018 7:43 AM
[2018-08-13] MEDS ORDERED: INSULIN PEN NEEDLES ONE (08:26)
[2018-08-13] MEDS ORDERED: ZANTAC PO SCH (09:00)
[2018-08-13] MEDS ORDERED: LASIX PO SCH (09:00)
[2018-08-13] MEDS: LIPITOR PO SCH (09:35)
[2018-08-13] MEDS: LACTULOSE PO SCH ×2 (09:35→20:53)
[2018-08-13] MEDS: ICAR-C PO SCH ×2 (09:35→20:54)
[2018-08-13] MEDS: FOLIC ACID PO SCH (09:35)
[2018-08-13] MEDS: NORVASC PO SCH ×2 (09:35→20:54)
[2018-08-13] MEDS: TRANDATE PO SCH ×2 (09:35→20:53)
[2018-08-13] MEDS: HEPARIN SUBQ SCH ×2 (09:35→20:57)
[2018-08-13] MEDS: AZACTAM 0.5 GM in NS 50 ML IV SCH ×2 (09:35→17:50)
[2018-08-13] MEDS: COLACE PO SCH ×2 (09:35→20:53)
[2018-08-13] MEDS: BASAGLAR SUBQ SCH ×2 (09:36→22:11)
[2018-08-13] MEDS: APRESOLINE PO SCH ×2 (09:36→17:51)
[2018-08-13] MEDS: FLONASE NAS SCH (09:55)
[2018-08-13] MEDS: SYMBICORT 160/4.5 MICROGM INHALER INH SCH ×2 (10:05→22:29)
--- NOTE | 2018-08-13 11:05 | Diag Imaging Result Doc PS360 ---
EXAM: US RENAL 2 (RETROPER) COMPLETE INDICATION: deepak/arf TECHNIQUE: COMPARISON: 04/04/2018 FINDINGS: Both kidneys are echogenic, which is a nonspecific indicator of medical renal disease. No discrete renal mass or hydronephrosis is identified. The right kidney measures 10.1 cm and the left kidney measures 11.3 cm in the greatest longitudinal axes. The right renal cortex measures up to 1.2 cm and the left renal cortex measures up to 0.8 cm in thickness. There is a Kaplan catheter in the urinary bladder and the bladder is nondistended. IMPRESSION: Increased renal echotexture bilaterally, which is a nonspecific indicator of medical renal disease. Electronically signed by Edmond Barrera 08/13/2018 11:02 AM
[2018-08-13] MEDS: TYLENOL PO PRN ×2 (12:18→20:57)
[2018-08-13] MEDS: HUMULIN R SUBQ SCH ×3 (12:18→20:52)
[2018-08-13 12:59] LABS: UR CREAT RANDOM 53.9 mg/dL (11-20); UR PROT RANDOM 317.2 mg/dL
[2018-08-13 14:31] LABS: CK INDEX 0.7 (0.0-2.5); CK-MB 1.98 ng/mL (0.0-5.0)
[2018-08-13] MEDS: ZYVOX 600 MG/D5W 600 MG/300 ML IVPB IV SCH (14:34)
--- NOTE | 2018-08-13 15:46 | PROGRESS NOTE ---
DATE: 08/13/2018 SUBJECTIVE: The patient is resting comfortably in bed. She appears to be little confused. She was noted to be febrile this afternoon with a temp of 102.9. OBJECTIVE: Vital Signs: Temperature 102.9 degrees, blood pressure 125/58, heart rate 102, respirations 18, O2 saturation is 98% on 3 L nasal cannula. Urine output 400 mL. General: This is a chronically ill-appearing, elderly female lying in bed, in no acute distress. Head: Normocephalic, atraumatic. Heart: S1, S2 normal. Tachycardic. Lungs: Coarse breath sounds. No wheezing. No rales. Abdomen: Positive bowel sounds. Soft, nontender, nondistended. Extremities: There is a cast on the right lower extremity. No edema noted in the left lower extremity. Neurologic: The patient is awake, but confused. She is able to move all 4 extremities. LABS: White blood cell count 18, hemoglobin 7.6, hematocrit 24, platelets 441,000. Sodium 132, potassium 4, chloride 95, CO2 20, BUN 58, creatinine 3, glucose 329, magnesium 1.8, phosphorus 5.9. ASSESSMENT AND PLAN: 1. Recurrent pneumonia. Continue with antibiotic therapy plus bronchodilator therapy and supplemental oxygen. 2. Acute kidney injury on chronic kidney disease. We will await the results of the urine studies. We will monitor the patient's urine output closely. Will avoid nephrotoxic agents. 3. Hyponatremia. Slightly improved today. Continue to monitor closely. 4. Suspected lung cancer. The patient had a CT-guided lung biopsy done 3 days ago; the pathology is currently pending. Will consult with the oncologist. 5. Uncontrolled insulin-dependent diabetes mellitus. Continue on Lantus. 6. Chronic obstructive pulmonary disease. Continue with bronchodilator therapy and supplemental oxygen. 7. Iron deficiency anemia. Continue on Icar C. 8. Deep vein thrombosis prophylaxis. Continue on heparin. cc: Maegan Veliz MD MTDD
[2018-08-13] MEDS: NEURONTIN PO SCH (20:54)
[2018-08-13] MEDS: AYR NASAL SPRAY NAS SCH (22:12)
[2018-08-13] MEDS: DULCOLAX PR SCH (22:29)
[2018-08-13 22:48] LABS: CK INDEX 0.9 (0.0-2.5); CK-MB 2.19 ng/mL (0.0-5.0)
[2018-08-14] MEDS: AZACTAM 0.5 GM in NS 50 ML IV SCH ×3 (01:17→20:36)
[2018-08-14] MEDS: APRESOLINE PO SCH ×3 (01:17→16:10)
[2018-08-14] MEDS: ZYVOX 600 MG/D5W 600 MG/300 ML IVPB IV SCH ×2 (01:57→16:10)
[2018-08-14] MEDS: ATROVENT NEB INH SCH ×4 (03:14→22:53)
[2018-08-14] MEDS: XOPENEX NEB INH SCH ×4 (03:15→22:52)
[2018-08-14] MEDS: TYLENOL PO PRN ×4 (04:21→20:08)
[2018-08-14 05:43] LABS: HEMATOCRIT 20.9 % (37.0-47.0); HEMOGLOBIN 6.6 g/dL (12.0-16.0); MCH 27.6 PG (27-31); MCHC 31.6 g/dL (33-37); MCV 87.4 FL (81-99); MPV 9.1 FL (7.4-10.4); RBC 2.39 XMIL (4.2-5.4); RDW 14.6 % (11.5-14.5); WBC 16.02 X1000 (4.8-10.8)
[2018-08-14 05:58] LABS: ALB/GLOB RATIO 0.7; ALBUMIN 2.6 g/dL (3.5-5.0); CALCIUM 8.4 mg/dL (8.8-10.2); POTASSIUM 3.9 mmol/L (3.5-5.1); TOTAL BILIRUBIN 0.18 mg/dL (0.20-1.00); TOTAL PROTEIN 6.1 g/dL (6.3-8.3)
[2018-08-14] MEDS: HUMULIN R SUBQ SCH ×5 (06:04→20:40)
[2018-08-14 06:10] LABS: RETIC% 0.95 % (0.8-2.1); RETIC-HE 27.8 PG (28.2-36.6)
[2018-08-14 06:22] LABS: IRON SATURATION 9 %; TIBC 143 ug/dL; TOTAL IRON 13 ug/dL (49-151); UNBOUND IRON 130 ug/dL (112-346)
[2018-08-14] MEDS ORDERED: PRILOSEC PO SCH (07:00)
[2018-08-14] MEDS: SYMBICORT 160/4.5 MICROGM INHALER INH SCH ×2 (07:30→19:30)
--- NOTE | 2018-08-14 07:35 | Diag Imaging Result Doc PS360 ---
EXAM: CHEST-PORTABLE 08/14/2018 HISTORY: pneumonia TECHNIQUE: AP portable at [id number] COMMENT: There are some subsegmental atelectatic appearing opacities present in the left upper and lower lobes. There is hazy opacity over the right lower lobe which may be due to pulmonary edema or pneumonia. The heart size is enlarged. IMPRESSION: Worsened atelectasis and pulmonary edema. The possibility of bronchopneumonia cannot be excluded. Electronically signed by Kevin Waldron 08/14/2018 7:32 AM
--- NOTE | 2018-08-14 08:23 | EKG Report ---
Test Performed on : 08/13/2018 01:46:55 AM Test Reason : Dyspnea Blood Pressure : / mmHG Vent. Rate : 105 BPM Atrial Rate : 105 BPM P-R Int : 144 ms QRS Dur : 080 ms QT Int : 324 ms P-R-T Axes : 051 -19 054 degrees QTc Int : 428 ms Sinus tachycardia. Inferior infarct , age undetermined Abnormal ECG When compared with ECG of 02-AUG-2018 11:03, No significant change was found Unconfirmed Result
[2018-08-14] MEDS ORDERED: NS 500 ML ONE (08:24)
[2018-08-14] MEDS: LIPITOR PO SCH (08:40)
[2018-08-14] MEDS: HEPARIN SUBQ SCH ×2 (08:40→20:08)
[2018-08-14] MEDS: FOLIC ACID PO SCH (08:40)
[2018-08-14] MEDS: FLONASE NAS SCH (08:41)
[2018-08-14] MEDS: ICAR-C PO SCH ×2 (08:41→20:08)
[2018-08-14] MEDS: BASAGLAR SUBQ SCH ×2 (08:43→20:40)
--- NOTE | 2018-08-14 08:55 | HEMO/ONC CONSULTATION ---
DATE: 08/14/2018 CHIEF COMPLAINT: We are being consulted for further evaluation and management of patient's pulmonary nodule. HISTORY OF PRESENT ILLNESS: Ms. Foley is a 58-year-old female that is currently in rehab at [facility]. The patient was recently admitted to the hospital where she was treated for pneumonia, pulmonary edema with hypoxic and respiratory failure. The patient in June 2018 and an open reduction-internal fixation of a right lower extremity tibia-fibular fracture. While patient was admitted in rehab, the patient started to have fever, body aches, chills, increasing shortness of breath, some orthopnea when lying flat, shortness of breath. The patient denies any headache, dizziness, lightheadedness, any chest pain. No nausea, vomiting, diarrhea. While in the emergency department, patient did have a fever of 103.3, tachypneic, decrease oxygen saturation. Chest x-ray while in the emergency department did show a left lower lobe infiltrate. She was admitted at that time for further evaluation and management for possible pneumonia. The patient while in the hospital previously had a CT-guided biopsy of that right lobe pulmonary nodule. Pathology results are still pending at this time. PAST MEDICAL HISTORY: Diabetes mellitus, right eye blindness, hypertension, hyperlipidemia, Robertson's palsy, GERD, benign bladder tumor, thyroid disease, anxiety, anemia, diastolic heart failure, chronic constipation, MRSA, osteomyelitis, chronic kidney disease. PAST SURGICAL HISTORY: Removal of benign bladder tumor, partial hysterectomy, right eye surgery, amputation first 3 toes, recent open reduction, internal fixation of right lower extremity. SOCIAL HISTORY: The patient is a former smoker, approximately quit while in her 20's. Patient denies any alcohol or illicit drug use. FAMILY HISTORY: Diabetes mellitus, hypertension, heart disease. ALLERGIES: Penicillin, albuterol, Compazine. HOME MEDICATIONS: Norvasc, Lipitor, Dulcolax, Symbicort, Colace, Flonase, folic acid, Lasix, gabapentin, hydralazine, Basaglar, Icar C, labetalol, lactulose, Lidoderm patch, Fleet's enema, Zantac, saline nasal spray. REVIEW OF SYSTEMS: Negative except as in history of present illness. PHYSICAL EXAMINATION: Vital Signs: Temperature 99.8 degrees, heart rate 95, respiratory rate 12, blood pressure 109/42, saturation 97% on nasal cannula. General: Patient is awake, lying in bed, in no acute distress noted. HEENT: Anicteric. Mucous membranes dry. The patient does have a right artificial eye. Neck: Supple. Trachea midline. No JVD. Lymph node survey: No palpable lymphadenopathy. Cardiovascular: S1, S2. Regular rate and rhythm. Chest: Bilateral breath sounds diminished bilaterally. Abdomen: Soft, nontender. Bowel sounds present in all 4 quadrants. Skin: Warm, dry and intact. The patient does have a diabetic ulcer noted on right great toe. Extremities: 2+ pedal pulses. The patient does have a cast noted to right lower extremity. Neurologic: Alert and oriented x3. LABORATORY DATA: White blood cell count 16.02, hemoglobin 6.6, hematocrit 20.9, platelets are 417,000, potassium 3.9, BUN 56, creatinine 3. ASSESSMENT AND PLAN: 1. Right pulmonary nodule: The patient had a CT-guided biopsy on August 10. Pathology results show adenocarcinoma. CEA is 8.1. Once patient is discharged and back to baseline we will discuss further treatment options. 2. Pneumonia: Continue recommendations per primary medical team. Continue antibiotics as ordered. 3. Anemia: Hemoglobin and hematocrit continue decreasing. Today hemoglobin 6.6, hematocrit 20.9. One unit packed red blood cells have been ordered. Further lab work pending. Continue to transfuse as needed. 4. Congestive heart failure: Continue O2 as per primary medical team. 5. Acute on chronic kidney disease: Continue to slowly rehydrate patient. Continue recommendations per primary medical team. 6. Diabetes mellitus. 7. Hypertension: Aware. Continue recommendations per primary medical team. 8. Chronic obstructive pulmonary disease: Continue recommendations per primary medical team. Continue home medications. Plan of care discussed with Dr. Rosales. Dictated by TAYLOR Fernández for Ld Rosales MD Patient seen and examined. As above. Right lung nodules status post CT-guided biopsy. Pathology reveals non-small cell lung cancer, adenocarcinoma. She is still recovering from her pneumonia. After discharge, we will try to obtain a PET scan. If this is localized disease, we will consider radiation therapy to this lung nodule. Thank you. Ld Rosales M.D. cc: TAYLOR Fernández MD [facility]
[2018-08-14] MEDS ORDERED: LASIX PO SCH (09:00)
[2018-08-14] MEDS: COLACE PO SCH ×2 (09:04→20:09)
[2018-08-14] MEDS: LACTULOSE PO SCH ×2 (09:05→20:08)
--- NOTE | 2018-08-14 09:44 | NEPHROLOGY CONSULTATION ---
DATE: 08/14/2018 REASON FOR ADMISSION: Shortness of breath, atelectasis with pulmonary edema versus pneumonia, fever of 103, acute on chronic kidney disease. REASON FOR CONSULTATION: Acute on chronic kidney disease, assist with management. CONSULTING PHYSICIAN: Maegan Veliz MD HISTORY OF PRESENT ILLNESS: This is a 58-year-old female who was seen by our service during her previous admission when she was discharged 08/11/2018. At that time, she was treated for pneumonia, pulmonary edema, hypoxic respiratory failure, along with acute on chronic kidney disease and some hyponatremia. The patient's renal function had appeared to have reset with a baseline creatinine around 2.1. She was planned to follow up in our office within 2 to 3 weeks after that discharge. The patient had been discharged to rehab, and on the day of admission, she was found to have a fever of 103.3. She was to tachypneic with difficulty breathing and some chest pain. She was brought into the emergency room for evaluation. She was found to have an initial elevated white count of 16.4. Her creatinine was slightly elevated at 3.2. She did have a chest x-ray that showed left upper lobe atelectasis with pulmonary edema versus pneumonia. She was admitted to the hospital for further workup and treatment. She has been given IV Lasix along with Azactam and Zyvox. This morning her creatinine is down to 3. She had a Kaplan catheter placed, and she had at least 1 L of urine output over the last 24 hours. Because of her continued elevated creatinine, we have been asked to see this lady for evaluation and assistance. PAST MEDICAL HISTORY: Chronic kidney disease with what appears to be a baseline creatinine of 2.1. 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 Recent findings of a right lung nodule with results pending, biopsy was performed on 08/10/2018. PAST SURGICAL HISTORY: Removal of benign bladder tumor, partial hysterectomy, right eye surgery, amputations of the first 3 toes to osteomyelitis and diabetic foot wound. ORIF of right lower bimalleolar tibial-fibular fracture, recent lung biopsy. ALLERGIES: Albuterol, penicillin, Compazine. HOME MEDICATIONS: Her home medications are listed as Norvasc, Lipitor, Dulcolax, Symbicort, Colace, Flonase, folic acid, Lasix, gabapentin, hydralazine, Basaglar, Icar, labetalol, lactulose, Lidoderm patch, Zantac. FAMILY HISTORY: Diabetes, hypertension, heart disease. SOCIAL HISTORY: Previous smoker. No current ETOH or illicit drug use. Routinely lives with family, but currently is at [facility] for rehab. REVIEW OF SYSTEMS: Shortness of breath, chest pain. Fever, body aches, chills, orthopnea, decreased urine output. Negative otherwise. PHYSICAL EXAMINATION: Vital Signs: Temperature 99.8 degrees, pulse 95, respiratory rate 18, blood pressure 109/42. Intake 790 mL, output 1 L via Kaplan catheter. General: This is a chronically ill-appearing, middle-aged female resting in bed. She is awake and alert. She is obviously short of breath. HEENT: Normocephalic, atraumatic. Her left pupil is round and reactive. Oral mucosa moist. Dentition poor. Neck: Supple. No JVD. Cardiovascular: Reveals a regular rate and rhythm. There is no murmur appreciated. Pulmonary: She has significantly decreased breath sounds. Greater to the left with some crackles. She is on O2 supplementation, and she is somewhat breathless when trying to speak. Abdomen: Round, soft, with positive bowel sounds. Genitourinary: She has a Kaplan catheter with clear urine noted. Extremities: No edema to the left lower extremity. The right lower extremity is in a cast. She also has multiple toes removed from an old amputation with clean, dry, and intact old surgical site. Neurologic: Grossly nonfocal. LABORATORY DATA: WBC of 16, hemoglobin 6.6. Sodium 134, potassium 3.9, CO2 of 21, creatinine 3, BUN 56. Chest x-ray with left upper lobe atelectasis with pneumonia versus pulmonary edema. ASSESSMENT AND PLAN: 1. Acute on chronic kidney disease. The patient has had nice response to IV Lasix and with improvement in renal function. Her urine random, urea nitrogen 453. She has FEUN score of 41%. Does not indicate prerenal. Continue current treatment plan. Monitor closely. Renal imaging did not have any new findings. 2. Pneumonia. She is on appropriately dosed antibiotics. No changes are needed at this time. 3. Electrolytes, acid-base balance. She does have a history of hyponatremia. Current sodium level is acceptable. Monitor. 4. History of congestive heart failure. She has had some IV Lasix with appropriate urine output response. As she does not appear to be fluid depleted on her urine studies, we would continue with some daily Lasix. 5. Anemia. Hemoglobin is 6.6. She has an order for 1 unit of packed red blood cells already. Dictated by TAYLOR Harris for Eben Pena MD Face to face encounter, data reviewed, discussed with Lan De La Garza on 08/14/18. I agree with the above assessment and plan of care. cc: Eben Pena MD [facility]
[2018-08-14] MEDS: NORVASC PO SCH ×2 (11:59→20:09)
[2018-08-14] MEDS: TRANDATE PO SCH ×2 (11:59→20:09)
[2018-08-14 13:35] LABS: FREE T4 0.91 ng/dL (0.93-1.70); TSH 2.38 uIUmL (0.27-4.20)
--- NOTE | 2018-08-14 13:50 | INFECTIOUS DISEASE PROGRESS NO ---
DATE: 08/14/2018 PRESENT ILLNESS: The patient was just released from the hospital. During her admission she had pneumonia and pulmonary venous congestion and both of these seemed to clear on the chest x-ray. She comes in now having shortness of breath, cough, and fever and her chest x-ray now has bilateral opacities that could be due to pneumonia and/or pulmonary venous congestion. MEDICATIONS: Previously the patient was treated with aztreonam and Zyvox and seemed to do quite well. Currently, she has been put back on the 2 antibiotics. PHYSICAL EXAMINATION: Vital Signs: Temperature is 100.5, pulse 99, respirations 18, blood pressure 115/55. General: This is a chronically ill-appearing, middle-aged female. She is in no acute distress at this time. Head/eyes/ears/nose/throat: She can hear my spoken words and see near objects. She does not have any white patches on her tongue. Neck: There is no pain with movement. Lungs: Clear to auscultation. Cardiovascular: Heart rate is regular. Abdomen: Soft and nontender. Neurologic: The patient is awake. She can move her extremities. There is no tremor. Extremities: Patient has a cast on her right leg. LAB AND X-RAY: Chest x-ray shows bilateral opacities. The swab for influenza was negative. Blood and urine cultures are negative thus far. Procalcitonin level is pending. Immunoglobulin levels are pending. Previously, the patient's IgG level, this was approximately 2 weeks ago was 666. IgA was normal at 203. ASSESSMENT AND PLAN: The patient could have pneumonia and/or pulmonary venous congestion. I agree with Dr. Veliz starting the patient on aztreonam and Zyvox which she seemed to respond to last time. The patient's immunoglobulin levels are going to be repeated, but at this time the level of 666, I do not think is clinically significant and does not require IVIG replacement therapy. COMORBIDITIES: The patient's comorbidities include diabetes mellitus, gastroesophageal reflux disease, end-stage renal disease, and chronic anemia. cc: Taj Quezada MD
[2018-08-14] MEDS: LASIX IV SCH ×2 (16:09→16:59)
--- NOTE | 2018-08-14 18:50 | PROGRESS NOTE ---
DATE: 08/14/2018 SUBJECTIVE: The patient is resting comfortably in bed. The patient has been febrile all day. OBJECTIVE: Vital signs: T-max 101 degrees, blood pressure 122/57, heart rate 90, respirations 22, O2 saturation is 98% on 3 L nasal cannula. Intake 980. Output 1 L. General: This is a chronically ill-appearing, elderly female lying in bed, in no acute distress. Head: Normocephalic, atraumatic. Heart: S1, S2 normal. Regular rate and rhythm. Lungs: Equal air entry bilaterally. Diminished breath sounds at the bases. Abdomen: Positive bowel sounds. Soft, nontender, nondistended. Extremities: The right foot is wrapped in a cast. Trace edema in the left lower extremity. Neurologic: The patient is alert and oriented x3. LABS: White blood cell count 16, hemoglobin 6.6, hematocrit 20, platelets 417,000. Sodium 134, potassium 3.9, chloride 97, CO2 21, BUN 56, creatinine 3, glucose 111. ASSESSMENT AND PLAN: 1. Bilateral lobe pneumonia. Continue with antibiotic therapy as directed by Dr. Quezada. 2. Adenocarcinoma of the lung. Dr. Rosales is following. 3. Iron deficiency anemia. GI is following. The patient received a blood transfusion today. Continue on Icar C. 4. Acute kidney injury on chronic kidney disease. Unchanged from yesterday. Nephrology is following. 5. Uncontrolled insulin-dependent diabetes mellitus. Continue on Lantus. 6. Hyponatremia. Improved. 7. Chronic obstructive pulmonary disease. Continue with bronchodilator therapy and supplemental oxygen. 8. Leukocytosis. Slightly improved. Continue with antibiotic therapy. 9. Deep vein thrombosis prophylaxis. Continue on heparin. cc: Maegan Veliz MD [facility]
[2018-08-14] MEDS: AYR NASAL SPRAY NAS SCH (20:07)
[2018-08-14] MEDS: PROTONIX IV SCH (20:08)
[2018-08-14] MEDS: NEURONTIN PO SCH (20:08)
[2018-08-14] MEDS: DULCOLAX PR SCH (23:23)
[2018-08-15] MEDS: APRESOLINE PO SCH ×4 (02:28→20:33)
[2018-08-15] MEDS: XOPENEX NEB INH SCH ×5 (03:07→21:35)
[2018-08-15] MEDS: ATROVENT NEB INH SCH ×5 (03:07→21:35)
[2018-08-15] MEDS: ZYVOX 600 MG/D5W 600 MG/300 ML IVPB IV SCH ×2 (04:25→20:31)
[2018-08-15] MEDS: AZACTAM 0.5 GM in NS 50 ML IV SCH ×3 (04:25→20:32)
[2018-08-15 05:42] LABS: HEMATOCRIT 21.1 % (37.0-47.0); HEMOGLOBIN 6.8 g/dL (12.0-16.0); MCH 28.1 PG (27-31); MCHC 32.2 g/dL (33-37); MCV 87.2 FL (81-99); MPV 9.3 FL (7.4-10.4); RBC 2.42 XMIL (4.2-5.4); RDW 14.6 % (11.5-14.5); WBC 12.45 X1000 (4.8-10.8)
[2018-08-15 05:55] LABS: ALB/GLOB RATIO 0.6; ALBUMIN 2.3 g/dL (3.5-5.0); CALCIUM 8.7 mg/dL (8.8-10.2); CREATININE 3.3 mg/dL (0.5-0.9); POTASSIUM 3.7 mmol/L (3.5-5.1); TOTAL BILIRUBIN 0.27 mg/dL (0.20-1.00); TOTAL PROTEIN 6.1 g/dL (6.3-8.3)
[2018-08-15] MEDS: LASIX IV SCH ×2 (06:21→20:38)
[2018-08-15] MEDS: HUMULIN R SUBQ SCH ×4 (06:33→20:33)
--- NOTE | 2018-08-15 08:09 | NEPHROLOGY PROGRESS NOTE ---
DATE: 08/15/2018 SUBJECTIVE: She is lying in bed, complaining of chills and shortness of breath. No chest pain. OBJECTIVE: Vital Signs: Blood pressure 118/60, heart rate 82, respirations 20, afebrile. Intake 1.5 L. Output 1.2 L. General: No acute distress though she is obviously ill-appearing. Skin: Warm and dry. Conjunctivae are pink. Oropharynx not examined. Neck: Neck veins are not visible. Heart: Regular. No gallops. Lungs: Equal. No crackles or wheezes. Abdomen: Soft, nontender. Extremities: Have no edema, clubbing, or cyanosis. IMPRESSION AND PLAN: Acute kidney injury overlying chronic kidney disease. Baseline creatinine approximately 2. Little change in her labs since admission. Urine output is acceptable. She does not meet criteria for dialysis. Furthermore, given her other medical illnesses, she is a poor candidate for dialysis. Her hyponatremia is improved and overall stable since re-admission. cc: Eben Pena MD
[2018-08-15] MEDS: ICAR-C PO SCH ×2 (08:18→20:32)
[2018-08-15] MEDS: FLONASE NAS SCH (08:19)
[2018-08-15] MEDS: TRANDATE PO SCH ×2 (08:19→20:32)
[2018-08-15] MEDS: PROTONIX IV SCH ×2 (08:19→20:34)
[2018-08-15] MEDS: TYLENOL PO PRN ×2 (08:19→20:46)
[2018-08-15] MEDS: HEPARIN SUBQ SCH ×2 (08:19→20:32)
[2018-08-15] MEDS: BASAGLAR SUBQ SCH ×2 (08:19→20:33)
[2018-08-15] MEDS: NORVASC PO SCH ×2 (08:19→20:34)
[2018-08-15] MEDS: LIPITOR PO SCH (08:19)
[2018-08-15] MEDS: FOLIC ACID PO SCH (08:19)
[2018-08-15] MEDS: LACTULOSE PO SCH ×2 (08:20→20:33)
[2018-08-15] MEDS: COLACE PO SCH ×2 (08:20→20:32)
[2018-08-15] MEDS: SYMBICORT 160/4.5 MICROGM INHALER INH SCH ×2 (08:39→21:35)
--- NOTE | 2018-08-15 08:45 | HEMO/ONC PROGRESS NOTE ---
DATE: 08/15/2018 SUBJECTIVE: Patient continues to have some shortness of breath. The patient complained of fever. No new complaints at this time. No other new complaints. OBJECTIVE: Vital Signs: Temperature 101.6 degrees, heart rate 101, respiratory rate 24, blood pressure 133/48, saturation 96% on nasal cannula. General: Patient is awake, lying in bed, no acute distress noted. HEENT: Anicteric. Pupils PERRLA. Mucous membranes moist. Cardiovascular: S1, S2. Regular rate and rhythm. Chest: Bilateral breath sounds diminished bilaterally. Abdomen: Soft, nontender. Bowel sounds present in all 4 quadrants. Neurologic: Alert and oriented x3. No focal deficits noted. LABORATORY DATA: White count 12.45, hemoglobin 6.8, hematocrit 21.1, platelets are 404,000. Potassium 3.7, BUN 66, creatinine 3.3. ASSESSMENT AND PLAN: 1. Right lung adenocarcinoma: Once patient is recovered back to baseline, we will get her scheduled for a PET scan outpatient. Otherwise, at this time, just continue to monitor. 2. Pneumonia: Continue recommendations per primary medical team and Pulmonology. Continue antibiotics as ordered. 3. Anemia: Hemoglobin and hematocrit slightly improved today at 6.8 and 21.1. The patient did receive 1 unit of packed red blood cells yesterday. Transfuse another unit of packed red blood cells today. Continue to monitor closely and transfuse as needed. 4. Acute on chronic kidney disease: Continue to slowly rehydrate the patient. Continue recommendations per primary medical team and Nephrology. Plan of care discussed with Dr. Rosales. Dictated by TAYLOR Fernández for Ld Rosales MD As above. From her lung cancer standpoint, we will plan to see her outpatient with a PET scan and plan further management accordingly. Severe anemia: Transfuse 1 unit today. Her reticulocyte count is very low for her hemoglobin. She does not have any evidence of hemolysis or hemorrhage. Iron profile B12 folate levels are adequate. Suspect this is related to myelosuppression. Transfuse as needed for now. Ld Rosales M.D. cc: TAYLOR Fernández MD [facility]
--- NOTE | 2018-08-15 09:28 | Diag Imaging Result Doc PS360 ---
EXAM: CHEST-PORTABLE HISTORY: reassess pulmonary edema/pneumoni TECHNIQUE: Portable chest single view COMPARISON: 08/15/2015 FINDINGS: Poor inspiratory effort. The heart is mildly prominent. Vascular distention is less pronounced. Atelectasis versus small infiltrates in the left base. There may be tiny left pleural effusion as well. IMPRESSION: Poor inspiratory effort, but otherwise appears to be slight interval improvement. Electronically signed by Kana Sanchez 08/15/2018 9:26 AM
[2018-08-15] MEDS ORDERED: NS 500 ML ONE (09:38)
--- NOTE | 2018-08-15 09:43 | PROGRESS NOTE ---
DATE: 08/15/2018 SUBJECTIVE: Her doctor is Dr. Art Cueto in [place]. I believe. She is currently receiving rehab in [place] in the care of Dr. Sp Pabon. She presented with shortness of breath on 08/13/2018. This is a 58-year-old white female with past medical history notable for diabetes mellitus, chronic kidney disease, diastolic heart failure, COPD and hypertension. She was recently admitted to our facility back on 08/11/2018. During that admission, she was treated for bilateral pneumonia, as well as some pulmonary edema, hypoxemic respiratory failure. She has a history of recent right lower extremity bimalleolar tibial/fibular fracture with open reduction, internal fixation June 2018. She has a history of MRSA cellulitis and osteomyelitis secondary to right diabetic foot abscess in April 2018, and most recent admission just prior to discharge to rehabilitation, she had findings of her right lung nodule. Biopsy performed on this the - july was pending at the time of admission. While at rehab she began to have a few body aches and chills, worsening shortness of breath, and so was admitted here to the hospital. OBJECTIVE: On exam today, she feels a little more short of breath, a little more anxious this morning. Pulse is 100, respirations 20, temperature is 101.6 degrees yesterday, blood pressure 133/48. Lungs are clear anterolateral. Cardiovascular exam regular rhythm and rate without murmur or S3. Abdomen is soft. Skin is warm and dry. Urine output is 1600 mL. Blood sugars 86, 186 and 123. ASSESSMENT AND PLAN: 1. Bilateral lobe pneumonia. Continue present antibiotics. Dr. Quezada is following. 2. Adenocarcinoma of the lung. Dr. Rosales is following. 3. Iron deficiency anemia. Continue Icar C. Yesterday, I think received a blood transfusion. 4. Acute kidney injury on chronic kidney disease. Nephrology following. 5. Uncontrolled insulin-dependent diabetes mellitus, and she is on Lantus. We will continue to monitor sugars. 6. Hyponatremia, which is improved. 7. Chronic obstructive pulmonary disease. Continue bronchodilator therapy. 8. Leukocytosis. 9. Continue deep venous thrombosis prophylaxis. 10. Acute kidney injury overlying chronic kidney disease. Baseline creatinine is probably around 2. Urine output is acceptable. Does not meet any criteria for dialysis at this time. Dr. Quezada is following. Just released from the hospital. Previously she was treated with aztreonam and Zyvox and seemed to do well, so I will put back on these antibiotics MEDICATIONS: She is on Norvasc 5 mg b.i.d., Lipitor 40 mg a day, aztreonam 500 mg IV q. 8 hours, budesonide 2 puffs IV b.i.d., docusate sodium 100 mg b.i.d., fluticasone 1 puff each nostril q.a.m., folic acid 0.4 mg daily, Lasix 80 mg IV q. 12 hours, Neurontin 300 mg at bedtime, hydralazine 50 mg p.o. q. 8 hours, insulin glargine 25 units subcutaneous b.i.d., ipratropium bromide 0.5 mg q. 6 hours, Icar C one b.i.d., Trandate 200 mg b.i.d., lactulose 30 mL b.i.d., Xopenex inhaler q. 6 hours, Protonix 40 mg IV q. 12 hours, linezolid 600 mg IV q. 12 hours. cc: Archie Martinez MD
--- NOTE | 2018-08-15 14:48 | INFECTIOUS DISEASE PROGRESS NO ---
DATE: 08/15/2018 PRESENT ILLNESS: Ms. Foley has been readmitted due to pneumonia versus pulmonary venous congestion. 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 MEDICATIONS: She is receiving aztreonam 500 mg IV every 8 hours and Zyvox 600 mg IV every 12 hours. PHYSICAL EXAMINATION: Vital Signs: Temperature is 98.4 degrees, pulse rate 82, respiratory rate 16, blood pressure 129/60, O2 saturation is 95% on 3 L nasal cannula. General: This is a middle- aged chronically ill-appearing female. She is lying in the bed, currently in no acute distress. HEENT: Atraumatic, normocephalic. She does have a right eye prosthesis. Oral mucous membranes are pink and moist. Neck: Supple. Trachea is midline. Respiratory: Lung sounds are clear to auscultation in the upper lobes, diminished in the bases. Cardiovascular: Heart rate and rhythm are regular. Normal sinus rhythm on the monitor. Abdomen: Soft, obese, and nontender. Bowel sounds are active. Neurologic: She is drowsy and lethargic, but arousable and able to move all extremities in the bed without difficulty. Extremities: There is a cast to the right lower extremity, and the end of her right foot has a dry, scabby wound. LAB & X-RAY: Today her white count is 12.45, hemoglobin 6.8, platelet count 404,000. Creatinine is 3.3, GFR 14. Immunoglobulin show an IgA of 115 and an IgG of 552. Chest x-ray today shows slight interval improvement of the atelectasis versus small infiltrates to the left base. ASSESSMENT AND PLAN: Ms. Foley is being treated for the possibility of pneumonia versus pulmonary venous congestion. For now, we will continue the aztreonam and Zyvox as ordered. She also has a low IgG noted today and 20 g of IVIG have been ordered as a replacement. These plans have been discussed with and recommended by Dr. Quezada. COMORBIDITIES: 1. Diabetes mellitus. 2. Gastroesophageal reflux disease. 3. Acute on chronic kidney disease. 4. Anemia of chronic disease. Dictated by TAYLOR Santiago for Taj Quezada MD This chart was documented by, TAYLOR Santiago and accurately reflects the services performed, treatment plan and medical decisions as attested by the providers signature Taj Quezada MD. cc: Taj Quezada MD [facility]
--- NOTE | 2018-08-15 15:22 | GASTROENTEROLOGY CONSULTATION ---
DATE: 08/15/2018 REASON FOR CONSULTATION: Acute on chronic anemia. HISTORY OF PRESENT ILLNESS: Ms. Foley is a 58-year-old woman with a past medical history of diabetes, hypertension, hyperlipidemia, GERD, chronic iron deficiency anemia, diastolic heart failure, and constipation, as well as chronic kidney disease, who presented with shortness of breath. Found to have pneumonia, on antibiotics. On presentation, she was found to have worsening anemia with a hemoglobin of 8.4 downtrending to 6.6, requiring 1 unit of packed red blood cells. She denies any overt bleeding including hematemesis, melena, or rectal bleeding. She says she has had a colonoscopy in the last 5 years with removal of a benign polyp. No prior endoscopy. She does have reflux, which is controlled with Zantac. No dysphagia, weight loss, abdominal pain, nausea, vomiting, change in bowel habits. She is not on any blood thinners or NSAIDs. No family history of GI malignancies. She currently complains of shortness of breath and pleuritic chest pain from pneumonia, and had notable fevers over the last day or so. Of note, the patient had a recent admission for right lower extremity tibia-fibular fracture requiring surgery and a new diagnosis of right lung adenocarcinoma for which oncology is following. REVIEW OF SYSTEMS: As per HPI. Otherwise, a 12 point review of systems is negative. 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 PAST SURGICAL HISTORY: Removal of benign bladder tumor, partial hysterectomy, right eye surgery, amputation of the first 3 toes of the right lower extremity, recent tibia-fibular fracture repair, recent lung nodule biopsy. SOCIAL HISTORY: The patient is a former smoker. No alcohol or drug use. She lives with her sister in [place]. FAMILY HISTORY: No family history of GI malignancies. ALLERGIES: To penicillin, albuterol, and Compazine. HOME MEDICATIONS: Norvasc, Lipitor, Dulcolax, Symbicort, Colace, Flonase, folic acid, Lasix, gabapentin, hydralazine, Basaglar, Icar-C, labetalol, lactulose, Lidoderm, Fleet's enema, Zantac, saline nasal spray. PHYSICAL EXAMINATION: Vital Signs: Temperature 98.4, heart rate 82, respiratory rate 16, blood pressure 129/60, O2 saturation 95% on 4 L nasal cannula. General: The patient is awake, alert, oriented, in mild respiratory distress. HEENT: Sclerae anicteric. Moist mucous membranes. Neck: No JVD. No lymphadenopathy. Cardiac: Regular rate and rhythm. No murmurs. Lungs: Increased work of breathing. Decreased breath sounds throughout. No wheezing. Abdomen: Obese, soft, nontender, nondistended. Normoactive bowel sounds. No rebound or guarding. Extremities: Right lower extremity cast. No cyanosis, clubbing, or edema. Neurologic: Nonfocal. LABS: White count of 12.45 from 16 on admission, hemoglobin is 6.8, platelets of 404,000. INR on admission was normal. Sodium of 130, potassium of 3.7, chloride of 94, bicarb 21, BUN is 66, creatinine of 3.3, glucose of 84. Iron studies show an iron of 13, TIBC of 143, iron saturation of 9, ferritin of 1599. LFTs show a total bilirubin of 0.27, AST of 39, ALT of 22, alkaline phosphatase 117, LDH of 255, total protein 6.1, albumin 2.3. Chest x-ray from today shows mildly prominent heart, decrease in vascular distention, atelectasis versus small infiltrates in the left base. There may be a tiny left pleural effusion as well. Overall slight interval improvement. ASSESSMENT AND PLAN: Ms. Diana Foley is a 58-year-old woman with multiple comorbidities who presents to the gastroenterology service with acute on chronic anemia. The patient reports longstanding iron deficiency anemia for which she takes iron 3 times a day at home. She does report having to have iron as well as blood transfusions in the past. She had a colonoscopy about 5 years ago but cannot recall where it was done or who the provider was. She did say that there was a benign polyp that was removed at that time. No prior esophagogastroduodenoscopy. She does have gastroesophageal reflux disease without dysphagia. Other than her positive Hemoccult, she has no significant gastrointestinal symptoms or red flags. She does appear pretty tachypneic and short of breath currently, which could be multifactorial in the setting of pneumonia, diastolic heart failure, and anemia. Currently, she is on 4 L of oxygen. Her hemoglobin after 1 unit of blood has not been rechecked. She is currently on iron, folic acid, and pantoprazole 40 mg intravenous twice a day. The patient likely needs a diagnostic esophagogastroduodenoscopy once she improves from a respiratory standpoint. She currently is a high anesthesia risk given her respiratory status and pneumonia. 1. Acute on chronic anemia. Iron studies show an inflammatory process with elevated ferritin and possibly iron deficiency. Hemoccult is positive, although not a reliable test for inpatients. Recommend continued proton pump inhibitor twice daily. Can transition to oral when able. I would like to optimize her from a respiratory standpoint prior to performing diagnostic esophagogastroduodenoscopy. If that is negative, she would likely need outpatient colonoscopy once her acute issues resolve. 2. Pneumonia. She is currently on antibiotics as per primary team. Pulmonary is following. 3. Lung cancer. We will defer management to oncology. 4. Acute on chronic kidney disease. Defer management to primary team. 5. Hyponatremia, noted. 6. Diabetes, on long-acting and sliding scale insulin. 7. Chronic constipation. The patient is on lactulose, Colace, suppository. 8. Hypertension, controlled on medications. Thank you for this consult. We will follow with you. Please call with any questions or concerns.
[2018-08-15] MEDS ORDERED: GAMUNEX-C 10% IV ONE (16:00)
[2018-08-15] MEDS: NEURONTIN PO SCH (20:32)
[2018-08-15] MEDS: DULCOLAX PR SCH (20:33)
[2018-08-15] MEDS: AYR NASAL SPRAY NAS SCH (20:33)
--- NOTE | 2018-08-15 21:11 | PULMONOLOGY CONSULTATION ---
DATE: 08/15/2018 REQUESTING PHYSICIAN: Maegan Veliz MD REASON FOR CONSULTATION: Lung cancer. HISTORY OF PRESENT ILLNESS: Ms. Foley is a 58-year-old white female with history of tobacco use and history of chronic kidney disease, who was admitted to the hospital 07/27/2018 with congestive heart failure with probable diastolic dysfunction, with [id number] renal failure. The patient was also treated for pneumonia by Infectious Disease. The patient had a CT scan which revealed a right lower lobe nodule which had increased in size. The patient underwent a CT-guided biopsy on 08/10/2018, which revealed a moderately differentiated adenocarcinoma. The patient was anxious to complete rehabilitation before additional workup was planned. The patient returned to the emergency room with fevers of 103 degrees with increased cough, increased sputum production, body aches and chills. White blood count was elevated at 16,000. Chest x-ray reveals new infiltrates. Blood cultures are currently negative to date. PAST MEDICAL HISTORY: 1. Recent diagnosis of lung cancer as per above. 2. Blindness in the right eye. 3. Chronic kidney disease. 4. Diastolic heart failure. 5. MRSA with osteomyelitis. 6. Status post cast placement for open reduction, internal fixation of a tibiofibular fracture in 06/2018. 7. Anxiety disorder. 8. Gastroesophageal reflux disease. 9. History of Robertson palsy. 10. 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 11. History of amputation of first 3 toes due to diabetic foot wound and osteomyelitis. REVIEW OF SYSTEMS: Negative except for as per HPI. FAMILY HISTORY: Noncontributory. SOCIAL HISTORY: Notable for positive tobacco use. PHYSICAL EXAMINATION: Physical exam reveals a chronically ill-appearing white female, who reports she feels better than on the day of admission. Temperature 99.9 degrees, blood pressure 136/53, heart rate 88, oxygen saturation 96% on nasal cannula. HEENT: Pupils are equal and reactive. Oropharynx is clear. Neck is supple. Chest reveals rhonchi bilaterally. Cardiac exam: S1, S2. Abdomen is obese and soft. Extremities reveal a cast on the right foot. LABORATORY DATA: White blood count 12.45, hemoglobin 6.8, platelet count 404,000. Microbiology reveals no new culture data or positive cultures. Chemistries: Sodium 130, potassium 3.7, chloride 94, bicarbonate 21, BUN 66, creatinine 3.3. Immunoglobulin levels are reduced at 552 mg/dL. DIAGNOSTIC DATA: Chest x-ray today reveals infiltrates at the left base with cardiomegaly and vascular distention. IMPRESSION: 1. A 58-year-old with chronic hypoxemic respiratory failure. 2. Recurrent pneumonia. 3. Immunoglobulin deficiency. 4. Diabetes mellitus. 5. Gastroesophageal reflux disease. 6. Chronic kidney disease. 7. Presumptive early-stage lung cancer. 8. History of tobacco use. DISCUSSION: A 58-year-old with multiple comorbidities with recurrent pneumonia, immunoglobulin deficiency, acute hypoxemic respiratory failure, [id number] kidney disease and lung cancer. The patient will likely make a poor surgical candidate and she may be difficult to administer chemotherapy, given her comorbidities. RECOMMENDATIONS: 1. Continue antibiotics for pneumonia as per Infectious Disease recommendations. 2. Agree with immunoglobulin replacement, given recurrent pneumonia. 3. Agree with outpatient PET scan to rule out metastatic disease. 4. Would consider stereotactic body radiotherapy if the patient does not have metastatic disease. cc: Homer Gonzalez MD
[2018-08-16] MEDS: TYLENOL PO PRN ×3 (02:48→17:20)
[2018-08-16] MEDS: XOPENEX NEB INH SCH ×4 (03:34→21:46)
[2018-08-16] MEDS: ATROVENT NEB INH SCH ×4 (03:34→21:46)
[2018-08-16] MEDS: AZACTAM 0.5 GM in NS 50 ML IV SCH ×3 (04:22→21:28)
[2018-08-16] MEDS: APRESOLINE PO SCH ×3 (04:23→21:30)
[2018-08-16] MEDS: HUMULIN R SUBQ SCH ×4 (06:49→21:32)
[2018-08-16] MEDS: SYMBICORT 160/4.5 MICROGM INHALER INH SCH ×2 (07:31→21:46)
[2018-08-16] MEDS: PROTONIX IV SCH ×2 (08:21→21:31)
[2018-08-16] MEDS: TRANDATE PO SCH ×2 (08:21→21:30)
[2018-08-16] MEDS: HEPARIN SUBQ SCH ×2 (08:21→21:33)
[2018-08-16] MEDS: ZYVOX 600 MG/D5W 600 MG/300 ML IVPB IV SCH ×2 (08:21→09:12)
[2018-08-16] MEDS: BASAGLAR SUBQ SCH ×2 (08:21→21:30)
[2018-08-16] MEDS: LASIX IV SCH ×2 (08:21→21:31)
[2018-08-16] MEDS: LACTULOSE PO SCH ×2 (08:22→21:32)
[2018-08-16] MEDS: NORVASC PO SCH ×2 (08:22→21:30)
[2018-08-16] MEDS: FOLIC ACID PO SCH (08:22)
[2018-08-16] MEDS: COLACE PO SCH ×2 (08:22→21:30)
[2018-08-16] MEDS: ICAR-C PO SCH ×2 (08:22→21:30)
[2018-08-16 08:32] LABS: BASO# 0.01 X1000 (0.0-0.2); BASO% 0.1 % (0.0-0.8); EOS# 0.12 X1000 (0.0-0.7); EOS% 1.3 % (0.0-10.0); HEMATOCRIT 24.2 % (37.0-47.0); HEMOGLOBIN 7.8 g/dL (12.0-16.0); IMM GRAN# 0.02 X1000 (0.0-0.04); IMM GRAN% 0.2 % (0.0-0.5); MCH 27.7 PG (27-31); MCHC 32.2 g/dL (33-37); MCV 85.8 FL (81-99); MONO# 1.28 X1000 (0.11-0.59); MPV 9.2 FL (7.4-10.4); NEUT% 73.4 % (42.2-75.2); PLT 475 X1000 (130-400); RBC 2.82 XMIL (4.2-5.4); RDW 14.4 % (11.5-14.5); WBC 9.13 X1000 (4.8-10.8)
[2018-08-16] MEDS: ZYVOX PO SCH ×2 (09:21→21:30)
[2018-08-16] MEDS: FLONASE NAS SCH (09:21)
--- NOTE | 2018-08-16 09:29 | PROGRESS NOTE ---
DATE: 08/16/2018 SUBJECTIVE: Ms. Foley is feeling better, breathing better. She would like to go back to rehab. OBJECTIVE: She remains afebrile. Temperature 98.2 degrees, pulse 87, respirations 22, blood pressure 117/57. Pupils are equal and round. Lungs are clear in all lung chin. Cardiovascular Examination: Regular rhythm and rate without murmur or S3. Abdomen is soft. Skin is warm and dry. Urine output was 2900 mL. Last blood sugars 123, 203, 132. ASSESSMENT AND PLAN: 1. A 58-year-old who presented with chronic hypoxemic respiratory failure and recurrent pneumonia. She has immunoglobulin deficiency. Continue present antibiotics. She has a penicillin allergy so she will need to stay on aztreonam and Zyvox. I think she is ready go to rehab but I am not sure that they will be able to afford those antibiotics. 2. Recurrent pneumonia. 3. Immunoglobulin deficiency. 4. Diabetes mellitus. Sugar is under good control. 5. Gastroesophageal reflux disease. 6. Chronic kidney disease. 7. Presumptive early stage lung cancer. 8. History of tobacco use. 9. She is likely going to be a poor surgical candidate. It may be difficult to administer chemotherapy, given her comorbidities. I think the plan is an outpatient PET scan to rule out metastatic disease, immunoglobulin replacement, and continue antibiotics for her pneumonia. As far as discharge planning, we are going to consider stereotactic body radiotherapy if the patient does not have any metastatic disease. She would like to go back to rehab. REVIEW OF CURRENT ORDERS: I do not see any change. She is on Lipitor 40 mg a day, heparin 5000 units subcutaneous q.12, Norvasc 5 mg b.i.d., aztreonam 500 mg q.8 hours, budesonide-formoterol 2 puffs b.i.d., Colace 100 mg b.i.d., fluticasone nasal spray 1 puff to each nostril daily, folic acid 0.4 mg a day, Lasix 80 mg IV q.12, Neurontin 300 mg at bedtime, Apresoline 50 mg q.8 hours, insulin glargine 25 units subcutaneous b.i.d., ipratropium bromide 0.5 mg q.6 hours, iron/carbonyl/ascorbic acid 1 b.i.d., labetalol 200 mg b.i.d., lactulose 30 mL b.i.d., Zofran 4 mg IV q.4 hours, Protonix 40 mg IV q.12, linezolid 600 mg IV q.12, and got one dose of immunoglobulin yesterday, 20 g. cc: Archie Martinez MD
--- NOTE | 2018-08-16 09:34 | INFECTIOUS DISEASE PROGRESS NO ---
DATE: 08/16/2018 PRESENT ILLNESS: The patient is being treated for a pneumonia. She also has an immunoglobulin deficiency and recently diagnosed lung cancer. MEDICATION: The patient is on a combination of aztreonam and Zyvox. She also received a dose of IVIG. PHYSICAL EXAMINATION: Vital Signs: Earlier, the temperature was 102 degrees and now it is 99, pulse 83, respirations 18, blood pressure 120/60. General: This is an ill- appearing, middle-aged female. She is in no acute distress. Head, Eyes, Ears, Nose, and Throat: She can hear my spoken words and see near objects. She does not have any white coating on her tongue. Neck: No pain with movement. Lungs: Clear to auscultation. Cardiovascular: Heart rate is regular. Abdomen: Soft and not tender. Extremities: The patient has a cast on the right leg. The left leg has areas of superficial bruises. Most likely, this is because the leg rubs against the other one that has the cast on. Neurologic: The patient is awake. She can move her extremities. There is no tremor. LAB AND X-RAY: Chest x-ray shows left lower lobe infiltrate and a decrease in the vascular distention. CBC shows a white count of 9130, hemoglobin 7.8, and platelet count 475,000. Procalcitonin is 5. IgG is 554, IgA is 120. Chest x-ray shows a left lower lobe infiltrate and decreased vascular distention. ASSESSMENT AND PLAN: Patient has pneumonia, an immunoglobulin deficiency, and recently diagnosed lung cancer. My plan is to continue her with aztreonam and Zyvox. I have changed Zyvox from being given intravenously to being given orally. COMORBIDITIES: Include diabetes mellitus, gastroesophageal reflux disease, immunoglobulin deficiency, and the recently diagnosed cancer. The patient also has chronic kidney disease as well as gastroesophageal reflux disease and diabetes, and immunoglobulin deficiency. cc: Taj Quezada MD MTD[facility]
--- NOTE | 2018-08-16 17:35 | EKG Report ---
Test Performed on : 08/16/2018 5:23:27 PM Test Reason : Chest Pain Blood Pressure : / mmHG Vent. Rate : 093 BPM Atrial Rate : 093 BPM P-R Int : 152 ms QRS Dur : 086 ms QT Int : 354 ms P-R-T Axes : 063 004 042 degrees QTc Int : 440 ms Normal sinus rhythm. Normal ECG When compared with ECG of 13-AUG-2018 01:46, (Unconfirmed) No significant change was found Unconfirmed Result
[2018-08-16] MEDS ORDERED: MAALOX PLUS LIQUID PO ONE (17:42)
[2018-08-16] MEDS ORDERED: ZYVOX PO SCH (18:00)
--- NOTE | 2018-08-16 18:49 | PROGRESS NOTE ---
DATE: 08/16/2018 ADDENDUM REPORT This will be 45 minutes of ICU time. She was complaining of chest pain. She felt fine this morning, but developed some chest pain about 5:00 or 4:00 in the afternoon. There were multiple family members around. She has been treated for pneumonia and immunoglobulin deficiency and we are given the aztreonam and Zyvox. She states that the pain hurts when she breathes. She is tender along the costovertebral angle. She says this is the same kind of pain. It is tender to touch and just feels very uncomfortable. She is asking for something a little stronger for pain. She recently found evidence of early lung cancer. Dr. Simms has evaluated. She has had a CT- guided biopsy of the right lobe pulmonary nodule and it was discovered to be cancer. cc: Archie Martinez MD
--- NOTE | 2018-08-16 19:00 | PROGRESS NOTE ---
DATE: 08/16/2018 SUBJECTIVE: Ms. Foley started having chest pain I guess about 4 p.m. this afternoon and it is difficult to get history from her. She feels like it hurts when she breathes. Seems to be tender along both costovertebral angles and she says that reproduces the pain. Her EKG is unremarkable. Monitor shows she stays in sinus rhythm. We have checked some troponins and CPK and they are unremarkable. I will check another set in the morning. OBJECTIVE: Lungs: Clear to auscultation anterior and posterior. Cardiovascular: Regular rhythm and rate. Abdomen: Soft. Skin: Warm and dry. SUMMARY: Her story is that she was admitted on I think the . A 58-year-old who was recently in rehab. She had in June 2017 open reduction and internal fixation of right lower extremity tibia-fibula fracture. She presented with shortness of breath and she had previously been admitted for pneumonia and had a CT-guided right lobe nodule biopsy which turned out to be cancer. Oncology is following her. There was a right pulmonary nodule. CT-guided needle biopsy August 10. Results show adenocarcinoma. CEA was 8.1 and once patient is discharged back to baseline we are going to discuss treatment options. She came in with shortness of breath and we are treating her for what we think could be recurrent pneumonia. She seemed to be doing well this morning, felt much better. Dr. Savage Newman has been following her for her acute on chronic anemia. She had an elevated ferritin and possible iron deficiency, wanted to optimize her respiratory standpoint before we did any EGD. The pneumonia seemed to be improving. She was discussing what she wanted to do as far as the lung cancer and treatment. ASSESSMENT/PLAN: The differential diagnosis is cardiac ischemia, chest wall esophageal spasm. This seems to be most consistent with chest wall and costovertebral angle irritation, costochondritis. I am going to put her on a little bit of Solu-Medrol. I will let her take a low- dose pain medicine. There seems to be a high degree of anxiety going on as well. We will continue her other medications. We will check another set of cardiac enzymes in the morning and we will check another EKG. I am going to let her have a little bit of Ativan as well p.r.n. anxiety and see if this will help as well. cc: Archie Martinez MD
--- NOTE | 2018-08-16 19:33 | NEPHROLOGY PROGRESS NOTE ---
DATE: 08/16/2018 SUBJECTIVE: Patient is sitting up on the side of the bed. She states that her breathing is somewhat better today. OBJECTIVE: Vital Signs: Afebrile, pulse 98, respiratory rate 22, pulse 87, blood pressure 117/57, output 2.9 L. General: This is a middle-aged female sitting up on the side of the bed. She is awake and alert. No acute distress. HEENT: Normocephalic, atraumatic. Right eye fixed. Oral mucosa moist. Neck: Supple without JVD. Cardiovascular: Regular rate and rhythm without murmur or gallop. Pulmonary: She is clear bilaterally today. Abdomen: Soft with positive bowel sounds. Genitourinary: Not inspected. She is voiding. Extremities: No clubbing or cyanosis. Trace edema. Integumentary: Skin is warm and dry. LABORATORY DATA: WBC of 9.1, hemoglobin 7.8. I do not have any creatinine. ASSESSMENT AND PLAN: 1. Acute on chronic kidney disease. Renal function as of yesterday really had not changed. Her urine output remains acceptable. We will reduce her Lasix to once daily. It appears she has probably gotten maximum benefit. 2. Early stage lung cancer. It appears that she is going to be a poor surgical candidate or chemotherapy candidate. She may have a PET scan done, and she will follow up with primary oncology. 3. Recurrent pneumonia on aztreonam and Zyvox. 4. Fluid volume. Again, she is in negative territory. She has made a decision to pursue a conservative care plan without chemotherapy. Considering a short course of XRT vs palliative care only. Dictated by TAYLOR Harris for Eben Pena MD Face to face encounter, data reviewed, discussed with Lan De La Garza on 08/16/18. I agree with the above assessment and plan of care. cc: Eben Pena MD [facility]
[2018-08-16] MEDS ORDERED: INSULIN PEN NEEDLES ONE (21:14)
[2018-08-16] MEDS: SOLU-MEDROL IV SCH (21:29)
[2018-08-16] MEDS: AYR NASAL SPRAY NAS SCH (21:30)
[2018-08-16] MEDS: LIPITOR PO SCH (21:30)
[2018-08-16] MEDS: ATIVAN PO SCH (21:30)
[2018-08-16] MEDS: NEURONTIN PO SCH (21:31)
[2018-08-16] MEDS: DULCOLAX PR SCH (21:32)
--- NOTE | 2018-08-16 21:36 | PULMONOLOGY PROGRESS NOTE ---
DATE: 08/16/2018 SUBJECTIVE: The patient is resting comfortably upon arrival. She reports her dyspnea has diminished. She had chest pain earlier today. This has resolved. OBJECTIVE: Vital Signs: Blood pressure 124/56, heart rate 93, respiratory rate 18, oxygen saturation 97% on 3 L per nasal cannula. HEENT: Pupils are equal and reactive. Oropharynx appears clear. Neck: Supple. Chest: Reveals bilateral crackles. Cardiac exam: S1, S2. Abdomen: Soft and without hepatosplenomegaly. Extremities: Without edema. LABORATORIES: Immunoglobulin levels are slightly reduced at 552. White blood count 9.13, hemoglobin 7.8, platelet count 475,000. IMPRESSION: A 58-year-old with: 1. Recently diagnosed lung cancer. 2. Chronic hypoxemic respiratory failure. 3. Recurrent pneumonia. 4. Immunoglobulin deficiency. 5. Diabetes mellitus. 6. Gastroesophageal reflux disease. 7. Chronic kidney disease. 8. History of tobacco use. The patient's immunoglobulin has been replaced and she has had symptomatic improvement. RECOMMENDATIONS: 1. Continue antibiotics as outlined per Dr. Taj Quezada. 2. Continue bronchial hygiene. 3. Attempt to balance intake and output. 4. Follow up chemistries and chest x-ray tomorrow. cc: Homer Gonzalez MD
--- NOTE | 2018-08-16 23:48 | PROVIDER PROGRESS NOTE ---
Progress Note SUBJECTIVE: No acute overnight events. Patient reports SOB. No CP, abdominal pain, rectal bleeding, melena, N/V. She is not interested in EGD at this time. OBJECTIVE: Last Vital Signs Temp 98.3 F 08/16/18 20:00 Pulse 93 H 08/16/18 20:00 Resp 18 08/16/18 20:00 BP 124/56 08/16/18 20:00 Pulse Ox 96 08/16/18 21:23 Height 5 ft 3 in Weight 178 lb GEN: awake, alert; mild respiratory distress HEENT: anicteric, MMM CV: RRR, no murmurs PULM: increased WOB, decreased BS at bases; no wheezing; breathing with pursed lips ABD: soft NT/ND, NABS EXT: no cce NEURO: nonfocal LABS: 08/16/18 08:15 WBC 9.13 Hgb 7.8 L Plt Count 475 H ASSESSMENT AND PLAN: Ms. Diana Foley is a 58-year-old woman with multiple comorbidities who presents to the gastroenterology service with acute on chronic anemia. Patient has longstanding BRETT. No overt bleeding. Hgb appropriately responded to transfusion. She is refusing endoscopic evaluation and respiratory status is tenuous. 1. Anemia: probably multifactorial: continue trend H/H daily, transfusion goal 7-8; continue iron replacement 2. Pneumonia. She is currently on antibiotics as per primary team. Pulmonary is following. 3. Lung cancer. defer management to oncology. 4. Acute on chronic kidney disease. Defer management to primary team. 5. Hyponatremia, noted. 6. Diabetes, on long-acting and sliding scale insulin. 7. Chronic constipation. The patient is on lactulose, Colace, suppository. 8. Hypertension, controlled on medications
[2018-08-17] MEDS: TYLENOL PO PRN (00:38)
[2018-08-17] MEDS: XOPENEX NEB INH SCH ×4 (03:12→21:54)
[2018-08-17] MEDS: ATROVENT NEB INH SCH ×4 (03:12→21:55)
[2018-08-17] MEDS: APRESOLINE PO SCH ×3 (04:46→21:12)
[2018-08-17] MEDS: AZACTAM 0.5 GM in NS 50 ML IV SCH ×3 (05:03→15:48)
[2018-08-17] MEDS: SOLU-MEDROL IV SCH ×2 (05:03→15:48)
[2018-08-17 05:42] LABS: EOS# 0.01 X1000 (0.0-0.7); EOS% 0.1 % (0.0-10.0); HEMATOCRIT 26.3 % (37.0-47.0); HEMOGLOBIN 8.5 g/dL (12.0-16.0); IMM GRAN# 0.02 X1000 (0.0-0.04); IMM GRAN% 0.2 % (0.0-0.5); LYMPH# 0.28 X1000 (1.2-3.4); LYMPH% 2.8 % (20.5-51.1); MCH 27.8 PG (27-31); MCHC 32.3 g/dL (33-37); MCV 85.9 FL (81-99); MONO# 0.21 X1000 (0.11-0.59); MONO% 2.1 % (1.7-9.3); MPV 9.3 FL (7.4-10.4); NEUT# 9.55 X1000 (1.4-6.5); NEUT% 94.8 % (42.2-75.2); PLT 493 X1000 (130-400); RBC 3.06 XMIL (4.2-5.4); RDW 14.4 % (11.5-14.5); WBC 10.07 X1000 (4.8-10.8)
[2018-08-17] MEDS: HUMULIN R SUBQ SCH ×5 (06:10→23:37)
[2018-08-17 06:11] LABS: LYMPHS 3 % (21-51); MONO 2 % (1-9); SEGS 95 % (42-75)
[2018-08-17 06:40] LABS: ALB/GLOB RATIO 0.8; ALBUMIN 2.6 g/dL (3.5-5.0); CALCIUM 8.5 mg/dL (8.8-10.2); CREATININE 3.5 mg/dL (0.5-0.9); MAGNESIUM 2.2 mg/dL (1.5-2.7); POTASSIUM 4.6 mmol/L (3.5-5.1); TOTAL BILIRUBIN 0.18 mg/dL (0.20-1.00); TOTAL PROTEIN 5.8 g/dL (6.3-8.3)
--- NOTE | 2018-08-17 07:07 | Diag Imaging Result Doc PS360 ---
EXAM: CHEST-PORTABLE 08/17/2018 HISTORY: abnormal exam TECHNIQUE: AP portable at 0434 COMMENT: The left heart border is more obscured than on the previous study of 08/15/2018 and there is denser opacity in the left base. The inspiration is also less optimal. IMPRESSION: Atelectasis and/or pneumonia in the lingula and left lower lobe. Electronically signed by Kevin Waldron 08/17/2018 7:05 AM
--- NOTE | 2018-08-17 07:49 | EKG Report ---
Test Performed on : 08/17/2018 07:33:12 AM Test Reason : CP Blood Pressure : / mmHG Vent. Rate : 083 BPM Atrial Rate : 083 BPM P-R Int : 168 ms QRS Dur : 084 ms QT Int : 396 ms P-R-T Axes : 057 -15 040 degrees QTc Int : 465 ms Normal sinus rhythm. Normal ECG When compared with ECG of 16-AUG-2018 17:23, No significant change was found Unconfirmed Result
--- NOTE | 2018-08-17 08:12 | INFECTIOUS DISEASE PROGRESS NO ---
DATE: 08/17/2018 PRESENT ILLNESS: The patient has pneumonia, an immunoglobulin deficiency, and recently diagnosed lung cancer. MEDICATIONS: The patient has been on Zyvox and aztreonam now for 4 days. She has also received a dose of IVIG for her immunoglobulin deficiency. PHYSICAL EXAMINATION: Vital Signs: Temperature is 97.6 degrees, pulse 97, respirations 14, blood pressure 103/43. General: This is an ill-appearing, middle-aged female. She is in no acute distress. Head, Eyes, Ears, Nose, and Throat: She can hear my spoken words and see near objects. She does not have any white patches on her tongue. Neck: She does not have any pain when she moves her neck. Lungs: Clear to auscultation. Cardiovascular: Heart rate is regular. Abdomen: Soft and nontender. Extremities: The patient has a cast on the right leg. The left leg has some bruising, most likely due to coming in contact with the cast. Neurologic: The patient was sleeping but she is arousable. She can move her extremities. There is no tremor. LAB AND X-RAY: Chest x-ray shows left lower lobe pneumonia/atelectasis. The patient's procalcitonin is 5. The CBC shows a white count of 10,070, hemoglobin 8.5, and platelet count 493,000. Creatinine is 3.5. GFR is 14. IgG level was 552 prior to receiving IVIG. The IgA level is 115. ASSESSMENT AND PLAN: I think the patient has pneumonia. I am planning on continuing her antibiotics. The nurse reported to me that they were not able to get intravenous access with a peripheral intravenous. Therefore, I am going to go ahead and request to have a peripherally inserted central catheter put in. COMORBIDITIES: Include an immunoglobulin deficiency, lung cancer, end-stage renal disease, gastroesophageal reflux disease, and diabetes mellitus. cc: Taj Quezada MD
[2018-08-17 08:13] LABS: INR 1.03; PROTIME 14.4 Seconds (11.0-16.0)
[2018-08-17] MEDS ORDERED: ATIVAN PO SCH (09:00)
[2018-08-17] MEDS: ZYVOX PO SCH ×2 (09:11→21:12)
[2018-08-17] MEDS: TRANDATE PO SCH ×2 (09:11→21:11)
[2018-08-17] MEDS: ICAR-C PO SCH ×2 (09:11→21:12)
[2018-08-17] MEDS: NORVASC PO SCH ×2 (09:11→21:11)
[2018-08-17] MEDS: FOLIC ACID PO SCH (09:11)
[2018-08-17] MEDS: ATIVAN PO SCH ×3 (09:11→21:12)
[2018-08-17] MEDS: COLACE PO SCH ×2 (09:11→21:11)
[2018-08-17] MEDS: BASAGLAR SUBQ SCH ×2 (09:11→21:13)
[2018-08-17] MEDS: FLONASE NAS SCH (09:12)
[2018-08-17] MEDS: HEPARIN SUBQ SCH ×2 (09:12→21:13)
--- NOTE | 2018-08-17 09:58 | PROGRESS NOTE ---
DATE: 08/17/2018 SUBJECTIVE: Ms. Foley is feeling better today. The chest pain is much better. She was sitting up, eating breakfast. Nasal cannula in place. Basically, we had a good conversation but she does not want to pursue treatment for her lung cancer. She does not want to pursue chemotherapy. She does want to finish out the IV antibiotics for her pneumonia. She, at this point, would like to pursue going to rehab. PHYSICAL EXAMINATION: Temperature 98.1 degrees, pulse 80, respirations 20, blood pressure 131/60. Pupils are equal and round. Lungs are clear in all lung chin. Cardiovascular Examination: Regular rhythm and rate without murmur or S3. Urine output 4 L. LAB: White count 10,070, hematocrit 26, hemoglobin 8.5, platelet count 493,000. Chemistry: Sodium 130, potassium 4.6, chloride 90, BUN 75, creatinine 3.5 and that has bumped up a little bit from 3.3. Blood sugars 260, 111, 186. ASSESSMENT AND PLAN: 1. Patient with pneumonia and immunoglobulin deficiency, recently diagnosed with lung cancer. She is allergic to penicillin so we are continuing the Zyvox and aztreonam. She has received a dose of immunoglobulin. Need to continue these antibiotics. Continue her intravenous antibiotics. 2. Lung cancer. At this point, she does not want to pursue treatment. 3. End-stage renal disease. Continue to watch her serum creatinine. 4. Gastroesophageal reflux. Continue proton pump inhibitors. 5. Diabetes mellitus type 2. Continue to follow sugars. They appear fairly well controlled. 6. Her recently diagnosed lung cancer has been a hard decision for her but it appears that she is pretty adamant that she does not want to pursue treatment. cc: Archie Martinez MD
[2018-08-17] MEDS: LACTULOSE PO SCH ×2 (10:15→21:14)
[2018-08-17] MEDS ORDERED: NS 250 ML ONE (10:50)
[2018-08-17] MEDS: SYMBICORT 160/4.5 MICROGM INHALER INH SCH ×2 (11:19→19:17)
--- NOTE | 2018-08-17 13:41 | HEMO/ONC PROGRESS NOTE ---
DATE: 08/17/2018 SUBJECTIVE: Patient continues to feel better. The patient says she has refused to proceed with any further treatment for her lung cancer. Dr. Rosales did have a lengthy discussion with patient and family yesterday. OBJECTIVE: Vital signs: Temperature of 98.1 degrees, heart rate 82, respiratory rate 20, blood pressure 131/67, 97% on nasal cannula. General: Patient is awake, lying in bed, no acute distress noted. HEENT: Anicteric. Pupils PERRLA. Mucous membranes moist. Cardiovascular: S1, S2. Regular rate and rhythm. Abdomen: Soft, nontender. Bowel sounds present in all 4 quadrants. Neurologic: Alert and oriented x3. No focal deficits noted. LABORATORY DATA: White blood cell count is 10.07, hemoglobin 8.5, hematocrit 26.3, platelets are 493. ASSESSMENT AND PLAN: 1. Right lung adenocarcinoma: Dr. Rosales had a lengthy discussion with family yesterday about treatment. The patient still continues to not want to receive any treatment for her lung cancer. The patient says she just wants to go to rehab and get better and not do any treatment. Continue to monitor. 2. Pneumonia. Continue recommendations per primary medical team and Pulmonology. 3. Anemia: Hemoglobin and hematocrit continue to improve. Continue to monitor. Transfuse as needed. 4. End-stage renal disease. Continue to watch creatinine closely. Plan of care discussed with Dr. Rosales. Dictated by TAYLOR Fernández for Ld Rosales MD Patient seen and examined. She is very reluctant to therapy though it would be very simple to treat her rather than to suffer through cancer. Explained this multiple times to the patient as well as multiple family members were present for a lengthy discussion yesterday. At this point no further recommendations. I have left it up to her to follow up in the clinic if she decides that she wants further care for this. I will sign off. Please call with questions. Ld Rosales M.D. cc: TAYLOR Fernández MD [facility]
--- NOTE | 2018-08-17 13:51 | GASTROENTEROLOGY PROGRESS NOTE ---
DATE: 08/17/2018 PRIMARY DOCTOR: Art Cueto MD SUBJECTIVE: Patient resting in her bed. She is eating her breakfast. She had a formed hard stool today. She was able to eat 50% of meal today. She denies any fevers, rigors, or chills. She denies any nausea/vomiting, vomiting blood, or passing blood in the stools. In the past, she has been spitting up or coughing up some blood. OBJECTIVE: Vitals: Temperature of 98.1, pulse rate of 82, respiratory rate 20, blood pressure 131/60, saturating 92% on 3 L nasal cannula. Weight: Body weight of 177 pounds 11.2 ounces. BMI of 31.5 kg/m2. General: The patient is moderately built and moderately nourished, sitting in bed, in no acute distress. HEENT: Pale conjunctivae. No icterus. Nasal cannula in place. Neck: Supple. Abdomen: Protuberant. No guarding, no rebound. Extremities: No cyanosis, clubbing. She has a cast on her right leg. Neurologic: She is awake, alert, oriented to time, place, and person. DIAGNOSTIC STUDIES: Hemoglobin 8.5, hematocrit 26.3, white count of 10.07, platelet count 493,000. INR 1.03, PT of 14.4. Sodium 130, potassium 4.6, chloride 94, bicarbonate of 19, anion gap 7, BUN of 75, creatinine 3.5, glucose of 210, calcium is 8.5, magnesium 2.2, total bilirubin is 0.18, AST 33, ALT 21, alkaline phosphatase 157, total protein is 5.2, albumin of 2.6. Protein electrophoresis showed abnormal beta globin pattern. No monoclonal band identified. Stool for occult blood was positive. Blood culture negative at 48 hours from 08/12/2018. Urine culture showed no growth. IMPRESSION AND PLAN: 1. Chronic anemia. No evidence of any active gastrointestinal bleeding. She has a positive Hemoccult. I have offered her EGD and colonoscopy. The patient does not want to pursue any endoscopic workup at this time. We will continue to treat conservatively. We will transfuse as needed. We will start on iron C b.i.d. and multivitamin once daily. 2. Pneumonia. She is on antibiotics per primary team. 3. Lung cancer. Per Oncology. 4. Acute on chronic kidney disease. Per the primary team. 5. Diabetes, uncontrolled. She is on sliding scale insulin. 6. Chronic constipation. She is on lactulose and Colace and suppository. 7. Deep vein thrombosis (DVT) prophylaxis with heparin. 5000 units q.12 h. Above plan was discussed with the patient, and all questions were answered. Please call us with any further questions. cc: MD Art Kim MD
[2018-08-17] MEDS: PROTONIX IV SCH ×2 (15:39→21:09)
[2018-08-17] MEDS: LASIX IV SCH (15:48)
--- NOTE | 2018-08-17 19:18 | NEPHROLOGY PROGRESS NOTE ---
DATE: 08/17/2018 SUBJECTIVE: She is resting in bed. She had some problems with anxiety overnight. Better now. OBJECTIVE: Vital Signs: Blood pressure 135/62, heart rate 84, respirations 22, afebrile. Intake 1.3 L. Output 2 L. General: No acute distress. Skin: Warm and dry. Conjunctivae are pink. Neck: Neck veins are not distended. Heart: Regular. No gallops. Lungs: Equal few scattered crackles. Abdomen: Soft, nontender. Bowel sounds present. Extremities: No edema, clubbing or cyanosis. IMPRESSION: 1. Hyponatremia. Stable at 130. 2. Acute kidney injury overlying chronic kidney disease. Baseline creatinine approximately 2. BUN and creatinine are slightly higher today, but she has been in negative fluid balance. She does not meet criteria for dialysis. She has made herself DNR and has declined any further therapy and certainly is not interested in dialysis. No changes from my perspective. cc: Eben Pena MD
[2018-08-17] MEDS ORDERED: HUMULIN R SUBQ ONE (20:38)
[2018-08-17] MEDS: NEURONTIN PO SCH (21:11)
[2018-08-17] MEDS: AYR NASAL SPRAY NAS SCH (21:12)
[2018-08-17] MEDS: LIPITOR PO SCH (21:12)
[2018-08-17] MEDS: DULCOLAX PR SCH (21:14)
--- NOTE | 2018-08-17 21:40 | PULMONOLOGY PROGRESS NOTE ---
DATE: 08/17/2018 SUBJECTIVE: The patient reports she feels a little better. Her dyspnea has diminished. She has a dry cough. OBJECTIVE: Vital Signs: The patient has been afebrile for the last 24 hours. Blood pressure 117/76, heart rate 83, respiratory rate 22, oxygen saturation 100%. HEENT: Pupils are equal and reactive. Oropharynx is clear. Neck: Supple. Chest: Reveals crackles in the lung bases. Cardiac: S1, S2. Abdomen: Obese and soft. Extremities: Reveal trace edema. LABORATORIES: Blood sugars remain greater than 450, BUN 75, creatinine 3.5. Chest x-ray reveals increased density in the lingula. IMPRESSION: A 58-year-old with: 1. Recent diagnosis of lung cancer, which has not yet been treated. 2. Chronic hypoxemic respiratory failure. 3. Immunoglobulin deficiency, status post replacement. 4. Recurrent pneumonia. 5. Diabetes mellitus. 6. Acute on chronic kidney disease. 7. Gastroesophageal reflux. 8. History of tobacco use. RECOMMENDATIONS: 1. Continue current antibiotic regimen. 2. Continue bronchial hygiene. 3. I agree with increasing insulin in an attempt to better control her sugars. Would begin weaning steroids as tolerated. 4. Prognosis is poor. The patient does not want aggressive interventions if she has acute respiratory decline or a cardiac arrest. cc: Homer Gonzalez MD
[2018-08-18] MEDS: SOLU-MEDROL IV SCH ×4 (00:16→23:45)
[2018-08-18] MEDS: AZACTAM 0.5 GM in NS 50 ML IV SCH ×4 (01:06→23:45)
[2018-08-18] MEDS: NORCO-5 PO PRN ×2 (01:12→07:28)
[2018-08-18] MEDS: ATROVENT NEB INH SCH ×4 (02:55→22:50)
[2018-08-18] MEDS: XOPENEX NEB INH SCH ×4 (02:55→22:50)
[2018-08-18] MEDS: LASIX IV SCH ×2 (04:26→16:08)
[2018-08-18] MEDS: APRESOLINE PO SCH ×3 (04:26→20:36)
[2018-08-18] MEDS ORDERED: CALMOSEPTINE OINTMENT TOP PRN (05:10)
[2018-08-18] MEDS: HUMULIN R SUBQ SCH ×5 (06:16→20:36)
[2018-08-18] MEDS ORDERED: NOVOLOG MIX 70/30 SUBQ SCH (09:00)
[2018-08-18] MEDS: FOLIC ACID PO SCH (09:18)
[2018-08-18] MEDS: PROTONIX IV SCH ×2 (09:19→20:47)
[2018-08-18] MEDS: ZYVOX PO SCH ×2 (09:19→20:36)
[2018-08-18] MEDS: ATIVAN PO SCH ×3 (09:19→20:36)
[2018-08-18] MEDS: ICAR-C PO SCH ×2 (09:19→20:36)
[2018-08-18] MEDS: LACTULOSE PO SCH ×2 (09:19→20:35)
[2018-08-18] MEDS: COLACE PO SCH ×2 (09:19→20:36)
[2018-08-18] MEDS: NORVASC PO SCH ×2 (09:19→20:36)
[2018-08-18] MEDS: HEPARIN SUBQ SCH ×2 (09:19→20:38)
[2018-08-18] MEDS: BASAGLAR SUBQ SCH ×2 (09:20→20:35)
[2018-08-18] MEDS: FLONASE NAS SCH (09:20)
[2018-08-18] MEDS: TRANDATE PO SCH ×2 (09:21→20:36)
--- NOTE | 2018-08-18 09:31 | PROGRESS NOTE ---
DATE: 08/18/2018 SUBJECTIVE: Ms. Foley was sitting up eating breakfast. She had described a shooting pain in her posterior right shoulder blade very transient, states that the anterior chest pain and rib discomfort is better. OBJECTIVE: Temperature 97.6, pulse 80, respirations 16, blood pressure 129/53. No distended neck veins. Lungs are clear anterior and posterior. Cardiovascular: Regular rhythm and rate without murmur or S3. No sign of pedal edema. I do not see urine output recorded but no troubles with her bowels or with urination by report. ASSESSMENT AND PLAN: 1. Recent diagnosis of lung cancer, which has not been treated, and she is not wanting to pursue treatment at this point. 2. Hypoxemic respiratory failure. This is improved. 3. Immunoglobulin deficiency status post replacement. 4. Recurrent pneumonia. Will continue present antibiotics. 5. Diabetes mellitus type 2. 6. [id number] kidney disease. Notes hematocrit, she does have an anemia that is normocytic. Hematocrit is stable at 26, hemoglobin 8.5, white count is 10,070, platelet count is 493,000. Blood sugars are running high in the 500s. 7. She does have end-stage renal disease, I believe it is probably stage 4. We will continue to follow her electrolytes, check some more in the morning. Will continue with physical therapy. She is followed by Dr. Quezada and she is presently on Zyvox and aztreonam, which she has been on, this will be the fifth day. She received 1 dose of IV immunoglobulin. So, continue physical therapy. Her plan is to try and go to rehab. REVIEW OF HER ORDERS: She has occupational therapy and physical therapy involved, and I do not see any change in her orders at this point. She is getting heparin 5000 units subcutaneous q.12, Zyvox 600 mg p.o. q.12, and budesonide-formoterol 2 puffs b.i.d., Colace 100 mg b.i.d., and folic acid 0.4 mg a day, Lasix 80 mg IV q.12, Neurontin 300 mg p.o. at bedtime, Apresoline 50 mg q.8 hours, and insulin Glargine 25 units subcutaneous b.i.d., ipratropium bromide 0.5 mg q.6 hours, iron carbonyl ascorbic acid 1 b.i.d., Trandate 200 mg b.i.d., lactulose 30 mL b.i.d., Ativan 0.5 mg which I think she is getting 3 times a day, and she has Ativan as needed, methylprednisone 40 mg IV q.8 hours. I am treated for costochondritis and it seems to be doing better with the Solu- Medrol. Protonix 40 mg IV q.12. I think her sugar is still running pretty high and of course with the Solu-Medrol they are running higher, so I may put her on some 70/30 twice a day Humulin, and she needs to get her sugars down a little bit. cc: Archie Martinez MD
--- NOTE | 2018-08-18 10:29 | INFECTIOUS DISEASE PROGRESS NO ---
DATE: 08/18/2018 PRESENT ILLNESS: The patient has pneumonia, an immunoglobulin deficiency, and more recently she was diagnosed as having lung cancer. MEDICATIONS: The patient has been for 5 days on a combination of Zyvox which is now p.o. and IV aztreonam. The patient also received an infusion of IVIG for her immunoglobulin deficiency. PHYSICAL EXAMINATION: Vital Signs: Temperature is 97.6 degrees, pulse 80, respirations 16, blood pressure 129/53. General: This is an ill-appearing middle-aged female. She is in no acute distress. Head/eyes/ears/nose/throat: She can hear my spoken words and see near objects. She does not have any white coating on her tongue. Neck: She does not have any pain when she turns her neck. Lungs: Clear to auscultation. Cardiovascular: Heart rate is regular. Abdomen: Soft and nontender. Extremities: Patient has a cast on her right leg. There are some bruises on her left leg, which are most likely due to coming in contact with the cast. Neurologic: The patient is arousable today. She is sitting up in bed. She can move her extremities. There is no tremor. LAB AND X-RAY: There is no new lab or x-ray for today. ASSESSMENT AND PLAN: The patient has pneumonia. I plan to continue her current antibiotics. COMORBIDITIES: The patient has an immunoglobulin deficiency, lung cancer, end-stage renal disease, gastroesophageal reflux disease, and diabetes mellitus. cc: Taj Quezada MD
[2018-08-18] MEDS: SYMBICORT 160/4.5 MICROGM INHALER INH SCH ×2 (14:55→22:50)
--- NOTE | 2018-08-18 17:00 | PULMONOLOGY PROGRESS NOTE ---
DATE: 08/18/2018 SUBJECTIVE: The patient reports she feels a little better today. Her appetite remains poor. OBJECTIVE: Vital Signs: The patient has been afebrile for the last 24 hours. Blood pressure 117/52, heart rate 73, respiratory rate 16, oxygen saturation 98% on 3 L per nasal cannula. HEENT: Pupils are equal and reactive. Oropharynx appears clear. Neck: Supple. Chest: Reveals coarse crackles bilaterally. Cardiac: S1 and S2. Abdomen: Soft. Extremities: Reveal a cast on the right lower extremity. LABORATORIES: Glucoses remain elevated, but no CBC or chemistry today. IMPRESSION: A 58-year-old with: 1. Recent diagnosis of lung cancer, which appears to be early stage. 2. Chronic hypoxemic respiratory failure. 3. Immunoglobulin deficiency, recurrent pneumonia. 4. Diabetes mellitus with uncontrolled sugars. 5. Acute on chronic kidney disease. 6. Gastroesophageal reflux disease. 7. History of tobacco use. RECOMMENDATIONS: 1. Continue current antibiotic regimen. 2. Continue bronchial hygiene. 3. Encourage patient to consider stereotactic body radiotherapy if she does not want to pursue chemotherapy or surgical intervention. (She would be a poor surgical candidate.) 4. Gastroesophageal reflux precautions. 5. Do Not Resuscitate level 1/Allow Natural noted. cc: Homer Gonzalez MD
[2018-08-18] MEDS: AYR NASAL SPRAY NAS SCH (20:35)
[2018-08-18] MEDS: NEURONTIN PO SCH (20:36)
[2018-08-18] MEDS: LIPITOR PO SCH (20:36)
[2018-08-18] MEDS: DULCOLAX PR SCH (20:48)
[2018-08-18] MEDS: NOVOLOG MIX 70/30 SUBQ SCH (21:25)
--- NOTE | 2018-08-18 23:58 | PROVIDER PROGRESS NOTE ---
Progress Note SUBJECTIVE: No acute overnight events. No N/V/F, abdominal pain, or rectal bleeding. Tolerating PO. Patient reports some improvement in SOB. She is not interested in EGD/colonoscopy at this time. Awaiting rehab placement OBJECTIVE: Last Vital Signs Temp 97.6 F 08/18/18 23:09 Pulse 78 08/18/18 23:09 Resp 15 08/18/18 23:09 BP 133/60 08/18/18 23:09 Pulse Ox 99 08/18/18 23:09 Height 5 ft 3 in Weight 185 lb 3.2 oz GEN: awake, alert; NAD HEENT: anicteric, MMM CV: RRR, no murmurs PULM: CTAB, no wheezing ABD: soft NT/ND, NABS EXT: no cce NEURO: nonfocal ASSESSMENT AND PLAN: Ms. Diana Foley is a 58-year-old woman with multiple comorbidities who presents to the gastroenterology service with acute on chronic anemia. Patient has longstanding BRETT. No overt bleeding. Hgb on last check stable. Patient not interest in EGD/colonoscopy 1. Anemia: probably multifactorial: continue trend H/H daily, transfusion goal 7-8; continue iron replacement 2. Pneumonia. She is currently on antibiotics as per ID. Pulmonary is following as well. 3. Lung cancer. defer management to oncology. 4. Acute on chronic kidney disease. Defer management to primary team. 5. Hyponatremia, noted. 6. Diabetes, on long-acting and sliding scale insulin. 7. Chronic constipation. The patient is on lactulose, Colace, suppository. 8. Hypertension, controlled on medications Will sign off. Please call with questions
[2018-08-19] MEDS: SOLU-MEDROL IV SCH ×3 (00:30→20:12)
[2018-08-19] MEDS: ATROVENT NEB INH SCH ×4 (04:00→21:24)
[2018-08-19] MEDS: XOPENEX NEB INH SCH ×4 (04:01→21:24)
--- NOTE | 2018-08-19 04:02 | PROVIDER DOCUMENTATION ---
This chart was entered by Sonia Barrera Scribe, acting as scribe for Kevin Dykes DO. HPI-Fever - General Chief Complaint: Possible Sepsis-D Stated Complaint: ams Time Seen by Provider: 08/12/18 22:03 Source: patient Allergies/Adverse Reactions: Patient Allergies Allergy/AdvReac Type Severity Reaction Status Date / Time albuterol sulfate * Allergy Intermediate RASH ON Verified 08/13/18 00:52 [From ProAir HFA] CHEST Penicillins Allergy Intermediate HIVES Verified 08/13/18 00:52 prochlorperazine edisylate * Allergy Intermediate HIVES Verified 08/13/18 00:52 [From Compazine] prochlorperazine maleate * Allergy Intermediate HIVES Verified 08/13/18 00:52 [From Compazine] Home Medications: Home Medication List Medication Instructions Recorded Confirmed Last Taken Type ATORVAstatin [Lipitor] 40 mg PO DAILY 02/24/18 08/13/18 07/04/18 History Gabapentin 300 mg PO BID #0 02/26/18 08/13/18 07/26/18 Rx Labetalol [Trandate] 200 mg PO BID #60 tab 02/26/18 08/13/18 07/26/18 09:00 Rx Ranitidine [Zantac] 150 mg PO BID tablet 02/26/18 08/13/18 07/26/18 Rx Amlodipine [Norvasc] 5 mg PO BID tablet 07/14/18 08/13/18 07/26/18 09:00 Rx Docusate Sodium [Colace] 100 mg PO BID capsule 07/14/18 08/13/18 07/26/18 09:00 Rx Hydralazine [Apresoline] 50 mg PO Q8H tablet 07/14/18 08/13/18 07/26/18 14:00 Rx Iron Carbonyl/Ascorbic Acid 1 each PO BID #60 tablet 07/14/18 08/13/18 07/26/18 09:00 Rx [Icar-C] Lactulose 30 ml PO BID udc 07/14/18 08/13/18 07/26/18 10:00 Rx Fluticasone 50 Mcg Nasal [place] 1 inh ZANE QAM 07/26/18 08/13/18 07/26/18 09:00 History [Flonase] Sodium Chloride [Saline Nasal 1 spr ZANE QHS 07/26/18 08/13/18 07/25/18 History [place]] Acetaminophen [Tylenol] 650 mg PO Q6H PRN PRN tab 08/11/18 08/13/18 Unknown Rx Bisacodyl [Dulcolax] 10 mg NV QHS supp 08/11/18 08/13/18 Unknown Rx Budesonide/Formoterol Inhaler 2 puff INH RTBID inhaler 08/11/18 08/13/18 Unknown Rx [Symbicort 160/4.5 Microgm Inhaler] Folic Acid 0.4 mg PO DAILY tab 08/11/18 08/13/18 Unknown Rx Furosemide [Lasix] 40 mg PO DAILY tab 08/11/18 08/13/18 Unknown Rx Insulin Glargine [Basaglar] 25 unit SUBQ BID insuln.pen 08/11/18 08/13/18 Unknown Rx Lidocaine 5% Patch [Lidoderm] 1 ea TOP DAILY patch 08/11/18 08/13/18 Unknown Rx Na Phos,M-B/Na Phos,Di-Ba [Fleet 133 ml NV HS PRN PRN enema 08/11/18 08/13/18 Unknown Rx Enema] - History of Present Illness-Fever Nature of Presenting Problem: 58 yof c/o in rehab w/fracture rt lower ex. around 1900, became sob, febrile and arrived to er via ems. pt has mild cough that isn't productive. pt has rt toes missing. pt reports no pain. Review of Systems - Adult - REVIEW OF SYSTEMS - ADULT Constitutional: reports: see HPI, fever (103.3). denies: chills, fatique, night sweats Eyes: reports: no symptoms reported Ears, Nose, Mouth & Throat: reports: no symptoms reported Cardiovascular: reports: no symptoms reported Respiratory: reports: see HPI, cough, shortness of breath. denies: excessive sputum production, hemoptysis, wheezing Gastrointestinal: reports: no symptoms reported Genitourinary: reports: no symptoms reported Musculoskeletal: reports: no symptoms reported Integumentary: reports: no symptoms reported Neurological: reports: no symptoms reported Psychiatric: reports: no symptoms reported Endocrine: reports: no symptoms reported Hematologic/Lymphatic: reports: no symptoms reported Allergic/Immunologic: reports: no symptoms reported All Other Systems: Reviewed and Negative Past History - Adult - PAST MEDICAL HISTORY-ADULT Review of Records: reports: Old Records Reviewed, Nursing Assessment Review, Medications Reviewed, Social history reviewed & non-contributory. Major Childhood Illnesses: reports: denies history Cardiovascular: reports: HTN, hyperlipidemia Respiratory: reports: cancer (pre-cancerous cells) Gastrointestinal: reports: GERD Obstetrical/Gynecological: reports: denies history Genitourinary: reports: denies history Musculoskeletal: reports: denies history Neurological: reports: denies history Psychiatric: reports: anxiety, depression Endocrine/Immune: reports: Diabetes Other Conditions: reports: denies history - PRIOR SURGERIES/PROCEDURES Surgical/Procedure History: reports: other (not contributory) - PRIOR HOSPITALIZATIONS Prior Hospitalizations: reports: for other non-related - IMMUNIZATION STATUS Childhood Immunizations: See Nurse Assessment Flu Vaccine: See Nurse Assessment - FAMILY HISTORY Family History: other (not contributory) - SOCIAL HISTORY Smoking: other (former) Substance Use: none/never Physical Exam-General - PHYSICAL EXAM-ADULT Initial Vital Signs Reviewed: Yes - CONSTITUTIONAL General Appearance: appears well, alert, no apparent distress - EYES Eyes: PERRL/EOMI, other (disconjugate gaze) - HEAD, EARS, NOSE, MOUTH & THROAT HENMT: normocephalic/atraumatic, moist mucous membranes, normal ENT inspection - NECK Neck: non-tender, full range of motion, supple, normal inspection - RESPIRATORY Respiratory: chest non-tender, lungs clear, normal breath sounds, no pleuratic chest pain, no respiratory distress, no accessory muscle use. negative: respiratory distress, decreased breath sounds, crackles - CARDIOVASCULAR Cardiovascular: normal peripheral pulses, regular rate, rhythm - GASTROINTESTINAL (ABDOMEN) Abdominal Exam: normal bowel sounds, non tender, distended (slight). negative: soft, rebound, tenderness - LYMPHATIC Lymphatic: no adenopathy - MUSCULOSKELETAL Back Exam: normal inspection, no CVA tenderness, no vertebral tenderness Extremity: normal range of motion, non-tender, normal inspection, other (amp of rt toes, and cast on rt lower ex). negative: calf tenderness, erythema, inflammation Peripheral Pulses: radial (R): 2+, radial (L): 2+ - SKIN Integumentary: normal color, normal turgor, warm/dry - NEUROLOGIC Neurologic: global coordinator II-XII nml as tested, grossly normal, no motor/sensory deficits - PSYCHIATRIC Psych/Mental Status: normal mood/affect, normal thought content, normal thought process, oriented x 3 Progress - PLAN OF CARE/RESULTS Progress/Plan/Lab Results: Orders Category Date Time Status Admit - [facility] Routine AdmDCTranf 08/13/18 02:27 Active Cardiac Monitoring DIRECTED Care 08/12/18 22:32 Completed IV Insertion ORDERED Care 08/12/18 22:32 Completed Nursing- Obtain EKG ONCE Care 08/13/18 01:41 Completed Vital Signs Order Q 4-HR ASSESS Care 08/13/18 02:27 Completed Z-Document. for Tele Applied ORDERED Care 08/13/18 02:27 Completed CHEST-1 VIEW [RAD] Stat Exams 08/12/18 22:32 Completed BLOOD CULTURE [BLDCUL] Stat Lab 08/12/18 22:51 Completed BNP [PRO B-NATRIURETIC PEPTIDE] Stat Lab 08/13/18 00:26 Completed CBC WITH DIFF [HEME] Stat Lab 08/12/18 22:20 Completed CK PROFILE [SP CHEM] Stat Lab 08/12/18 22:20 Completed COMPREHENSIVE METABOLIC PANEL [CHEM] Stat Lab 08/12/18 22:20 Completed INFLUENZA SCREEN A/B Stat Lab 08/13/18 01:44 Completed LACTATE, PLASMA [CHEM] Lab 08/13/18 02:05 Completed LACTATE, PLASMA [CHEM] Q3H Lab 08/12/18 22:20 Completed MAGNESIUM [CHEM] Stat Lab 08/13/18 00:25 Completed PROTIME WITH INR [COAG] Stat Lab 08/12/18 22:20 Completed PTT [COAG] Stat Lab 08/12/18 22:20 Completed TROPONIN T Stat Lab 08/12/18 22:20 Completed URINALYSIS W/POSS RFLX CULT [URINALYSIS] Stat Lab 08/12/18 23:58 Completed URINE CULTURE [RM] Routine Lab 08/13/18 00:38 Completed URINE MANUAL MICROSCOPIC [URINALYSIS] Stat Lab 08/12/18 23:58 Completed Acetaminophen [Tylenol] Med 08/13/18 00:14 Discontinued 650 mg .ROUTE .STK-MED ONE Acetaminophen [Tylenol] Med 08/13/18 00:23 Discontinued 650 mg PO NOW ONE Aztreonam [Azactam] 1 gm Med 08/13/18 01:36 Discontinued 0.9% Sodium Chloride Inj [Ns] 50 ml IV NOW Furosemide [Lasix] Med 08/13/18 01:36 Discontinued 40 mg IV NOW ONE Lactated Ringers Inj [Lr] 1,000 ml Med 08/12/18 22:33 Discontinued IV 999 mls/hr Lactated Ringers Inj [Lr] 1,000 ml Med 08/12/18 22:33 Discontinued IV 999 mls/hr Lactated Ringers Inj [Lr] 500 ml Med 08/12/18 22:35 Discontinued IV 999 mls/hr Levofloxacin 500 mg/D5w [Levaquin 500 mg/D5w] Med 08/12/18 23:18 Discontinued 500 mg in 100 ml IV NOW Linezolid 600 mg/D5w [Zyvox 600 mg/D5w] Med 08/13/18 01:37 Discontinued 600 mg in 300 ml IV NOW Oxygen Device Stat Oth 08/12/18 22:32 Completed Telemetry [OM.EQ] Routine Oth 08/13/18 02:27 Active EKG [EKG] Stat Ther 08/13/18 01:41 Draft Transfer/Admit Order [TRANSFER] Routine Transfer 08/13/18 01:39 Completed Result Diagrams: 08/17/18 05:14 08/17/18 05:14 - REASSESSMENT Reassessment #1 Time Reassessed: 23:40 Status: unchanged Reassessment #2 Time Reassessed: 00:18 Status: improving - XRAY 1 XRAY Study: Chest (left lower lobe infiltrate) - CONSULTS/PCP/HOSPITALIST Notification #1 *Consult/PCP/Hospitalist*: Dr Coronel Time Discussed: 00:19 Consult Disposition: Will see in ED Departure - Departure Date of Disposition Decision: 08/12/18 Time of Disposition Decision: 02:20 DIAGNOSIS: Sepsis Disposition: ADMITTED INPATIENT 09 Certified Medical Emergency: Emergent Condition: Serious - Critical Care Note This patient required my direct & personal management of CC.: Yes Total Time (mins): 43 Critical Care Statement: This patient required my direct personal management to treat or rule out processes, the absence of which, could potentiallly result in sudden, clinically significant life or limb threatening deterioration. Attestation - Physician/ RICKY Attestation Patient care was provided by Advanced Practice Provider:: No The physician spent face to face time with patient:: Yes Advanced Practice Provider documentation review:: Supervising physician onsite and consulted in the evaluation and care of this patient. The physician did have a face to face encounter with the patient. This chart was documented by the indicated scribe, (Sonia Barrera Scribe) and accurately reflects the services I performed and decisions made by , Kevin Dykes DO, as attested by the provider's signature.
[2018-08-19] MEDS: APRESOLINE PO SCH ×3 (04:15→20:12)
[2018-08-19] MEDS: LASIX IV SCH ×2 (04:15→16:07)
[2018-08-19] MEDS: PROTONIX IV SCH ×3 (04:19→20:12)
[2018-08-19] MEDS: HUMULIN R SUBQ SCH ×4 (06:16→20:22)
--- NOTE | 2018-08-19 08:15 | Diag Imaging Result Doc PS360 ---
EXAM: CHEST-PORTABLE - 08/19/2018 HISTORY: abnormal exam TECHNIQUE: Portable chest COMPARISON: 08/17/2018 FINDINGS: The patient is rotated towards the right. Infiltrate on the left appears to have decreased. There is mild suprahilar infiltrate or atelectasis on the right which appears grossly stable. There is mild atelectasis at the right base. There are possibly tiny bilateral pleural effusions. There is no pneumothorax identified. Heart size appears borderline enlarged. PICC remains in place. IMPRESSION: Some apparent decrease in infiltrate on the left. Electronically signed by Kaushik Briones 08/19/2018 8:12 AM
[2018-08-19] MEDS: AZACTAM 0.5 GM in NS 50 ML IV SCH ×2 (08:46→16:07)
[2018-08-19] MEDS: BASAGLAR SUBQ SCH ×2 (08:47→20:12)
[2018-08-19] MEDS: NOVOLOG MIX 70/30 SUBQ SCH ×2 (08:47→16:09)
[2018-08-19] MEDS: LACTULOSE PO SCH ×2 (08:48→20:13)
[2018-08-19] MEDS: ICAR-C PO SCH ×2 (08:48→20:12)
[2018-08-19] MEDS: HEPARIN SUBQ SCH ×2 (08:48→20:12)
[2018-08-19] MEDS: ZYVOX PO SCH ×2 (08:48→20:11)
[2018-08-19] MEDS: ATIVAN PO SCH ×3 (08:48→20:11)
[2018-08-19] MEDS: NORVASC PO SCH ×2 (08:48→20:12)
[2018-08-19] MEDS: FOLIC ACID PO SCH (08:49)
[2018-08-19] MEDS: TRANDATE PO SCH ×2 (08:49→20:11)
[2018-08-19] MEDS: COLACE PO SCH ×2 (08:49→20:11)
[2018-08-19] MEDS ORDERED: INSULIN PEN NEEDLES ONE (08:56)
[2018-08-19] MEDS: FLONASE NAS SCH (09:27)
--- NOTE | 2018-08-19 10:57 | PROGRESS NOTE ---
DATE: 08/19/2018 SUBJECTIVE: Ms. Foley is awake. She had a good night, comfortable, breathing comfortably. No chest pain. OBJECTIVE: Vital Signs: Temperature 97.6 degrees, pulse 79, respirations 16, blood pressure 139/59. Eyes: Pupils are equal and round. Lungs: Clear in all lung chin. Cardiovascular: Regular rate without murmur or S3. Abdomen: Soft. Skin: Warm and dry. LAB: Blood sugars 264, 308, 176. Chest x-ray: Some apparent decrease in the infiltrate on the left. ASSESSMENT AND PLAN: 1. Anemia, probably multifactorial, iron deficiency. Transfusion goal is going to be hemoglobin at 7 or 8, and so we will continue her iron replacement. Her hematocrit on 08/17/2018 was 26 and hemoglobin 8.5. I will check another one in the morning. 2. Pneumonia, which is improving. Continue present antibiotics. 3. Lung cancer. At this point, she does not want to pursue any treatment. 4. Acute on chronic kidney disease, which is improved. Renal function is improved. We will check a creatinine again tomorrow, but her last creatinine was 3.5 on 08/17/2018. 5. Diabetes mellitus type 2. Continue to follow sugars. 6. Costochondritis, which is much better. 7. Chronic constipation. She is getting Colace and suppositories. 8. Hypertension. Blood pressure appears well controlled. 9. Continue physical therapy and occupational therapy. She is on: 1. Lipitor 40 mg a day. 2. Heparin 5000 units subcu q.12. 3. Zyvox 600 mg p.o. q.12. 4. Aztreonam 500 mg IV q.8. 5. Colace 100 mg b.i.d. 6. Fluticasone 1 puff each nostril daily. 7. Folic acid 0.4 mg a day. 8. Lasix 80 mg IV q.12. 9. Neurontin 300 mg at bedtime. 10. Apresoline 50 mg p.o. q.8 hours. 11. Insulin glargine 25 units subcutaneous b.i.d. 12. Insulin NovoLog 70/30, 12 units twice a day. 13. Iron/carbonyl/ascorbic acid 1 b.i.d. 14. Trandate 200 mg b.i.d. 15. Lactulose 30 mL b.i.d. 16. Methylprednisone 20 mg IV q.8 hours. Blood sugars are still running around 400, so I will decrease the methylprednisone. 17. Protonix 40 mg IV q.12. cc: Archie Martinez MD
[2018-08-19] MEDS: SYMBICORT 160/4.5 MICROGM INHALER INH SCH ×2 (11:16→21:24)
[2018-08-19] MEDS: SODIUM CHLORIDE 0.9% INJ SCH (20:12)
[2018-08-19] MEDS: LIPITOR PO SCH (20:12)
[2018-08-19] MEDS: NEURONTIN PO SCH (20:12)
[2018-08-19] MEDS: AYR NASAL SPRAY NAS SCH (20:22)
[2018-08-19] MEDS: DIFLUCAN PO SCH (22:21)
[2018-08-20] MEDS: DULCOLAX PR SCH ×2 (00:05→21:35)
[2018-08-20] MEDS: AZACTAM 0.5 GM in NS 50 ML IV SCH ×3 (00:26→16:17)
[2018-08-20] MEDS: ATROVENT NEB INH SCH ×4 (03:26→21:21)
[2018-08-20] MEDS: XOPENEX NEB INH SCH ×4 (03:27→21:21)
[2018-08-20] MEDS: LASIX IV SCH ×2 (04:14→18:10)
[2018-08-20] MEDS: APRESOLINE PO SCH ×3 (04:17→21:33)
[2018-08-20] MEDS: HUMULIN R SUBQ SCH ×3 (06:38→21:31)
[2018-08-20] MEDS ORDERED: INSULIN PEN NEEDLES ONE (07:24)
[2018-08-20] MEDS ORDERED: DIFLUCAN PO SCH (09:00)
[2018-08-20] MEDS: NOVOLOG MIX 70/30 SUBQ SCH ×2 (09:19→18:15)
[2018-08-20] MEDS: DIFLUCAN PO SCH (09:19)
[2018-08-20] MEDS: PROTONIX IV SCH ×2 (09:19→21:34)
[2018-08-20] MEDS: LACTULOSE PO SCH ×2 (09:20→21:33)
[2018-08-20] MEDS: TRANDATE PO SCH ×2 (09:20→21:32)
[2018-08-20] MEDS: ICAR-C PO SCH ×2 (09:20→21:32)
[2018-08-20] MEDS: FOLIC ACID PO SCH (09:20)
[2018-08-20] MEDS: NORVASC PO SCH ×2 (09:21→21:34)
[2018-08-20] MEDS: ZYVOX PO SCH ×2 (09:21→21:34)
[2018-08-20] MEDS: SOLU-MEDROL IV SCH ×2 (09:21→21:34)
[2018-08-20] MEDS: HEPARIN SUBQ SCH ×2 (09:21→21:34)
[2018-08-20] MEDS: COLACE PO SCH ×2 (09:21→21:34)
[2018-08-20] MEDS: SODIUM CHLORIDE 0.9% INJ SCH ×2 (09:22→21:34)
[2018-08-20] MEDS: FLONASE NAS SCH (09:23)
[2018-08-20] MEDS: BASAGLAR SUBQ SCH ×2 (09:31→21:30)
[2018-08-20] MEDS: ATIVAN PO SCH ×3 (09:55→21:45)
[2018-08-20] MEDS ORDERED: NS 500 ML ONE (10:19)
--- NOTE | 2018-08-20 13:25 | PROGRESS NOTE ---
DATE: 08/20/2018 SUBJECTIVE: Ms. Foley was sitting up. She feels a little stronger. Breathing is comfortable. No chest pain. No chest wall discomfort. She is eating pretty well. Her bowels are moving. She has a Kaplan catheter. She wants to keep that in. She said that was keeping urine from dripping down into her cast. OBJECTIVE: Vitals: Temperature 98.1 degrees, pulse 70, respirations 20, blood pressure 125/57. Eyes: Pupils are equal and round. Lungs: Clear in all lung chin. Cardiovascular: Regular rhythm and rate without murmur or S3. Abdomen: Soft. Skin: Warm and dry. URINE OUTPUT: 3300 mL. LABORATORY: Her last 3 sequential blood sugars, 500, 193 and 242. ASSESSMENT AND PLAN: 1. Anemia, probably multifactorial. Iron deficiency. Continue to watch her blood count. Hematocrit is 26. Hemoglobin was 8.5 on the , so I will check it again in the morning. 2. Pneumonia, which is improving. Continue present antibiotics. 3. Lung cancer, she has decided not to pursue treatment. 4. Acute on chronic kidney disease, which is improved. Renal function, her last creatinine was 3.5, so we do need to check another creatinine, so we will check electrolytes, CBC and magnesium in the morning. 5. Diabetes mellitus type 2. Sugars are kind of sporadic, still bouncing around. 6. Costochondritis, much better. I Have decreased her Solu-Medrol. 7. Chronic constipation. She is getting Colace and suppositories. Her bowels are moving. 8. Hypertension. Blood pressure appears well controlled. 9. Continue physical therapy. We will keep the Kaplan catheter in. We also need to see if she needs home oxygen. She does not have it at this time. cc: Archie Martinez MD
[2018-08-20] MEDS: SYMBICORT 160/4.5 MICROGM INHALER INH SCH ×2 (15:56→21:21)
[2018-08-20] MEDS: LIPITOR PO SCH (21:32)
[2018-08-20] MEDS: NEURONTIN PO SCH (21:32)
[2018-08-20] MEDS: AYR NASAL SPRAY NAS SCH (21:35)
[2018-08-21] MEDS: AZACTAM 0.5 GM in NS 50 ML IV SCH ×3 (00:46→19:17)
[2018-08-21] MEDS: ATROVENT NEB INH SCH ×4 (03:34→22:44)
[2018-08-21] MEDS: XOPENEX NEB INH SCH ×4 (03:34→22:44)
[2018-08-21] MEDS: APRESOLINE PO SCH ×3 (04:26→21:10)
[2018-08-21] MEDS: LASIX IV SCH ×2 (04:26→15:38)
[2018-08-21] MEDS: HUMULIN R SUBQ SCH ×4 (06:23→21:12)
[2018-08-21 07:39] LABS: AGAP 20; ALB/GLOB RATIO 0.7; ALBUMIN 2.8 g/dL (3.5-5.0); ALKALINE PHOSPHATASE 123 U/L (32-104); BUN 110 mg/dL (8-22); CALCIUM 8.7 mg/dL (8.8-10.2); CHLORIDE 94 mmol/L (98-107); COSMO 304; ESTIMATED GFR 16; GLUCOSE 224 mg/dL (70-104); GOT 24 U/L (10-30); GPT 21 U/L (10-36); MAGNESIUM 2.3 mg/dL (1.5-2.7); POTASSIUM 4.7 mmol/L (3.5-5.1); SODIUM 131 mmol/L (136-145); TCO2 17 mmol/L (25-35); TOTAL BILIRUBIN < 0.15 mg/dL (0.20-1.00); TOTAL PROTEIN 6.7 g/dL (6.3-8.3)
[2018-08-21 07:40] LABS: HEMATOCRIT 28.4 % (37.0-47.0); HEMOGLOBIN 9.2 g/dL (12.0-16.0); IMM GRAN# 0.02 X1000 (0.0-0.04); IMM GRAN% 0.2 % (0.0-0.5); LYMPH% 5.1 % (20.5-51.1); MCH 28.2 PG (27-31); MCHC 32.4 g/dL (33-37); MCV 87.1 FL (81-99); MONO# 0.79 X1000 (0.11-0.59); MONO% 8.1 % (1.7-9.3); MPV 8.7 FL (7.4-10.4); NEUT# 8.47 X1000 (1.4-6.5); NEUT% 86.6 % (42.2-75.2); PLT 571 X1000 (130-400); RBC 3.26 XMIL (4.2-5.4); RDW 14.5 % (11.5-14.5); WBC 9.78 X1000 (4.8-10.8)
[2018-08-21 09:02] LABS: LYMPHS 6 % (21-51); MONO 2 % (1-9); SEGS 92 % (42-75)
[2018-08-21] MEDS: DIFLUCAN PO SCH (10:50)
[2018-08-21] MEDS: NOVOLOG MIX 70/30 SUBQ SCH ×3 (10:50→19:37)
[2018-08-21] MEDS: PROTONIX IV SCH ×2 (10:52→21:11)
[2018-08-21] MEDS: SOLU-MEDROL IV SCH ×2 (10:52→21:11)
[2018-08-21] MEDS: FOLIC ACID PO SCH (10:52)
[2018-08-21] MEDS: LACTULOSE PO SCH ×2 (10:53→21:17)
[2018-08-21] MEDS: HEPARIN SUBQ SCH ×2 (10:53→21:12)
[2018-08-21] MEDS: COLACE PO SCH ×2 (10:54→21:19)
[2018-08-21] MEDS: ICAR-C PO SCH ×2 (10:54→21:10)
[2018-08-21] MEDS: TRANDATE PO SCH ×2 (10:54→21:18)
[2018-08-21] MEDS: NORVASC PO SCH ×2 (10:54→21:13)
[2018-08-21] MEDS: ZYVOX PO SCH ×2 (10:55→21:10)
--- NOTE | 2018-08-21 11:04 | PROGRESS NOTE ---
DATE: 08/21/2018 SUBJECTIVE: The patient states that she is feeling better. She is a little stronger. She denies any complaints. OBJECTIVE: Vital Signs: Blood pressure is 139/53, with a heart rate of 79, respirations are 20, temperature is 98.7 degrees oral, with room air saturations of 97% to 98%. Cardiovascular: Regular rate and rhythm. S1 and S2 appreciated. She has no murmur appreciated. Extremities: She has no lower extremity edema. Peripheral pulses are palpable x4 extremities. Calves are nontender. Pulmonary/Chest: Breath sounds with some scattered wheezes. Chest rises and falls symmetrically with respiration. Chest wall is nontender to palpation. Gastrointestinal: Abdomen is soft, nontender, nondistended with bowel sounds in all 4 quadrants. Genitourinary: Kaplan is patent to bedside bag with clear yellow urine draining. Neurologic: She is alert oriented x3. LABORATORY: WBC is 9.7 with hemoglobin 9.2, hematocrit 28.4, platelets of 571,000. Sodium is 131, potassium 4.7, BUN 110 with a creatinine of 3. Blood sugars ranging 220 to 386. ASSESSMENT AND PLAN: 1. Anemia, multifactorial, iron deficiency. We will continue to monitor her hemoglobin and hematocrit. Continue with iron supplementation. 2. Pneumonia. We will continue her antibiotics. 3. Lung cancer. The patient has opted to not pursue treatment. We will follow her wishes. 4. Acute on chronic kidney disease. Baseline creatinine has been between 2.3 and 2.5. We will continue to monitor her labs and we will renal dose medications as appropriate. We appreciate Dr. Pena's help in managing this patient. 5. Hypertension. We will continue with her current medication regimen. 6. Diabetes mellitus type 2. We will continue with her current regimen. 7. The plan is for the patient to go to rehab. Evidently, there is a bed at [facility], and reportedly the family will be contacted this morning to complete paperwork, and we are at the present remain waiting on [employer] as approval. Dictated by TAYLOR Mayfield for Archie Martinez MD This chart was documented by, TAYLOR Mayfield and accurately reflects the services performed, treatment plan and medical decisions as attested by the providers signature Archie Martinez MD. cc: TAYLOR Mayfield MD
[2018-08-21] MEDS: BASAGLAR SUBQ SCH ×2 (11:14→21:12)
[2018-08-21] MEDS: FLONASE NAS SCH (11:21)
[2018-08-21] MEDS: SYMBICORT 160/4.5 MICROGM INHALER INH SCH ×2 (11:26→22:43)
[2018-08-21] MEDS: ATIVAN PO SCH ×3 (11:33→21:13)
--- NOTE | 2018-08-21 15:56 | INFECTIOUS DISEASE PROGRESS NO ---
DATE: 08/21/2018 HISTORY OF PRESENT ILLNESS: The patient has pneumonia, immunoglobulin deficiency, and more recently, she has been diagnosed as having lung cancer. MEDICATIONS: The patient has been on a total of 8 days on a combination of Zyvox and aztreonam. 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 PHYSICAL EXAMINATION: Vital Signs: Temperature is 97.9, pulse 82, respirations 20, blood pressure 138/56. General: This is an ill-appearing middle-aged female. She is in no acute distress. Head/eyes/ears/nose/throat: She can hear my spoken words and see near objects. She does not have any white patches on her tongue. Lungs: Clear to auscultation. Cardiovascular: Heart rate is regular. Abdomen: Not tender. It seems more protuberant than usual, but the patient says this is the way her abdomen normally looks. She does have bowel sounds. Extremities: The patient has a cast on the right leg. The left leg has bruises on it. Neurologic: The patient is arousable. She can talk. She can move her extremities. There is no tremor. LABORATORY AND X-RAY: Creatinine is 3. GFR is 16. CBC shows a white count of 9780, hemoglobin 9.2, and platelet count 571,000. ASSESSMENT AND PLAN: The patient has pneumonia. I plan to continue her current antibiotics. As far as her immunoglobulin deficiency, she already has received an infusion of IVIG. COMORBIDITY: Lung cancer, gastroesophageal reflux disease, diabetes. cc: Taj Quezada MD MTDManjula
[2018-08-21] MEDS: NEURONTIN PO SCH (21:11)
[2018-08-21] MEDS: LIPITOR PO SCH (21:11)
[2018-08-21] MEDS: AYR NASAL SPRAY NAS SCH (21:18)
[2018-08-21] MEDS: DULCOLAX PR SCH (21:18)
[2018-08-22] MEDS: AZACTAM 0.5 GM in NS 50 ML IV SCH ×3 (00:58→16:38)
[2018-08-22] MEDS: NORCO-5 PO PRN (02:11)
[2018-08-22] MEDS: HUMULIN R SUBQ SCH ×5 (02:19→23:57)
[2018-08-22] MEDS: ATROVENT NEB INH SCH ×4 (03:49→22:53)
[2018-08-22] MEDS: XOPENEX NEB INH SCH ×4 (03:49→22:52)
[2018-08-22] MEDS: APRESOLINE PO SCH ×3 (04:26→23:57)
[2018-08-22] MEDS: LASIX IV SCH ×2 (04:26→16:38)
[2018-08-22 07:10] LABS: HEMATOCRIT 28.3 % (37.0-47.0); HEMOGLOBIN 9.3 g/dL (12.0-16.0); MCH 28.4 PG (27-31); MCHC 32.9 g/dL (33-37); MCV 86.3 FL (81-99); MPV 8.6 FL (7.4-10.4); RBC 3.28 XMIL (4.2-5.4); RDW 14.4 % (11.5-14.5); WBC 8.97 X1000 (4.8-10.8)
[2018-08-22 07:32] LABS: ALBUMIN 3.2 g/dL (3.5-5.0); CREATININE 2.9 mg/dL (0.5-0.9); PHOSPHORUS 4.9 mg/dL (2.7-4.5); POTASSIUM 4.7 mmol/L (3.5-5.1)
[2018-08-22] MEDS ORDERED: INSULIN PEN NEEDLES ONE (08:32)
[2018-08-22] MEDS: SYMBICORT 160/4.5 MICROGM INHALER INH SCH ×2 (10:05→22:52)
[2018-08-22] MEDS: NOVOLOG MIX 70/30 SUBQ SCH ×2 (10:14→16:46)
[2018-08-22] MEDS: SOLU-MEDROL IV SCH (10:16)
[2018-08-22] MEDS: LACTULOSE PO SCH (10:17)
[2018-08-22] MEDS: TRANDATE PO SCH ×2 (10:17→23:55)
[2018-08-22] MEDS: PROTONIX IV SCH (10:17)
[2018-08-22] MEDS: SODIUM CHLORIDE 0.9% INJ SCH (10:17)
[2018-08-22] MEDS: ZYVOX PO SCH ×2 (10:17→23:55)
[2018-08-22] MEDS: NORVASC PO SCH ×2 (10:17→23:55)
[2018-08-22] MEDS: ICAR-C PO SCH (10:17)
[2018-08-22] MEDS: COLACE PO SCH (10:18)
[2018-08-22] MEDS: FLONASE NAS SCH (10:18)
[2018-08-22] MEDS: FOLIC ACID PO SCH (10:18)
[2018-08-22] MEDS: ATIVAN PO SCH ×2 (10:19→15:38)
[2018-08-22] MEDS: HEPARIN SUBQ SCH (10:20)
--- NOTE | 2018-08-22 12:19 | DISCHARGE SUMMARY ---
ADMISSION DATE: 08/13/2018 DISCHARGE DATE: 08/22/2018 PROGRESS NOTE/DISCHARGE SUMMARY NOTE: DISCHARGE DIAGNOSIS: Pneumonia, I am going to say probably gram-negative type. She is doing well. No fevers. Saturations are 96% on room air. Her last chest x-ray on the showed some left lower lobe airspace disease. She has been getting aztreonam, but she seems to be stable. OBJECTIVE: Cardiovascular: Regular rate and rhythm. Pulmonary: No rhonchi or rales. Overall, she seems to be doing okay. A bed is ready for her at rehab. I think she is able to go there. She has no white count. Hemoglobin and hematocrit is stable. BUN and creatinine are 104 and 2.9 with her creatinine kind of staying where it has been. PLAN: Will be to discharge her today. She wants no treatment for her lung cancer. I am waiting on her IV antibiotics recommendation per Dr. Quezada. He is aware. She does have a PICC line in place. She is currently on Azactam. I am not sure if we can go to the same dose or possibly increase her dose to 1 g q.12. She is on 0.5 q.8 right now or do Teflaro. Dr. Quezada is going to make some recommendations and hopefully we can get her out today. This is a [id number] encounter note with Khushi Uribe. cc: Nghia Rodriguez MD
--- NOTE | 2018-08-22 12:26 | INFECTIOUS DISEASE PROGRESS NO ---
DATE: 08/22/2018 PRESENT ILLNESS: The patient has the following illnesses: Pneumonia, immunoglobulin deficiency, and lung cancer. MEDICATIONS: The patient is on the combination of Zyvox and aztreonam. She has had 9 days of treatment with those antibiotics. The patient also had an immunoglobulin deficiency, and she received an infusion of IVIG for that. PHYSICAL EXAMINATION: Vital Signs: Temperature is 98.3 degrees, pulse 83, respirations 23, blood pressure 144/66. General: This is an ill-appearing middle-aged female. She is in no acute distress. Head, eyes, ears, nose, and throat: She can hear my spoken words and see near objects. She does not have any white patches on her tongue her sinuses are not tender. Lungs: Clear to auscultation. Cardiovascular: Heart rate is regular. Abdomen: Soft. It is not tender. It is somewhat protuberant, but I think that is usual for the patient. Extremities: The patient has a PICC in the left arm. The site is not red or swollen. She has a cast on the right leg, which has been causing some bruises on the left leg. Neurologic: The patient is arousable. She can move her extremities. There is no tremor. She talks in a coherent fashion. DIAGNOSTIC STUDIES: There is no new radiographic study today. The CBC shows a white count of 8970, hemoglobin 9.3, and platelet count 589,000. Creatinine is 2.9, GFR is 17. ASSESSMENT AND PLAN: 1. The patient has pneumonia. She is going to be going to a rehabilitation facility. I have written orders to continue aztreonam and Zyvox for 4 more days and then stop the infusion and remove the patient's PICC. 2. As regarding the patient's immunoglobulin deficiency, I plan in 6 to 8 weeks to repeat the immunoglobulin levels, and if the patient wants to proceed with it, we will start her on a regular course of IVIG. PATIENT'S COMORBIDITIES: Include: 1. Lung cancer. 2. Gastroesophageal reflux disease. 3. Diabetes mellitus. cc: Taj Quezada MD
[2018-08-22] MEDS: BASAGLAR SUBQ SCH (13:33)
--- NOTE | 2018-08-22 21:48 | DISCHARGE SUMMARY ---
ADMISSION DATE: 08/13/2018 DISCHARGE DATE: CONSULTATIONS: 1. Dr. Rosales, Gastroenterology. 2. Dr. Eben Pena with Nephrology. 3. Dr. Taj Quezada with Infectious Disease. 4. Dr. Savage Newman with Gastroenterology. 5. Dr. Homer Gonzalez with Pulmonology. PROCEDURES: Renal ultrasound: Increased renal echotexture bilaterally, which is nonspecific indicator of medical renal disease. DISCHARGE DIAGNOSES: 1. Anemia, multifactorial, iron deficiency. The patient was continued on iron supplementation. She was transfused with 2 units of packed red blood cells. Hemoglobin and hematocrit are currently stable at 9 and 28. 2. Pneumonia. Antibiotics per Dr. Quezada. 3. Right lung adenocarcinoma, followed by Dr. Rosales. He has had a lengthy discussion with the family about treatment. The patient has opted for no treatment and wishes to proceed with rehab. 4. Endstage renal disease, followed by Dr. Pena. Her acute kidney injury has resolved. She does not meet criteria for dialysis. She made herself a DNR and declined any further therapy, and is not interested in any dialysis if needed in the future. 5. Hypertension. Continue home regimen. 6. Diabetes mellitus type 2. Continue with current home regimen. 7. Immunoglobulin deficiency. She has received intravenous immune globulin infusions and will continue to be followed by Dr. Quezada. HOSPITAL COURSE: Briefly, Ms. Foley is a 58-year-old female with history of tobacco use, chronic kidney disease. She was admitted to the hospital on 07/27/2018 with congestive heart failure and probable diastolic dysfunction, with [id number] renal failure. She was treated for pneumonia by Infectious Disease. She had a CT scan which revealed a right lower lobe nodule that had increased in size. She underwent a CT-guided biopsy on 08/10/2018 that revealed a moderately differentiated adenocarcinoma. She went to rehab in before any additional workup was planned. She returned to the emergency room with 103 degrees fever, increasing cough and sputum production, body aches and chills with an elevated white count. Chest x-ray revealed infiltrate. She was treated with IV antibiotics per Dr. Taj Quezada. Dr. Rosales has had a lengthy discussion with the family. She has chosen not to pursue treatment of her lung cancer. She was followed by GI for her anemia. She did receive 2 units of PRBCs. She will continue on home medications. Her hemoglobin and hematocrit are now stable. Her acute kidney injury has also resolved. The patient has known chronic kidney disease, followed by Nephrology. She made herself a DNR level 1 and did not want to pursue any aggressive measures if she did need dialysis; however, she did not meet criteria for dialysis while in house. Dr. Quezada will continue her on antibiotics. She did receive IVIG infusion and will be discharged back to rehab as a DNR level 1. VITAL SIGNS: Temperature is 98.3 degrees, heart rate 83, respirations 23, blood pressure 144/66, O2 is 96% on room air. DISCHARGE DIET: Mechanical soft. DISCHARGE MEDICATIONS: 1. Normal saline spray, 1 spray nasal at bedtime. 2. Flonase 1 each nasal q.a.m. 3. Lipitor 40 mg p.o. daily. 4. Dulcolax 10 mg SD at bedtime. 5. Zyvox 600 mg p.o. q.12 hours. 6. Apresoline 50 mg p.o. q.8 hours. 7. Ativan 0.5 mg p.o. t.i.d. 8. Insulin glargine 25 units subcutaneously b.i.d. 9. Colace 100 mg p.o. b.i.d. 10. Fleets enema 133 mL SD at bedtime p.r.n. 11. Folic acid 0.4 mg p.o. daily. 12. Gabapentin 300 mg p.o. b.i.d. 13. Icar-C 1 each p.o. b.i.d. 14. Lactulose 30 mL p.o. b.i.d. 15. Lasix 40 mg p.o. b.i.d. 16. Lidoderm patch 1 each topical daily. 17. Norvasc 5 mg p.o. b.i.d. 18. Symbicort 160/4.5 mcg inhaler 2 puffs inhaled RT b.i.d. 19. Labetalol 200 mg p.o. b.i.d. 20. Tylenol 650 mg p.o. q.6 hours p.r.n. 21. Zantac 150 mg p.o. b.i.d. FOLLOWUP: Ms. Foley is being discharged back to rehab. She will have antibiotics per Dr. Taj Quezada. She will follow up with her primary care provider, Dr. Art Cueto. She is a DNR level 1. She is to take all medications as prescribed. She can return to the ED or call 911 for any worsening of symptoms. Dictated by TAYLOR Tyler for Nghia Rodriguez MD cc: MD Taj Medrano MD Naveen T. Lobo, MD Reginald D. Gladish, MD
[2018-08-22] MEDS: NEURONTIN PO SCH (23:55)
[2018-08-23] MEDS: HEPARIN SUBQ SCH ×3 (00:06→21:09)
[2018-08-23] MEDS: DULCOLAX PR SCH (00:06)
[2018-08-23] MEDS: BASAGLAR SUBQ SCH ×3 (00:06→21:10)
[2018-08-23] MEDS: COLACE PO SCH ×3 (00:06→21:09)
[2018-08-23] MEDS: ICAR-C PO SCH ×3 (00:07→21:09)
[2018-08-23] MEDS: ATIVAN PO SCH ×4 (00:07→21:09)
[2018-08-23] MEDS: AYR NASAL SPRAY NAS SCH ×2 (00:07→21:08)
[2018-08-23] MEDS: PROTONIX IV SCH ×3 (00:08→21:09)
[2018-08-23] MEDS: LACTULOSE PO SCH ×3 (00:08→21:10)
[2018-08-23] MEDS: LIPITOR PO SCH ×2 (00:08→21:09)
[2018-08-23] MEDS: AZACTAM 0.5 GM in NS 50 ML IV SCH ×3 (01:48→18:11)
[2018-08-23] MEDS: ATROVENT NEB INH SCH ×4 (04:13→22:19)
[2018-08-23] MEDS: XOPENEX NEB INH SCH ×4 (04:13→22:19)
[2018-08-23] MEDS: LASIX IV SCH ×2 (05:00→18:13)
[2018-08-23] MEDS: APRESOLINE PO SCH ×3 (05:30→21:09)
[2018-08-23] MEDS: HUMULIN R SUBQ SCH ×3 (06:55→18:09)
--- NOTE | 2018-08-23 07:33 | Diag Imaging Result Doc PS360 ---
EXAM: CHEST-1 VIEW INDICATION: SOB TECHNIQUE: One view COMPARISON: 08/19/2018 FINDINGS: The left PICC line is in stable position. Central vasculature appears to be somewhat increased as compared to the previous study suggesting mild pulmonary venous congestion. The mild infiltrates seen previously are essentially stable given differences in positioning. No new consolidation is identified. Cardiac silhouette is stable. IMPRESSION: Likely slight increase in pulmonary venous congestion. Essentially stable, otherwise. Electronically signed by Edmond Barrera 08/23/2018 7:30 AM
[2018-08-23] MEDS: ZYVOX PO SCH ×2 (08:33→21:09)
[2018-08-23] MEDS: TRANDATE PO SCH ×2 (08:33→21:08)
[2018-08-23] MEDS: FOLIC ACID PO SCH (08:34)
[2018-08-23] MEDS: NORVASC PO SCH ×2 (08:35→21:09)
[2018-08-23] MEDS: NOVOLOG MIX 70/30 SUBQ SCH ×2 (08:36→18:14)
[2018-08-23] MEDS: FLONASE NAS SCH (08:54)
[2018-08-23] MEDS: SYMBICORT 160/4.5 MICROGM INHALER INH SCH ×2 (09:04→22:19)
[2018-08-23] MEDS: LIDODERM TOP SCH ×2 (09:06→11:58)
--- NOTE | 2018-08-23 11:00 | PROGRESS NOTE ---
DATE: 08/23/2018 SUBJECTIVE: The patient has no complaints. She is sitting up in the bed with visitors. OBJECTIVE: Vital signs: Blood pressure is 132/48 with a heart rate of 79, respirations are 22, temperature is 98 degrees oral with room air saturations 95% to 100 percent. Cardiovascular: Regular rate and rhythm. S1, S2 appreciated. No murmur. She does have bilateral pedal edema, maybe 1+. Calves are nontender to palpation and peripheral pulses are palpable x4 extremities. Pulmonary: Breath sounds have some scattered wheezes on expiration. Chest rises and falls symmetric with respiration. Chest wall is nontender to palpation. Gastrointestinal: Abdomen soft, nontender, nondistended with bowel sounds in all 4 quadrants. Neurologic: She is alert and oriented. LABORATORIES: No laboratories were drawn today. Blood sugars have been in the 230 to 316 range. PROBLEM LIST: 1. Anemia, iron deficiency. We will continue with iron supplementation. Her hemoglobin and hematocrit remain stable at 9 and 28 respectively. 2. Pneumonia. We will continue antibiotics, as well as incentive spirometer. The patient has 2 days of Zyvox, then it will be discontinued. 3. History of lung cancer. The patient opted not to pursue treatment. We will continue to follow her wishes. 4. Zqxsh-un-wjpgyke kidney disease. This has been stable. Dr. Pena follows with the patient. 5. Hypertension. We will continue her regimen. 6. Diabetes mellitus type 2. Continue with her current regimen. 7. Disposition. The patient has a bed at [facility], although they will not take the patient until antibiotics are completed, which should be in 2 days. Dictated by TAYLOR Mayfield for Seamus Almaraz MD This chart was documented by, TAYLOR Mayfield and accurately reflects the services performed, treatment plan and medical decisions as attested by the providers signature Seamus Almaraz MD. cc: TAYLOR Mayfield MD
--- NOTE | 2018-08-23 15:44 | INFECTIOUS DISEASE PROGRESS NO ---
DATE: 08/23/2018 PRESENT ILLNESS: The patient has pneumonia, immunoglobulin deficiency, and lung cancer. MEDICATIONS: The patient has been on Zyvox and aztreonam now for 10 days. The patient had immunoglobulin deficiency, but she has had an infusion of IVIG and most likely the immunoglobulin levels are normal now. PHYSICAL EXAMINATION: Vital Signs: Temperature is 97.9, pulse 76, respirations 22, blood pressure 143/69. General: This is an ill-appearing middle-aged female. She is in no acute distress. Head, Eyes, Ears, Nose and Throat: The patient can hear my spoken words and she can see near objects. She is blind in one eye. Lungs: Clear to auscultation. Cardiovascular: Heart rate is regular. Abdomen: Soft and nontender. It is somewhat protuberant. Neurologic: The patient is awake. She can move her extremities. There is no tremor. LAB AND X-RAY: The patient does have an x-ray from today and it shows there is a slight increase in pulmonary venous congestion. There is no new lab or x-ray. ASSESSMENT AND PLAN: The patient has pneumonia. The plan is to continue treating her. The rehab facility refused to take the patient on her current antibiotics. Therefore, the patient's pneumonia will be treated with a peripheral IV and Zyvox and aztreonam. The patient will be done in 2 days on that. The patient can be discharged from an infectious disease point of view on 08/26, which I believe is a Tuesday. COMORBIDITY: In this patient include the following: Lung cancer, gastroesophageal reflux disease, and diabetes mellitus. cc: Taj Quezada MD
[2018-08-23] MEDS: SODIUM CHLORIDE 0.9% INJ SCH (21:09)
[2018-08-23] MEDS: NEURONTIN PO SCH (21:09)
--- NOTE | 2018-08-23 23:43 | PROGRESS NOTE ---
DATE: 08/23/2018 SUBJECTIVE: The patient has no new complaints. OBJECTIVE: Vital Signs: Temperature 98, pulse 79, respiratory rate 20, BP 132/48. General: The patient is very pleasant to talk with. She is in no respiratory distress. She has no complaints. HEENT: Normocephalic. Neck: Supple. Cardiovascular: Regular rate. Chest: Clear. Abdomen: Soft. Extremities: Moves all extremities. ASSESSMENT: 1. Lung cancer. 2. Pneumonia, left lower lobe. 3. Adult failure to thrive. 4. Others. PLAN: Overall the patient is stable and doing well; however, she needs to be on aztreonam through Tuesday, rehabilitation will not take her on this antibiotics. She will stay in the hospital today until Tuesday at which time she can finish her antibiotic and then likely will be able to discharge home. cc: Seamus Almaraz MD
[2018-08-24] MEDS: AZACTAM 0.5 GM in NS 50 ML IV SCH ×3 (00:53→16:26)
[2018-08-24] MEDS: DULCOLAX PR SCH ×2 (02:30→21:18)
[2018-08-24] MEDS: HUMULIN R SUBQ SCH ×5 (02:30→21:17)
[2018-08-24] MEDS: APRESOLINE PO SCH ×3 (04:51→21:16)
[2018-08-24] MEDS: LASIX IV SCH (04:51)
[2018-08-24] MEDS: XOPENEX NEB INH SCH ×4 (06:08→21:15)
[2018-08-24] MEDS: ATROVENT NEB INH SCH ×4 (06:08→21:15)
[2018-08-24] MEDS ORDERED: INSULIN PEN NEEDLES ONE (08:10)
[2018-08-24] MEDS: SYMBICORT 160/4.5 MICROGM INHALER INH SCH ×2 (09:04→20:24)
[2018-08-24] MEDS: ATIVAN PO SCH ×3 (09:29→21:16)
[2018-08-24] MEDS: NOVOLOG MIX 70/30 SUBQ SCH ×2 (09:29→16:26)
[2018-08-24] MEDS: BASAGLAR SUBQ SCH ×2 (09:29→21:17)
[2018-08-24] MEDS: ICAR-C PO SCH ×2 (09:30→21:16)
[2018-08-24] MEDS: NORVASC PO SCH ×2 (09:32→21:16)
[2018-08-24] MEDS: COLACE PO SCH ×2 (09:32→21:16)
[2018-08-24] MEDS: ZYVOX PO SCH ×2 (09:32→21:16)
[2018-08-24] MEDS: TRANDATE PO SCH ×2 (09:32→21:16)
[2018-08-24] MEDS: HEPARIN SUBQ SCH ×2 (09:33→21:17)
[2018-08-24] MEDS: LACTULOSE PO SCH ×2 (09:33→21:18)
[2018-08-24] MEDS: FOLIC ACID PO SCH (09:33)
[2018-08-24] MEDS: PROTONIX IV SCH ×2 (09:33→21:17)
[2018-08-24] MEDS: SODIUM CHLORIDE 0.9% INJ SCH ×2 (09:33→21:17)
[2018-08-24] MEDS: LIDODERM TOP SCH (09:34)
[2018-08-24] MEDS: FLONASE NAS SCH (09:34)
[2018-08-24] MEDS ORDERED: LASIX IV ONE (16:04)
[2018-08-24] MEDS ORDERED: ZAROXOLYN PO ONE (16:04)
--- NOTE | 2018-08-24 16:40 | PROGRESS NOTE ---
DATE: 08/24/2018 INTERVAL HISTORY: No acute event overnight. SUBJECTIVE: Patient does appear mildly short of breath; however, she states she is not feeling short of breath. She does have abdominal distention because she just had her meal. She denies any nausea, vomiting, or chest pain. VITAL SIGNS: Currently temperature 98.2 degrees, pulse 89, respiratory rate 24, blood pressure 160/63, saturating 97% on room air. PHYSICAL EXAMINATION: In mild distress because of shortness of breath. 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 Oral cavity is moist. Decreased air entry in left infrascapular region. Adequate air entry in right hemithorax. S1, S2 normal. No murmur, rub, or gallop. Abdomen is distended, soft, nontender. Note, she does have bilateral lower extremity edema. Input and output suggests -1.5 L yesterday and -1.6 L today so far. DIAGNOSTIC STUDIES: No CBC or BMP today. She did have hypoglycemia with blood sugar of 64. No new microbiological data. No imaging. ASSESSMENT AND PLAN: 1. Left lower lobe pneumonia. Continue intravenous linezolid and intravenous aztreonam. The last dose of antibiotic would be 07/25/2018 as per Infectious Disease recommendation. 2. Acute hypoxic respiratory failure, now breathing well on room air. Continue patient on budesonide/formoterol, fluticasone nasal spray. 3. Lung cancer. The patient had refused to undergo any chemotherapy as per dictation by oncologist. She should follow up with Dr. Rosales if she would want to pursue further care. 4. Acute kidney injury on chronic kidney disease, stage 3 to stage 4. Continue intravenous Lasix for acute hypoxic respiratory failure and volume overload, and I will change it to p.o. Lasix tomorrow. The patient previously had refused to undergo any kind of dialysis. 5. Others: Continue home atorvastatin for hyperlipidemia, bisacodyl docusate, and lactulose to avoid constipation. 6. Amlodipine and labetalol for essential hypertension. 7. Lantus and NovoLog for history of insulin-dependent diabetes mellitus. 8. Other medications include acetaminophen as needed every 4 hours, folic acid, gabapentin hydralazine, ipratropium, iron carbonyl/ascorbic acid, levalbuterol, lorazepam, ondansetron as needed, and pantoprazole. DISPOSITION: The patient should receive intravenous antibiotics tomorrow, and if she continues to do okay, my plan is to discharge her to [facility] tomorrow. Plan of care discussed with the patient. All of her questions have been answered. cc: Ferny Desouza MD
[2018-08-24] MEDS: LIPITOR PO SCH (21:16)
[2018-08-24] MEDS: TYLENOL PO PRN (21:16)
[2018-08-24] MEDS: NEURONTIN PO SCH (21:16)
[2018-08-25] MEDS: AZACTAM 0.5 GM in NS 50 ML IV SCH ×3 (00:56→15:12)
[2018-08-25] MEDS ORDERED: CATHFLO IV ONE (02:18)
[2018-08-25] MEDS ORDERED: STERILE WATER INJ. INJ ONE (02:18)
[2018-08-25] MEDS: HUMULIN R SUBQ SCH ×3 (05:55→17:26)
[2018-08-25] MEDS: ATROVENT NEB INH SCH ×3 (05:58→11:27)
[2018-08-25] MEDS: XOPENEX NEB INH SCH ×3 (05:58→11:26)
[2018-08-25] MEDS: AYR NASAL SPRAY NAS SCH (06:10)
[2018-08-25] MEDS ORDERED: D50W SYRINGE ONE (06:10)
[2018-08-25 06:32] LABS: EOS% 1.4 % (0.0-10.0); HEMOGLOBIN 10.9 g/dL (12.0-16.0); IMM GRAN# 0.04 X1000 (0.0-0.04); IMM GRAN% 0.6 % (0.0-0.5); LYMPH# 1.07 X1000 (1.2-3.4); LYMPH% 15.3 % (20.5-51.1); MCH 27.9 PG (27-31); MCHC 32.1 g/dL (33-37); MONO% 12.9 % (1.7-9.3); MPV 8.1 FL (7.4-10.4); NEUT# 4.87 X1000 (1.4-6.5); NEUT% 69.8 % (42.2-75.2); PLT 481 X1000 (130-400); RBC 3.91 XMIL (4.2-5.4); RDW 15.3 % (11.5-14.5); WBC 6.98 X1000 (4.8-10.8)
[2018-08-25] MEDS: APRESOLINE PO SCH ×2 (06:37→15:12)
[2018-08-25] MEDS ORDERED: D50W SYRINGE IV ONE (06:46)
[2018-08-25 07:24] LABS: CALCIUM 8.7 mg/dL (8.8-10.2); CREATININE 2.7 mg/dL (0.5-0.9); POTASSIUM 4.1 mmol/L (3.5-5.1)
[2018-08-25] MEDS: SYMBICORT 160/4.5 MICROGM INHALER INH SCH (07:32)
[2018-08-25] MEDS: NOVOLOG MIX 70/30 SUBQ SCH (08:25)
[2018-08-25] MEDS: FLONASE NAS SCH (08:25)
[2018-08-25] MEDS: LIDODERM TOP SCH (08:26)
[2018-08-25] MEDS ORDERED: LASIX PO SCH (09:00)
[2018-08-25] MEDS: ZYVOX PO SCH (09:24)
[2018-08-25] MEDS: COLACE PO SCH (09:24)
[2018-08-25] MEDS: TRANDATE PO SCH (09:24)
[2018-08-25] MEDS: ICAR-C PO SCH (09:24)
[2018-08-25] MEDS: NORVASC PO SCH (09:24)
[2018-08-25] MEDS: ATIVAN PO SCH ×2 (09:24→15:12)
[2018-08-25] MEDS: FOLIC ACID PO SCH (09:24)
[2018-08-25] MEDS: BASAGLAR SUBQ SCH (09:25)
[2018-08-25] MEDS: HEPARIN SUBQ SCH (09:25)
[2018-08-25] MEDS: LACTULOSE PO SCH (09:28)
[2018-08-25] MEDS: PROTONIX IV SCH (09:28)
[2018-08-25] MEDS: TYLENOL PO PRN (09:28)
[2018-08-25] MEDS: SODIUM CHLORIDE 0.9% INJ SCH (09:28)
--- NOTE | 2018-08-25 14:09 | DISCHARGE SUMMARY ---
ADMISSION DATE: 08/13/2018 DISCHARGE DATE: 08/22/2018 ADDENDUM: The patient was admitted for pneumonia and she has completed her course of intravenous antibiotics. The patient was also detected to have lung nodule on the right lower lobe, which was diagnosed to be moderately differentiated adenocarcinoma. Hematology was consulted with Oncology. However, the patient refused to take any chemotherapy. She was advised to follow up with the oncologist as an outpatient if she changes her mind. She also detected severe dysfunction of her kidneys. However, she did not want to get aggressive measures in terms of dialysis. PHYSICAL EXAMINATION: Vital Signs: At the time of discharge, her vitals detect temperature of 99 degrees, pulse 87, respiratory rate 20, blood pressure 120/55, saturating 92% on room air. General: On physical examination, she does not appear in any acute distress. HEENT: Oral cavity is moist. Lungs: Air entry decreased in left infrascapular region. Adequate air entry on right hemithorax without any wheeze, rhonchi, or crackles. Abdomen: Distended, soft. Tympanic to percussion. Nontender without any hepatosplenomegaly. She had mild bilateral lower extremity edema. LABS: Today on the day of discharge had a WBC of 6.9, hemoglobin of 10.9, platelet of 481. Normal electrolytes with BUN of 87 and creatinine of 2.7. Her blood sugar was 155. UPDATED DISCHARGE MEDICATION LIST: Saline nasal spray 1 spray at nighttime, fluticasone 50 mcg nasal spray in the morning time 1 spray, atorvastatin 40 mg daily, bisacodyl 10 mg per rectum at nighttime, hydralazine 50 mg every 8 hours, lorazepam 0.5 mg 3 times a day, ipratropium bromide 0.5 mg inhaled every 6 hours, insulin glargine 25 units subcutaneous b.i.d., docusate sodium 100 mg p.o. b.i.d., Fleet enema 133 mL per rectum as needed for constipation, folic acid 0.4 mg daily, gabapentin 300 mg b.i.d., Icar C tablet 1 tablet b.i.d., lactulose 30 mL p.o. b.i.d., furosemide 80 mg b.i.d., lidocaine 5% patch one patch topical daily, Stearns 5 one tablet q. 6 hours as needed for pain, amlodipine 5 mg b.i.d., NovoLog 70/30 20 units subcutaneous in the morning and at nighttime with breakfast and dinner, Symbicort 160 4.5 mcg inhaler 2 puffs inhaled b.i.d., labetalol 200 mg b.i.d., ranitidine 150 mg b.i.d., ondansetron 4 mg q. 4 hours as needed p.o. for nausea and vomiting. ASSESSMENT AND PLAN: The patient should go to rehabilitation. She should follow up with oncologist, senior programmer as an outpatient; also with president [employer]. Plan of care was discussed with the patient, Her sister was at bedside. TIME SPENT: More than 30 minutes were spent in discharging this patient. cc: Ferny Desouza MD
[2018-08-25 15:36] VITALS: BP 113/48
== END 2018-08-25 18:50 | DRG 871 ==
LOC: SUPCPDRO → ED 22:00 → 3S 08-13 01:44 → SUATTDRO 08-13 01:44 → 3S 08-14 15:54 → 4N 08-18 15:32
PROVIDERS: ATTEND Internal Medicine
CPT/HCPCS: 36430; 36569; 51702; 71010; 71045; 76770; 80048; 80053; 80069; 81001; 82270; 82378; 82550; 82553; 82570; 82607; 82728; 82746; 82784; 82805; 82948; 83540; 83550; 83605; 83615; 83735; 83880; 83935; 84145; 84155; 84156; 84165; 84300; 84439; 84443; 84484; 84540; 85025; 85027; 85045; 85610; 85730; 86334; 86850; 86900; 86901; 86920; 87040; 87088; 87205; 87275; 87276; 87804; 93005; 93010; 94640; 94760; 94761; 96361; 96374; 96375; 97116; 97162; 97166; 97530; 97535; 99285; A9270; C9113; J1561; J1644; J1815; J1940; J1956; J2020; J2405; J2920; J2997; J7040; J7050; J7120; P9016; S0073; S0164; XXXXX